=== PATIENT | male | born 1955 | race Caucasian/White ===

== ENCOUNTER → 2019-05-14 07:51 | Outpatient (CLI) | payer OTHER, SELFPAY ==
--- NOTE | 2019-05-14 | DI.CT.S_ITS ---
PROCEDURE: CT ABDOMEN PELVIS W CON INDICATIONS: Left lower quadrant pain TECHNIQUE: After the administration of oral and intravenous contrast, 5 mm thick sections acquired from the diaphragms to the symphysis. 5 mm thick coronal and sagittal reformats were performed. For radiation dose reduction, the following was used: automated exposure control, adjustment of mA and/or kV according to patient size. COMPARISON: [facility], CT, ABDOMEN/PELVIS WITH CONTRAST, 09/30/2014, 10:48. FINDINGS: Image quality: Excellent. ABDOMEN: Lung bases: Left hemidiaphragm is elevated. Consequent compressive atelectasis of the left lung base. Lung bases are otherwise clear. Heart size is normal. There is calcification of the coronary vasculature. Solid organs: Liver is normal in size and enhancement. Gallbladder is within normal limits. Biliary system is non-dilated. Pancreas enhances normally. Spleen is normal in size and enhancement. No adrenal nodules. Kidneys are normal in size and enhancement, without hydronephrosis. Peritoneum and bowel: Stomach, small bowel, and colon loops are normal in caliber and wall thickness. There is diverticulosis of the descending and sigmoid colon, as well as the distal transverse colon and splenic flexure. No evidence of superimposed acute diverticulitis. Normal appendix. No free fluid or air. Nodes and vessels: No retroperitoneal or mesenteric adenopathy. Aorta and inferior vena cava are normal in caliber. Miscellaneous: No ventral hernias. PELVIS: Genitourinary: The urinary bladder is decompressed. Miscellaneous: No inguinal hernias or adenopathy. Bones: Geographic sclerosis with a thin surrounding sclerotic rim in the left femoral head is present, measuring roughly 40 mm anteroposterior by 32 mm transverse. No evidence of associated subchondral fracture. No vertebral body compression fractures. IMPRESSION: 1. No acute process. 2. Normal appendix. 3. Colonic diverticulosis with no evidence of acute diverticulitis. 4. 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 This could be further characterized with noncontrast MRI, if clinically indicated. Dictated by: Li Yuen M.D. on 05/14/2019 at 10:54 Approved by: Li Yuen M.D. on 05/14/2019 at 11:00
== END ==
PROVIDERS: PCP Family Medicine; Visit Provider Family Medicine
DX: R10.32 Left lower quadrant pain (principal); K57.90 Diverticulosis of intestine, part unspecified, without perforation or abscess without bleeding; M87.852 Other osteonecrosis, left femur
CPT/HCPCS: 36415; 74177; 80053; Q9967

== ENCOUNTER → 2019-05-14 07:55 | Outpatient (CLI) | payer OTHER, SELFPAY ==
[2019-05-14 08:29] LABS: Alanine Aminotransferase 17 IU/L (21-72); Albumin 4.8 g/dL (3.5-5.0); Albumin Globulin Ratio 1.5 (1.0-2.8); Alkaline Phosphatase 81 U/L (38-126); Aspartate Aminotransferase 24 IU/L (17-59); BUN Creatinine Ratio 14.3 (6-22); Bilirubin Total 0.5 mg/dL (0.2-1.3); Blood Urea Nitrogen 10 mg/dL (9-20); Calcium 9.7 mg/dL (8.4-10.2); Carbon Dioxide 30 mmol/L (22-32); Chloride 99 mmol/L (98-107); Estimated Glomerular Filt Rate > 60.0 mL/min (>60); Globulin 3.1 g/dL (1.7-4.1); Glucose 107 mg/dL (80-110); HEMOLYSIS < 15 (0-50); Potassium 4.8 mmol/L (3.4-5.1); Sodium 140 mmol/L (137-145); Total Protein 7.9 g/dL (6.3-8.2)
== END ==
PROVIDERS: PCP Family Medicine; Visit Provider Family Medicine
DX: R10.32 Left lower quadrant pain (principal)
CPT/HCPCS: 36415; 80053

== ENCOUNTER → 2020-05-05 14:11 | Outpatient (CLI) | payer OTHER, SELFPAY ==
[2020-05-07 13:20] LABS: COVID19 Sendout Not Detected
== END ==
PROVIDERS: PCP Family Medicine; Visit Provider Physician Assistant
DX: Z01.812 Encounter for preprocedural laboratory examination (principal)
CPT/HCPCS: 87635

== ENCOUNTER 2020-05-08 12:41 | Day surgery (SDC) | payer OTHER, SELFPAY ==
--- NOTE | 2020-05-08 | PATH_ITS ---
[facility] Accession Number: [id number] . 01 Material submitted: . sigmoid colon - DISTAL SIGMOID POLYP . 02 Diagnosis: Distal Sigmoid Colon Polyp, Biopsy: Colonic mucosa with mild active inflammation, most consistent with inflammatory polyp. Negative for dysplasia or malignancy. Additional step section is examined. MRV 05/11/2020 1523 Local . 02 Electronically signed: . Cameron Burgos MD, PhD, Pathologist NPI- [id number] . 01 Gross description: . DISTAL SIGMOID POLYP: Received in formalin is 1 fragment(s) of hale, soft tissue measuring 0.4 x 0.2 x 0.1 cm submitted entirely in 1 cassette(s) /QBJ 05/09/2020 0728 Local . 02 Pathologist provided ICD-10: K63.5, K51.40 . 02 CPT . 713424 Performed at: 01 [facility] [facility], [place], [place] [id number] MD Atif Soria MD Phone: [phone] Performed at: [facility] [address] [place], [place] [id number] MD Silvia Herrera MD Phone: [phone]
--- NOTE | 2020-05-08 12:14 | P.HP_ITS ---
History of Present Illness History of Present Illness Date Patient Seen: 05/08/20 Chief complaint: SDC Narrative: 64 year old male comes in today for consideration of a screening colonoscopy. Last colonoscopy in 2014 was indicated for screening. Findings showed a tubular adenoma at 55 cm and a hyperplastic polyp at 15 cm. He also had sigmoid diverticulosis. There have been no lower GI symptoms suggesting disease such as change in bowel habits, bleeding, abdominal pain or anemia. T here is no family history of colon cancer or colon polyps. Overall health issues have been stable, including no major cardiac events for at least 6 weeks. Past medical history: Chest pain Hyperlipidemia Hypothyroidism COPD Asthma Depression/anxiety Elevated hemidiaphragm Diverticulitis Avascular necrosis, femoral head Peyronie's disease Alcohol abuse Shoulder impingement, left GERD Seborrheic keratosis History of melanoma Past surgical history: Partial thyroidectomy, benign Colonoscopy Family History: Noncontributory Social History: Single, retired. 12 years of education. Alcohol abuse. Meds Home Medications and Allergies Home Medications Medication Instructions Recorded Confirmed Type albuterol sulfate 0.63 mg CONTINUOUS NEBULIZATION 06/09/10 05/08/20 History QID #0 albuterol sulfate [Proventil HFA] 0.09 mg IH PRN PRN #0 05/06/11 05/08/20 History levothyroxine 0.112 mg PO QAM #0 03/05/17 05/08/20 History ezetimibe 10 mg PO DAILY 05/08/20 05/08/20 History lisinopril 20 mg PO DAILY 05/08/20 05/08/20 History sertraline 50 mg PO DAILY 05/08/20 05/08/20 History Allergies Allergy/AdvReac Type Severity Reaction Status Date / Time No Known Drug Allergies Allergy Verified 05/08/20 13:11 Review of Systems Review of Systems ROS: Yes All systems reviewed with the patient and are negative except as otherwise documented Exam Vital Signs (past 8 hours): GENERAL: Alert and oriented, appearing stated age and in no acute distress. HEENT: Head normocephalic/atraumatic. Pupils equal, round, and reactive to light and accomodation. Extraocular muscles intact. Tympanic membranes clear. Nasal mucosa moist, septum midline. Oral mucosa moist, no lesions. Neck soft and supple, no lymphadenopathy. LUNGS: Clear to ausculation bilaterally, no wheezes, rhonchi or rales. CV: Normal S1 and S2 with regular rate and rhythm, no audible murmurs, rubs or gallops. ABDOMEN: Soft, non-tender, non-distended, no organomegaly. Positive bowel sounds. EXTREMITIES: No clubbing, cyanosis, or edema. NEURO: Cranial nerves II through XII grossly intact, no focal deficits. PSYCH: Alert and oriented x 3. SKIN: No concerning lesions. Assessment & Plan Assessment & Plan narrative: 1. History of colon polyps 2. Screening for colon cancer Plan for colonoscopy. The nature and character of the procedure as well as anticipated results were discussed. The possibility of not completing the procedure was also discussed. Possible complications including aspiration pneumonia, bleeding, perforation and reaction to medications either for sedation or preparation and missed lesions were discussed. Questions were answered and proceeding to the colonoscopy was elected. Informed consent signed. I sincerely appreciate the referral allowing me to participate in this patient's care. Please contact me with any questions or concerns.
--- NOTE | 2020-05-08 12:23 | PM.OP.ENDO ---
Operative Date/Time/Diagnoses Date of procedure: 05/08/20 Procedure Notes SCOAP/Timeout: 2:15 p.m. Procedure in detail: ENDOSCOPIST: Chantal Dos Santos MD Sedation RN: Janette Pugh RN Sedation start time: 2:16 p.m. Sedation end time: 2:37 p.m. PROCEDURE: Colonoscopy INDICATIONS: 1. History of colon polyps 2. Screening for colon cancer MEDICATION: Levsin 0.125 mg sublingual, incremental doses of Versed and fentanyl until appropriate level sedation achieved. ASA CLASS: 2 CECAL WITHDRAWAL TIME: 12 minutes COMPLICATIONS: None. EXTENT OF PROCEDURE: Cecum. QUALITY OF PREP: Good with portions of liquid stool. PROCEDURE: Prior to insertion of the colonoscope, a digital rectal examination was accomplished with circumferential palpation of the distal rectal mucosa without significant findings being noted. The high-definition colonoscope was passed into the rectum in the usual fashion and advanced over to the cecum without difficulty. The ileocecal valve, appendiceal stoma, and medial wall all could be inspected and no abnormalities were seen. ASCENDING COLON: As the colonoscope was withdrawn, care was taken to expose and inspect the haustral folds no abnormalities were seen. HEPATIC FLEXURE: Normal, no polyps, diverticula or other abnormalities. TRANSVERSE COLON: Normal, no polyps, diverticula or other abnormalities. DESCENDING COLON: Normal, no polyps, diverticula or other abnormalities. SIGMOID COLON: Moderate diverticulosis. Inflamed mucosa was noted, targeted biopsies taken x2. Otherwise, no polyps or other abnormalities. RECTUM: Normal. J maneuver was produced. There was no significant perianal disease. The J maneuver was broken. The remainder of the rectum was inspected and there was no external hemorrhoid disease. The scope was withdrawn. IMPRESSION: 1. Diverticulosis, moderate, sigmoid 2. Inflamed mucosa, sigmoid, targeted biopsy taken to PLAN: 1. Follow-up in clinic status post pathology results. The possibility of a missed lesion including a malignancy has been discussed with the patient previously. Potential alarm symptoms have been discussed and should be reported immediately.
[2020-05-08] MEDS: HYOSCYAMINE 0.125 MG TABLET PO (13:21)
[2020-05-08 13:26] VITALS: BP 148/88; PULSE 103; RESP 20; TEMP 36.1; O2SAT 98; BMI 28.2
[2020-05-08] MEDS: LACTATED RINGERS 1,000 ML 200 ML IV (13:26)
[2020-05-08] MEDS: fentaNYL 250 MCG/5 ML INJ IV (14:21)
[2020-05-08] MEDS: MIDAZOLAM 5 MG/5 ML VIAL IV (14:22)
[2020-05-08 14:42] VITALS: BP 108/81; PULSE 97; RESP 15; TEMP 36.2; O2SAT 95
[2020-05-08 14:47] VITALS: BP 118/76; PULSE 94; RESP 17; O2SAT 94
[2020-05-08 14:53] VITALS: BP 138/74; PULSE 96; RESP 20; TEMP 37.1; O2SAT 95
[2020-05-08 15:00] VITALS: BP 122/81; PULSE 90; RESP 24; TEMP 36.4; O2SAT 95
== END 2020-05-08 15:10 | disposition home or self-care (01) ==
PROVIDERS: PCP Student in an Organized Health Care Education/Training Program; Referring Provider Student in an Organized Health Care Education/Training Program; Visit Provider Student in an Organized Health Care Education/Training Program
PROC: 0DJD8ZZ Inspection of Lower Intestinal Tract, Via Natural or Artificial Opening Endoscopic (ICD-10-PCS; CPT 45378; principal; 2020-05-08 13:45)
DX: Z12.11 Encounter for screening for malignant neoplasm of colon (principal); Z86.010 Personal history of colon polyps; K57.30 Diverticulosis of large intestine without perforation or abscess without bleeding; K63.5 Polyp of colon
CPT/HCPCS: 45380; J2250; J3010

== ENCOUNTER 2020-08-05 11:23 | Emergency (ER) | payer OTHER, SELFPAY ==
[2020-08-05] VITALS (10 sets, daily range): BP systolic 141–170; BP diastolic 76–92; PULSE 76–109; RESP 15–24; TEMP 36.6; O2SAT 94–98; BMI 27.3
--- NOTE | 2020-08-05 11:44 | ED_ITS ---
HPI - Abdominal Pain General Chief Complaint: Abdominal Pain Stated Complaint: low abd pain Time Seen by Provider: 08/05/20 11:38 Source: patient Mode of arrival: Ambulatory Limitations: no limitations History of Present Illness HPI narrative: This is a 65-year-old male who comes with complaint of abdominal pain. States sort of suprapubic but also little bit on the left side, maybe some slight radiation to the right. He denies any radiation to his back. He denies any fevers but has felt chilled overnight. He has had some nausea but no active vomiting. He denies any radiation of pain to his back, chest or testicles. He states he has been mildly constipated, no melena or hematochezia. He often has nocturia but has not appreciated any dysuria, urgency or frequency. He is unsure if he feels like he is really completely emptying his bladder. He has not had similar symptoms in the past. He does take medication for hypertension hypothyroidism, dyslipidemia and emphysema. He denies any prior surgical history. Related Data Home Medications Medication Instructions Recorded Confirmed albuterol sulfate 0.63 mg CONTINUOUS NEBULIZATION 06/09/10 05/08/20 QID #0 albuterol sulfate [Proventil HFA] 0.09 mg IH PRN PRN #0 05/06/11 05/08/20 levothyroxine 0.112 mg PO QAM #0 03/05/17 05/08/20 ezetimibe 10 mg PO DAILY 05/08/20 05/08/20 lisinopril 20 mg PO DAILY 05/08/20 05/08/20 sertraline 50 mg PO DAILY 05/08/20 05/08/20 Previous Rx's Medication Instructions Recorded amoxicillin-pot clavulanate 1 tab PO Q12H #20 tab 08/05/20 [Augmentin] hydrocodone-acetaminophen [[place]] 1 tab PO Q6H PRN #10 tab 08/05/20 Allergies Allergy/AdvReac Type Severity Reaction Status Date / Time No Known Drug Allergies Allergy Verified 08/05/20 11:32 Review of Systems Review of Systems ROS Unobtainable: All systems reviewed & are unremarkable except as noted in HPI and below Patient History Social History household members: significant other Smoking Status: Former smoker alcohol intake: former Smoking Status: Former smoker alcohol intake frequency: holidays/special occasions only Substance Use Type: does not use Exam Narrative Exam Narrative: GENERAL: Alert and oriented x three, well-nourished, well- appearing male in mild to moderate distress HEENT: Head normocephalic, atraumatic, EOMI, pupils reactive, face symmetric, moist mucous membranes NECK: Supple, full range of motion CARDIOVASCULAR: Regular rate and rhythm without murmurs, rubs or gallops. RESPIRATORY: Breath sounds equal bilaterally, no wheezes rales or rhonchi. ABDOMEN: Soft, positive for left lower quadrant and suprapubic tenderness. Normoactive bowel sounds all 4 quadrants. No guarding or rebound, rigidity, no mass. No bruit or pulsatile mass. : No CVA tenderness EXTREMITIES: Normal range of motion, no clubbing or edema. Neurovascularly intact NEUROLOGICAL: Cranial nerves II through XII grossly intact. Moving all extremities SKIN: Warm, dry, no petechiae, no rashes or lesions. Initial Vital Signs Initial Vital Signs: Vital Signs Temperature 97.9 F 08/05/20 11:25 Pulse Rate 104 H 08/05/20 11:25 Respiratory Rate 15 08/05/20 11:25 Blood Pressure 169/92 H 08/05/20 11:25 Pulse Oximetry 97 08/05/20 11:25 Course Orders Ordered: ED Orders 08/05/20 11:40 Complete Blood Count AUTO DIFF Stat Comprehensive Metabolic Panel Stat Lipase Stat Partial Thromboplastin Time Stat Prothrombin Time INR Stat 08/05/20 11:53 CT abdomen pelvis w con Stat Discontinued Medications Amoxicillin/Clavulanate Potassium (Amoxicillin/Clav 875/125 Mg) 1 tab PO NOW ONE Stop: 08/05/20 14:06 Last Admin: 08/05/20 14:09 Dose: 1 tab Documented by: NALDOINOPj Sodium Chloride (Normal Saline 0.9%) 1,000 mls @ 150 mls/hr IV CONT PEDRO PABLO Last Infusion: 08/05/20 14:15 Dose: 0 mls/hr Documented by: Admin: 08/05/20 12:02 Dose: 150 mls/hr Documented by: NALDOINOPj Ketorolac Tromethamine (Ketorolac 60 Mg/2 Ml Vial) 15 mg IV NOW ONE Stop: 08/05/20 11:54 Last Admin: 08/05/20 12:02 Dose: 15 mg Documented by: MMINOR Reevaluation(s) Reevaluation #1: Patient pain has improved, no urge to urinate. Bladder scan was 25mL. Labs reviewed with patient. CT results pending. Time: 13:16 Vital Signs Vital signs: Vital Signs - 8 hr 08/05/20 12:00 08/05/20 12:34 08/05/20 12:50 Pulse Rate 87 92 H 83 Respiratory Rate 21 24 24 Blood Pressure 141/76 H 152/77 H Pulse Oximetry 95 95 95 08/05/20 13:00 08/05/20 13:30 08/05/20 14:00 Pulse Rate 80 79 76 Respiratory Rate 24 23 23 Blood Pressure 158/76 H 150/83 H 161/89 H Pulse Oximetry 94 94 94 MDM - Abdominal Pain Lab Data Attestation: I reviewed the patient's lab results. Result diagrams: 08/05/20 11:40 08/05/20 11:40 Labs: Lab Results 08/05/20 08/05/20 08/05/20 Range/Units 11:40 11:40 11:40 WBC 13.1 H (4.5-11.0) X10^3/uL RBC 4.62 (4.5-5.9) X10^6/uL Hgb 14.1 (13.5-17.5) g/dL Hct 41.8 (41-53) % MCV 90.4 (80-100) fL MCH 30.6 (26-34) PG MCHC 33.8 (30-36) % RDW 15.2 H (11.6-14.8) % Plt Count 315 (150-400) X10^3/uL Neut % (Auto) 80.1 H (50-75) % Lymph % (Auto) 11.0 L (25-40) % Zapata % (Auto) 8.2 (3-14) % Eos % (Auto) 0.4 L (2-4) % Baso % (Auto) 0.3 (0-2) % Neut # (Auto) 32055 H (1040-1054) /uL Lymph # (Auto) 1500 (1013-4802) /uL Zapata # (Auto) 1100 H (0-900) /uL Eos # (Auto) 100 (0-450) /uL Baso # (Auto) 0 (0-100) /uL PT 12.8 H (10.1-12.7) SECONDS INR 1.1 (0.9-1.3) APTT 36 (26.4-36.2) SECONDS Sodium 134 L (137-145) mmol/L Potassium 4.4 (3.4-5.1) mmol/L Chloride 99 (98-107) mmol/L Carbon Dioxide 29 (22-32) mmol/L BUN 13 (9-20) mg/dL Creatinine 0.65 L (0.66-1.25) mg/dL Estimated GFR > 60.0 (>60) mL/min BUN/Creatinine Ratio 20.0 (6-22) Glucose 117 H (80-110) mg/dL Calcium 9.0 (8.4-10.2) mg/dL Total Bilirubin 0.6 (0.2-1.3) mg/dL AST 23 (17-59) IU/L ALT 23 (<50) IU/L Alkaline Phosphatase 76 (38-126) U/L Total Protein 7.9 (6.3-8.2) g/dL Albumin 4.5 (3.5-5.0) g/dL Globulin 3.4 (1.7-4.1) g/dL Albumin/Globulin Ratio 1.3 (1.0-2.8) Lipase 129 (23-300) U/L Point of care testing: Urine Dip Bedside Urine Glucose Negative Bedside Urine Bilirubin - Negative Bedside Urine Ketone - Negative Urine Specific Santo 1.005 Bedside Urine Occult Blood - Negative Bedside Urine pH 7 Bedside Urine Protein - Negative Bedside Urine Urobilinogen - Negative Bedside Urine Nitrite - Negative Bedside Urine Leukocytes - Negative Esterase Imaging Data CT scan - abdomen/pelvis: Radiologist's Impression: [address] [id number] Scan ReportSigned Patient: Nader Livingston EMR#: [id number]: [id number]/Sex: 65 / MDate of Service: 08/05/20Loc: EDAccession Number: [id number] Procedure: CT abdomen pelvis w con Ordering Provider: Jennifer Branch D.O. PROCEDURE: CT ABDOMEN PELVIS W CON INDICATIONS: suprapubic/LLQ pain, ? diverticulitis TECHNIQUE: After the administration of intravenous contrast, 5 mm thick sections acquired from the diaphragm to the symphysis. 5 mm coronal and sagittal reformats were acquired. For radiation dose reduction, the following was used: automated exposure control, adjustment of mA and/or kV according to patient size. COMPARISON: [facility], CT, CT ABDOMEN PELVIS W CON, 05/14/2019, 8:53. FINDINGS: Image quality: Excellent. ABDOMEN: Lung bases: Mild atelectasis at the left lung base. Elevation of the left hemidiaphragm, unchanged. Heart size is normal. Solid organs: Liver is normal in size and enhancement. Gallbladder is unremarkable. Biliary system is non dilated. Pancreas enhances normally. Spleen is normal in size and enhancement. No adrenal nodules. Kidneys demonstrate normal size and enhancement, without hydronephrosis. Peritoneum and bowel: Diverticulosis prominently affecting the sigmoid colon. Moderate inflammatory change about the distal sigmoid colon, (70). No loculated fluid collection. No convincing extraluminal gas. There is thickening of this portion of the sigmoid colon. Small amount of free fluid tracks into the pelvis. No pneumoperitoneum. No small bowel obstruction. The appendix is not seen. Nodes and vessels: Shotty retroperitoneal lymph nodes. Anterior iliac node measuring 0.8 cm, (2/53). Aorta and inferior vena cava are normal in size. Moderate calcified atherosclerotic plaque. Miscellaneous: No ventral hernias. PELVIS: Genitourinary: Bladder wall thickness is normal. Miscellaneous: No inguinal hernias or adenopathy. Bones: No suspicious bony lesions. L3-L4 moderate to severe DDD. No vertebral body compression fractures. IMPRESSION: Acute diverticulitis, moderate severity. No abscess. Small retroperitoneal lymph nodes. Thickening of the sigmoid colon. Recommend correlation with colonoscopy if not recently performed to exclude underlying malignancy. Comment: Findings were discussed with Jennifer Branch at the time of dictation. Dictated by: Abrahan English M.D. on 08/05/2020 at 12:40 Approved by: Abrahan English M.D. on 08/05/2020 at 12:48 MDM Narrative Medical decision making narrative: Patient has diverticulitis changes on imaging, started on oral antibiotics. He had a colonoscopy a month ago and did not have any changes or findings we did discuss that there is some lymphadenopathy noted and follow up with his physician but he is rescheduled for repeat colonoscopy in 5 years at this time. Discharge Plan Departure Patient Disposition: Home Clinical Impression: Diverticulitis Instructions: Diverticulitis Activity Restrictions/Additional Instructions: Follow-up with your physician in the next week if your symptoms have not completely resolved. Take antibiotics until they are completely gone. Take pain medication as needed, this medication can make you sleepy do not drive, perform hazardous activities or make any major decisions while taking it. I do recommend that you take a stool softener such as colace 1-2 times daily until you have soft stools Prescription sent to [facility] Return to the ER for fevers, worsening abdominal, back or flank pain, persistent vomiting, black or bloody stools, if you are unable to urinate have any other new or concerning symptoms. Prescriptions: New amoxicillin-pot clavulanate [Augmentin] 875-125 mg tablet 1 tab PO Q12H Qty: 20 RF: 0 hydrocodone-acetaminophen [[place]] 5-325 mg tablet 1 tab PO Q6H PRN (Reason: pain) Qty: 10 RF: 0 No Action albuterol sulfate 0.63 mg/3 mL solution for nebulization 0.63 mg continuous nebulization QID Qty: 0 RF: 0 albuterol sulfate [Proventil HFA] 90 MCG/PUFF HFA aerosol inhaler 0.09 mg IH PRN PRN (Reason: COPD) Qty: 0 RF: 0 levothyroxine 112 MCG tablet 0.112 mg PO QAM Qty: 0 RF: 0 lisinopril 20 mg tablet 20 mg PO DAILY RF: 0 sertraline 50 mg tablet 50 mg PO DAILY RF: 0 ezetimibe 10 mg tablet 10 mg PO DAILY RF: 0 Referrals: Chantal Dos Santos MD [Primary Care Provider] -
--- NOTE | 2020-08-05 11:53 | DI.CT.S_ITS ---
PROCEDURE: CT ABDOMEN PELVIS W CON INDICATIONS: suprapubic/LLQ pain, ? diverticulitis TECHNIQUE: After the administration of intravenous contrast, 5 mm thick sections acquired from the diaphragm to the symphysis. 5 mm coronal and sagittal reformats were acquired. For radiation dose reduction, the following was used: automated exposure control, adjustment of mA and/or kV according to patient size. COMPARISON: [facility], CT, CT ABDOMEN PELVIS W CON, 05/14/2019, 8:53. FINDINGS: Image quality: Excellent. ABDOMEN: Lung bases: Mild atelectasis at the left lung base. Elevation of the left hemidiaphragm, unchanged. Heart size is normal. Solid organs: Liver is normal in size and enhancement. Gallbladder is unremarkable. Biliary system is non dilated. Pancreas enhances normally. Spleen is normal in size and enhancement. No adrenal nodules. Kidneys demonstrate normal size and enhancement, without hydronephrosis. Peritoneum and bowel: Diverticulosis prominently affecting the sigmoid colon. Moderate inflammatory change about the distal sigmoid colon, (2/70). No loculated fluid collection. No convincing extraluminal gas. There is thickening of this portion of the sigmoid colon. Small amount of free fluid tracks into the pelvis. No pneumoperitoneum. No small bowel obstruction. The appendix is not seen. Nodes and vessels: Shotty retroperitoneal lymph nodes. Anterior iliac node measuring 0.8 cm, (2/53). Aorta and inferior vena cava are normal in size. Moderate calcified atherosclerotic plaque. Miscellaneous: No ventral hernias. PELVIS: Genitourinary: Bladder wall thickness is normal. Miscellaneous: No inguinal hernias or adenopathy. Bones: No suspicious bony lesions. L3-L4 moderate to severe DDD. No vertebral body compression fractures. IMPRESSION: Acute diverticulitis, moderate severity. No abscess. Small retroperitoneal lymph nodes. Thickening of the sigmoid colon. Recommend correlation with colonoscopy if not recently performed to exclude underlying malignancy. Comment: Findings were discussed with Jennifer Branch at the time of dictation. Dictated by: Abrahan English M.D. on 08/05/2020 at 12:40 Approved by: Abrahan English M.D. on 08/05/2020 at 12:48
[2020-08-05 11:59] LABS: Add Manual Diff / Slide Review NO; Basophils Absolute Auto 0 /uL (0-100); Basophils Percent Auto 0.3 % (0-2); Eosinophils Absolute Auto 100 /uL (0-450); Eosinophils Percent Auto 0.4 % (2-4); Hematocrit 41.8 % (41-53); Hemoglobin 14.1 g/dL (13.5-17.5); Lymphocytes Absolute Auto 1500 /uL (1100-4500); Mean Corpuscular HGB Conc 33.8 % (30-36); Mean Corpuscular Hemoglobin 30.6 PG (26-34); Mean Corpuscular Volume 90.4 fL (80-100); Monocytes Absolute Auto 1100 /uL (0-900); Monocytes Percent Auto 8.2 % (3-14); Neutrophils Absolute Auto 10500 /uL (1500-7000); Neutrophils Percent Auto 80.1 % (50-75); Platelet Count 315 X10^3/uL (150-400); Red Blood Cell Count 4.62 X10^6/uL (4.5-5.9); Red Cell Distribution Width 15.2 % (11.6-14.8); White Blood Cell Count 13.1 X10^3/uL (4.5-11.0)
[2020-08-05 12:02] LABS: INR 1.1 (0.9-1.3); Prothrombin Time 12.8 SECONDS (10.1-12.7)
[2020-08-05] MEDS: KETOROLAC 60 MG/2 ML VIAL 15 MG IV (12:02)
[2020-08-05] MEDS: SODIUM CHLORIDE 0.9% 1,000 ML 150 ML IV (12:02)
[2020-08-05 12:04] LABS: PTT Partial Thromboplastin Tim 36 SECONDS (26.4-36.2)
[2020-08-05 12:06] LABS: Alanine Aminotransferase 23 IU/L (<50); Albumin 4.5 g/dL (3.5-5.0); Albumin Globulin Ratio 1.3 (1.0-2.8); Alkaline Phosphatase 76 U/L (38-126); Aspartate Aminotransferase 23 IU/L (17-59); Bilirubin Total 0.6 mg/dL (0.2-1.3); Blood Urea Nitrogen 13 mg/dL (9-20); Carbon Dioxide 29 mmol/L (22-32); Chloride 99 mmol/L (98-107); Estimated Glomerular Filt Rate > 60.0 mL/min (>60); Globulin 3.4 g/dL (1.7-4.1); Glucose 117 mg/dL (80-110); HEMOLYSIS < 15 (0-50); Lipase 129 U/L (23-300); Potassium 4.4 mmol/L (3.4-5.1); Sodium 134 mmol/L (137-145); Total Protein 7.9 g/dL (6.3-8.2)
[2020-08-05] MEDS: AMOXICILLIN/CLAV 875/125 MG 1 TAB PO (14:09)
== END 2020-08-05 14:17 | disposition home or self-care (01) ==
PROVIDERS: Emergency Provider Emergency Medicine; PCP Student in an Organized Health Care Education/Training Program
DX: K57.92 Diverticulitis of intestine, part unspecified, without perforation or abscess without bleeding (principal); R11.0 Nausea; K59.00 Constipation, unspecified; I10 Essential (primary) hypertension
CPT/HCPCS: 36415; 51798; 74177; 80053; 81003; 83690; 85025; 85610; 85730; 96361; 96374; 99283; 99284; J1885; Q9967

== ENCOUNTER → 2020-10-17 15:36 | Outpatient (CLI) | payer MEDICARE, SELFPAY ==
[2020-10-17] MEDS: COVID-19 VACC #1, MRNA(MOD) 100 MCG/0.5 ML VIAL IM (15:41)
== END ==
PROVIDERS: PCP Student in an Organized Health Care Education/Training Program; Visit Provider Internal Medicine
DX: Z23 Encounter for immunization (principal)
CPT/HCPCS: 0011A; 91301

== ENCOUNTER → 2020-11-15 08:20 | Outpatient (CLI) | payer MEDICARE, SELFPAY ==
[2020-11-15] MEDS: COVID-19 VACC #2, MRNA(MOD) 100 MCG/0.5 ML VIAL IM (08:27)
== END ==
PROVIDERS: PCP Student in an Organized Health Care Education/Training Program; Visit Provider Internal Medicine
DX: Z23 Encounter for immunization (principal)
CPT/HCPCS: 0012A; 91301

== ENCOUNTER → 2020-11-22 11:06 | Outpatient (CLI) | payer OTHER, SELFPAY ==
[2020-11-22 11:53] LABS: COVID19 -Nasal RAPID Negative (Negative)
== END ==
PROVIDERS: PCP Student in an Organized Health Care Education/Training Program; Referring Provider Internal Medicine; Visit Provider Internal Medicine
DX: Z20.822 Contact with and (suspected) exposure to COVID-19 (principal)
CPT/HCPCS: 87635; C9803

== ENCOUNTER → 2020-11-23 06:43 | Outpatient (CLI) | payer OTHER, SELFPAY ==
--- NOTE | 2020-11-29 09:11 | PM.PFT.1 ---
Pulmonary Function Test Referral & Results Date Patient Seen: 11/23/20 Requesting provider: Eladio Buitrago Results: The spirometry demonstrates an FVC of 1.68 L which is 40% of predicted. The FEV1 was measured at 0.89 L which is 20% of predicted. The FEV1/FVC ratio was 53 which is 70% of predicted. Following the administration of bronchodilator there was a 47% improvement in FEV1 and a 164% improvement in FEF 25-75%. Lung volumes show an SVC of 1.98 L which is 46% of predicted. The diffusing capacity was measured at 19.35 which is 68% of predicted. No hemoglobin value was provided, so no correction for potential anemia could be made, if appropriate. The maximum voluntary ventilation was severely reduced Interpretation: This study demonstrates severe obstructive lung disease with FEV1 less than 1 L. There is evidence of significant benefit following bronchodilator as noted above There is also moderately severe restrictive lung disease present based on reduction SVC There is also reduction diffusing capacity suggesting element of disease at the capillary alveolar level Compared to PFTs performed in November 2009, current study shows significant progression of obstructive lung disease and restrictive lung disease. Previous diffusing capacity was also normal which is not true on current study as above
== END ==
PROVIDERS: PCP Family Medicine; Referring Provider Family Medicine; Visit Provider Family Medicine
DX: J44.9 Chronic obstructive pulmonary disease, unspecified (principal); Z87.891 Personal history of nicotine dependence; J45.909 Unspecified asthma, uncomplicated
CPT/HCPCS: 94060; 94726; 94729

== ENCOUNTER → 2021-01-04 11:01 | Outpatient (CLI) | payer OTHER, SELFPAY ==
--- NOTE | 2021-01-04 | DI.CT.S_ITS ---
PROCEDURE: CT CHEST HIGH RESOLUTION INDICATIONS: Solitary pulmonary nodule TECHNIQUE: Noncontrast 1.0 and 5.0 mm thick contiguous axial sections from the pulmonary apex to the posterior costophrenic angles, with 7 mm thick coronal and sagittal MIP reformats. 1 mm thick dynamic expiratory images acquired through the upper, mid, and lower lungs. 1.0 mm thick axial sections acquired from the bernarda to the posterior costophrenic angles in the prone end-inspiration position. For radiation dose reduction, the following was used: automated exposure control, adjustment of mA and/or kV according to patient size. COMPARISON: [facility], CT, PE STUDY (CTA CHEST), 04/06/2010, 12:46. FINDINGS: Image quality: Excellent. Lungs: Mild streaky opacity in the left lung. This appears similar to CT 08/05/2020. No mass or significant pulmonary nodules. Minimal pleural thickening in the right lateral chest, (4/122). No air trapping. Central airways are clear. Pleura: No pleural effusions or pneumothorax. Mediastinum: Heart size is normal. Coronary artery calcifications. No pericardial effusion. Asymmetric elevation of the left hemidiaphragm, unchanged since 2009. Thoracic aorta and central pulmonary arteries are normal in size. Mild calcified atherosclerotic plaque. Esophagus is normal in caliber. Bones and chest wall: No suspicious bony lesions. Prior left-sided rib fractures. No vertebral body compression fractures. Abdomen: Visualized upper abdominal solid organs and bowel loops appear normal. Diverticulosis. IMPRESSION: No interstitial lung disease demonstrated. Scarring or atelectasis in the left lung. Stable asymmetric elevation of the left hemidiaphragm. No acute airspace opacity. No significant pulmonary nodule. Dictated by: Abrahan English M.D. on 01/04/2021 at 12:54 Approved by: Abrahan English M.D. on 01/04/2021 at 13:03
== END ==
PROVIDERS: PCP Family Medicine; Referring Provider Internal Medicine Critical Care Medicine; Visit Provider Internal Medicine Critical Care Medicine
DX: R91.1 Solitary pulmonary nodule (principal)
CPT/HCPCS: 71250

== ENCOUNTER 2021-07-05 16:52 | Emergency (ER) | payer OTHER, SELFPAY ==
[2021-07-05] VITALS (17 sets, daily range): BP systolic 125–153; BP diastolic 68–91; PULSE 85–113; RESP 16–35; TEMP 36.3; O2SAT 90–97; BMI 26.6
--- NOTE | 2021-07-05 17:18 | DI.RAD.S_ITS ---
PROCEDURE: XR CHEST 1V INDICATIONS: chest pain TECHNIQUE: One view of the chest was acquired. COMPARISON: [facility], CR, CHEST WITH FLUOROSCOPY, 04/02/2007, 14:13. [facility], CR, CHEST 1 VIEW, 02/04/2015, 21:07. [facility], CT, CT CHEST HIGH RESOLUTION, 01/04/2021, 11:11. FINDINGS: Surgical changes and devices: Postoperative clips can be seen involving the lower neck on both sides. Lungs and pleura: Lungs are clear. No pleural effusions or pneumothorax. There is elevation of the left hemidiaphragm again seen. Mediastinum: Mediastinal contours appear normal. Heart size is normal. Bones and chest wall: No suspicious bony lesions. Age-appropriate bony degenerative changes are seen. Overlying soft tissues appear unremarkable. IMPRESSION: Clear lungs. Stable elevation of the left hemidiaphragm. If there is strong clinical concern for paralysis of this hemidiaphragm, please consider a dedicated fluoroscopic sniff test for further evaluation. Postoperative and degenerative changes are seen. Dictated by: Ted Norwood M.D. on 07/05/2021 at 16:42 Approved by: Ted Norwood M.D. on 07/05/2021 at 16:44
[2021-07-05 17:45] LABS: Add Manual Diff / Slide Review NO; Basophils Absolute Auto 0 /uL (0-100); Basophils Percent Auto 0.4 % (0-2); Eosinophils Absolute Auto 0 /uL (0-450); Eosinophils Percent Auto 0.1 % (2-4); Hematocrit 39.1 % (41-53); Hemoglobin 13.6 g/dL (13.5-17.5); Lymphocytes Absolute Auto 1200 /uL (1100-4500); Lymphocytes Percent Auto 13.1 % (25-40); Mean Corpuscular HGB Conc 34.8 % (30-36); Mean Corpuscular Hemoglobin 31.4 PG (26-34); Mean Corpuscular Volume 90.2 fL (80-100); Monocytes Absolute Auto 700 /uL (0-900); Monocytes Percent Auto 7.4 % (3-14); Neutrophils Absolute Auto 7100 /uL (1500-7000); Platelet Count 245 X10^3/uL (150-400); Red Blood Cell Count 4.34 X10^6/uL (4.5-5.9); Red Cell Distribution Width 15.7 % (11.6-14.8)
[2021-07-05 17:55] LABS: INR 1.1 (0.9-1.3); Prothrombin Time 12.2 SECONDS (10.1-12.7)
[2021-07-05] MEDS: SODIUM CHLORIDE 0.9% 1,000 ML 1000 ML IV (17:55)
[2021-07-05] MEDS: ONDANSETRON 4 MG/2 ML INJ IV (17:55)
[2021-07-05] MEDS: MORPHINE 4 MG/ML INJ IV (17:55)
[2021-07-05 18:00] LABS: Alanine Aminotransferase 27 IU/L (<50); Albumin Globulin Ratio 1.7 (1.0-2.8); Alkaline Phosphatase 66 U/L (38-126); Aspartate Aminotransferase 40 IU/L (17-59); BUN Creatinine Ratio 19.7 (6-22); Bilirubin Total 0.7 mg/dL (0.2-1.3); Blood Urea Nitrogen 15 mg/dL (9-20); Calcium 9.7 mg/dL (8.4-10.2); Carbon Dioxide 27 mmol/L (22-32); Chloride 89 mmol/L (98-107); Creatine Kinase 499 U/L (55-170); Estimated Glomerular Filt Rate > 60.0 mL/min (>60); Glucose 113 mg/dL (80-110); HEMOLYSIS < 15 (0-50); Lipase 35 U/L (23-300); Potassium 3.8 mmol/L (3.4-5.1); Sodium 130 mmol/L (137-145)
[2021-07-05 18:16] LABS: Lactate (Lactic Acid) 0.7 mmol/L (0.7-2.1)
[2021-07-05 18:25] LABS: CKMB % Relative Index 0.8 % (1.5-5.0); Creatine Kinase MB 4.14 ng/mL (<2.37)
[2021-07-05 18:28] LABS: Troponin I < 0.012 ng/mL (0.01-0.034)
--- NOTE | 2021-07-05 19:04 | DI.CT.S_ITS ---
PROCEDURE: CT ABDOMEN PELVIS W CON INDICATIONS: Left-sided abdominal pain TECHNIQUE: After the administration of intravenous contrast, axial sections acquired from the lung bases to the pubic symphysis. Coronal and sagittal reformats were performed. For radiation dose reduction, the following was used: automated exposure control, adjustment of mA and/or kV according to patient size. COMPARISON: [facility], CT, CT ABDOMEN PELVIS W CON, 08/05/2020, 12:26. FINDINGS: Image quality: Excellent. Lung bases: Unremarkable. Heart: Moderate coronary artery disease. ABDOMEN: Liver: Mild steatosis. No masses. Gallbladder: Normal. Biliary ducts: Nondilated. Pancreas: Normal. Spleen: Normal. Adrenal Glands: No nodules. Kidneys and Ureters: Normal enhancement. No hydronephrosis or hydroureter. Stomach and Bowel: There are several mildly prominent small bowel loops with air-fluid levels in the left abdomen. There is trace interloop fluid in the left upper quadrant. A discrete transition point is not identified. There is diverticulosis throughout the colon with long segment wall thickening in the proximal sigmoid colon. No acute inflammatory change. Peritoneum: No abnormal intraperitoneal fluid. No free air. Ventral Wall: No hernias. Abdominal Nodes: No retroperitoneal or mesenteric adenopathy by size criteria. Vessels: Aorta and inferior vena cava are normal in size. Mild abdominal aortic atherosclerotic calcification. PELVIS: Pelvic Organs: Moderate prostatomegaly.. Bladder: Normal bladder wall thickness. Pelvic Nodes: No enlarged lymph nodes. Miscellaneous: No hernias are seen. Bones: Degenerative disc change at L3-4. Partial ankylosis at the sacroiliac joints. IMPRESSION: 1. Several mildly dilated small bowel loops in the left upper quadrant with interloop fluid suggesting gastroenteritis, ileus, early, or partial obstruction. 2. Diverticulosis of the colon without acute diverticulitis. 3. Moderate prostatomegaly. Dictated by: Jennifer Triplett M.D. on 07/05/2021 at 21:12 Approved by: Jennifer Triplett M.D. on 07/05/2021 at 21:18
--- NOTE | 2021-07-05 19:04 | ED.GENADULT ---
HPI - General Adult General Chief complaint: Abdominal Pain Stated complaint: Diverticulitis flare up...ABD pain, nausea Time Seen by Provider: 07/05/21 17:42 Source: patient Mode of arrival: Ambulatory Limitations: no limitations History of Present Illness HPI narrative: Patient is a 66-year-old male. Does have a history of diverticulitis. His here for evaluation of several days of abdominal discomfort that he states in some ways feels like his prior diagnosis of diverticulitis. He does state this is somewhat different is he is having pain more diffusely around his abdomen and not just on the left side. He also feels like he has distention. Has nausea but no vomiting. No blood in his stool. No urinary symptoms. Had a colonoscopy within the past 5 years. He did have polyps that were removed and he was told to come back in 5 years. He denies any fevers. Does have reflux. This is not unusual for him. He did try some Tums prior to arrival. He is having some respiratory issues but this is also not new for him. 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 He states that he abdominal distension is causing him problems with breathing because when he bends over to put on issues he become short of breath. Related Data Home Medications Medication Instructions Recorded Confirmed albuterol sulfate 0.63 mg/3 mL 0.63 mg CONTINUOUS NEBULIZATION 06/09/10 05/08/20 solution for nebulization QID #0 albuterol sulfate 90 mcg/actuation 0.09 mg IH PRN PRN #0 05/06/11 05/08/20 aerosol inhaler (Proventil HFA) levothyroxine 112 mcg tablet 0.112 mg PO QAM #0 03/05/17 05/08/20 ezetimibe 10 mg tablet 10 mg PO DAILY 05/08/20 05/08/20 lisinopril 20 mg tablet 20 mg PO DAILY 05/08/20 05/08/20 sertraline 50 mg tablet 50 mg PO DAILY 05/08/20 05/08/20 Previous Rx's Medication Instructions Recorded amoxicillin 875 mg-potassium 1 tab PO Q12H #20 tab 08/05/20 clavulanate 125 mg tablet (Augmentin) hydrocodone 5 mg-acetaminophen 325 1 tab PO Q6H PRN #10 tab 08/05/20 mg tablet ([place]) ondansetron 4 mg disintegrating 4 mg PO Q6H PRN #10 tab 07/05/21 tablet simethicone 80 mg chewable tablet 80 mg PO BID-QID PRN #20 tab 07/05/21 Allergies Allergy/AdvReac Type Severity Reaction Status Date / Time No Known Drug Allergies Allergy Verified 07/05/21 17:09 Review of Systems Constitutional Constitutional: Denies fever(s) Cardiovascular Cardiovascular: Reports system reviewed and no additional complaints, except as documented Respiratory Respiratory: Reports system reviewed and no additional complaints, except as documented Gastrointestinal Gastrointestinal: Reports system reviewed and no additional complaints, except as documented Genitourinary Genitourinary: Reports system reviewed and no additional complaints, except as documented Integumentary/Breasts Skin/Breast: Reports system reviewed and no additional complaints, except as documented Neurologic Neurologic: Reports system reviewed and no additional complaints, except as documented Hematologic/Lymphatic On Anticoagulants: No Patient History Medical History Closed fracture of left distal fibula Social History household members: significant other Smoking Status: Former smoker alcohol intake: former Smoking Status: Former smoker alcohol intake frequency: a few times a week Substance Use Type: does not use Exam Initial Vital Signs Initial Vital Signs: Vital Signs Temperature 97.4 F L 07/05/21 17:04 Pulse Rate 113 H 07/05/21 17:04 Respiratory Rate 16 07/05/21 17:04 Blood Pressure 153/83 H 07/05/21 17:04 Pulse Oximetry 97 07/05/21 17:04 Const General: cooperative and healthy appearing [facility] Head: normal to inspection and normocephalic Resp Effort & Inspection: not labored and tachypneic Cardio Rate: regular rate Rhythm: regular rhythm GI Inspection: distended Palpation: soft, No firm and No guarding Skin General: no rashes or lesions noted Neuro General: patient alert, patient awake, patient oriented x3 and moves all extremities Extrem General: normal to inspection and capillary refill normal Psych Appearance: grossly normal and well kempt Course Orders Ordered: ED Orders 07/05/21 19:04 CT abdomen pelvis w con Stat Discontinued Medications Sodium Chloride (Normal Saline 0.9%) 1,000 mls @ 1,000 mls/hr IV BOLUS ONE Stop: 07/05/21 18:42 Last Infusion: 07/05/21 19:07 Dose: 0 mls/hr Documented by: Admin: 07/05/21 17:55 Dose: 1,000 mls/hr Documented by: HEVER Morphine Sulfate (Morphine 4 Mg/Ml Inj) 4 mg IV NOW ONE Stop: 07/05/21 17:44 Last Admin: 07/05/21 17:55 Dose: 4 mg Documented by: HEVER Ondansetron HCl (Ondansetron 4 Mg/2 Ml Inj) 4 mg IV NOW ONE Stop: 07/05/21 17:44 Last Admin: 07/05/21 17:55 Dose: 4 mg Documented by: HEVER Ondansetron HCl (Ondansetron 4 Mg Odt Prepack) 1 bottle MISC SEEINSTR ONE Stop: 07/05/21 22:55 Last Admin: 07/05/21 23:06 Dose: 1 bottle Documented by: DEBORA Pantoprazole Sodium (Pantoprazole 40 Mg Vial) 40 mg IV NOW ONE Stop: 07/05/21 22:02 Last Admin: 07/05/21 22:10 Dose: 40 mg Documented by: HEVER Simethicone (Simethicone 80 Mg Tablet) 80 mg PO NOW ONE Stop: 07/05/21 22:02 Last Admin: 07/05/21 22:10 Dose: 80 mg Documented by: HEVER Vital Signs Vital signs: Vital Signs - 8 hr 07/05/21 19:00 07/05/21 19:30 07/05/21 20:00 Pulse Rate 93 H 86 96 H Respiratory Rate 26 H 23 23 Blood Pressure 135/80 142/68 H Pulse Oximetry 93 92 94 07/05/21 20:30 07/05/21 21:00 07/05/21 21:30 Pulse Rate 92 H 97 H 97 H Respiratory Rate 23 25 H 21 Blood Pressure Pulse Oximetry 92 94 92 07/05/21 21:41 07/05/21 22:00 07/05/21 22:30 Pulse Rate 93 H 92 H 112 H Respiratory Rate 22 23 35 H Blood Pressure 125/82 139/78 Pulse Oximetry 93 93 91 07/05/21 23:00 Pulse Rate 85 Respiratory Rate 23 Blood Pressure 138/75 Pulse Oximetry 94 Medical Decision Making Lab Data Lab results reviewed: Yes I reviewed the patient's lab results. Result diagrams: 07/05/21 17:30 07/05/21 17:30 Labs: Lab Results 07/05/21 07/05/21 07/05/21 Range/Units 17:30 17:30 17:30 WBC 9.0 (4.5-11.0) X10^3/uL RBC 4.34 L (4.5-5.9) X10^6/uL Hgb 13.6 (13.5-17.5) g/dL Hct 39.1 L (41-53) % MCV 90.2 (80-100) fL MCH 31.4 (26-34) PG MCHC 34.8 (30-36) % RDW 15.7 H (11.6-14.8) % Plt Count 245 (150-400) X10^3/uL Neut % (Auto) 79.0 H (50-75) % Lymph % (Auto) 13.1 L (25-40) % [place] % (Auto) 7.4 (3-14) % Eos % (Auto) 0.1 L (2-4) % Baso % (Auto) 0.4 (0-2) % Neut # (Auto) 7100 H (9294-4744) /uL Lymph # (Auto) 1200 (5700-1127) /uL [place] # (Auto) 700 (0-900) /uL Eos # (Auto) 0 (0-450) /uL Baso # (Auto) 0 (0-100) /uL PT 12.2 (10.1-12.7) SECONDS INR 1.1 (0.9-1.3) Sodium 130 L (137-145) mmol/L Potassium 3.8 (3.4-5.1) mmol/L Chloride 89 L (98-107) mmol/L Carbon Dioxide 27 (22-32) mmol/L BUN 15 (9-20) mg/dL Creatinine 0.76 (0.66-1.25) mg/dL Estimated GFR > 60.0 (>60) mL/min BUN/Creatinine Ratio 19.7 (6-22) Glucose 113 H (80-110) mg/dL Lactate (0.7-2.1) mmol/L Calcium 9.7 (8.4-10.2) mg/dL Total Bilirubin 0.7 (0.2-1.3) mg/dL AST 40 (17-59) IU/L ALT 27 (<50) IU/L Alkaline Phosphatase 66 (38-126) U/L Total Creatine Kinase 499 H (55-170) U/L CK-MB (CK-2) 4.14 H (<2.37) ng/mL CK-MB (CK-2) Rel Index 0.8 L (1.5-5.0) % Troponin I < 0.012 (0.01-0.034) ng/mL Total Protein 8.0 (6.3-8.2) g/dL Albumin 5.0 (3.5-5.0) g/dL Globulin 3.0 (1.7-4.1) g/dL Albumin/Globulin Ratio 1.7 (1.0-2.8) Lipase 35 (23-300) U/L 07/05/21 Range/Units 17:30 WBC (4.5-11.0) X10^3/uL RBC (4.5-5.9) X10^6/uL Hgb (13.5-17.5) g/dL Hct (41-53) % MCV (80-100) fL MCH (26-34) PG MCHC (30-36) % RDW (11.6-14.8) % Plt Count (150-400) X10^3/uL Neut % (Auto) (50-75) % Lymph % (Auto) (25-40) % [place] % (Auto) (3-14) % Eos % (Auto) (2-4) % Baso % (Auto) (0-2) % Neut # (Auto) (6440-4770) /uL Lymph # (Auto) (0634-2698) /uL [place] # (Auto) (0-900) /uL Eos # (Auto) (0-450) /uL Baso # (Auto) (0-100) /uL PT (10.1-12.7) SECONDS INR (0.9-1.3) Sodium (137-145) mmol/L Potassium (3.4-5.1) mmol/L Chloride (98-107) mmol/L Carbon Dioxide (22-32) mmol/L BUN (9-20) mg/dL Creatinine (0.66-1.25) mg/dL Estimated GFR (>60) mL/min BUN/Creatinine Ratio (6-22) Glucose (80-110) mg/dL Lactate 0.7 (0.7-2.1) mmol/L Calcium (8.4-10.2) mg/dL Total Bilirubin (0.2-1.3) mg/dL AST (17-59) IU/L ALT (<50) IU/L Alkaline Phosphatase (38-126) U/L Total Creatine Kinase (55-170) U/L CK-MB (CK-2) (<2.37) ng/mL CK-MB (CK-2) Rel Index (1.5-5.0) % Troponin I (0.01-0.034) ng/mL Total Protein (6.3-8.2) g/dL Albumin (3.5-5.0) g/dL Globulin (1.7-4.1) g/dL Albumin/Globulin Ratio (1.0-2.8) Lipase (23-300) U/L Imaging Data Chest x-ray: Radiologist's Impression: [address] [address] XRay Report Signed Patient: Nader Livingston MR#: [id number] : 1955 Acct:[id number] Age/Sex: 66 / M Date of Service: 07/05/21 Loc: ED Accession Number: [id number] ?? Procedure: XR chest 1V Ordering Provider: Jennifer Branch D.O. PROCEDURE:? XR CHEST 1V ? INDICATIONS:? chest pain ? TECHNIQUE:? One view of the chest was acquired.? ? COMPARISON:? [facility], CR, CHEST WITH FLUOROSCOPY, 04/02/2007, 14:13.? [facility], CR, CHEST 1 VIEW, 02/04/2015, 21:07.? [facility], CT, CT CHEST HIGH RESOLUTION, 01/04/2021, 11:11. ? FINDINGS:? ? Surgical changes and devices:? Postoperative clips can be seen involving the lower neck on both sides. ? Lungs and pleura:? Lungs are clear.? No pleural effusions or pneumothorax.? There is elevation of the left hemidiaphragm again seen. ? Mediastinum:? Mediastinal contours appear normal.? Heart size is normal.? ? Bones and chest wall:? No suspicious bony lesions.? Age-appropriate bony degenerative changes are seen.? Overlying soft tissues appear unremarkable.? ? ? IMPRESSION:? Clear lungs. ? Stable elevation of the left hemidiaphragm.? If there is strong clinical concern for paralysis of this hemidiaphragm, please consider a dedicated fluoroscopic sniff test for further evaluation.? ? Postoperative and degenerative changes are seen.? ? Dictated by: Ted Norwood M.D. on 07/05/2021 at 16:42 ? ? Approved by: Ted Norwood M.D. on 07/05/2021 at 16:44? CT scan - abdomen/pelvis: Radiologist's Impression: [place] [address] CT Scan Report Signed Patient: Nader Livingston MR#: [id number] : 1955 Acct:[id number] Age/Sex: 66 / M Date of Service: 07/05/21 Loc: ED Accession Number: [id number] ?? Procedure: CT abdomen pelvis w con Ordering Provider: Marquise Lux D.O. PROCEDURE:? CT ABDOMEN PELVIS W CON ? INDICATIONS:? Left-sided abdominal pain ? TECHNIQUE:? After the administration of intravenous contrast, axial sections acquired from the lung bases to the pubic symphysis.? Coronal and sagittal reformats were performed.? For radiation dose reduction, the following was used:? automated exposure control, adjustment of mA and/or kV according to patient size.? ? COMPARISON:? [facility], CT, CT ABDOMEN PELVIS W CON, 08/05/2020, 12:26. ? FINDINGS:? Image quality:? Excellent.? ? Lung bases:? Unremarkable. Heart:? Moderate coronary artery disease. ? ABDOMEN: Liver:? Mild steatosis.? No masses. Gallbladder:? Normal. Biliary ducts:? Nondilated. Pancreas:? Normal. Spleen:? Normal. Adrenal Glands:? No nodules. Kidneys and Ureters:? Normal enhancement.? No hydronephrosis or hydroureter. ? Stomach and Bowel:? There are several mildly prominent small bowel loops with air-fluid levels in the left abdomen.? There is trace interloop fluid in the left upper quadrant.? A discrete transition point is not identified.? There is diverticulosis throughout the colon with long segment wall thickening in the proximal sigmoid colon.? No acute inflammatory change. Peritoneum:? No abnormal intraperitoneal fluid.? No free air.? ? Ventral Wall: ? No hernias.? Abdominal Nodes:? No retroperitoneal or mesenteric adenopathy by size criteria.? Vessels:? Aorta and inferior vena cava are normal in size.? Mild abdominal aortic atherosclerotic calcification. ? PELVIS: Pelvic Organs:? Moderate prostatomegaly..? ? Bladder:? Normal bladder wall thickness. Pelvic Nodes: No enlarged lymph nodes.? Miscellaneous: No hernias are seen. ? ? ? Bones:? Degenerative disc change at L3-4.? Partial ankylosis at the sacroiliac joints. ? ? IMPRESSION:? 1. Several mildly dilated small bowel loops in the left upper quadrant with interloop fluid suggesting gastroenteritis, ileus, early, or partial obstruction.? 2. Diverticulosis of the colon without acute diverticulitis.? 3. Moderate prostatomegaly. ? ? Dictated by: Jnenifer Triplett M.D. on 07/05/2021 at 21:12 ? ? Approved by: Jennifer Triplett M.D. on 07/05/2021 at 21:18?? ECG Data Attestation: I personally reviewed and interpreted this ECG as follows: Interpretation: Sinus rhythm Ventricular rate 99 Normal axis Normal QRS Normal QTC No ST T wave changes MDM Narrative Medical decision making narrative: His labs are unremarkable. CT scan does not show any evidence of diverticulitis but does show evidence of gastritis versus ileus versus partial small-bowel obstruction. He is still passing flatus. I did discuss the case with Dr. Ramirez with General surgery who evaluated the CT scan. She felt that the CT scan review more consistent with a gastritis and less likely bowel obstruction. No indication for antibiotics. Will send home simethicone as he does have quite a bit of gas in the colon. Also give nausea medication. He does have stool softeners. He was given strict return precautions as we did discuss the possibility of a bowel obstruction. The patient expressed understanding of this and will return if his symptoms worsen. Discharge Plan Departure Patient Disposition: Home Clinical Impression: Abdominal pain Instructions: DI for Abdominal Pain-Adult Activity Restrictions/Additional Instructions: I do recommend that you continue to take all of your medications as directed. I do recommend that you restart your omeprazole medication. You can purchase this [id number]. I also recommend that you continue with the stool softeners. A prescription for simethicone and a nausea medicine was transmitted to [facility]. If your symptoms start to worsen or you develop fevers or vomiting despite the nausea medicine or worsening abdominal pain or distension please return to the emergency department for further evaluation. Prescriptions: New ondansetron 4 mg tablet,disintegrating 4 mg PO Q6H PRN (Reason: nausea and vomiting) Qty: 10 0RF simethicone 80 mg tablet,chewable 80 mg PO BID-QID PRN (Reason: abdominal distention) Qty: 20 0RF No Action albuterol sulfate 0.63 mg/3 mL solution for nebulization 0.63 mg continuous nebulization QID Qty: 0 0RF albuterol sulfate [Proventil HFA] 90 MCG/PUFF HFA aerosol inhaler 0.09 mg IH PRN PRN (Reason: COPD) Qty: 0 0RF levothyroxine 112 MCG tablet 0.112 mg PO QAM Qty: 0 0RF amoxicillin-pot clavulanate [Augmentin] 875-125 mg tablet 1 tab PO Q12H Qty: 20 0RF hydrocodone-acetaminophen [[place]] 5-325 mg tablet 1 tab PO Q6H PRN (Reason: pain) Qty: 10 0RF lisinopril 20 mg tablet 20 mg PO DAILY 0RF sertraline 50 mg tablet 50 mg PO DAILY 0RF ezetimibe 10 mg tablet 10 mg PO DAILY 0RF Referrals: Eladio Buitrago MD [Primary Care Provider] -
[2021-07-05] MEDS: SIMETHICONE 80 MG TABLET PO (22:10)
[2021-07-05] MEDS: PANTOPRAZOLE 40 MG VIAL IV (22:10)
[2021-07-05] MEDS: ONDANSETRON 4 MG ODT PREPACK 1 BOTTLE MISC (23:06)
== END 2021-07-05 23:13 | disposition home or self-care (01) ==
PROVIDERS: Emergency Medicine; Emergency Provider Emergency Medicine; PCP Family Medicine
DX: R10.9 Unspecified abdominal pain (principal); R11.0 Nausea; R03.0 Elevated blood-pressure reading, without diagnosis of hypertension
CPT/HCPCS: 36415; 71045; 74177; 80053; 82550; 82553; 83605; 83690; 84484; 85025; 85610; 93005; 93010; 96361; 96374; 96375; 99284; 99285; C9113; J2270; J2405; Q9967

== ENCOUNTER → 2022-10-30 15:06 | Outpatient (CLI) | payer OTHER, SELFPAY ==
--- NOTE | 2022-10-30 | DI.US.S_ITS ---
PROCEDURE: US ABD AORTA ANEURYSM SCREEN INDICATIONS: Personal history of nicotine dependence TECHNIQUE: Real-time scanning was performed of the aorta and proximal common iliac arteries, with image documentation. COMPARISON: None. FINDINGS: Aorta: Abdominal aorta is normal in caliber throughout its length. Proximal aorta measures 2.5 x 2.6 cm. Mid aorta measures 1.8 x 1.8 cm. Distal aorta measures 1.7 x 1.7 cm. Iliacs: Proximal common iliac arteries are normal in caliber. IMPRESSION: Negative screening abdominal ultrasound for abdominal aortic aneurysm. Dictated by: Joni Morris M.D. on 10/30/2022 at 16:49 Approved by: Joni Morris M.D. on 10/30/2022 at 16:50
== END ==
PROVIDERS: PCP Family Medicine; Referring Provider Family Medicine; Visit Provider Family Medicine
DX: Z13.6 Encounter for screening for cardiovascular disorders (principal); Z87.891 Personal history of nicotine dependence
CPT/HCPCS: 76706

== ENCOUNTER 2022-12-20 08:58 | Observation (INO) | payer OTHER, SELFPAY ==
[2022-12-20] VITALS (11 sets, daily range): BP systolic 110–197; BP diastolic 64–88; PULSE 74–88; RESP 18–26; TEMP 36.1–37; O2SAT 90–97; BMI 29.0
--- NOTE | 2022-12-20 09:05 | DI.RAD.S_ITS ---
PROCEDURE: XR CHEST 1V INDICATIONS: SOB, chest pain TECHNIQUE: One view of the chest was acquired. COMPARISON: [facility], CT, CT ABDOMEN PELVIS W CON, 08/05/2020, 12:26. [facility], CR, XR CHEST 1V, 07/05/2021, 17:32. FINDINGS: Surgical changes and devices: None. Lungs and pleura: Chronic left hemidiaphragm elevation and left basilar atelectasis. No pleural effusions or pneumothorax. Mediastinum: Mediastinal contours appear normal. Heart size is normal. Bones and chest wall: No suspicious bony lesions. Overlying soft tissues appear unremarkable. IMPRESSION: 1. No acute cardiopulmonary disease. 2. Chronic left hemidiaphragm elevation and left basilar atelectasis. Dictated by: Andrew Harman M.D. on 12/20/2022 at 9:18 Approved by: Andrew Harman M.D. on 12/20/2022 at 9:19
--- NOTE | 2022-12-20 09:05 | ED_ITS ---
HPI - General Adult General Chief complaint: Chest Pain Stated complaint: Chest Pain Time Seen by Provider: 12/20/22 09:02 History of Present Illness HPI narrative: 67-year-old male former smoker with history of reactive airway disease, hypertension, hyperlipidemia, hypothyroid presents by EMS for evaluation of increasing episodes of severity and frequency of left-sided chest pressure and heaviness. He states that it has been going on for least the past few weeks and seems to be worse in the morning and gets better over the course of the day. He states that there is no obvious increasing pain with exertion though he does become increasingly short of breath and more fatigued than previously. He denies any radiation of his pain or obvious palliation. He denies associated diaphoresis but has become increasingly short of breath and nauseated. He states that he frequently becomes nauseated in the morning as well. He denies recent travel, trauma or injury. He is never had a stress test or heart catheterization. He denies any change in medications or diet Related Data Home Medications Medication Instructions Recorded Confirmed albuterol sulfate 0.63 mg/3 mL 0.63 mg continuous nebulization 06/09/10 05/08/20 solution for nebulization QID COPD ##0 albuterol sulfate 90 mcg/actuation 0.09 mg IH PRN PRN COPD ##0 05/06/11 05/08/20 aerosol inhaler (Proventil HFA) levothyroxine 112 mcg tablet 0.112 mg PO QAM ##0 03/05/17 05/08/20 ezetimibe 10 mg tablet 10 mg PO DAILY 05/08/20 05/08/20 lisinopril 20 mg tablet 20 mg PO DAILY 05/08/20 05/08/20 sertraline 50 mg tablet 50 mg PO DAILY 05/08/20 05/08/20 Previous Rx's Medication Instructions Recorded amoxicillin 875 mg-potassium 1 tab PO Q12H #20 tabs 08/05/20 clavulanate 125 mg tablet (Augmentin) hydrocodone 5 mg-acetaminophen 325 1 tab PO Q6H PRN pain #10 tabs 08/05/20 mg tablet ([place]) ondansetron 4 mg disintegrating 4 mg PO Q6H PRN nausea and 07/05/21 tablet vomiting #10 tabs simethicone 80 mg chewable tablet 80 mg PO BID-QID PRN abdominal 07/05/21 distention #20 tabs Allergies Allergy/AdvReac Type Severity Reaction Status Date / Time No Known Drug Allergies Allergy Verified 12/20/22 09:06 Review of Systems Review of Systems Narrative: GENERAL: Denies chills, fatigue, malaise, fever, sweats. HEENT: Denies sinus pain, ear pain, sore throat, difficulty swallowing, dizziness. RESPIRATORY: See HPI CARDIOVASCULAR: See HPI GASTROINTESTINAL: See HPI : Denies dysuria, frequency, incontinence, hematuria, urinary retention. MUSCULOSKELETAL: denies weakness, joint pain, or bony pain SKIN: Denies rash, skin lesions, or other NEUROLOGIC: Denies weakness, headache, numbness, change in speech, confusion, seizures, incoordination. PSYCHIATRIC: No concerning psychosocial issues. 12 point review of systems is negative except for those stated above Patient History Medical History Closed fracture of left distal fibula Social History household members: significant other Smoking Status: Former smoker alcohol intake: former Smoking Status: Former smoker alcohol intake frequency: a few times a week Substance Use Type: does not use Exam Narrative Exam Narrative: GENERAL: [67] year old patient appears stated age. Well-developed patient, in mild distress. HEAD: Atraumatic. Normocephalic. EYES: Pupils equal round and reactive. Extraocular motions intact. No scleral icterus. No injection or drainage. ENT: Nose without bleeding, purulent drainage. Throat without erythema, tonsillar hypertrophy or exudate. Airway patent. NECK: Trachea midline. Non tender CARDIOVASCULAR: Regular rate and rhythm without murmurs, gallops, or rubs. RESPIRATORY: Clear to auscultation. Breath sounds equal bilaterally. No wheezes, rales, or rhonchi. GASTROINTESTINAL: Abdomen soft, non-tender, nondistended. EXTREMITIES: No edema or joint tenderness. BACK: Nontender without deformity or crepitance. No flank tenderness. NEURO: AOx3. SKIN: No rash or erythema of visible areas Initial Vital Signs Initial Vital Signs: Vital Signs Temperature 98.6 F 12/20/22 09:00 Pulse Rate 88 12/20/22 09:00 Respiratory Rate 18 12/20/22 09:00 Blood Pressure 197/88 H 12/20/22 09:00 Pulse Oximetry 96 12/20/22 09:00 Oxygen Delivery Method Room Air 12/20/22 09:00 Scores HEART Score Heart Score history: Moderately Suspicious Heart Score EKG: Normal Heart Score Age: > or = 65 years old Heart Score risk factors: > 3 risk factors or hx of atherosclerotic disease Heart Score troponin: < or = to normal limit Heart Score Total: 5 Course Orders Ordered: ED Orders 12/20/22 09:03 EKG-12 Lead Stat 12/20/22 09:05 Chest [XR chest 1V] Stat 12/20/22 09:10 Complete Blood Count AUTO DIFF Stat Comprehensive Metabolic Panel Stat D Dimer Stat Lipase Stat Magnesium Stat NT-proBNP (BNP-Adult 18+) Stat PTT Partial Thromboplastin Michele Stat Prothrombin Time INR Stat Troponin & CK Cardiac Panel Stat 12/20/22 09:40 COVID19 -Nasal RAPID Stat 12/20/22 10:21 EC echo doppler complete Stat Discontinued Medications Ondansetron HCl (Ondansetron 4 Mg/2 Ml Inj) 4 mg IV NOW ONE Stop: 12/20/22 09:04 Last Admin: 12/20/22 09:18 Dose: 4 mg Documented By: ALYSE Pantoprazole Sodium (Pantoprazole 40 Mg Vial) 40 mg IV NOW ONE Stop: 12/20/22 09:04 Last Admin: 12/20/22 09:18 Dose: 40 mg Documented By: ALYES Vital Signs Vital signs: Vital Signs - 8 hr 12/20/22 09:00 12/20/22 09:03 12/20/22 09:31 Temperature 98.6 F Pulse Rate 88 87 Respiratory Rate 18 26 H Blood Pressure 197/88 H 135/67 Pulse Oximetry 96 96 Oxygen Delivery Method Room Air Oxygen Flow Rate 12/20/22 09:31 12/20/22 10:00 12/20/22 10:00 Temperature Pulse Rate 78 77 Respiratory Rate 21 23 Blood Pressure 143/78 H Pulse Oximetry 90 L 92 Oxygen Delivery Method Nasal Cannula Oxygen Flow Rate 2 Medical Decision Making Lab Data 12/20/22 09:10 12/20/22 09:10 Labs: Lab Results 12/20/22 12/20/22 12/20/22 Range/Units 09:10 09:10 09:10 WBC 10.4 (4.5-11.0) X10^3/uL RBC 4.26 L (4.5-5.9) X10^6/uL Hgb 13.0 L (13.5-17.5) g/dL Hct 38.3 L (41-53) % MCV 90.0 (80-100) fL MCH 30.7 (26-34) PG MCHC 34.1 (30-36) % RDW 15.0 H (11.6-14.8) % Plt Count 327 (150-400) X10^3/uL Neut % (Auto) 74.6 (50-75) % Lymph % (Auto) 14.8 L (25-40) % [place] % (Auto) 7.8 (3-14) % Eos % (Auto) 2.1 (2-4) % Baso % (Auto) 0.7 (0-2) % Neut # (Auto) 7800 H (5619-0513) /uL Lymph # (Auto) 1500 (4804-5319) /uL [place] # (Auto) 800 (0-900) /uL Eos # (Auto) 200 (0-450) /uL Baso # (Auto) 100 (0-100) /uL PT 11.5 (10.1-12.7) SECONDS INR 1.0 (0.9-1.3) APTT 35 (26-36) SECONDS D-Dimer 221 (<500) ng/ml Sodium 134 L (137-145) mmol/L Potassium 4.2 (3.4-5.1) mmol/L Chloride 97 L (98-107) mmol/L Carbon Dioxide 25 (22-32) mmol/L BUN 28 H (9-20) mg/dL Creatinine 0.81 (0.66-1.25) mg/dL Estimated GFR > 60 (>60) mL/min BUN/Creatinine Ratio 34.6 H (6-22) Glucose 121 H (80-110) mg/dL Calcium 9.6 (8.4-10.2) mg/dL Magnesium 1.9 (1.6-2.3) mg/dL Total Bilirubin 0.3 (0.2-1.3) mg/dL AST 29 (17-59) IU/L ALT 31 (<50) IU/L Alkaline Phosphatase 75 (38-126) U/L Total Creatine Kinase 197 H (55-170) U/L CK-MB (CK-2) TNP CK-MB (CK-2) Rel Index TNP Troponin I < 0.012 (0.01-0.034) ng/mL NT-Pro-B Natriuret Pep 109 (<125) pg/mL Total Protein 8.3 H (6.3-8.2) g/dL Albumin 4.8 (3.5-5.0) g/dL Globulin 3.5 (1.7-4.1) g/dL Albumin/Globulin Ratio 1.4 (1.0-2.8) Lipase 71 (23-300) U/L SARS-CoV-2 (PCR) (Negative) 12/20/22 Range/Units 09:40 WBC (4.5-11.0) X10^3/uL RBC (4.5-5.9) X10^6/uL Hgb (13.5-17.5) g/dL Hct (41-53) % MCV (80-100) fL MCH (26-34) PG MCHC (30-36) % RDW (11.6-14.8) % Plt Count (150-400) X10^3/uL Neut % (Auto) (50-75) % Lymph % (Auto) (25-40) % [place] % (Auto) (3-14) % Eos % (Auto) (2-4) % Baso % (Auto) (0-2) % Neut # (Auto) (1603-7689) /uL Lymph # (Auto) (0114-1459) /uL [place] # (Auto) (0-900) /uL Eos # (Auto) (0-450) /uL Baso # (Auto) (0-100) /uL PT (10.1-12.7) SECONDS INR (0.9-1.3) APTT (26-36) SECONDS D-Dimer (<500) ng/ml Sodium (137-145) mmol/L Potassium (3.4-5.1) mmol/L Chloride (98-107) mmol/L Carbon Dioxide (22-32) mmol/L BUN (9-20) mg/dL Creatinine (0.66-1.25) mg/dL Estimated GFR (>60) mL/min BUN/Creatinine Ratio (6-22) Glucose (80-110) mg/dL Calcium (8.4-10.2) mg/dL Magnesium (1.6-2.3) mg/dL Total Bilirubin (0.2-1.3) mg/dL AST (17-59) IU/L ALT (<50) IU/L Alkaline Phosphatase (38-126) U/L Total Creatine Kinase (55-170) U/L CK-MB (CK-2) CK-MB (CK-2) Rel Index Troponin I (0.01-0.034) ng/mL NT-Pro-B Natriuret Pep (<125) pg/mL Total Protein (6.3-8.2) g/dL Albumin (3.5-5.0) g/dL Globulin (1.7-4.1) g/dL Albumin/Globulin Ratio (1.0-2.8) Lipase (23-300) U/L SARS-CoV-2 (PCR) Negative (Negative) ECG Data Interpretation: [time] EKG is normal sinus rhythm rate [ ] and free of any signs of ischemia or ectopy. No ST segmental elevation or depression. No T wave inversions MDM Narrative Medical decision making narrative: 67-year-old male with increasing episodes of left-sided chest pain and associated shortness breath he does admit to some increased exercise intol erance. Thankfully he is currently pain-free and there are no ischemic changes on his EKG. Troponin is negative. However given his concerning history, elevated risk factors, heart score of 5 patient requires hospitalization for further workup Discharge Plan Departure Patient Disposition: Admitted as Observation Clinical Impression: Chest pain Admit Date/Time: 12/20/22 10:21 Admit Provider: Anam Garcia
[2022-12-20] MEDS: PANTOPRAZOLE 40 MG VIAL IV (09:18)
[2022-12-20] MEDS: ONDANSETRON 4 MG/2 ML INJ IV ×2 (09:18→16:02)
[2022-12-20 09:21] LABS: Add Manual Diff / Slide Review NO; Basophils Absolute Auto 100 /uL (0-100); Basophils Percent Auto 0.7 % (0-2); Eosinophils Absolute Auto 200 /uL (0-450); Eosinophils Percent Auto 2.1 % (2-4); Hematocrit 38.3 % (41-53); Lymphocytes Absolute Auto 1500 /uL (1100-4500); Lymphocytes Percent Auto 14.8 % (25-40); Mean Corpuscular HGB Conc 34.1 % (30-36); Mean Corpuscular Hemoglobin 30.7 PG (26-34); Monocytes Absolute Auto 800 /uL (0-900); Monocytes Percent Auto 7.8 % (3-14); Neutrophils Absolute Auto 7800 /uL (1500-7000); Neutrophils Percent Auto 74.6 % (50-75); Platelet Count 327 X10^3/uL (150-400); Red Blood Cell Count 4.26 X10^6/uL (4.5-5.9); White Blood Cell Count 10.4 X10^3/uL (4.5-11.0)
[2022-12-20 09:27] LABS: Prothrombin Time 11.5 SECONDS (10.1-12.7)
[2022-12-20 09:28] LABS: Alanine Aminotransferase 31 IU/L (<50); Albumin 4.8 g/dL (3.5-5.0); Albumin Globulin Ratio 1.4 (1.0-2.8); Alkaline Phosphatase 75 U/L (38-126); Aspartate Aminotransferase 29 IU/L (17-59); BUN Creatinine Ratio 34.6 (6-22); Bilirubin Total 0.3 mg/dL (0.2-1.3); Blood Urea Nitrogen 28 mg/dL (9-20); Calcium 9.6 mg/dL (8.4-10.2); Carbon Dioxide 25 mmol/L (22-32); Chloride 97 mmol/L (98-107); Creatine Kinase 197 U/L (55-170); Estimated Glomerular Filt Rate > 60 mL/min (>60); Globulin 3.5 g/dL (1.7-4.1); Glucose 121 mg/dL (80-110); HEMOLYSIS 21 (0-50); Lipase 71 U/L (23-300); Magnesium 1.9 mg/dL (1.6-2.3); Potassium 4.2 mmol/L (3.4-5.1); Sodium 134 mmol/L (137-145); Total Protein 8.3 g/dL (6.3-8.2)
[2022-12-20 09:29] LABS: D Dimer 221 ng/ml (<500)
[2022-12-20 09:30] LABS: PTT Partial Thromboplastin Tim 35 SECONDS (26-36)
[2022-12-20 09:40] LABS: NT-proBNP (BNP-Adult 18+) 109 pg/mL (<125); Troponin I < 0.012 ng/mL (0.01-0.034)
--- NOTE | 2022-12-20 10:21 | DI.ECHO.S_ITS ---
[facility] +---------+ Hospital +---------+ : : [address] : : : : [id number] : : : : Phone: [phone]+ Echocardiogram Report + + :Name: DENZEL MOODY Study Date: 12/20/2022 Height: 66 in : :[facility] ReadingLocation: Weight: 180 lb : : Gender: Male BSA: 1.9 m2 : :: 1955 Age: 67 yrs BP: 162/80 mmHg: :Reason For Study: CHEST PAIN : :Ordering Physician: DEYANIRA, : :TIFFANIE Performed By: Sari Keller : :Referring: TIFFANIE MCMILLAN : + + Interpretation Summary The ejection fraction is estimated to be 60-65%. Left ventricular wall motion is normal. Diastolic parameters suggest probable normal left ventricular diastolic function and normal filling pressures. The right ventricle is normal in size and function. The IVC is of normal diameter and collapses greater than 50% with a sniff. This suggests a low right atrial pressure of 3 mm Hg. No significant valvular abnormality. Procedure: A two-dimensional transthoracic echocardiogram with color flow and Doppler was performed. The study quality was technically adequate. The patient had an echocardiogram, but there is no comparison study available. The patient was in sinus rhythm with heart rates between 73-81 bpm during the exam. Left Ventricle: The left ventricle is normal in size and wall thickness. The ejection fraction is estimated to be 60-65%. Left ventricular wall motion is normal. Diastolic parameters suggest probable normal left ventricular diastolic function and normal filling pressures. Right Ventricle: The right ventricle is normal in size and function. Atria: The left atrial size is normal. Right atrial size is normal. There is no Doppler evidence for an interatrial shunt. Mitral Valve: The mitral valve is normal in structure and function. There is trace mitral regurgitation. Aortic Valve: The aortic valve is trileaflet. The aortic valve opens well. There is no aortic valve stenosis. No aortic regurgitation is present. Tricuspid Valve: The tricuspid valve is normal in structure and function. No tricuspid regurgitation. Pulmonic Valve: The pulmonic valve leaflets are thin and pliable; valve motion is normal. There is no pulmonic valvular regurgitation. Great Vessels: The aortic root is normal size. The dimensions of the ascending aorta are normal. The IVC is of normal diameter and collapses greater than 50% with a sniff. This suggests a low right atrial pressure of 3 mm Hg. Pericardium/ Pleura There is no pericardial effusion. There is no pleural effusion. MMode/2D Measurements & Calculations LVIDd: 4.0 cm LVOT diam: 2.0 cm LVIDs: 2.8 cm Ao root diam: 2.9 cm FS: 30.1 % asc Aorta Diam: 3.1 cm IVSd: 0.75 cm Ao Arch Diam (Prox Trans): 2.0 cm LVPWd: 0.74 cm LV matt. diameter/BSA (cm/m^2): 2.1 LV sys. diameter/BSA (cm/m^2): 1.4 LA A2 area: 19.3 cm2 RA long axis: 5.4 cm LA A4 area: 16.7 cm2 RA area: 14.2 cm2 LA length (vol): 5.2 cm RA vol: 31.4 ml LA vol: 52.6 ml RA : 16.4 ml/m2 LA vol index: 27.5 ml/m2 IVC diam: 1.7 cm RVD1 (basal): 2.9 cm RVD2 (mid): 2.9 cm TAPSE: 2.2 cm Doppler Measurements & Calculations Ao V2 max: 124.6 cm/sec LVOT Max Denis: 101.4 cm/sec Ao V2 mean: 86.0 cm/sec LV V1 max P.1 mmHg Ao max P.2 mmHg LV V1 VTI: 19.7 cm Ao mean P.3 mmHg TANO(I,D): 2.6 cm2 Ao V2 VTI: 23.1 cm TANO(V,D): 2.5 cm2 sev ratio: 0.85 TANO indexed to BSA (cm^2/m^2): 1.4 MV E max denis: 65.9 cm/sec PA V2 max: 77.1 cm/sec MV A max denis: 77.5 cm/sec PA V2 mean: 58.8 cm/sec MV E/A: 0.85 PA mean P.5 mmHg Med Peak E' Denis: 8.5 cm/sec PA pr(Accel): 39.6 mmHg E/E' med: 7.7 Lat Peak E' Denis: 9.3 cm/sec E/E' lat: 7.1 E/e' average: 7.4 MV dec time: 0.26 sec SV(LVOT): 61.1 ml Reading Physician:PM
[2022-12-20 10:24] LABS: COVID19 -Nasal RAPID Negative (Negative)
[2022-12-20] MEDS: ALBUTEROL 2.5 MG/3 ML NEB (ADULT) INH (18:25)
--- NOTE | 2022-12-20 19:00 | P.HP_ITS ---
History of Present Illness History of Present Illness Date Patient Seen: 12/20/22 Time Patient Seen: 12:50 Date of Onset of Symptoms: 12/06/22 Chief complaint: Chest Pain Narrative: Patient is a 67-year-old male with history of hypertension hyperlipidemia hypothyroidism who presents with chest pain. He describes the pain is primarily morning he wakes up he is nauseated and then gets this pain across his chest. Describes it as a 4 to 5/10 dull with no radiation. Nothing seems to make it better or worse although he has not really tried much. Lasts for approximately 2 hours and then goes away. Does not seem to be associated with exercise. No other changes once in a while he has it in the evening. Has no other changes or complaints. He is had no previous cardiac disease. He seems to wake up and when he is nauseated get sweaty and then the chest pain comes. He has no other significant new changes. No headaches no visual symptoms. No other significant new changes. He is otherwise been stable he does have a history of asthma. But is otherwise been doing well. Without change. Patient has had no fevers no chills no headache visual symptoms bowel changes. Does have a history of reflux. [facility] Medical History Closed fracture of left distal fibula Social History household members: significant other Smoking Status: Former smoker alcohol intake: former Meds Home Medications and Allergies Home Medications Medication Instructions Recorded Confirmed Type albuterol sulfate 0.63 mg/3 mL 0.63 mg continuous nebulization 06/09/10 12/20/22 History solution for nebulization QID COPD ##0 albuterol sulfate 90 mcg/actuation 0.09 mg IH PRN PRN COPD ##0 05/06/11 12/20/22 History aerosol inhaler (Proventil HFA) levothyroxine 112 mcg tablet 0.112 mg PO QAM ##0 03/05/17 12/20/22 History sertraline 50 mg tablet 100 mg PO DAILY 05/08/20 12/20/22 History hydrocodone 5 mg-acetaminophen 325 1 tab PO Q6H PRN pain #10 tabs 08/05/20 12/20/22 Rx mg tablet ([place]) atorvastatin 40 mg tablet 40 mg PO DAILY 12/20/22 12/20/22 History lisinopril 20 1 tab PO DAILY 12/20/22 12/20/22 History mg-hydrochlorothiazide 25 mg tablet mirtazapine 15 mg tablet 15 mg PO BEDTIME 12/20/22 12/20/22 History Allergies Allergy/AdvReac Type Severity Reaction Status Date / Time No Known Drug Allergies Allergy Verified 12/20/22 09:06 Review of Systems Review of Systems Narrative: Negative except for above Exam Vital Signs (past 8 hours): - 12/20/22 13:43 12/20/22 13:53 12/20/22 18:31 Temperature 96.9 F L Pulse Rate 80 82 Respiratory Rate 20 22 Blood Pressure 132/75 Pulse Oximetry 97 96 Oxygen Delivery Method Nasal Cannula Nasal Cannula Oxygen Flow Rate 0 2 Oxygen Delivery Method Nasal Cannula Oxygen Flow Rate 2 Narrative Exam Narrative: Alert male fatigued in appearance in no acute distress HEENT exam unremarkable neck supple without adenopathy lungs are clear heart is regular rate and rhythm without murmurs abdomen is benign extremities without cyanosis clubbing edema neurologic exam is nonfocal Objective Labs 12/20/22 09:10 12/20/22 09:10 Labs: Laboratory Results - last 24 hr 12/20/22 12/20/22 12/20/22 09:10 09:10 09:10 WBC 10.4 RBC 4.26 L Hgb 13.0 L Hct 38.3 L MCV 90.0 MCH 30.7 MCHC 34.1 RDW 15.0 H Plt Count 327 Neut % (Auto) 74.6 Lymph % (Auto) 14.8 L [place] % (Auto) 7.8 Eos % (Auto) 2.1 Baso % (Auto) 0.7 Neut # (Auto) 7800 H Lymph # (Auto) 1500 [place] # (Auto) 800 Eos # (Auto) 200 Baso # (Auto) 100 PT 11.5 INR 1.0 APTT 35 D-Dimer 221 Sodium 134 L Potassium 4.2 Chloride 97 L Carbon Dioxide 25 BUN 28 H Creatinine 0.81 Estimated GFR > 60 BUN/Creatinine Ratio 34.6 H Glucose 121 H Calcium 9.6 Magnesium 1.9 Total Bilirubin 0.3 AST 29 ALT 31 Alkaline Phosphatase 75 Total Creatine Kinase 197 H CK-MB (CK-2) TNP CK-MB (CK-2) Rel Index TNP Troponin I < 0.012 NT-Pro-B Natriuret Pep 109 Total Protein 8.3 H Albumin 4.8 Globulin 3.5 Albumin/Globulin Ratio 1.4 Lipase 71 SARS-CoV-2 (PCR) 12/20/22 09:40 WBC RBC Hgb Hct MCV MCH MCHC RDW Plt Count Neut % (Auto) Lymph % (Auto) [place] % (Auto) Eos % (Auto) Baso % (Auto) Neut # (Auto) Lymph # (Auto) [place] # (Auto) Eos # (Auto) Baso # (Auto) PT INR APTT D-Dimer Sodium Potassium Chloride Carbon Dioxide BUN Creatinine Estimated GFR BUN/Creatinine Ratio Glucose Calcium Magnesium Total Bilirubin AST ALT Alkaline Phosphatase Total Creatine Kinase CK-MB (CK-2) CK-MB (CK-2) Rel Index Troponin I NT-Pro-B Natriuret Pep Total Protein Albumin Globulin Albumin/Globulin Ratio Lipase SARS-CoV-2 (PCR) Negative Assessment & Plan Assessment & Plan narrative: Chest pain. Somewhat atypical in the presentation certainly does have risk factors. No evidence abnormality on echo. Unable to get treadmill before discharge. We discussed this. I wonder if this does not have a GI component but it is unclear. Certainly does not need treadmill. Since were unable to get it. With no evidence of abnormality of his enzymes will repeat enzymes tomorrow and EKG if stable will discharge home to set up treadmill as outpatient. Hyperlipidemia continue atorvastatin. History of reflux see above History of hypertension stable continue usual meds. History of depression continue mirtazapine and sertraline. Hypothyroidism continue levothyroxine. Full code. GI prophylaxis on meds Disposition possible discharge tomorrow morning Quality VTE Deep Vein Thrombosis/Pulmonary Embolism Present on Admission: No
[2022-12-20] MEDS: SODIUM CHLORIDE 0.9% 1,000 ML 84 ML IV (20:35)
[2022-12-20] MEDS: MIRTAZAPINE 15 MG TABLET PO (20:36)
[2022-12-20] MEDS: PANTOPRAZOLE DR 40 MG TABLET PO (20:36)
[2022-12-20] MEDS: MELATONIN 3 MG TABLET 6 MG PO (21:38)
[2022-12-21 00:28] VITALS: BP 122/73; PULSE 84; RESP 18; TEMP 36.2; O2SAT 96
[2022-12-21] MEDS: ALBUTEROL 2.5 MG/3 ML NEB (ADULT) INH (04:25)
[2022-12-21] MEDS: ACETAMINOPHEN 325 MG TABLET 650 MG PO (04:26)
[2022-12-21] MEDS: ONDANSETRON 4 MG/2 ML INJ IV (04:29)
[2022-12-21 04:33] VITALS: BP 160/83; PULSE 82; RESP 18; TEMP 36.4; O2SAT 94
[2022-12-21 05:50] LABS: Creatine Kinase 204 U/L (55-170)
[2022-12-21 06:03] LABS: Troponin I < 0.012 ng/mL (0.01-0.034)
[2022-12-21] MEDS: PANTOPRAZOLE DR 40 MG TABLET PO (06:12)
[2022-12-21] MEDS: LEVOTHYROXINE 112 MCG TABLET PO (06:12)
--- NOTE | 2022-12-21 08:08 | PM.DS.1 ---
History of Present Illness History of Present Illness Chief complaint: Chest Pain Discharge Providers Provider Date of admission: 12/20/22 10:21 Discharge Date: 12/21/22 Primary care physician: Eladio Buitrago MD Discharge provider: Devin Sepulveda MD Summary Hospital Course Discharge Diagnosis: Chest pain Hypertension Hyperlipidemia Hospital Course: 67-year-old history of hypertension hyperlipidemia and hypothyroidism presents with on and off 1 week of chest pain in the morning. Patient was admitted to the hospital for further workup and evaluation due to his age and risk factors. Since he was hospitalized patient has had telemetry monitoring blood pressure monitoring serial troponins and EKG. These remained normal throughout his hospital stay. Patient had an echocardiogram which showed no wall motion abnormalities and no valvular heart disease. Patient has a strong history of other chest related issues other than hard including history of pleurisy and significant gastroesophageal reflux. Patient was unable to have a stress test in the hospital next available stress test is not until next week. After discussion with patient review of his records laboratory testing and echocardiogram. [place] comfortable with discharging the patient and having an outpatient stress test. Patient was encouraged to continue taking a full-strength aspirin he will be placed on metoprolol 25 mg a day. Will switch him from omeprazole to Protonix and patient will return if significant chest pain. Exam Vital Signs (past 8 hours): - 12/21/22 00:28 12/21/22 04:33 Temperature 97.2 F L 97.6 F Pulse Rate 84 82 Respiratory Rate 18 18 Blood Pressure 122/73 160/83 H Pulse Oximetry 96 94 Oxygen Flow Rate 2 2 Oxygen Delivery Method Nasal Cannula Oxygen Flow Rate 2 Narrative Exam Narrative: Gen.: Alert and oriented x3 no apparent distress. HEENT: NCAT PERRLA tympanic membranes are clear nares are patent oral mucosa is moist no tonsillar hypertrophy neck is supple without lymphadenopathy no thyroid enlargement. Cardio: S1-S2 regular rate and rhythm no murmurs appreciated. Respiratory: Lungs are clear to auscultation no wheezes or crackles normal respiratory effort. Abdomen: Soft nontender no rebound or guarding no liver spleen enlargement no appreciable hernias Extremities: Full range of motion no appreciable weakness no cyanosis or edema. Neurologic: Grossly intact. Objective Labs 12/20/22 09:10 12/20/22 09:10 Labs: Laboratory Results - last 24 hr 12/20/22 12/20/22 12/20/22 09:10 09:10 09:10 WBC 10.4 RBC 4.26 L Hgb 13.0 L Hct 38.3 L MCV 90.0 MCH 30.7 MCHC 34.1 RDW 15.0 H Plt Count 327 Neut % (Auto) 74.6 Lymph % (Auto) 14.[address] [place] % (Auto) 7.8 Eos % (Auto) 2.1 Baso % (Auto) 0.7 Neut # (Auto) 7800 H Lymph # (Auto) 1500 [place] # (Auto) 800 Eos # (Auto) 200 Baso # (Auto) 100 PT 11.5 INR 1.0 APTT 35 D-Dimer 221 Sodium 134 L Potassium 4.2 Chloride 97 L Carbon Dioxide 25 BUN 28 H Creatinine 0.81 Estimated GFR > 60 BUN/Creatinine Ratio 34.6 H Glucose 121 H Calcium 9.6 Magnesium 1.9 Total Bilirubin 0.3 AST 29 ALT 31 Alkaline Phosphatase 75 Total Creatine Kinase 197 H CK-MB (CK-2) TNP CK-MB (CK-2) Rel Index TNP Troponin I < 0.012 NT-Pro-B Natriuret Pep 109 Total Protein 8.3 H Albumin 4.8 Globulin 3.5 Albumin/Globulin Ratio 1.4 Lipase 71 SARS-CoV-2 (PCR) 12/20/22 12/21/22 09:40 05:00 WBC RBC Hgb Hct MCV MCH MCHC RDW Plt Count Neut % (Auto) Lymph % (Auto) [place] % (Auto) Eos % (Auto) Baso % (Auto) Neut # (Auto) Lymph # (Auto) [place] # (Auto) Eos # (Auto) Baso # (Auto) PT INR APTT D-Dimer Sodium Potassium Chloride Carbon Dioxide BUN Creatinine Estimated GFR BUN/Creatinine Ratio Glucose Calcium Magnesium Total Bilirubin AST ALT Alkaline Phosphatase Total Creatine Kinase 204 H CK-MB (CK-2) TNP CK-MB (CK-2) Rel Index TNP Troponin I < 0.012 NT-Pro-B Natriuret Pep Total Protein Albumin Globulin Albumin/Globulin Ratio Lipase SARS-CoV-2 (PCR) Negative COUNT INCLUDES THE [facility] Medical History Closed fracture of left distal fibula Social History household members: significant other Smoking Status: Former smoker alcohol intake: former Discharge Plan Discharge Plan Patient Disposition: Home Provider Discharge Comment: Follow-up with primary care provider in 1 week outpatient stress test Discharge orders & Medications Prescriptions: New pantoprazole [Protonix] 40 mg tablet,delayed release (DR/EC) 40 mg PO DAILY Qty: 30 1RF metoprolol succinate 25 mg tablet extended release 24 hr 25 mg PO DAILY Qty: 30 1RF Continued albuterol sulfate 0.63 mg/3 mL solution for nebulization 0.63 mg continuous nebulization QID Qty: 0 albuterol sulfate [Proventil HFA] 90 MCG/PUFF HFA aerosol inhaler 0.09 mg IH PRN PRN (Reason: COPD) Qty: 0 levothyroxine 112 MCG tablet 0.112 mg PO QAM Qty: 0 sertraline 50 mg tablet 100 mg PO DAILY atorvastatin 40 mg tablet 40 mg PO DAILY Patient Comments: TAKE ONE TABLET BY MOUTH ONE TIME DAILY mirtazapine 15 mg tablet 15 mg PO BEDTIME Patient Comments: TAKE ONE TABLET BY MOUTH EVERY NIGHT lisinopril-hydrochlorothiazide 20-25 mg tablet 1 tab PO DAILY Patient Comments: TAKE ONE TABLET BY MOUTH ONE TIME DAILY Discontinued hydrocodone-acetaminophen [[place]] 5-325 mg tablet 1 tab PO Q6H PRN (Reason: pain) Qty: 10 0RF Follow up/Referrals: Eladio Buitrago MD [Primary Care Provider] - Visit Report/Discharge Packet Stand Alone Forms: Patient Portal/API, Stroke Signs & Symptoms Discharge Data Primary Care Provider: Eladio Buitrago Attending Provider: Anam Garcia Admit Date/Time: 12/20/22 10:21 Quality VTE Deep Vein Thrombosis/Pulmonary Embolism Present on Admission: No
[2022-12-21 08:36] VITALS: BP 131/76; PULSE 83; RESP 18; TEMP 36.2; O2SAT 94
[2022-12-21] MEDS: hydroCHLOROthiazide 25 MG TABLET PO (08:52)
[2022-12-21] MEDS: ATORVASTATIN 20 MG TABLET 40 MG PO (08:52)
[2022-12-21 08:53] VITALS: BP 131/79; PULSE 83
[2022-12-21] MEDS: lisinopriL 20 MG TABLET PO (08:53)
[2022-12-21] MEDS: MAG HYDROX/ALUM/SIMETH 30 ML UDC PO (08:53)
[2022-12-21] MEDS: ENOXAPARIN 40 MG/0.4 ML SYRINGE SUBCUT (08:53)
[2022-12-21] MEDS: SERTRALINE 50 MG TABLET 100 MG PO (08:53)
[2022-12-21] MEDS: HYDROCODONE/ACET 5/325 TABLET 1 TAB PO (08:56)
--- NOTE | 2022-12-21 09:14 | CM.DANOTE ---
DCP: Patient is a 67yo male here for chest pain. Payer: [employer] Medicare and self pay PCP: Dr. Eladio Buitrago SOFTWARE BUILD ENGINEER entered room and introduced self and role. Patient was A/Ox4 and was pleasant to talk with. Patient reports being independent with ADLs at baseline, drives, and lives at home with his girlfriend, Laura ([phone]) and his dog. Patient reports he has no concerns for additional resources upon d/c. Patient reports being excited to get home to his dog and looks forward to his outpatient appointment to better try and figure out what is going on with his health. Plan: Patient will d/c home today with family. Girlfriend's daughter will transport him in POV. Patient will follow up with outpatient care. CM team will continue to follow as necessary. [facility] Discharge Planning/Care Management CM Discharge Assessment Start: 12/21/22 09:13 Freq: Status: Active Protocol: Document 12/21/22 09:13 LUBNA (Rec: 12/21/22 09:14 [id number]) Discharge Planning Assessment Assigned Information Services Assistant [facility] DPOA/Assigned Designee Name Laura Carlin (girlfriend) Contact Information [phone] Advance Directives? Yes: POLST Advance Directives on File No History Provided By Patient,Medical Record Prior Living Arrangements House Household Members significant other Type of transporation used prior to Drives own vehicle admit Independent with ADL's Yes Is patient alert and oriented? Yes Discharge Plan Home Transportation Arrangement Girlfriend's daughter is going to pick him up Whiteboard Updated in Patient Room with Yes name and ext. # of Information Services Assistant Review Status In Process Next Review Type Continued Stay Review
--- NOTE | 2022-12-21 10:56 | PC.NURSE ---
Patient teaching done at bedside. Understanding to f/u with PCP and to get ref. for out patient stress test. Patient info given to patient regarding what to expect with stress test and new medications. New rx's sent to [facility], pt is aware. Patient walked self out of hospital. IV removed w/ no difficulty.
== END 2022-12-21 09:30 | disposition home or self-care (01) ==
LOC: ED 10:05 → AC 10:23
PROVIDERS: Admitting Provider Family Medicine; Emergency Provider Emergency Medicine; PCP Family Medicine; Referring Provider Emergency Medicine; Visit Provider Family Medicine
DX: R07.9 Chest pain, unspecified (principal); I10 Essential (primary) hypertension; E78.5 Hyperlipidemia, unspecified; E03.9 Hypothyroidism, unspecified; R11.0 Nausea; J45.909 Unspecified asthma, uncomplicated; Z20.822 Contact with and (suspected) exposure to COVID-19
CPT/HCPCS: 36415; 71045; 80053; 82550; 83690; 83735; 83880; 84484; 85025; 85379; 85610; 85730; 87635; 93005; 93010; 93306; 94640; 94760; 96372; 96374; 96375; 96376; 99284; C9803; G0378; C9113; J1650; J2405; J7613

== ENCOUNTER 2022-12-31 10:38 | Emergency (ER) | payer OTHER, SELFPAY ==
[2022-12-20 11:31] VITALS: BMI 29.0
[2022-12-31] VITALS (37 sets, daily range): BP systolic 112–215; BP diastolic 61–104; PULSE 76–95; RESP 18–28; TEMP 36.8; O2SAT 91–96; BMI 29.2
--- NOTE | 2022-12-31 10:49 | DI.RAD.S_ITS ---
PROCEDURE: XR CHEST 1V INDICATIONS: chest pain TECHNIQUE: One view of the chest was acquired. COMPARISON: [facility], CT, CT ABDOMEN PELVIS W CON, 07/05/2021, 19:51. [facility], CR, XR CHEST 1V, 12/20/2022, 9:05. [facility], CR, XR CHEST 1V, 07/05/2021, 17:32. FINDINGS: Surgical changes and devices: Clips at the neck. Lungs and pleura: Streaky opacity at the left lung base is unchanged. No pleural effusions or pneumothorax. Mediastinum: Mediastinal contours appear unchanged. Asymmetric elevation of the left hemidiaphragm. Heart size is normal. Bones and chest wall: No suspicious bony lesions. Overlying soft tissues appear unremarkable. IMPRESSION: No interval change demonstrated. Streaky opacity at the left lung base. Suspect atelectasis. Similar asymmetric elevation of the left hemidiaphragm. Dictated by: Abrahan English M.D. on 12/31/2022 at 11:40 Approved by: Abrahan English M.D. on 12/31/2022 at 11:43
--- NOTE | 2022-12-31 10:53 | ED_ITS ---
HPI - Chest Pain General Chief Complaint: Chest Pain Stated Complaint: chest pain/V/chills Time Seen by Provider: 12/31/22 10:45 History of Present Illness HPI narrative: Patient is a 67-year-old male history of reactive airway disease, hypertension hyperlipidemia hypothyroid presents today with chest discomfort. He was seen and evaluated here December 20 through December 21 placed in observation for chest. At that time he also had a history of pleurisy and acid reflux unable to get a stre ss test during that hospital stay however he did have an echocardiogram which showed an EF of 60-65% without any wall motion abnormality. He was discharged home on metoprolol and Protonix. Today he presents with severe chest pain hurts to breathe hurts to move he was unable to sleep last night because of it. Denies any nausea or vomiting. Related Data Home Medications Medication Instructions Recorded Confirmed albuterol sulfate 0.63 mg/3 mL 0.63 mg continuous nebulization 06/09/10 12/20/22 solution for nebulization QID COPD ##0 albuterol sulfate 90 mcg/actuation 0.09 mg IH PRN PRN COPD ##0 05/06/11 12/20/22 aerosol inhaler (Proventil HFA) levothyroxine 112 mcg tablet 0.112 mg PO QAM ##0 03/05/17 12/20/22 sertraline 50 mg tablet 100 mg PO DAILY 05/08/20 12/20/22 atorvastatin 40 mg tablet 40 mg PO DAILY 12/20/22 12/20/22 lisinopril 20 1 tab PO DAILY 12/20/22 12/20/22 mg-hydrochlorothiazide 25 mg tablet mirtazapine 15 mg tablet 15 mg PO BEDTIME 12/20/22 12/20/22 Previous Rx's Medication Instructions Recorded metoprolol succinate 25 mg 25 mg PO DAILY #30 tabs 12/21/22 tablet,extended release 24 hr pantoprazole 40 mg tablet,delayed 40 mg PO DAILY #30 tabs 12/21/22 release (Protonix) nitroglycerin 0.4 mg sublingual 0.4 mg sublingual Q5M PRN chest 12/31/22 tablet pain #10 tabs Allergies Allergy/AdvReac Type Severity Reaction Status Date / Time No Known Drug Allergies Allergy Verified 12/31/22 10:59 Review of Systems Review of Systems ROS Unobtainable: All systems reviewed & are unremarkable except as noted in HPI and below Patient History Medical History Closed fracture of left distal fibula Social History household members: significant other Smoking Status: Former smoker alcohol intake: former Smoking Status: Former smoker alcohol intake frequency: a few times a week Substance Use Type: does not use Exam Initial Vital Signs Initial Vital Signs: Vital Signs Temperature 98.2 F 12/31/22 10:45 Pulse Rate 88 12/31/22 10:45 Respiratory Rate 22 12/31/22 10:45 Blood Pressure 215/101 H 12/31/22 10:45 Pulse Oximetry 96 12/31/22 10:45 Oxygen Delivery Method Room Air 12/31/22 10:45 GENERAL: Alert 67-year-old male appears very uncomfortable and in no acute distress. HEENT: Head atraumatic,EOMI, pupils reactive, face symmetric, moist mucous membranes CARDIOVASCULAR: Regular rate and rhythm without murmurs, rubs or gallops. RESPIRATORY: Breath sounds equal bilaterally, no wheezes rales or rhonchi. ABDOMEN: Soft, nontender. Normoactive bowel sounds all 4 quadrants. No guarding or rebound. EXTREMITIES: Normal range of motion, no clubbing or edema. Neurovascularly intact NEUROLOGICAL: Alert and oriented x4. SKIN: Warm, dry, no laceration, no petechiae, no rashes or lesions. Course Orders Ordered: ED Orders 12/31/22 10:45 EKG-12 Lead Routine 12/31/22 10:49 XR chest 1V Stat 12/31/22 10:55 Complete Blood Count AUTO DIFF Stat Comprehensive Metabolic Panel Stat Lipase Stat NT-proBNP (BNP-Adult 18+) Stat PTT Partial Thromboplastin Michele Stat Prothrombin Time INR Stat Troponin & CK Cardiac Panel Stat 12/31/22 11:07 EKG-12 Lead Routine 12/31/22 11:43 CT angio chest abdomen pelvis Stat 12/31/22 12:55 Trop I [Troponin I] Stat Discontinued Medications Aspirin (Aspirin 81 Mg Chew Tab) 324 mg PO NOW ONE Stop: 12/31/22 10:50 Last Admin: 12/31/22 11:08 Dose: 324 mg Documented By: WILLIAM Ketorolac Tromethamine (Ketorolac 30 Mg/Ml Vial) 15 mg IV NOW ONE Stop: 12/31/22 11:03 Last Admin: 12/31/22 11:09 Dose: 15 mg Documented By: WILLIAM Morphine Sulfate (Morphine 4 Mg/Ml Inj) 4 mg IV NOW ONE Stop: 12/31/22 11:22 Last Admin: 12/31/22 11:30 Dose: 4 mg Documented By: WILLIAM Nitroglycerin (Nitroglycerin 0.4 Mg Sl Tab) 0.4 mg SL [id number] PRN PRN Reason: chest Last Admin: 12/31/22 11:28 Dose: 0.4 mg Documented By: Admin: 12/31/22 11:18 Dose: 0.4 mg Documented By: Admin: 12/31/22 11:11 Dose: 0.4 mg Documented By: WILLIAM Ondansetron HCl (Ondansetron 4 Mg/2 Ml Inj) 4 mg IV NOW ONE Stop: 12/31/22 11:22 Last Admin: 12/31/22 11:26 Dose: 4 mg Documented By: WILLIAM Vital Signs Vital signs: Vital Signs - 8 hr 12/31/22 10:45 12/31/22 11:11 12/31/22 11:18 Temperature 98.2 F Pulse Rate 88 90 89 Respiratory Rate 22 Blood Pressure 215/101 H 183/104 H 168/96 H Pulse Oximetry 96 Oxygen Delivery Method Room Air Oxygen Flow Rate 12/31/22 11:28 12/31/22 10:45 12/31/22 10:46 Temperature Pulse Rate 89 94 H Respiratory Rate 21 Blood Pressure 169/96 H 215/101 H Pulse Oximetry 95 Oxygen Delivery Method Oxygen Flow Rate 12/31/22 10:46 12/31/22 10:55 12/31/22 10:55 Temperature Pulse Rate 93 H 90 Respiratory Rate 23 19 Blood Pressure 186/103 H Pulse Oximetry 94 92 Oxygen Delivery Method Nasal Cannula Oxygen Flow Rate 1.5 12/31/22 11:00 12/31/22 11:00 12/31/22 11:15 Temperature Pulse Rate 90 95 H Respiratory Rate 20 24 Blood Pressure 183/104 H Pulse Oximetry 94 92 Oxygen Delivery Method Oxygen Flow Rate 12/31/22 11:19 12/31/22 11:19 12/31/22 11:20 Temperature Pulse Rate 93 H Respiratory Rate 25 H Blood Pressure 168/96 H 169/95 H Pulse Oximetry 95 Oxygen Delivery Method Nasal Cannula Oxygen Flow Rate 2 12/31/22 11:20 12/31/22 11:28 12/31/22 11:28 Temperature Pulse Rate 89 89 Respiratory Rate 22 26 H Blood Pressure 169/96 H Pulse Oximetry 94 94 Oxygen Delivery Method Oxygen Flow Rate 12/31/22 11:30 12/31/22 11:30 12/31/22 12:01 Temperature Pulse Rate 87 87 Respiratory Rate 28 H 18 Blood Pressure 156/91 H 128/73 Pulse Oximetry 94 96 Oxygen Delivery Method Nasal Cannula Oxygen Flow Rate 1.5 12/31/22 11:45 12/31/22 12:00 12/31/22 12:01 Temperature Pulse Rate 80 85 Respiratory Rate 22 24 Blood Pressure 128/73 Pulse Oximetry 95 95 Oxygen Delivery Method Oxygen Flow Rate 12/31/22 12:01 12/31/22 12:11 12/31/22 12:11 Temperature Pulse Rate 85 85 Respiratory Rate 26 H 22 Blood Pressure 126/63 Pulse Oximetry 95 95 Oxygen Delivery Method Oxygen Flow Rate 12/31/22 12:15 12/31/22 12:20 12/31/22 12:20 Temperature Pulse Rate 80 81 Respiratory Rate 21 22 Blood Pressure 112/69 Pulse Oximetry 91 92 Oxygen Delivery Method Oxygen Flow Rate 12/31/22 12:30 12/31/22 12:30 12/31/22 12:40 Temperature Pulse Rate 82 Respiratory Rate 23 Blood Pressure 113/72 123/69 Pulse Oximetry 94 Oxygen Delivery Method Oxygen Flow Rate 12/31/22 12:40 12/31/22 12:45 12/31/22 12:50 Temperature Pulse Rate 80 80 Respiratory Rate 20 19 Blood Pressure 122/69 Pulse Oximetry 93 93 Oxygen Delivery Method Oxygen Flow Rate 12/31/22 12:50 12/31/22 13:00 12/31/22 13:00 Temperature Pulse Rate 80 82 Respiratory Rate 20 22 Blood Pressure 134/74 Pulse Oximetry 94 94 Oxygen Delivery Method Oxygen Flow Rate 12/31/22 13:10 12/31/22 13:10 12/31/22 13:15 Temperature Pulse Rate 80 79 Respiratory Rate 19 19 Blood Pressure 123/71 Pulse Oximetry 95 94 Oxygen Delivery Method Oxygen Flow Rate 12/31/22 13:20 12/31/22 13:20 12/31/22 13:30 Temperature Pulse Rate 80 Respiratory Rate 20 Blood Pressure 123/69 128/67 Pulse Oximetry 94 Oxygen Delivery Method Oxygen Flow Rate 12/31/22 13:30 12/31/22 13:40 12/31/22 13:40 Temperature Pulse Rate 81 80 Respiratory Rate 20 20 Blood Pressure 118/65 Pulse Oximetry 93 93 Oxygen Delivery Method Oxygen Flow Rate 12/31/22 13:45 12/31/22 13:50 12/31/22 13:50 Temperature Pulse Rate 79 79 Respiratory Rate 20 20 Blood Pressure 119/65 Pulse Oximetry 93 93 Oxygen Delivery Method Oxygen Flow Rate 12/31/22 14:00 12/31/22 14:00 12/31/22 14:10 Temperature Pulse Rate 76 Respiratory Rate 20 Blood Pressure 116/61 123/68 Pulse Oximetry 94 Oxygen Delivery Method Oxygen Flow Rate 12/31/22 14:10 12/31/22 14:15 12/31/22 14:20 Temperature Pulse Rate 78 76 76 Respiratory Rate 19 18 18 Blood Pressure Pulse Oximetry 95 93 93 Oxygen Delivery Method Oxygen Flow Rate 12/31/22 14:20 12/31/22 14:30 12/31/22 14:30 Temperature Pulse Rate 81 Respiratory Rate 20 Blood Pressure 117/65 122/71 Pulse Oximetry 93 Oxygen Delivery Method Oxygen Flow Rate 12/31/22 14:40 12/31/22 14:40 12/31/22 14:45 Temperature Pulse Rate 80 79 Respiratory Rate 23 20 Blood Pressure 118/67 Pulse Oximetry 94 91 Oxygen Delivery Method Oxygen Flow Rate 12/31/22 14:50 12/31/22 14:50 Temperature Pulse Rate 79 Respiratory Rate 20 Blood Pressure 114/64 Pulse Oximetry 94 Oxygen Delivery Method Oxygen Flow Rate MDM - Chest Pain Lab Data 12/31/22 10:55 12/31/22 10:55 Labs: Lab Results 12/31/22 12/31/22 12/31/22 Range/Units 10:55 10:55 10:55 WBC 10.0 (4.5-11.0) X10^3/uL RBC 4.45 L (4.5-5.9) X10^6/uL Hgb 13.6 (13.5-17.5) g/dL Hct 40.0 L (41-53) % MCV 89.7 (80-100) fL MCH 30.4 (26-34) PG MCHC 33.9 (30-36) % RDW 14.8 (11.6-14.8) % Plt Count 363 (150-400) X10^3/uL Neut % (Auto) 89.6 H (50-75) % Lymph % (Auto) 7.3 L (25-40) % Caroline % (Auto) 2.5 L (3-14) % Eos % (Auto) 0.5 L (2-4) % Baso % (Auto) 0.1 (0-2) % Neut # (Auto) 8900 H (0161-5184) /uL Lymph # (Auto) 700 L (1154-3105) /uL Caroline # (Auto) 300 (0-900) /uL Eos # (Auto) 0 (0-450) /uL Baso # (Auto) 0 (0-100) /uL PT 12.0 (10.1-12.7) SECONDS INR 1.0 (0.9-1.3) APTT 35 (26-36) SECONDS Sodium 135 L (137-145) mmol/L Potassium 4.9 (3.4-5.1) mmol/L Chloride 96 L (98-107) mmol/L Carbon Dioxide 30 (22-32) mmol/L BUN 27 H (9-20) mg/dL Creatinine 1.10 (0.66-1.25) mg/dL Estimated GFR > 60 (>60) mL/min BUN/Creatinine Ratio 24.5 H (6-22) Glucose 185 H (80-110) mg/dL Calcium 9.4 (8.4-10.2) mg/dL Total Bilirubin 0.4 (0.2-1.3) mg/dL AST 29 (17-59) IU/L ALT 30 (<50) IU/L Alkaline Phosphatase 97 (38-126) U/L Total Creatine Kinase 146 (55-170) U/L CK-MB (CK-2) TNP CK-MB (CK-2) Rel Index TNP Troponin I < 0.012 (0.01-0.034) ng/mL NT-Pro-B Natriuret Pep (<125) pg/mL Total Protein 8.6 H (6.3-8.2) g/dL Albumin 4.9 (3.5-5.0) g/dL Globulin 3.7 (1.7-4.1) g/dL Albumin/Globulin Ratio 1.3 (1.0-2.8) Lipase 583 H (23-300) U/L 12/31/22/01/17 Range/Units 10:55 12:55 WBC (4.5-11.0) X10^3/uL RBC (4.5-5.9) X10^6/uL Hgb (13.5-17.5) g/dL Hct (41-53) % MCV (80-100) fL MCH (26-34) PG MCHC (30-36) % RDW (11.6-14.8) % Plt Count (150-400) X10^3/uL Neut % (Auto) (50-75) % Lymph % (Auto) (25-40) % Caroline % (Auto) (3-14) % Eos % (Auto) (2-4) % Baso % (Auto) (0-2) % Neut # (Auto) (8900-7042) /uL Lymph # (Auto) (6544-6816) /uL Caroline # (Auto) (0-900) /uL Eos # (Auto) (0-450) /uL Baso # (Auto) (0-100) /uL PT (10.1-12.7) SECONDS INR (0.9-1.3) APTT (26-36) SECONDS Sodium (137-145) mmol/L Potassium (3.4-5.1) mmol/L Chloride (98-107) mmol/L Carbon Dioxide (22-32) mmol/L BUN (9-20) mg/dL Creatinine (0.66-1.25) mg/dL Estimated GFR (>60) mL/min BUN/Creatinine Ratio (6-22) Glucose (80-110) mg/dL Calcium (8.4-10.2) mg/dL Total Bilirubin (0.2-1.3) mg/dL AST (17-59) IU/L ALT (<50) IU/L Alkaline Phosphatase (38-126) U/L Total Creatine Kinase (55-170) U/L CK-MB (CK-2) CK-MB (CK-2) Rel Index Troponin I 0.016 (0.01-0.034) ng/mL NT-Pro-B Natriuret Pep 397 H (<125) pg/mL Total Protein (6.3-8.2) g/dL Albumin (3.5-5.0) g/dL Globulin (1.7-4.1) g/dL Albumin/Globulin Ratio (1.0-2.8) Lipase (23-300) U/L Imaging Data CT scan - abdomen/pelvis: Radiologist's Impression: PROCEDURE:? CT ANGIO CHEST ABDOMEN PELVIS ? INDICATIONS:? severe chest pain ? TECHNIQUE:? Precontrast 5 mm thick sections acquired from the lung apices to the iliac crests.? After the administration of intravenous contrast, 2.5 mm thick sections again acquired from the lung apices to the iliac crests.? Maximum intensity projection (MIP) oblique sagittal and coronal reformats were then acquired.? For radiation dose reduction, the following was used:? automated exposure control.? ? COMPARISON:? [facility], CR, XR CHEST 1V, 12/31/2022, 10:57. ? FINDINGS:? Image quality:? Excellent.? ? AORTA:? No aortic dissection.? No acute aortic syndrome.? Moderate plaque at the aortic arch. ? CHEST:? Lungs and pleura:? No acute airspace opacities.? Mild atelectasis at the lung bases.? Mild emphysematous change.? No pleural effusions or pneumothorax.? Central and peripheral airways are patent and normal in caliber.? ? Mediastinum:? Heart size is normal.? Three-vessel coronary artery calcifications.? No pericardial effusion.? No mediastinal or hilar adenopathy by size criteria.? Central pulmonary arteries are normal in size.? No central pulmonary embolism.? Esophagus is normal in caliber.? Fluid in the esophagus.? No hiatal hernias.? ? Bones and chest wall:? No axillary adenopathy by size criteria.? Clips in the region of the thyroid gland.? No suspicious bony lesions.? No vertebral body compression fractures. ? ? ? ABDOMEN:? Vasculature:? Celiac trunk and mesenteric arteries are patent.? Renal arteries are also patent.? ? Solid organs:? Liver is normal in size and enhancement.? Gallbladder is unremarkable .? Biliary system is non dilated.? Pancreas enhances normally.? Spleen is normal in size and enhancement.? No adrenal nodules.? Both kidneys are normal in size and enhancement, without hydronephrosis.? ? Peritoneum and bowel:? No free fluid or air.? Bowel loops are normal in caliber and wall thickness.? Diverticulosis.? Normal appendix.? ? Nodes and vessels:? No retroperitoneal or mesenteric adenopathy by size criteria.? Inferior vena cava is normal in morphology.? ? Miscellaneous:? No ventral hernias.? ? ? PELVIS:? Genitourinary:? Bladder wall thickness is normal.? Prostatomegaly.? ? Miscellaneous:? No inguinal hernias or adenopathy.? No ventral hernias.? ? Bones:? No suspicious bony lesions.? No vertebral body compression fractures.? ? ? IMPRESSION:? 1. No aortic dissection.? No central pulmonary embolism. ? 2. Moderate to severe coronary artery calcifications.? Fluid in the esophagus. ? 3. No acute airspace opacity. ? 4. No free fluid in the abdomen or pelvis.? ? 5. Diverticulosis.? Prostatomegaly. ? ? ? Dictated by: Abrahan English M.D. on 12/31/2022 at 12:06 ? ? Approved by: Abrahan English M.D. on 12/31/2022 at 12:19 ECG Data Interpretation: EKG 1. Sinus rhythm rate 90 AZ interval 146 QRS [address] changes no T- wave inversions similar to previous EKG December 21 EKG 2. Sinus rhythm rate 86 MDM Narrative Medical decision making narrative: Patient 67-year-old male history reactive airway disease hypertension hyperlipidemia presenting today with chest pain. He was just admitted to the hospital where he had an echo put not stress test. He has an outpatient stress test ordered on December 25 but apparently still waiting for insurance approval presents today with increasing chest pain. Initially like clutching chest it has been constant pain since 2:00 a.m. in the morning. Pain is atypical for cardiac. He has no EKG changes 2- troponins. CT angio was done to rule out dissection and pulmonary embolism it did show moderate to severe coronary artery calcifications. Patient has been resting comfortably ever since he received Toradol morphine and nitro. He reports as a nitroglycerin dad not help it and only gave him a headache. I have discussed case with PCP in regards to repeat admission versus outpatient follow-up and outpatient stress test. At this time reasonable to get an outpatient stress test. Recommend prescription for nitroglycerin. Patient reports that he was able to mow the lawn I do significant amount of yard work yesterday without stopping. This is overall reassuring and less likely to be cardiac disease. I had conversation with him in regards to returning to the emergency department and suggested 911 and ambulance call if he should have worsening pain, he understands that there needs to be further workup and that he is at risk for heart attack. Discharge Plan Departure Patient Disposition: Home Clinical Impression: Atypical chest pain Instructions: DI for Atypical Chest Pain Activity Restrictions/Additional Instructions: *You have been diagnosed with atypical chest pain *What to do: At this time you do need a stress test it has been ordered on December 25, please make sure it is scheduled. *Continue to take medications as directed Nitro 0.4 mg sublingual x1 if you should have chest pain does not work return to the emergency department --> SENT TO [facility] *Follow up with your primary care provider in 2-3 days or call [phone] *Return to ER if you should have increasing chest pain, breath or any new, worsening or concerning symptom Prescriptions: New nitroglycerin 0.4 mg tablet, sublingual 0.4 mg sublingual Q5M PRN (Reason: chest pain) Qty: 10 0RF Rx Instructions: do not exceed 3 doses per episode No Action albuterol sulfate 0.63 mg/3 mL solution for nebulization 0.63 mg continuous nebulization QID Qty: 0 albuterol sulfate [Proventil HFA] 90 MCG/PUFF HFA aerosol inhaler 0.09 mg IH PRN PRN (Reason: COPD) Qty: 0 levothyroxine 112 MCG tablet 0.112 mg PO QAM Qty: 0 sertraline 50 mg tablet 100 mg PO DAILY atorvastatin 40 mg tablet 40 mg PO DAILY Patient Comments: TAKE ONE TABLET BY MOUTH ONE TIME DAILY mirtazapine 15 mg tablet 15 mg PO BEDTIME Patient Comments: TAKE ONE TABLET BY MOUTH EVERY NIGHT lisinopril-hydrochlorothiazide 20-25 mg tablet 1 tab PO DAILY Patient Comments: TAKE ONE TABLET BY MOUTH ONE TIME DAILY pantoprazole [Protonix] 40 mg tablet,delayed release (DR/EC) 40 mg PO DAILY Qty: 30 1RF metoprolol succinate 25 mg tablet extended release 24 hr 25 mg PO DAILY Qty: 30 1RF Referrals: Eladio Buitrago MD [Primary Care Provider] - Stand Alone Forms: Patient Portal/API
[2022-12-31 11:04] LABS: Add Manual Diff / Slide Review NO; Basophils Absolute Auto 0 /uL (0-100); Basophils Percent Auto 0.1 % (0-2); Eosinophils Absolute Auto 0 /uL (0-450); Eosinophils Percent Auto 0.5 % (2-4); Hemoglobin 13.6 g/dL (13.5-17.5); Lymphocytes Absolute Auto 700 /uL (1100-4500); Lymphocytes Percent Auto 7.3 % (25-40); Mean Corpuscular HGB Conc 33.9 % (30-36); Mean Corpuscular Hemoglobin 30.4 PG (26-34); Mean Corpuscular Volume 89.7 fL (80-100); Monocytes Absolute Auto 300 /uL (0-900); Monocytes Percent Auto 2.5 % (3-14); Neutrophils Absolute Auto 8900 /uL (1500-7000); Neutrophils Percent Auto 89.6 % (50-75); Platelet Count 363 X10^3/uL (150-400); Red Blood Cell Count 4.45 X10^6/uL (4.5-5.9); Red Cell Distribution Width 14.8 % (11.6-14.8)
[2022-12-31] MEDS: ASPIRIN 81 MG CHEW TAB 324 MG PO (11:08)
[2022-12-31] MEDS: KETOROLAC 30 MG/ML VIAL 15 MG IV (11:09)
[2022-12-31] MEDS: NITROGLYCERIN 0.4 MG SL TAB SL ×3 (11:11→11:28)
[2022-12-31 11:14] LABS: PTT Partial Thromboplastin Tim 35 SECONDS (26-36)
[2022-12-31 11:24] LABS: Alanine Aminotransferase 30 IU/L (<50); Albumin 4.9 g/dL (3.5-5.0); Albumin Globulin Ratio 1.3 (1.0-2.8); Alkaline Phosphatase 97 U/L (38-126); Aspartate Aminotransferase 29 IU/L (17-59); BUN Creatinine Ratio 24.5 (6-22); Bilirubin Total 0.4 mg/dL (0.2-1.3); Blood Urea Nitrogen 27 mg/dL (9-20); Calcium 9.4 mg/dL (8.4-10.2); Carbon Dioxide 30 mmol/L (22-32); Chloride 96 mmol/L (98-107); Creatine Kinase 146 U/L (55-170); Estimated Glomerular Filt Rate > 60 mL/min (>60); Globulin 3.7 g/dL (1.7-4.1); Glucose 185 mg/dL (80-110); HEMOLYSIS 15 (0-50); Lipase 583 U/L (23-300); Potassium 4.9 mmol/L (3.4-5.1); Sodium 135 mmol/L (137-145); Total Protein 8.6 g/dL (6.3-8.2)
[2022-12-31] MEDS: ONDANSETRON 4 MG/2 ML INJ IV (11:26)
[2022-12-31] MEDS: MORPHINE 4 MG/ML INJ IV (11:30)
[2022-12-31 11:33] LABS: NT-proBNP (BNP-Adult 18+) 397 pg/mL (<125)
[2022-12-31 11:35] LABS: Troponin I < 0.012 ng/mL (0.01-0.034)
--- NOTE | 2022-12-31 11:43 | DI.CT.S_ITS ---
PROCEDURE: CT ANGIO CHEST ABDOMEN PELVIS INDICATIONS: severe chest pain TECHNIQUE: Precontrast 5 mm thick sections acquired from the lung apices to the iliac crests. After the administration of intravenous contrast, 2.5 mm thick sections again acquired from the lung apices to the iliac crests. Maximum intensity projection (MIP) oblique sagittal and coronal reformats were then acquired. For radiation dose reduction, the following was used: automated exposure control. COMPARISON: [facility], CR, XR CHEST 1V, 12/31/2022, 10:57. FINDINGS: Image quality: Excellent. AORTA: No aortic dissection. No acute aortic syndrome. Moderate plaque at the aortic arch. CHEST: Lungs and pleura: No acute airspace opacities. Mild atelectasis at the lung bases. Mild emphysematous change. No pleural effusions or pneumothorax. Central and peripheral airways are patent and normal in caliber. Mediastinum: Heart size is normal. Three-vessel coronary artery calcifications. No pericardial effusion. No mediastinal or hilar adenopathy by size criteria. Central pulmonary arteries are normal in size. No central pulmonary embolism. Esophagus is normal in caliber. Fluid in the esophagus. No hiatal hernias. Bones and chest wall: No axillary adenopathy by size criteria. Clips in the region of the thyroid gland. No suspicious bony lesions. No vertebral body compression fractures. ABDOMEN: Vasculature: Celiac trunk and mesenteric arteries are patent. Renal arteries are also patent. Solid organs: Liver is normal in size and enhancement. Gallbladder is unremarkable . Biliary system is non dilated. Pancreas enhances normally. Spleen is normal in size and enhancement. No adrenal nodules. Both kidneys are normal in size and enhancement, without hydronephrosis. Peritoneum and bowel: No free fluid or air. Bowel loops are normal in caliber and wall thickness. Diverticulosis. Normal appendix. Nodes and vessels: No retroperitoneal or mesenteric adenopathy by size criteria. Inferior vena cava is normal in morphology. Miscellaneous: No ventral hernias. PELVIS: Genitourinary: Bladder wall thickness is normal. Prostatomegaly. Miscellaneous: No inguinal hernias or adenopathy. No ventral hernias. Bones: No suspicious bony lesions. No vertebral body compression fractures. IMPRESSION: 1. No aortic dissection. No central pulmonary embolism. 2. Moderate to severe coronary artery calcifications. Fluid in the esophagus. 3. No acute airspace opacity. 4. No free fluid in the abdomen or pelvis. 5. Diverticulosis. Prostatomegaly. Dictated by: Abrahan English M.D. on 12/31/2022 at 12:06 Approved by: Abrahan English M.D. on 12/31/2022 at 12:19
--- NOTE | 2022-12-31 12:05 | PC.NURSE ---
pt reports no pain. feels so much better after return from ct scan chest.
[2022-12-31 13:43] LABS: Troponin I 0.016 ng/mL (0.01-0.034)
== END 2022-12-31 15:09 | disposition home or self-care (01) ==
PROVIDERS: Emergency Provider Emergency Medicine; PCP Family Medicine
DX: R07.89 Other chest pain (principal)
CPT/HCPCS: 36415; 71045; 71275; 74174; 80053; 82550; 83690; 83880; 84484; 85025; 85610; 85730; 93005; 93010; 96374; 96375; 99284; 99285; J1885; J2270; J2405

== ENCOUNTER → 2023-01-22 10:47 | Outpatient (CLI) | payer OTHER, SELFPAY ==
[2022-12-20 11:31] VITALS: BMI 29.0
--- NOTE | 2023-01-22 20:46 | DI.NM.S_ITS ---
DATE OF SERVICE: 01/22/2023 PROCEDURE: Pharmacologic stress and rest myocardial perfusion study with gating to assess ejection fraction and regional wall motion. ORDERING PROVIDER: Eladio Buitrago M.D. GATED STUDY: The patient is a 67-year-old smoker with recent ER evaluation for atypical chest discomfort. PHARMACOLOGIC STRESS: Per protocol, 0.4 mg of regadenoson was infused and the patient was walked on the treadmill. With this, he had a normal hemodynamic response, achieving a maximum heart rate of 132 BPM (85% of his predicted maximum). He had a normal blood pressure response. He had no chest discomfort or other anginal symptoms. His resting ECG shows sinus rhythm with normal ST segments and there are no significant ST-segment shifts or arrhythmias with stress. Per protocol, 24.8 millicuries of technetium-99m Myoview was injected and he was imaged 20 minutes later using a gated SPECT acquisition protocol. Earlier in the day while at rest, he had been injected with 10.8 millicuries of technetium- 99m Myoview and was imaged 15 minutes later, again using a gated SPECT acquisition protocol. FINDINGS: 1. Raw data. There is fairly good myocardial tracer uptake. The lung/heart ratio is normal at 0.21 with a normal TID ratio of 1.07. 2. Quantitated gated SPECT: Post-stress ejection fraction is estimated at 75% without any focal wall motion abnormality, and specifically the inferolateral wall has normal contractility. The resting ejection fraction is 61% with a normal resting end-diastolic volume of 71 mL. 3. Myocardial perfusion imaging: Post-stress supine images show a fairly normal myocardial perfusion pattern with a subtle defect in the mid inferolateral wall in a pattern consistent with diaphragmatic attenuation, supported by its complete resolution on the prone images, revealing a normal, homogeneous perfusion pattern. The resting images show a similar perfusion pattern to that of the post-stress images without significant improvement in the inferolateral defect. IMPRESSION: 1. Normal myocardial perfusion study. 2. Subtle, fixed mid inferolateral defect that completely resolves on prone imaging, consistent with diaphragmatic attenuation. There is no evidence for any significant myocardial ischemia or previous myocardial infarction. 3. Normal left ventricular systolic function without any focal wall motion abnormality. 4. No angina or ECG evidence of ischemia with pharmacologic vasodilator stress augmented with exercise. 5. Compared to his previous myocardial perfusion study of 02/06/2015, diaphragmatic attenuation was suggested on that exam as well, although the defect was more inferior than on today's study,yet with normal perfusion on prone imaging. His previous ejection fraction was 72% with an end-diastolic volume of 65 mL, suggesting the absence of any significant change from the previous exam. Nader Livingston - KHANG/ellen/kathy doc#: [id number]/job#: [id number] dd: 01/22/2023 17:32:00 dt: 01/22/2023 20:31:00 DICTATING MD/COPIES TO: Anam Carey MD; Eladio Buitrago M.D. COPIES MNE: BACILIO;
== END ==
LOC: NUCM 10:47
PROVIDERS: PCP Family Medicine; Referring Provider Family Medicine; Visit Provider Family Medicine
DX: R07.89 Other chest pain (principal); I10 Essential (primary) hypertension; E78.5 Hyperlipidemia, unspecified; E03.9 Hypothyroidism, unspecified; J45.909 Unspecified asthma, uncomplicated; F17.200 Nicotine dependence, unspecified, uncomplicated
CPT/HCPCS: 78452; 93017; A9502; J2785

== ENCOUNTER 2023-01-24 06:06 | Emergency (ER) | payer OTHER, SELFPAY ==
[2022-12-20 11:31] VITALS: BMI 29.0
[2023-01-24] VITALS (7 sets, daily range): BP systolic 128–166; BP diastolic 65–74; PULSE 66–79; RESP 22; TEMP 36.3–36.7; O2SAT 92–95; BMI 28.1
--- NOTE | 2023-01-24 06:09 | ED_ITS ---
HPI - General Adult General Chief complaint: Fall Stated complaint: Fell yesterday and hit chest air having diff breat Time Seen by Provider: 01/24/23 06:09 History of Present Illness HPI narrative: 67M former smoker presents with a chief complaint of severe right anterior chest pain after a fall yesterday. He is activated as a modified trauma given the suspicion of injury and his age. He states that he was working at home and tripped in the lawn and landed on a container with his right anterior chest. Since then he is had severe pain that is worse with any motion and with deep breath. He feels short of breath because it is so painful to take a deep breath. He denies any head neck or back pain. He does not take blood thinners. He denies any nausea, vomiting or diarrhea. Related Data Home Medications Medication Instructions Recorded Confirmed albuterol sulfate 0.63 mg/3 mL 0.63 mg continuous nebulization 06/09/10 12/20/22 solution for nebulization QID COPD ##0 albuterol sulfate 90 mcg/actuation 0.09 mg IH PRN PRN COPD ##0 05/06/11 12/20/22 aerosol inhaler (Proventil HFA) levothyroxine 112 mcg tablet 0.112 mg PO QAM ##0 03/05/17 12/20/22 sertraline 50 mg tablet 100 mg PO DAILY 05/08/20 12/20/22 atorvastatin 40 mg tablet 40 mg PO DAILY 12/20/22 12/20/22 lisinopril 20 1 tab PO DAILY 12/20/22 12/20/22 mg-hydrochlorothiazide 25 mg tablet mirtazapine 15 mg tablet 15 mg PO BEDTIME 12/20/22 12/20/22 Previous Rx's Medication Instructions Recorded metoprolol succinate 25 mg 25 mg PO DAILY #30 tabs 12/21/22 tablet,extended release 24 hr pantoprazole 40 mg tablet,delayed 40 mg PO DAILY #30 tabs 12/21/22 release (Protonix) nitroglycerin 0.4 mg sublingual 0.4 mg sublingual Q5M PRN chest 12/31/22 tablet pain #10 tabs hydrocodone 5 mg-acetaminophen 325 1 tab PO Q4-6H PRN pain #20 tabs 01/24/23 mg tablet ondansetron 4 mg disintegrating 4 mg PO TID-QID PRN nausea and 01/24/23 tablet vomiting #10 tabs Allergies Allergy/AdvReac Type Severity Reaction Status Date / Time No Known Drug Allergies Allergy Verified 01/24/23 06:19 Review of Systems Review of Systems Narrative: GENERAL: Denies chills, fatigue, malaise, fever, sweats. HEENT: Denies sinus pain, ear pain, sore throat, difficulty swallowing, dizziness. RESPIRATORY: See HPI CARDIOVASCULAR: See HPI GASTROINTESTINAL: Denies nausea, vomiting, abdominal pain, diarrhea, constipation, melena. : Denies dysuria, frequency, incontinence, hematuria, urinary retention. MUSCULOSKELETAL: denies weakness, joint pain, or bony pain SKIN: Denies rash, skin lesions, or other NEUROLOGIC: Denies weakness, headache, numbness, change in speech, confusion, seizures, incoordination. PSYCHIATRIC: No concerning psychosocial issues. 12 point review of systems is negative except for those stated above Patient History Medical History (Updated 01/24/23 @ 07:30 by Quoc Smith DO) Closed fracture of left distal fibula High blood pressure High cholesterol Social History household members: significant other Smoking Status: Former smoker alcohol intake: former Smoking Status: Former smoker tobacco type: cigarettes alcohol intake frequency: a few times a week Substance Use Type: does not use Exam Narrative Exam Narrative: GENERAL: [67] year old patient appears stated age. Well-developed patient, in obvious distress, wincing in pain with every breath, rapid relatively shallow breathing HEAD: Atraumatic. Normocephalic. EYES: Pupils equal round and reactive. Extraocular motions intact. No scleral icterus. No injection or drainage. ENT: Nose without bleeding, purulent drainage. Throat without erythema, tonsillar hypertrophy or exudate. Airway patent. NECK: Trachea midline. Non tender CARDIOVASCULAR: Regular rate and rhythm without murmurs, gallops, or rubs. Right anterior chest tender to palpate RESPIRATORY: Clear to auscultation. Breath sounds equal bilaterally. No wheezes, rales, or rhonchi. GASTROINTESTINAL: Abdomen soft, non-tender, nondistended. EXTREMITIES: No edema or joint tenderness. BACK: Nontender without deformity or crepitance. No flank tenderness. NEURO: AOx3. SKIN: No rash or erythema of visible areas Initial Vital Signs Initial Vital Signs: Vital Signs Temperature 97.3 F L 01/24/23 06:14 Pulse Rate 72 01/24/23 06:14 Respiratory Rate 22 01/24/23 06:14 Blood Pressure 166/74 H 01/24/23 06:14 Pulse Oximetry 94 01/24/23 06:14 Oxygen Delivery Method Room Air 01/24/23 06:14 Course Orders Ordered: Discontinued Medications Hydrocodone Bitart/Acetaminophen (Hydrocodone/Acet 5/325 Tablet) 2 tab PO NOW ONE Stop: 01/24/23 06:13 Last Admin: 01/24/23 06:18 Dose: 2 tab Documented By: RYAN Medical Decision Making MDM Narrative Medical decision making narrative: [67] year old patient presents with ground level fall with right anterior chest pain Multiple etiologies for patient's symptoms considered including, but not limited to: [Rib fracture versus contusion versus pneumothorax versus other] Prior Charts reviewed in our EMR Primary Historian: patient Imaging reviewed: [facility] report notes / rib fractures. No PTX. [facility] Radiology overread states no fx Patient's symptoms improved over duration of stay with above-stated therapies. Findings and discharge diagnosis discussed with patient/family followed by verbalization of understanding Return precautions discussed with patient/family whom verbalize understanding of diagnosis and plan Discharge Plan Departure Patient Disposition: Home Clinical Impression: Multiple rib fractures Instructions: DI for Rib Fracture Activity Restrictions/Additional Instructions: *You have been diagnosed with [fall with rib fractures ] *What to do: *Please continue to take your regular medications as directed. [x] New medication prescriptions sent to your pharmacy: [[facility] ] [ ] New medication written as a paper prescription [ ] No new medications given *Please follow up with your primary care provider in 2-3 days, call for an appointment. Let them know you were seen in the Emergency Department and that we ask that you be seen in follow up. We will electronically transmit a record of today's note if your PCP is in our system *If you do not have a primary care provider please contact the [facility] Resource line at [phone]. They will ask some questions about your medical history and help get you set up with a doctor in the community. *Return to Emergency Department if you should have any new, worsening or concerning symptoms, such as [fever greater than 101 F, shaking chills, worsening pain, persistent vomiting or other bothersome symptoms] You have been prescribed a short course of narcotic medications. These are potentially dangerous and addictive medications that should be used carefully. While on these medications you cannot drive or operate heavy machinery. Additionally, you cannot sign legal documents or perform any duties such as this. 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 Please understand that we cannot provide further refills of narcotics or controlled substances through the ED and your pain management will need to be through your Primary Care Provider Prescriptions: New hydrocodone-acetaminophen 5-325 mg tablet 1 tab PO Q4-6H PRN (Reason: pain) Qty: 20 0RF ondansetron 4 mg tablet,disintegrating 4 mg PO TID-QID PRN (Reason: nausea and vomiting) Qty: 10 0RF No Action albuterol sulfate 0.63 mg/3 mL solution for nebulization 0.63 mg continuous nebulization QID Qty: 0 albuterol sulfate [Proventil HFA] 90 MCG/PUFF HFA aerosol inhaler 0.09 mg IH PRN PRN (Reason: COPD) Qty: 0 levothyroxine 112 MCG tablet 0.112 mg PO QAM Qty: 0 nitroglycerin 0.4 mg tablet, sublingual 0.4 mg sublingual Q5M PRN (Reason: chest pain) Qty: 10 0RF Rx Instructions: do not exceed 3 doses per episode sertraline 50 mg tablet 100 mg PO DAILY atorvastatin 40 mg tablet 40 mg PO DAILY Patient Comments: TAKE ONE TABLET BY MOUTH ONE TIME DAILY mirtazapine 15 mg tablet 15 mg PO BEDTIME Patient Comments: TAKE ONE TABLET BY MOUTH EVERY NIGHT lisinopril-hydrochlorothiazide 20-25 mg tablet 1 tab PO DAILY Patient Comments: TAKE ONE TABLET BY MOUTH ONE TIME DAILY pantoprazole [Protonix] 40 mg tablet,delayed release (DR/EC) 40 mg PO DAILY Qty: 30 1RF metoprolol succinate 25 mg tablet extended release 24 hr 25 mg PO DAILY Qty: 30 1RF Referrals: Eladio Buitrago MD [Primary Care Provider] - Stand Alone Forms: Patient Portal/API
--- NOTE | 2023-01-24 06:12 | DI.RAD.S_ITS ---
PROCEDURE: XR RIBS RT MIN 3V W CXR 1V INDICATIONS: fall with severe R sided chest pain TECHNIQUE: 2 views of the right ribs were acquired, along with a single view chest. COMPARISON: [facility], CT, CT ANGIO CHEST ABDOMEN PELVIS, 12/31/2022, 11:29. [facility], CR, XR CHEST 1V, 12/31/2022, 10:57. [facility], CR, XR CHEST 1V, 07/05/2021, 17:32. [facility], CR, XR CHEST 1V, 12/20/2022, 9:05. FINDINGS: Surgical changes and devices: None. Bones and chest wall: No acute fractures or dislocations. A healed rib fracture is present at the lateral right 9th rib. No suspicious bony lesions. Overlying soft tissues appear unremarkable. Lungs and pleura: No pleural effusions or pneumothorax. Lungs appear clear. Mediastinum: Mediastinal contours appear normal. Heart size is normal. IMPRESSION: No acute displaced rib fractures visualized. Dictated by: Roxanne Garcia M.D. on 01/24/2023 at 8:11 Approved by: Roxanne Garcia M.D. on 01/24/2023 at 8:18
[2023-01-24] MEDS: HYDROCODONE/ACET 5/325 TABLET 2 TAB PO (06:18)
== END 2023-01-24 07:42 | disposition home or self-care (01) ==
PROVIDERS: Emergency Provider Emergency Medicine; PCP Family Medicine
DX: S22.41XA Multiple fractures of ribs, right side, initial encounter for closed fracture (principal); W01.198A Fall on same level from slipping, tripping and stumbling with subsequent striking against other object, initial encounter
CPT/HCPCS: 71101; 99283

== ENCOUNTER → 2023-07-19 11:12 | Outpatient (CLI) | payer OTHER, SELFPAY ==
[2022-12-20 11:31] VITALS: BMI 29.0
--- NOTE | 2023-07-19 | DI.MRI.S_ITS ---
PROCEDURE: MR HEAD/BRAIN WO CON INDICATIONS: Personal history of traumatic brain injury TECHNIQUE: Noncontrast axial T1 spin echo, axial T2 fast spin echo, sagittal and axial FLAIR, coronal T2 fast spin echo, axial gradient echo, axial diffusion and ADC through the brain. COMPARISON: None. FINDINGS: Image quality: Excellent. CSF Spaces: Basal cisterns are patent. No extra-axial fluid collections. Ventricles are normal in size and shape. Brain: No intracranial masses or hemorrhage. Mantilla/white matter interface is normal. Brainstem appears normal. Diffusion-weighted images demonstrate no acute infarct. No chronic ischemic insults. Normal intravascular flow voids are present. Skull and face: Calvarium has normal marrow signal. Orbits appear normal. Sinuses: Minimal right frontal and right maxillary sinus mucosal thickening. Other visualized paranasal sinuses and mastoids are clear. IMPRESSION: MRI brain without acute intracranial abnormalities. No evidence for mass or mass effect. Minimal right frontal and right maxillary sinus disease. Dictated by: Jeremi Johnson M.D. on 07/22/2023 at 8:08 Approved by: Jeremi Johnson M.D. on 07/22/2023 at 8:12
== END ==
PROVIDERS: PCP Family Medicine; Referring Provider Psychiatry & Neurology Neurology; Visit Provider Psychiatry & Neurology Neurology
DX: G25.2 Other specified forms of tremor (principal); R41.3 Other amnesia; Z87.820 Personal history of traumatic brain injury; Z82.0 Family history of epilepsy and other diseases of the nervous system
CPT/HCPCS: 70551

== ENCOUNTER 2024-01-22 17:06 | Inpatient (IN) | payer MEDICARE, SELFPAY ==
[2022-12-20 11:31] VITALS: BMI 29.0
[2024-01-22] VITALS (8 sets, daily range): BP systolic 136–195; BP diastolic 76–94; PULSE 93–105; RESP 20–22; TEMP 36–36.3; O2SAT 91–95; BMI 28.1; BMI 29.0
--- NOTE | 2024-01-22 17:23 | EKG_ITS ---
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
--- NOTE | 2024-01-22 17:29 | DI.CT.S_ITS ---
PROCEDURE: CT ABDOMEN PELVIS W CON INDICATIONS: Generalized abdominal pain, eval for bowel obstruction TECHNIQUE: After the administration of intravenous contrast, axial sections acquired from the lung bases to the pubic symphysis. Coronal and sagittal reformats were performed. For radiation dose reduction, the following was used: automated exposure control, adjustment of mA and/or kV according to patient size. COMPARISON: [facility], CT, CT ABDOMEN PELVIS W CON, 07/05/2021, 19:51. FINDINGS: Image quality: Diagnostic. Lower Chest: No significant findings. ABDOMEN: Liver: No solid mass. Gallbladder: No radiopaque gallstones or wall thickening. Biliary ducts: No biliary dilation. Pancreas: No ductal dilation. Spleen: Size is within normal limits. Adrenal Glands: No adrenal nodules. Kidneys and Ureters: No hydronephrosis. No solid mass. No complex renal cystic lesion which requires follow up. Stomach and Bowel: Normal colonic caliber, without significant wall thickening. Normal caliber appendix. Colonic diverticulosis without acute inflammation. Peritoneum: No abnormal intraperitoneal fluid. No free air. Ventral Wall: No significant ventral hernia. Abdominal Nodes: No retroperitoneal or mesenteric adenopathy by size criteria. Vessels: Aorta and inferior vena cava are normal in size. PELVIS: Pelvic Organs: Unremarkable. Bladder: No bladder wall thickening, accounting for underdistention. Pelvic Nodes: No enlarged lymph nodes. Miscellaneous: No inguinal hernias are seen. Bones: No aggressive osseous abnormality. Degenerative changes without acute vertebral body compression fracture. IMPRESSION: No acute abdominopelvic process. Colonic diverticulosis without CT evidence of acute diverticulitis. No bowel obstruction as clinically queried. Approved by: Laurel Joshua M.D.,Ph.D. on 01/22/2024 at 17:58
[2024-01-22] MEDS: SODIUM CHLORIDE 0.9% 1,000 ML 1000 ML IV (17:42)
[2024-01-22 17:47] LABS: Add Manual Diff / Slide Review NO; Basophils Absolute Auto 0 /uL (0-100); Basophils Percent Auto 0.3 % (0-2); Eosinophils Absolute Auto 100 /uL (0-450); Eosinophils Percent Auto 0.5 % (2-4); Hematocrit 43.8 % (41-53); Hemoglobin 14.6 g/dL (13.5-17.5); Lymphocytes Absolute Auto 900 /uL (1100-4500); Lymphocytes Percent Auto 6.4 % (25-40); Mean Corpuscular HGB Conc 33.4 % (30-36); Mean Corpuscular Volume 92.6 fL (80-100); Monocytes Absolute Auto 700 /uL (0-900); Monocytes Percent Auto 4.7 % (3-14); Neutrophils Absolute Auto 12700 /uL (1500-7000); Neutrophils Percent Auto 88.1 % (50-75); Platelet Count 353 X10^3/uL (150-400); Red Blood Cell Count 4.73 X10^6/uL (4.5-5.9); Red Cell Distribution Width 16.5 % (11.6-14.8); White Blood Cell Count 14.4 X10^3/uL (4.5-11.0)
[2024-01-22 17:55] LABS: Alanine Aminotransferase 23 IU/L (<50); Albumin 5.2 g/dL (3.5-5.0); Albumin Globulin Ratio 1.3 (1.0-2.8); Alkaline Phosphatase 88 U/L (38-126); Aspartate Aminotransferase 29 IU/L (17-59); BUN Creatinine Ratio 30.5 (6-22); Bilirubin Total 0.7 mg/dL (0.2-1.3); Blood Urea Nitrogen 29 mg/dL (9-20); Calcium 9.6 mg/dL (8.4-10.2); Carbon Dioxide 29 mmol/L (22-32); Chloride 100 mmol/L (98-107); Estimated Glomerular Filt Rate > 60 mL/min (>60); Glucose 130 mg/dL (80-110); HEMOLYSIS 23 (0-50); Lactate (Lactic Acid) 1.1 mmol/L (0.7-2.1); Lipase 69 U/L (23-300); Potassium 4.4 mmol/L (3.4-5.1); Sodium 136 mmol/L (137-145); Total Protein 9.2 g/dL (6.3-8.2)
--- NOTE | 2024-01-22 18:23 | ED.ABDPAIN ---
HPI - Abdominal Pain General Chief Complaint: Abdominal Pain Stated Complaint: severe stomach pain Time Seen by Provider: 01/22/24 17:28 Source: patient Mode of arrival: Ambulatory History of Present Illness HPI narrative: 68-year-old male with history of diverticulitis, history of COPD, recent days coughing with some increased shortness of breath, chronic productive cough white-yellow sputum unchanged, usually on oxygen, no recent exposure to COVID or influenza. He also complains of central and lower abdominal pain, also for the last few days, no black or red stool, recent exposure to antibiotics. No exposure to persons with similar symptoms. No nausea or vomiting. Denies painful urination, change in color of urine. Last bowel movement earlier today small amount, loose, did not increase or decrease his pain. Related Data Home Medications Medication Instructions Recorded Confirmed albuterol sulfate 0.63 mg/3 mL 0.63 mg continuous nebulization 06/09/10 01/22/24 solution for nebulization QID COPD ##0 albuterol sulfate 90 mcg/actuation 0.09 mg IH PRN PRN COPD ##0 05/06/11 01/22/24 aerosol inhaler (Proventil HFA) levothyroxine 112 mcg tablet 0.112 mg PO QAM ##0 03/05/17 01/22/24 sertraline 50 mg tablet 100 mg PO DAILY 05/08/20 01/22/24 atorvastatin 40 mg tablet 40 mg PO DAILY 12/20/22 01/22/24 lisinopril 20 1 tab PO DAILY 12/20/22 01/22/24 mg-hydrochlorothiazide 25 mg tablet mirtazapine 15 mg tablet 15 mg PO BEDTIME 12/20/22 01/22/24 Previous Rx's Medication Instructions Recorded nitroglycerin 0.4 mg sublingual 0.4 mg sublingual Q5M PRN chest 12/31/22 tablet pain #10 tabs pantoprazole 40 mg tablet,delayed 40 mg PO DAILY #30 tabs 02/25/23 release Allergies Allergy/AdvReac Type Severity Reaction Status Date / Time No Known Drug Allergies Allergy Verified 01/24/23 06:19 Review of Systems Review of Systems Narrative: As per HPI Patient History Medical History (Updated 01/23/24 @ 03:30 by Hitesh Ramirez MD) High cholesterol High blood pressure Closed fracture of left distal fibula Social History household members: significant other Smoking Status: Former smoker alcohol intake: former Smoking Status: Former smoker tobacco type: cigarettes alcohol intake frequency: a few times a week Substance Use Type: does not use Exam Narrative Exam Narrative: GENERAL: Well-developed patient, in mild distress. HEAD: Atraumatic. Normocephalic. EYES: Pupils equal round and reactive. Extraocular motions intact. No scleral icterus. No injection or drainage. ENT: Nose without bleeding, purulent drainage. Throat without erythema, tonsillar hypertrophy or exudate. Airway patent. NECK: Trachea midline. Non tender CARDIOVASCULAR: Regular rate and rhythm without murmurs, gallops, or rubs. RESPIRATORY: Clear to auscultation. Breath sounds equal bilaterally. No wheezes, rales, or rhonchi. GASTROINTESTINAL: Abdomen soft, non-tender, nondistended. EXTREMITIES: No edema or joint tenderness. BACK: Nontender without deformity or crepitance. No flank tenderness. NEURO: AOx3. SKIN: No rash or erythema of visible areas Initial Vital Signs Initial Vital Signs: Vital Signs Temperature 96.8 F L 01/22/24 17:12 Pulse Rate 104 H 01/22/24 17:12 Respiratory Rate 22 01/22/24 17:12 Blood Pressure 190/88 H 01/22/24 17:12 Pulse Oximetry 94 01/22/24 17:12 Oxygen Delivery Method Room Air 01/22/24 17:12 Course Orders Ordered: Acetaminophen (Acetaminophen 325 Mg Tablet) 650 mg PO Q6H PRN PRN Reason: Fever/Mild Pain (1-3) Albuterol (Albuterol 2.5 Mg/3 Ml Neb (Adult)) 2.5 mg INH [id number] PEDRO PABLO Atorvastatin Calcium (Atorvastatin 20 Mg Tablet) 40 mg PO DAILY PEDRO PABLO Hydrochlorothiazide (Hydrochlorothiazide 25 Mg Tablet) 25 mg PO DAILY PEDRO PABLO Ipratropium [place] (Ipratropium 0.5 Mg/2.5 Ml Neb) 0.5 mg INH RTQ4HR PRN PRN Reason: shortness of breath Last Admin: 01/23/24 05:29 Dose: 0.5 mg Documented By: Levothyroxine Sodium (Levothyroxine 112 Mcg Tablet) 112 mcg PO 0600 [facility] Last Admin: 01/23/24 06:00 Dose: 112 mcg Documented By: CT Lisinopril (Lisinopril 20 Mg Tablet) 20 mg PO DAILY [facility] Metoprolol Succinate (Metoprolol Er 25 Mg Tablet) 25 mg PO DAILY [facility] Mirtazapine (Mirtazapine 15 Mg Tablet) 15 mg PO BEDTIME [facility] Last Admin: 01/22/24 21:53 Dose: 15 mg Documented By: CT Naloxone HCl (Naloxone 0.4 Mg/Ml Vial) 0.2 mg IV Q2MIN PRN PRN Reason: Opiate Reversal Ondansetron HCl (Ondansetron 4 Mg/2 Ml Inj) 4 mg IV NOW PRN PRN Reason: Nausea And Vomiting Last Admin: 01/22/24 18:29 Dose: 4 mg Documented By: SANDOR Ondansetron HCl (Ondansetron 4 Mg Odt) 4 mg PO NOW PRN PRN Reason: Nausea And Vomiting Ondansetron HCl (Ondansetron 4 Mg/2 Ml Inj) 4 mg IV Q8HR PRN PRN Reason: Nausea And Vomiting Pantoprazole Sodium (Pantoprazole Dr 40 Mg Tablet) 40 mg PO 0600 [facility] Last Admin: 01/23/24 06:00 Dose: 40 mg Documented By: CT Prednisone (Prednisone 20 Mg Tablet) 40 mg PO DAILY PEDRO PABLO Stop: 01/26/24 09:01 Sertraline HCl (Sertraline 50 Mg Tablet) 100 mg PO DAILY [facility] Discontinued Medications Albuterol (Albuterol 2.5 Mg/3 Ml Neb (Adult)) 2.5 mg INH NOW ONE Stop: 01/22/24 18:34 Last Admin: 01/22/24 19:08 Dose: 2.5 mg Documented By: SAT Albuterol/Ipratropium (Albuterol/Ipratropium 3 Ml Ampul) 3 ml INH NOW ONE Stop: 01/22/24 18:41 Last Admin: 01/22/24 19:00 Dose: 3 ml Documented By: SAT Hydromorphone HCl (Hydromorphone 0.5 Mg Inj) 0.5 mg IV NOW ONE Stop: 01/22/24 18:19 Last Admin: 01/22/24 18:29 Dose: 0.5 mg Documented By: SANDOR Sodium Chloride (Normal Saline 0.9%) 1,000 mls @ 1,000 mls/hr IV BOLUS ONE Stop: 01/22/24 18:29 Last Infusion: 01/22/24 19:30 Dose: Infused Documented By: Admin: 01/22/24 17:42 Dose: 1,000 mls/hr Documented By: JAYA Methylprednisolone (Methylprednisolone 125 Mg/2 Ml Vial) 125 mg IV NOW ONE Stop: 01/22/24 18:40 Last Admin: 01/22/24 18:53 Dose: 125 mg Documented By: SANDOR Non-Formulary Medication (Lisinopril-Hydrochlorothiazide) 1 tab PO DAILY PEDRO PABLO Vital Signs Vital signs: Vital Signs - 8 hr 01/22/24 17:12 01/22/24 18:01 01/22/24 18:30 Temperature 96.8 F L Pulse Rate 104 H 96 H Respiratory Rate 22 Blood Pressure 190/88 H 195/94 H Pulse Oximetry 94 93 Oxygen Delivery Method Room Air Oxygen Flow Rate 01/22/24 18:30 01/22/24 18:53 01/22/24 18:53 Temperature Pulse Rate 93 H 105 H Respiratory Rate Blood Pressure 148/77 H Pulse Oximetry 92 91 Oxygen Delivery Method Oxygen Flow Rate 01/22/24 19:00 01/22/24 19:00 01/22/24 19:05 Temperature Pulse Rate 105 H 103 H Respiratory Rate 20 Blood Pressure 159/84 H Pulse Oximetry 91 94 Oxygen Delivery Method Nasal Cannula Oxygen Flow Rate 1.5 MDM - Abdominal Pain Lab Data Attestation: I reviewed the patient's lab results. Lab results narrative: White blood cell count 23548 elevated, hemoglobin normal, chemistry studies negative, LFTs and lipase normal, lactate normal 01/23/24 04:51 01/23/24 04:51 Labs: Lab Results 01/22/24 01/22/24 Range/Units 17:25 19:20 WBC 14.4 H (4.5-11.0) X10^3/uL RBC 4.73 (4.5-5.9) X10^6/uL Hgb 14.6 (13.5-17.5) g/dL Hct 43.8 (41-53) % MCV 92.6 (80-100) fL MCH 31.0 (26-34) PG MCHC 33.4 (30-36) % RDW 16.5 H (11.6-14.8) % Plt Count 353 (150-400) X10^3/uL Neut % (Auto) 88.1 H (50-75) % Lymph % (Auto) 6.4 L (25-40) % [place] % (Auto) 4.7 (3-14) % Eos % (Auto) 0.5 L (2-4) % Baso % (Auto) 0.3 (0-2) % Neut # (Auto) 93346 H (4640-8748) /uL Lymph # (Auto) 900 L (7889-9043) /uL [place] # (Auto) 700 (0-900) /uL Eos # (Auto) 100 (0-450) /uL Baso # (Auto) 0 (0-100) /uL Sodium 136 L (137-145) mmol/L Potassium 4.4 (3.4-5.1) mmol/L Chloride 100 (98-107) mmol/L Carbon Dioxide 29 (22-32) mmol/L BUN 29 H (9-20) mg/dL Creatinine 0.95 (0.66-1.25) mg/dL Estimated GFR > 60 (>60) mL/min BUN/Creatinine Ratio 30.5 H (6-22) Glucose 130 H (80-110) mg/dL Lactate 1.1 (0.7-2.1) mmol/L Calcium 9.6 (8.4-10.2) mg/dL Total Bilirubin 0.7 (0.2-1.3) mg/dL AST 29 (17-59) IU/L ALT 23 (<50) IU/L Alkaline Phosphatase 88 (38-126) U/L Total Protein 9.2 H (6.3-8.2) g/dL Albumin 5.2 H (3.5-5.0) g/dL Globulin 4.0 (1.7-4.1) g/dL Albumin/Globulin Ratio 1.3 (1.0-2.8) Lipase 69 (23-300) U/L SARS-CoV-2 (PCR) Negative (Negative) Influenza A (RT-PCR) Flu a negative (NEGATIVE) Influenza B (RT-PCR) Flu b negative (NEGATIVE) RSV (PCR) Negative (Negative) Imaging Data Chest x-ray: Radiologist's Impression: [address] [address] XRay Report Signed Patient: Nader Livingston MR#: [id number] : 1955 Acct:[id number] Age/Sex: 68 / M Date of Service: 01/22/24 Loc: ED Accession Number: [id number] Procedure: XR chest 2V Ordering Provider: Hitesh Ramirez MD PROCEDURE: XR CHEST 2V INDICATIONS: dyspnea, COPD, on oxygen new TECHNIQUE: 2 views of the chest were acquired. COMPARISON: [facility], CR, XR CHEST 1V, 12/31/2022, 10:57. FINDINGS: Surgical changes and devices: None. Lungs and pleura: Persistent elevation of left hemidiaphragm and linear opacities at the left lung base most consistent with atelectasis. No focal dense airspace consolidation. Right lung is clear. No pleural effusions or pneumothorax. Mediastinum: Mediastinal contours are normal. Heart size is normal. Bones and chest wall: No suspicious bony abnormalities. Soft tissues appear unremarkable. IMPRESSION: Persistent left hemidiaphragm elevation and left basal atelectasis. Approved by: Laurel Joshua M.D.,Ph.D. on 01/22/2024 at 18:00 CT scan - abdomen/pelvis: Radiologist's Impression: [place] [address] XRay Report Signed Patient: Nader Livingston MR#: [id number] : 1955 Acct:[id number] Age/Sex: 68 / M Date of Service: 01/22/24 Loc: ED Accession Number: [id number] Procedure: XR chest 2V Ordering Provider: Hitesh Ramirez MD PROCEDURE: XR CHEST 2V INDICATIONS: dyspnea, COPD, on oxygen new TECHNIQUE: 2 views of the chest were acquired. COMPARISON: [facility], , XR CHEST 1V, 12/31/2022, 10:57. FINDINGS: Surgical changes and devices: None. Lungs and pleura: Persistent elevation of left hemidiaphragm and linear opacities at the left lung base most consistent with atelectasis. No focal dense airspace consolidation. Right lung is clear. No pleural effusions or pneumothorax. Mediastinum: Mediastinal contours are normal. Heart size is normal. Bones and chest wall: No suspicious bony abnormalities. Soft tissues appear unremarkable. IMPRESSION: Persistent left hemidiaphragm elevation and left basal atelectasis. Approved by: aLurel Joshua M.D.,Ph.D. on 01/22/2024 at 18:00 ECG Data Attestation: I personally reviewed and interpreted this ECG as follows: Interpretation: Normal sinus rhythm with rate 95, no obvious ST segment elevation or depression changes. [place] 154, QRS 72, QTC 429. MDM Narrative Medical decision making narrative: 68-year-old male with history of COPD, recent increasing cough and shortness of breath, new hypoxia, lung seemed fairly clear, speaking in nearly full sentences, SVN DuoNeb, IV Solu-Medrol. Also complained of central and lower abdominal discomfort, history of diverticulitis. White blood cell count [id number]. CT abdomen and pelvis requested. Chest x-ray and COVID/flu swabs requested. CT abdomen and pelvis shows diverticulosis, no diverticulitis, no acute process. Chest x-ray no acute process. Patient still with some dyspnea new hypoxia, consider admission, patient amenable, contact hospitalist PCP Dr. Turner, Dr. Jake Mccray on-call for that group. Case discussed with Dr. Jacobs, accepts patient for admission to observation Critical Care Time Critical Care Time Critical Care Time: Yes Total Critical Care Time: 35 Attestation: The high probability of a clinically significant, sudden or life threatening deterioration of the [cardiopulmonary, gastrointestinal, abdominal pelvic] system(s) required my full and direct attention, intervention and personal management. The aggregate critical care time was [35] minutes. This time is in addition to time spent performing reported procedures but includes the following: [x] Data Review and interpretation [x] Patient assessment and monitoring of vital signs [x] Documentation [x] Medication orders and management Discharge Plan Departure Patient Disposition: Admitted as Observation Clinical Impression: COPD exacerbation, Hypoxia, Abdominal pain Admit Date/Time: 01/22/24 20:24 Admit Provider: Cecy Hanks
[2024-01-22] MEDS: ONDANSETRON 4 MG/2 ML INJ IV (18:29)
[2024-01-22] MEDS: HYDROMORPHONE 0.5 MG INJ IV (18:29)
--- NOTE | 2024-01-22 18:32 | DI.RAD.S_ITS ---
PROCEDURE: XR CHEST 2V INDICATIONS: dyspnea, COPD, on oxygen new TECHNIQUE: 2 views of the chest were acquired. COMPARISON: [facility], CR, XR CHEST 1V, 12/31/2022, 10:57. FINDINGS: Surgical changes and devices: None. Lungs and pleura: Persistent elevation of left hemidiaphragm and linear opacities at the left lung base most consistent with atelectasis. No focal dense airspace consolidation. Right lung is clear. No pleural effusions or pneumothorax. Mediastinum: Mediastinal contours are normal. Heart size is normal. Bones and chest wall: No suspicious bony abnormalities. Soft tissues appear unremarkable. IMPRESSION: Persistent left hemidiaphragm elevation and left basal atelectasis. Approved by: Laurel Joshua M.D.,Ph.D. on 01/22/2024 at 18:00
[2024-01-22] MEDS: methylPREDNISolone 125 MG/2 ML VIAL IV (18:53)
[2024-01-22] MEDS: ALBUTEROL/IPRATROPIUM 3 ML AMPUL INH (19:00)
[2024-01-22] MEDS: ALBUTEROL 2.5 MG/3 ML NEB (ADULT) INH (19:08)
[2024-01-22 20:10] LABS: Influenza A - CEPHEID Flu A NEGATIVE (NEGATIVE); Influenza B - CEPHEID Flu B NEGATIVE (NEGATIVE); Respiratory Syncytial Virus Negative (Negative)
[2024-01-22 20:12] LABS: COVID-19 CEPHEID 4-PLEX PCR Negative (Negative)
[2024-01-22] MEDS: MIRTAZAPINE 15 MG TABLET PO (21:53)
[2024-01-22 23:52] LABS: Troponin I < 0.012 ng/mL (0.01-0.034)
[2024-01-23] VITALS (12 sets, daily range): BP systolic 96–147; BP diastolic 58–88; PULSE 83–98; RESP 16–22; TEMP 35.5–36.6; O2SAT 91–97
[2024-01-23] MEDS: IPRATROPIUM 0.5 MG/2.5 ML NEB INH (05:29)
[2024-01-23 05:44] LABS: Add Manual Diff / Slide Review NO; Basophils Absolute Auto 0 /uL (0-100); Basophils Percent Auto 0.1 % (0-2); Eosinophils Absolute Auto 0 /uL (0-450); Hematocrit 41.7 % (41-53); Hemoglobin 13.8 g/dL (13.5-17.5); Lymphocytes Absolute Auto 700 /uL (1100-4500); Lymphocytes Percent Auto 7.1 % (25-40); Mean Corpuscular HGB Conc 33.1 % (30-36); Mean Corpuscular Hemoglobin 30.7 PG (26-34); Mean Corpuscular Volume 92.8 fL (80-100); Monocytes Absolute Auto 100 /uL (0-900); Monocytes Percent Auto 0.9 % (3-14); Neutrophils Absolute Auto 9200 /uL (1500-7000); Neutrophils Percent Auto 91.9 % (50-75); Platelet Count 344 X10^3/uL (150-400); Red Blood Cell Count 4.49 X10^6/uL (4.5-5.9); Red Cell Distribution Width 16.3 % (11.6-14.8)
[2024-01-23] MEDS: LEVOTHYROXINE 112 MCG TABLET PO (06:00)
[2024-01-23] MEDS: PANTOPRAZOLE DR 40 MG TABLET PO (06:00)
[2024-01-23 06:04] LABS: BUN Creatinine Ratio 25.6 (6-22); Blood Urea Nitrogen 23 mg/dL (9-20); Calcium 8.6 mg/dL (8.4-10.2); Carbon Dioxide 28 mmol/L (22-32); Chloride 99 mmol/L (98-107); Estimated Glomerular Filt Rate > 60 mL/min (>60); Glucose 156 mg/dL (80-110); HEMOLYSIS < 15 (0-50); Potassium 4.5 mmol/L (3.4-5.1); Sodium 137 mmol/L (137-145)
[2024-01-23] MEDS: hydroCHLOROthiazide 25 MG TABLET PO (08:40)
[2024-01-23] MEDS: lisinopriL 20 MG TABLET PO (08:40)
[2024-01-23] MEDS: SERTRALINE 50 MG TABLET 100 MG PO (08:40)
[2024-01-23] MEDS: METOPROLOL ER 25 MG TABLET PO (08:40)
[2024-01-23] MEDS: ACETAMINOPHEN 325 MG TABLET 650 MG PO (08:40)
[2024-01-23] MEDS: ONDANSETRON 4 MG ODT PO (08:41)
[2024-01-23] MEDS: ATORVASTATIN 20 MG TABLET 40 MG PO (08:41)
[2024-01-23] MEDS: predniSONE 20 MG TABLET 40 MG PO (08:41)
[2024-01-23] MEDS: ALBUTEROL 2.5 MG/3 ML NEB (ADULT) INH (08:55)
--- NOTE | 2024-01-23 08:55 | PM.HP.1 ---
History of Present Illness History of Present Illness Date Patient Seen: 01/23/24 Time Patient Seen: 08:55 Chief complaint: severe stomach pain Narrative: CC: stomach pain/COPD exacerbation Pt reports new severe lower abdominal pain that is posturally dependent, activated by sitting up or bending over and so intense he presented to the ED with trouble breathing. He endorses several years of worsening night sweats soaking the pillow but otherwise no explanation evident. He has been getting atrovent and ivf and his white count is normal with some neutrophilia. He feels a little better today than yesterday but still desats easily if he moves or dislodges NC. Appetite is fine, sleep is ok, no pain at rest. [facility] Medical History (Updated 01/23/24 @ 03:30 by Hitesh Ramirez MD) High cholesterol High blood pressure Closed fracture of left distal fibula Social History household members: significant other Smoking Status: Former smoker alcohol intake: former Meds Home Medications and Allergies Home Medications Medication Instructions Recorded Confirmed Type albuterol sulfate 0.63 mg/3 mL 0.63 mg continuous nebulization 06/09/10 01/22/24 History solution for nebulization QID COPD ##0 albuterol sulfate 90 mcg/actuation 0.09 mg IH PRN PRN COPD ##0 05/06/11 01/22/24 History aerosol inhaler (Proventil HFA) levothyroxine 112 mcg tablet 0.112 mg PO QAM ##0 03/05/17 01/22/24 History sertraline 50 mg tablet 100 mg PO DAILY 05/08/20 01/22/24 History atorvastatin 40 mg tablet 40 mg PO DAILY 12/20/22 01/22/24 History lisinopril 20 1 tab PO DAILY 12/20/22 01/22/24 History mg-hydrochlorothiazide 25 mg tablet mirtazapine 15 mg tablet 15 mg PO BEDTIME 12/20/22 01/22/24 History nitroglycerin 0.4 mg sublingual 0.4 mg sublingual Q5M PRN chest 12/31/22 01/22/24 Rx tablet pain #10 tabs pantoprazole 40 mg tablet,delayed 40 mg PO DAILY #30 tabs 02/25/23 01/22/24 Rx release Allergies Allergy/AdvReac Type Severity Reaction Status Date / Time No Known Drug Allergies Allergy Verified 01/24/23 06:19 Review of Systems Review of Systems Narrative: all systems reviewed adn negative except as otherwise documented in HPI Exam Vital Signs (past 8 hours): - 01/23/24 05:07 01/23/24 05:32 01/23/24 08:40 Temperature 96.5 F L Pulse Rate 89 89 Respiratory Rate 20 Blood Pressure 147/88 H 147/88 H Pulse Oximetry 94 94 Oxygen Delivery Method Nasal Cannula Oxygen Flow Rate 3 3 01/23/24 08:40 Temperature Pulse Rate 89 Respiratory Rate Blood Pressure 147/88 H Pulse Oximetry Oxygen Delivery Method Oxygen Flow Rate Oxygen Delivery Method Nasal Cannula Oxygen Flow Rate 3 Resp Other: moving air ok - 4L via NC - scant upper wheezing heard but sounds mostly ok on lower lung auscultation. GI Other: soft active bowel sounds, patient indicates pain is in lower abdomen/groin - nothing distinctly or particularly palpable in indicated area which is not markedly tender. Skin Other: normal turgor no rash Neuro Other: AAOx4, conversant Objective Labs 01/23/24 04:51 01/23/24 04:51 Labs: Laboratory Results - last 24 hr 01/22/24 01/22/24 01/22/24 17:25 19:20 23:15 WBC 14.4 H RBC 4.73 Hgb 14.6 Hct 43.8 MCV 92.6 MCH 31.0 MCHC 33.4 RDW 16.5 H Plt Count 353 Neut % (Auto) 88.1 H Lymph % (Auto) 6.4 L [place] % (Auto) 4.7 Eos % (Auto) 0.5 L Baso % (Auto) 0.3 Neut # (Auto) 36878 H Lymph # (Auto) 900 L [place] # (Auto) 700 Eos # (Auto) 100 Baso # (Auto) 0 Sodium 136 L Potassium 4.4 Chloride 100 Carbon Dioxide 29 BUN 29 H Creatinine 0.95 Estimated GFR > 60 BUN/Creatinine Ratio 30.5 H Glucose 130 H Lactate 1.1 Calcium 9.6 Total Bilirubin 0.7 AST 29 ALT 23 Alkaline Phosphatase 88 Troponin I < 0.012 Total Protein 9.2 H Albumin 5.2 H Globulin 4.0 Albumin/Globulin Ratio 1.3 Lipase 69 SARS-CoV-2 (PCR) Negative Influenza A (RT-PCR) Flu a negative Influenza B (RT-PCR) Flu b negative RSV (PCR) Negative 01/23/24 04:51 WBC 10.0 RBC 4.49 L Hgb 13.8 Hct 41.7 MCV 92.8 MCH 30.7 MCHC 33.1 RDW 16.3 H Plt Count 344 Neut % (Auto) 91.9 H Lymph % (Auto) 7.1 L [place] % (Auto) 0.9 L Eos % (Auto) 0.0 L Baso % (Auto) 0.1 Neut # (Auto) 9200 H Lymph # (Auto) 700 L [place] # (Auto) 100 Eos # (Auto) 0 Baso # (Auto) 0 Sodium 137 Potassium 4.5 Chloride 99 Carbon Dioxide 28 BUN 23 H Creatinine 0.90 Estimated GFR > 60 BUN/Creatinine Ratio 25.6 H Glucose 156 H Lactate Calcium 8.6 Total Bilirubin AST ALT Alkaline Phosphatase Troponin I Total Protein Albumin Globulin Albumin/Globulin Ratio Lipase SARS-CoV-2 (PCR) Influenza A (RT-PCR) Influenza B (RT-PCR) RSV (PCR) Assessment & Plan Assessment & Plan narrative: #copd exacerbation #lower abdominal pain #possible UTI? Will continue inpatient on IV steroids and duonebs. Abdominal pain etiology remains obscure - abdomen CT/pelvis in ED was unrevealing. pain control, encourage eating and ambulation. I have added on some azithromycin in case there is indeed some pneumonia or urine infection plus general COPDE management. No case WBC elevation but I do note some neutrophilia which could be consistent with an infection. He desats easily if NC is dislodged or he mouthbreathes. Postural basis for pain without GI apparent involvement - possible MSK? CBC is otherwise fairly normal despite night sweats history. #MDD stable continue home meds #BPH w/obs stable continue home flomax #essential hypertension continue home meds #hyperlipidemia stable on home meds #GERD stable continue home PPI #hypothyroid stable continue home meds dispo: admit inpatient for duonebs, RT support and treatment. PCP: Iftikhar Diet: general Code: full MDM: sister Laura Falk VTE Deep Vein Thrombosis/Pulmonary Embolism Present on Admission: No
[2024-01-23] MEDS: AZITHROMYCIN 250 MG TABLET 500 MG PO (09:30)
--- NOTE | 2024-01-23 13:52 | CM.DANOTE ---
Initial DCP Assessment Note Pt is a 68 yo male, resident of [place], arrives with abd pain, hx diverticulitis, White blood cell count [id number], admitted for management of dyspnea with acute hypoxia. PCP: Eladio Buitrago Payer: Lalit CHAWLA Reviewed chart, met w/patient to introduce self and role. Patient lives w/SO in [facility] at baseline, poor activity tolerance related to his COPD. Patient reports he does not have oxygen at home. Patient cares for his SO who ambulates poorly and is on dialysis. 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 Patient denies needs from this CM team currently, appreciative of the visit. Friend to transport upon discharge. No barriers identified at this time to patient's safe discharge home w/family to assist; close outpatient f/u recommended. CM team will plan to follow clinical course closely in case any DC needs or concerns arise. [facility] Discharge Planning/Care Management CM Discharge Assessment Start: 01/23/24 13:51 Freq: Status: Active Protocol: Document 01/23/24 13:51 BRANDON (Rec: 01/23/24 13:52 BRANDON [id number]) Discharge Planning Assessment Assigned [place] [facility] DPOA/Assigned Designee Name JORDAN Quiros Contact Information [phone] Advance Directives? Yes: POLST: Advance Directive Advance Directives on File No History Provided By Patient,Medical Record Prior Living Arrangements House Household Members significant other Type of transporation used prior to Drives own vehicle admit Independent with ADL's Yes: Poor activity tolerance r /t SOB/COPD Is patient alert and oriented? Yes Barriers to Discharge No Discharge Plan Home Transportation Arrangement Friend Referrals Initiated None needed
[2024-01-23] MEDS: ALBUTEROL/IPRATROPIUM 3 ML AMPUL INH ×3 (13:58→23:16)
[2024-01-23] MEDS: LORazepam 0.5 MG TABLET 0.25 MG PO (15:28)
[2024-01-23 16:01] LABS: Appearance Urine UA CLEAR; Bilirubin Urine UA NEGATIVE (NEGATIVE); Color Urine UA YELLOW; Glucose Urine UA NEGATIVE (Negative); Ketones Urine UA NEGATIVE (NEGATIVE); Leukocyte Esterase Urine UA NEGATIVE (NEGATIVE); Nitrite Urine UA NEGATIVE (Negative); Occult Blood Urine UA NEGATIVE (Negative); Protein Urine UA NEGATIVE (Negative); Urobilinogen Urine UA 0.2 E.U./dL (0.2); pH Urine UA 5.5 (4.5-8.0)
[2024-01-23 16:08] LABS: Bacteria Urine Occasional (0-1); Culture Indicated Urine Cult Not Indicated; RBC Urine None Seen (0-5/HPF); Squamous Epithelial Cell Urine None Seen (0-5/HPF); Urine Volume 10mL (spun); WBC Urine 0-1/HPF (0-5/HPF)
[2024-01-23] MEDS: MIRTAZAPINE 15 MG TABLET PO (20:02)
[2024-01-23] MEDS: HYDROCODONE/ACET 10/325 TABLET 1 TAB PO (20:02)
[2024-01-23] MEDS: SODIUM CHLORIDE 0.9% FLUSH 10 ML IV (23:28)
[2024-01-24] VITALS (12 sets, daily range): BP systolic 103–123; BP diastolic 57–77; PULSE 72–114; RESP 16–20; TEMP 36–36.7; O2SAT 91–98
[2024-01-24 05:41] LABS: Add Manual Diff / Slide Review NO; Basophils Absolute Auto 0 /uL (0-100); Basophils Percent Auto 0.4 % (0-2); Eosinophils Absolute Auto 0 /uL (0-450); Eosinophils Percent Auto 0.1 % (2-4); Hemoglobin 12.8 g/dL (13.5-17.5); Lymphocytes Absolute Auto 2000 /uL (1100-4500); Lymphocytes Percent Auto 17.1 % (25-40); Mean Corpuscular HGB Conc 32.9 % (30-36); Mean Corpuscular Hemoglobin 30.3 PG (26-34); Monocytes Absolute Auto 800 /uL (0-900); Monocytes Percent Auto 6.8 % (3-14); Neutrophils Absolute Auto 9000 /uL (1500-7000); Neutrophils Percent Auto 75.6 % (50-75); Platelet Count 323 X10^3/uL (150-400); Red Blood Cell Count 4.24 X10^6/uL (4.5-5.9); Red Cell Distribution Width 16.3 % (11.6-14.8); White Blood Cell Count 11.9 X10^3/uL (4.5-11.0)
[2024-01-24] MEDS: ALBUTEROL/IPRATROPIUM 3 ML AMPUL INH ×4 (05:44→18:27)
[2024-01-24] MEDS: LEVOTHYROXINE 112 MCG TABLET PO (05:53)
[2024-01-24] MEDS: PANTOPRAZOLE DR 40 MG TABLET PO (05:54)
[2024-01-24 05:58] LABS: BUN Creatinine Ratio 36.8 (6-22); Blood Urea Nitrogen 32 mg/dL (9-20); Calcium 8.4 mg/dL (8.4-10.2); Carbon Dioxide 31 mmol/L (22-32); Chloride 99 mmol/L (98-107); Estimated Glomerular Filt Rate > 60 mL/min (>60); Glucose 130 mg/dL (80-110); HEMOLYSIS < 15 (0-50); Sodium 135 mmol/L (137-145)
[2024-01-24] MEDS: ONDANSETRON 4 MG/2 ML INJ IV (08:13)
[2024-01-24] MEDS: HYDROCODONE/ACET 10/325 TABLET 1 TAB PO ×2 (08:13→21:00)
--- NOTE | 2024-01-24 10:30 | PM.PN.1 ---
Subjective Subjective Date Patient Seen: 01/24/24 Time Patient Seen: 10:30 Interval history: 68-year-old male admitted yesterday with abdominal pain uncertain etiology after ER evaluation but pretty clear COPD exacerbation He was given a single dose of oral azithromycin placed on parental steroids with frequent nebulizer treatments etcetera and admitted to the hospital Labs this morning essentially unremarkable. Slight bump in white count probably secondary to his corticosteroid therapy. Urinalysis done yesterday was normal and blood cultures thus far negative as well. He has been afebrile. He is a bit modestly hypotensive least for him, appears to be asymptomatic however This morning reports his abdominal symptoms are vastly better. Not completely absent but better. He focuses more on diarrhea that he was having although that has not reoccurred either. Breathing he says is his usual breathing not particularly better not particularly worse Exam Vital Signs (past 8 hours): - 01/24/24 05:08 01/24/24 05:44 01/24/24 08:52 Temperature 96.8 F L 98.1 F Pulse Rate 72 82 Respiratory Rate 18 16 Blood Pressure 116/66 103/60 Pulse Oximetry 98 93 95 Oxygen Flow Rate 2 3 2 01/24/24 10:11 Temperature Pulse Rate 83 Respiratory Rate Blood Pressure 104/57 L Pulse Oximetry Oxygen Flow Rate Oxygen Delivery Method Nasal Cannula Oxygen Flow Rate 2 Objective Labs 01/24/24 05:33 01/24/24 05:33 Labs: Laboratory Results - last 24 hr 01/23/24 01/24/24 15:30 05:33 WBC 11.9 H RBC 4.24 L Hgb 12.8 L Hct 39.0 L MCV 92.0 MCH 30.3 MCHC 32.9 RDW 16.3 H Plt Count 323 Neut % (Auto) 75.6 H Lymph % (Auto) 17.1 L [place] % (Auto) 6.8 Eos % (Auto) 0.1 L Baso % (Auto) 0.4 Neut # (Auto) 9000 H Lymph # (Auto) 2000 [place] # (Auto) 800 Eos # (Auto) 0 Baso # (Auto) 0 Sodium 135 L Potassium 4.0 Chloride 99 Carbon Dioxide 31 BUN 32 H Creatinine 0.87 Estimated GFR > 60 BUN/Creatinine Ratio 36.8 H Glucose 130 H Calcium 8.4 Urine Color Yellow Urine Appearance Clear Urine pH 5.5 Ur Specific [place] 1.020 Urine Protein Negative Urine Glucose (UA) Negative Urine Ketones Negative Urine Occult Blood Negative Urine Nitrate Negative Urine Bilirubin Negative Urine Urobilinogen 0.2 Ur Leukocyte Esterase Negative Urine RBC None seen Urine WBC 0-1/hpf Ur Squamous Epith Cells None seen Urine Bacteria Occasional (0-1) Ur Culture Indicated? Cult not indicated Vol Urine Centrifuged 10ml (spun) [facility] Medical History (Updated 01/23/24 @ 03:30 by Hitesh Ramirez MD) High cholesterol High blood pressure Closed fracture of left distal fibula Social History household members: significant other Smoking Status: Former smoker alcohol intake: former Assessment & Plan Assessment & Plan narrative: 1. COPD exacerbation-continue with parental corticosteroids as well as frequent nebulizer treatments with DuoNeb plus albuterol as needed. I see no need for antibiotic therapy at this point either for his pulmonary issues or his GI issues and so will not continue the azithromycin that was given x1 2. Abdominal pain-no clear etiology at this point. Imaging negative blood tests and urine analysis unhelpful. Despite the diarrhea CT scan did not show evidence of either diverticulitis or any other inflammatory change in the colon. 3. Hypertension-patient is hypotensive if anything. Will hold lisinopril for now but continue beta-keyla therapy. Also discontinue hydrochlorothiazide Overall hopefully patient continues to improve and if approaching baseline by tomorrow or Friday maybe ready for discharge at that point. Quality VTE Deep Vein Thrombosis/Pulmonary Embolism Present on Admission: No IH PROFEE Charge codes Subsequent inpatient/observation care: 92194
[2024-01-24] MEDS: ATORVASTATIN 20 MG TABLET 40 MG PO (11:13)
[2024-01-24] MEDS: SODIUM CHLORIDE 0.9% FLUSH 10 ML IV ×2 (11:14→21:01)
[2024-01-24] MEDS: predniSONE 20 MG TABLET 40 MG PO (11:14)
[2024-01-24] MEDS: METOPROLOL ER 25 MG TABLET PO (11:14)
[2024-01-24] MEDS: SERTRALINE 50 MG TABLET 100 MG PO (11:14)
--- NOTE | 2024-01-24 15:13 | CM.DPC ---
DCP Cont: Patient is currently on 3 liters of oxygen, continuing with corticosteroid treatment. According to provider note, patient may be able to discharge tomorrow or Friday, patient wants to get back to his significant other, who is on dialysis. P: DCP to continue to follow. Plan is home when stable, either tomorrow or Friday. Elise Rush RN/Emergency Medicine Nurse Practitioner
[2024-01-24] MEDS: MIRTAZAPINE 15 MG TABLET PO (21:00)
[2024-01-25 01:05] VITALS: BP 94/60; PULSE 84; RESP 17; TEMP 35.7; O2SAT 93
[2024-01-25 05:50] VITALS: BP 140/85; PULSE 87; RESP 16; TEMP 35.8; O2SAT 93
[2024-01-25] MEDS: LEVOTHYROXINE 112 MCG TABLET PO (06:01)
[2024-01-25] MEDS: PANTOPRAZOLE DR 40 MG TABLET PO (06:02)
[2024-01-25] MEDS: ALBUTEROL/IPRATROPIUM 3 ML AMPUL INH ×2 (07:54→11:08)
[2024-01-25 08:44] VITALS: BP 110/70; PULSE 85; RESP 16; TEMP 36.3; O2SAT 90
[2024-01-25 08:47] VITALS: BP 115/64; PULSE 91
[2024-01-25 08:50] VITALS: BP 115/64; PULSE 91
[2024-01-25] MEDS: METOPROLOL ER 25 MG TABLET PO (08:50)
[2024-01-25] MEDS: SODIUM CHLORIDE 0.9% FLUSH 10 ML IV (08:50)
[2024-01-25] MEDS: predniSONE 20 MG TABLET 40 MG PO (08:50)
[2024-01-25] MEDS: ATORVASTATIN 20 MG TABLET 40 MG PO (08:50)
[2024-01-25] MEDS: SERTRALINE 50 MG TABLET 100 MG PO (08:50)
--- NOTE | 2024-01-25 10:48 | PM.DS.1 ---
History of Present Illness History of Present Illness Date Patient Seen: 01/25/24 Time Patient Seen: 10:48 Chief complaint: severe stomach pain Narrative: Pt reports new severe lower abdominal pain that is posturally dependent, activated by sitting up or bending over and so intense he presented to the ED with trouble breathing. He endorses several years of worsening night sweats soaking the pillow but otherwise no explanation evident. He has been getting atrovent and ivf and his white count is normal with some neutrophilia. He feels a little better today than yesterday but still desats easily if he moves or dislodges NC. Appetite is fine, sleep is ok, no pain at rest. {from Dr. Buitrago's H&P 01/23/24} Discharge Providers Provider Date of admission: 01/22/24 20:24 Discharge Date: 01/25/24 Primary care physician: Eladio Buitrago MD Consults: 01/22/24 19:43 Consult to Cardio/Pulmonary Rehabilitation Routine Comment: Physician Instructions: Evaluate and treat Discharge provider: Maik Lewis MD Summary Hospital Course Discharge Diagnosis: 1. COPD exacerbation 2. Abdominal pain of uncertain etiology 3. Diarrhea of uncertain etiology 4. Hypertension 5. Hyperlipidemia Hospital Course: Patient was admitted as above He was placed on parental steroids and frequent nebulizer treatments. He was also given a single dose of oral azithromycin for possible infectious source of symptoms. Respiratory status improved dramatically he was able to be up and around without oxygen by discharge. Antibiotic therapy was not continued during his hospitalization or discharge Patient's abdominal pain was more difficult to pin down. Pain rapidly resolved and there were no findings to suggest a diagnose either on imaging or with lab work. Patient did have some diarrhea prior to admission that resolved and did not occur during hospitalization and there was no evidence of colitis on imaging Therefore overall patient was felt to be improved and ready for discharge by the morning of the 24 of January Exam Vital Signs (past 8 hours): - 01/25/24 05:50 01/25/24 08:44 01/25/24 08:47 Temperature 96.5 F L 97.4 F L Pulse Rate 87 85 91 H Respiratory Rate 16 16 Blood Pressure 140/85 110/70 115/64 Pulse Oximetry 93 90 L Oxygen Flow Rate 0 0 01/25/24 08:50 Temperature Pulse Rate 91 H Respiratory Rate Blood Pressure 115/64 Pulse Oximetry Oxygen Flow Rate Oxygen Delivery Method Room Air Oxygen Flow Rate 0 Objective Labs 01/24/24 05:33 01/24/24 05:33 [facility] Medical History High cholesterol High blood pressure Closed fracture of left distal fibula Social History household members: significant other Smoking Status: Former smoker alcohol intake: former Discharge Assessment & Plan Assessment and Plan Plan of Treatment: Continue a brief tapering course of prednisone for his COPD exacerbation. Continue his usual home meds as well Continue monitoring abdominal symptoms for return or additional symptoms might provide additional information as to possible source of symptoms Outpatient follow up with his PCP in 1-2 weeks to ensure complete resolution Discharge Plan Discharge Plan Patient Disposition: Home Discharge orders & Medications Prescriptions: New metoprolol succinate 25 mg Tablet Extended Release 24 Hr 25 mg PO DAILY Qty: 30 0RF prednisone 20 mg tablet 20 - 40 mg PO DAILY 6 Days Qty: 8 0RF Rx Instructions: take 2 tabs daily for 2 days, then one tab daily for 2 days, then 1/2 tab daily for 2 days, then stop Continued albuterol sulfate 0.63 mg/3 mL solution for nebulization 0.63 mg continuous nebulization QID Qty: 0 albuterol sulfate [Proventil HFA] 90 MCG/PUFF HFA aerosol inhaler 0.09 mg IH PRN PRN (Reason: COPD) Qty: 0 levothyroxine 112 MCG tablet 0.112 mg PO QAM Qty: 0 pantoprazole 40 mg tablet,delayed release (DR/EC) 40 mg PO DAILY Qty: 30 2RF nitroglycerin 0.4 mg tablet, sublingual 0.4 mg sublingual Q5M PRN (Reason: chest pain) Qty: 10 0RF Rx Instructions: do not exceed 3 doses per episode sertraline 50 mg tablet 100 mg PO DAILY atorvastatin 40 mg tablet 40 mg PO DAILY Patient Comments: TAKE ONE TABLET BY MOUTH ONE TIME DAILY mirtazapine 15 mg tablet 15 mg PO BEDTIME Patient Comments: TAKE ONE TABLET BY MOUTH EVERY NIGHT Discontinued lisinopril-hydrochlorothiazide 20-25 mg tablet 1 tab PO DAILY Patient Comments: TAKE ONE TABLET BY MOUTH ONE TIME DAILY Follow up/Referrals: Eladio Buitrago MD [Primary Care Provider] - 1 Week Discharge Health Status Multidrug resistant organism: No MDRO Diet/Activity/Treatments Diet: Diet as Tolerated and Low-sodium Visit Report/Discharge Packet Stand Alone Forms: Patient Portal/API, Stroke Signs & Symptoms Discharge Data Primary Care Provider: Eladio Buitrago Attending Provider: Eladio Buitrago Admit Date/Time: 01/22/24 20:24 Quality VTE Deep Vein Thrombosis/Pulmonary Embolism Present on Admission: No IH PROFEE Charge Codes Discharge inpatient/observation: 97161
--- NOTE | 2024-01-25 11:32 | CM.DPC ---
DCP Cont. Reviewed EMR and team rounds for status updates. Pt has been medically cleared for home d/c, family will be transporting him early this afternoon. No further DCP needs identified at this time.
--- NOTE | 2024-01-25 12:23 | PC.NURSE ---
Pt discharged home at 1210, escorted off floor in wheelchair accompanied by hospital staff. IV removed, tele d/c'd, discharge teaching completed including follow up appointments, new medications, and worsening symptoms. Questions answered and concerns addressed. All belongings left with patient.
== END 2024-01-25 12:15 | disposition home or self-care (01) | DRG 191 ==
LOC: ED 20:22 → AC 20:24
PROVIDERS: Emergency Medicine; Admitting Provider Family Medicine; Emergency Provider Emergency Medicine; PCP Family Medicine; Visit Provider Family Medicine
DX: J44.1 Chronic obstructive pulmonary disease with (acute) exacerbation (principal); N13.8 Other obstructive and reflux uropathy; F32.9 Major depressive disorder, single episode, unspecified; N40.1 Benign prostatic hyperplasia with lower urinary tract symptoms; I10 Essential (primary) hypertension; E78.5 Hyperlipidemia, unspecified; K21.9 Gastro-esophageal reflux disease without esophagitis; E03.9 Hypothyroidism, unspecified; R10.9 Unspecified abdominal pain; R19.7 Diarrhea, unspecified; Z87.891 Personal history of nicotine dependence
CPT/HCPCS: 0241U; 36415; 71046; 74177; 80048; 80053; 81001; 81003; 83605; 83690; 84484; 85025; 87040; 93005; 94640; 94667; 94760; 94762; 96374; 96375; 99285; 99291; G0378; J1170; J2405; J2919; J7613; Q9967

== ENCOUNTER → 2024-04-02 11:50 | Outpatient (CLI) | payer MEDICARE, SELFPAY ==
[2024-04-01 11:46] VITALS: BMI 29.0
--- NOTE | 2024-04-02 11:52 | DI.RAD.S_ITS ---
PROCEDURE: XR CHEST 2V INDICATIONS: eval wheezing TECHNIQUE: 2 views of the chest were acquired. COMPARISON: [facility], CR, XR CHEST 2V, 01/22/2024, 18:35. FINDINGS: Surgical changes and devices: None. Lungs and pleura: Lungs are clear. No pleural effusions or pneumothorax. Mediastinum: Mediastinal contours are normal. Heart size is normal. Bones and chest wall: No suspicious bony abnormalities. Soft tissues appear unremarkable. IMPRESSION: No acute pulmonary process. Dictated by: Felisa Arce M.D. on 04/02/2024 at 13:47 Approved by: Felisa Arce M.D. on 04/02/2024 at 13:48
--- NOTE | 2024-04-02 11:52 | DI.RAD.S_ITS ---
PROCEDURE: XR CERVICAL SPINE 2V OR 3V INDICATIONS: eval neck pain TECHNIQUE: 3 view(s) of the cervical spine were acquired. COMPARISON: None. FINDINGS: Bones: No fractures or dislocations to the T1 level. The lateral masses of C1 appear intact on the odontoid view. No suspicious bony lesions. Multilevel degenerative changes including prominent disc space narrowing at C5-6 and C6-7 with anterior osteophytes. Multilevel uncovertebral arthropathy is present. Soft tissues: No prevertebral soft tissue swelling. IMPRESSION: No displaced fracture or traumatic subluxation. Degenerative changes most severe at C5-6 and C6-7. Dictated by: Felisa Arce M.D. on 04/02/2024 at 13:48 Approved by: Felisa Arce M.D. on 04/02/2024 at 13:48
== END ==
LOC: RAD 11:52
PROVIDERS: PCP Family Medicine; Referring Provider Family Medicine; Visit Provider Family Medicine
DX: M54.2 Cervicalgia (principal); R06.2 Wheezing; J44.1 Chronic obstructive pulmonary disease with (acute) exacerbation; M89.9 Disorder of bone, unspecified
CPT/HCPCS: 71046; 72040

== ENCOUNTER 2024-05-13 15:47 | Inpatient (IN) | payer MEDICARE, SELFPAY ==
[2024-04-01 11:46] VITALS: BMI 29.0
[2024-05-13] VITALS (37 sets, daily range): BP systolic 139–179; BP diastolic 70–127; PULSE 100–148; RESP 18–42; TEMP 36.4; O2SAT 84–96; BMI 29.7
--- NOTE | 2024-05-13 16:05 | DI.RAD.S_ITS ---
PROCEDURE: XR CHEST 1V INDICATIONS: chest pain TECHNIQUE: One view of the chest was acquired. COMPARISON: [facility], CT, CT ABDOMEN PELVIS W CON, 01/22/2024, 18:34. [facility], CR, XR CHEST 2V, 04/02/2024, 11:50. [facility], CR, XR CHEST 2V, 01/22/2024, 18:35. FINDINGS: Surgical changes and devices: Clips at the lower neck. Lungs and pleura: Lungs are clear. No pleural effusions or pneumothorax. Mediastinum: Mediastinal contours appear unchanged. Asymmetric elevation of the left hemidiaphragm, unchanged. Heart size is normal. Bones and chest wall: No suspicious bony lesions. Overlying soft tissues appear unremarkable. IMPRESSION: No acute cardiopulmonary abnormality is seen. Dictated by: Abrahan English M.D. on 05/13/2024 at 16:59 Approved by: Abrahan English M.D. on 05/13/2024 at 17:00
[2024-05-13] MEDS: LIDOCAINE 2% (GLYDO) 6 ML GEL TOP (16:24)
--- NOTE | 2024-05-13 16:39 | EKG_ITS ---
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
[2024-05-13 16:48] LABS: Add Manual Diff / Slide Review NO; Basophils Absolute Auto 0 /uL (0-100); Basophils Percent Auto 0.3 % (0-2); Eosinophils Absolute Auto 0 /uL (0-450); Eosinophils Percent Auto 0.3 % (2-4); Hematocrit 43.6 % (41-53); Hemoglobin 14.6 g/dL (13.5-17.5); Lymphocytes Absolute Auto 1000 /uL (1100-4500); Lymphocytes Percent Auto 8.5 % (25-40); Mean Corpuscular HGB Conc 33.6 % (30-36); Mean Corpuscular Hemoglobin 30.8 PG (26-34); Mean Corpuscular Volume 91.8 fL (80-100); Monocytes Absolute Auto 700 /uL (0-900); Neutrophils Absolute Auto 9700 /uL (1500-7000); Neutrophils Percent Auto 84.9 % (50-75); Platelet Count 270 X10^3/uL (150-400); Red Blood Cell Count 4.74 X10^6/uL (4.5-5.9); Red Cell Distribution Width 15.3 % (11.6-14.8); White Blood Cell Count 11.5 X10^3/uL (4.5-11.0)
[2024-05-13] MEDS: SODIUM CHLORIDE 0.9% 1,000 ML 1000 ML IV (16:52)
[2024-05-13] MEDS: ONDANSETRON 4 MG/2 ML INJ IV (16:53)
[2024-05-13 17:00] LABS: Prothrombin Time 11.1 SECONDS (9.4-12.5)
[2024-05-13 17:03] LABS: PTT Partial Thromboplastin Tim 40 SECONDS (25.1-36.5)
[2024-05-13 17:04] LABS: Alanine Aminotransferase 25 IU/L (<50); Albumin 5.3 g/dL (3.5-5.0); Albumin Globulin Ratio 1.5 (1.0-2.8); Alkaline Phosphatase 85 U/L (38-126); Aspartate Aminotransferase 31 IU/L (17-59); BUN Creatinine Ratio 19.6 (6-22); Blood Urea Nitrogen 19 mg/dL (9-20); Calcium 9.9 mg/dL (8.4-10.2); Carbon Dioxide 23 mmol/L (22-32); Chloride 97 mmol/L (98-107); Estimated Glomerular Filt Rate > 60 mL/min (>60); Globulin 3.6 g/dL (1.7-4.1); Glucose 108 mg/dL (80-110); Lipase 28 U/L (23-300); Potassium 4.5 mmol/L (3.4-5.1); Sodium 135 mmol/L (137-145); Total Protein 8.9 g/dL (6.3-8.2)
[2024-05-13 17:16] LABS: NT-proBNP (BNP-Adult 18+) 111 pg/mL (<125); Troponin I 0.016 ng/mL (0.01-0.034)
[2024-05-13 17:17] LABS: Creatine Kinase 256 U/L (55-170); HEMOLYSIS 38 (0-50); Magnesium 1.9 mg/dL (1.6-2.3)
[2024-05-13 17:29] LABS: Appearance Urine UA CLEAR; Bilirubin Urine UA NEGATIVE (NEGATIVE); Color Urine UA YELLOW; Glucose Urine UA NEGATIVE (Negative); Ketones Urine UA NEGATIVE (NEGATIVE); Leukocyte Esterase Urine UA NEGATIVE (NEGATIVE); Nitrite Urine UA NEGATIVE (Negative); Occult Blood Urine UA NEGATIVE (Negative); Protein Urine UA 2+ (Negative); Specific Gravity Urine UA 1.015 (1.000-1.035); Urobilinogen Urine UA 0.2 E.U./dL (0.2); pH Urine UA 5.5 (4.5-8.0)
[2024-05-13 17:38] LABS: Bacteria Urine None Seen; Culture Indicated Urine Cult Not Indicated; RBC Urine None Seen (0-5/HPF); Renal Epithelial Cells Urine 0-1/HPF (0-1/HPF); Squamous Epithelial Cell Urine None Seen (0-5/HPF); Transitional Epi Cells Urine 0-1/HPF (0-5/HPF); Urine Volume 10mL (spun); WBC Urine None Seen (0-5/HPF)
--- NOTE | 2024-05-13 18:02 | ED.ARRPALP ---
HPI - Arrhythmia/Palpitations General Chief Complaint: Arrhythmia/Palpitations Stated Complaint: cant urinate, painful Time Seen by Provider: 05/13/24 16:26 Source: patient, RN notes reviewed and old records reviewed Limitations: no limitations History of Present Illness HPI narrative: 68-year-old male history of sinus tachycardia, hypothyroidism, dyslipidemia, COPD who presents with complaint of urinary retention. Patient states he has had some issues on and off but only required urinary catheterization once remotely in the past. He does take tamsulosin daily. Has noted some increasing issues slowly over time. States he did not feel chilled, had some nausea and dry heaves earlier today as he had increasing distention and discomfort was able to drain his bladder. Describes little bit dysuria no discharge. Denies any back or flank pain. States he feels much better after catheter was placed but still has some abdominal pain. Also notes he has a little bit of heartburn, states mildly short of breath but states that is normal for him. He is currently on 1 L nasal cannula which he states he does not normally require. No syncope. Also states he has had some headaches on and off then he is having worked up. Patient states has had prior thyroidectomy but no other surgeries. No known drug allergies. No tobacco, occasional alcohol, no recreational drugs, Dr. Barfield as his primary care physician. Patient states he feels much improved. Related Data Home Medications Medication Instructions Recorded Confirmed atorvastatin 40 mg tablet 40 mg PO DAILY 12/20/22 04/01/24 mirtazapine 15 mg tablet 15 mg PO BEDTIME 12/20/22 04/01/24 albuterol sulfate 90 mcg/actuation 2 puff inhalation Q6H PRN 04/01/24 04/01/24 aerosol inhaler ipratropium 0.5 mg-albuterol 3 mg ml inhalation 04/01/24 04/01/24 (2.5 mg base)/3 mL nebulization soln levothyroxine 137 mcg tablet 137 mcg PO DAILY 04/01/24 04/01/24 omeprazole 20 mg capsule,delayed 20 mg PO DAILY 04/01/24 04/01/24 release sertraline 100 mg tablet 100 mg PO DAILY 04/01/24 04/01/24 Previous Rx's Medication Instructions Recorded nitroglycerin 0.4 mg sublingual 0.4 mg sublingual Q5M PRN chest 12/31/22 tablet pain #10 tabs metoprolol succinate 25 mg 25 mg PO DAILY #30 tabs 01/25/24 tablet,extended release 24 hr tamsulosin 0.4 mg capsule 0.4 mg PO BID #180 caps 04/01/24 Allergies Allergy/AdvReac Type Severity Reaction Status Date / Time No Known Drug Allergies Allergy Verified 04/01/24 11:20 Review of Systems Review of Systems ROS Unobtainable: All systems reviewed & are unremarkable except as noted in HPI and below Patient History Medical History Hypothyroidism Insomnia Depression BPH (benign prostatic hyperplasia) Chronic neck pain GERD (gastroesophageal reflux disease) Essential tremor High cholesterol High blood pressure Closed fracture of left distal fibula Social History household members: significant other Smoking Status: Former smoker alcohol intake: former Smoking Status: Former smoker tobacco type: cigarettes alcohol intake frequency: a few times a week Substance Use Type: does not use Exam Narrative Exam Narrative: GENERAL: Alert and oriented x three, male in mild distress. HEENT: Head normocephalic, atraumatic, EOMI, pupils reactive, face symmetric, moist mucous membranes NECK: Supple, full range of motion CARDIOVASCULAR: Tachycardic but regular rate and rhythm without murmurs, rubs or gallops. No JVD. RESPIRATORY: Breath sounds equal bilaterally, no wheezes rales or rhonchi. No tachypnea accessory muscle use. ABDOMEN: Soft, n patient is mildly tender suprapubically. Does feel little bit full. Normoactive bowel sounds all 4 quadrants. No guarding or rebound, rigidity, no mass : No CVA tenderness EXTREMITIES: Normal range of motion, no clubbing or edema. Neurovascularly intact NEUROLOGICAL: Cranial nerves II through XII grossly intact. Moving all extremities SKIN: Warm, dry, no petechiae, no rashes or lesions. Initial Vital Signs Initial Vital Signs: Vital Signs Temperature 97.6 F 05/13/24 16:00 Pulse Rate 148 H 05/13/24 16:00 Respiratory Rate 22 05/13/24 16:00 Blood Pressure 143/87 H 05/13/24 16:00 Pulse Oximetry 94 05/13/24 16:00 Oxygen Delivery Method Room Air 05/13/24 16:00 Course Orders Ordered: ED Orders 05/13/24 16:05 XR chest 1V Stat EKG-12 Lead Stat 05/13/24 16:20 Urinalysis and Microscopic Stat 05/13/24 16:39 Complete Blood Count AUTO DIFF Stat Comprehensive Metabolic Panel Stat Free T4, Direct Thyroxine Stat Lipase Stat Magnesium Stat NT-proBNP (BNP-Adult 18+) Stat PTT Partial Thromboplastin Michele Stat Prothrombin Time INR Stat TSH w/ Reflex to FT4 Stat Troponin & CK Cardiac Panel Stat 05/13/24 18:14 CT abdomen pelvis w con Stat CT angio chest PE protocol Stat 05/13/24 20:01 Trop I [Troponin I] Stat Discontinued Medications Albuterol/Ipratropium (Albuterol/Ipratropium 3 Ml Ampul) 3 ml INH NOW ONE Stop: 05/13/24 21:20 Last Admin: 05/13/24 21:23 Dose: 3 ml Documented By: AB Amoxicillin/Clavulanate Potassium (Amoxicillin/Clav 875/125 Mg) 1 tab PO NOW ONE Stop: 05/13/24 21:05 Last Admin: 05/13/24 21:13 Dose: 1 tab Documented By: AB Aspirin (Aspirin 81 Mg Chew Tab) 324 mg PO NOW ONE Stop: 05/13/24 16:06 Last Admin: 05/13/24 16:24 Dose: Not Given Documented By: RLS Sodium Chloride (Normal Saline 0.9%) 1,000 mls @ 1,000 mls/hr IV BOLUS ONE Stop: 05/13/24 17:45 Last Infusion: 05/13/24 17:54 Dose: Infused Documented By: Admin: 05/13/24 16:52 Dose: 1,000 mls/hr Documented By: RB Lidocaine HCl (Lidocaine 2% (Glydo) 6 Ml Gel) 6 ml TOP NOW ONE Stop: 05/13/24 16:10 Last Admin: 05/13/24 16:24 Dose: 6 ml Documented By: RLS Methylprednisolone (Methylprednisolone 125 Mg/2 Ml Vial) 125 mg IV NOW ONE Stop: 05/13/24 22:04 Metoprolol Succinate (Metoprolol Er 25 Mg Tablet) 25 mg PO NOW ONE Stop: 05/13/24 18:17 Last Admin: 05/13/24 18:53 Dose: 25 mg Documented By: RB Morphine Sulfate (Morphine 2 Mg/Ml Inj) 2 mg IV NOW ONE Stop: 05/13/24 18:17 Last Admin: 05/13/24 18:53 Dose: 2 mg Documented By: RB Ondansetron HCl (Ondansetron 4 Mg/2 Ml Inj) 4 mg IV NOW ONE Stop: 05/13/24 16:47 Last Admin: 05/13/24 16:53 Dose: 4 mg Documented By: RB Pantoprazole Sodium (Pantoprazole 40 Mg Vial) 40 mg IV NOW ONE Stop: 05/13/24 20:31 Last Admin: 05/13/24 20:33 Dose: 40 mg Documented By: AB Vital Signs Vital signs: Vital Signs - 8 hr 05/13/24 16:00 05/13/24 16:19 05/13/24 16:20 Temperature 97.6 F Pulse Rate 148 H 139 H 138 H Respiratory Rate 22 34 H 29 H Blood Pressure 143/87 H Pulse Oximetry 94 95 96 Oxygen Delivery Method Room Air Oxygen Flow Rate 05/13/24 16:20 05/13/24 16:30 05/13/24 16:30 Temperature Pulse Rate 130 H Respiratory Rate 29 H Blood Pressure 152/95 H 139/82 Pulse Oximetry 94 Oxygen Delivery Method Room Air Oxygen Flow Rate 05/13/24 17:00 05/13/24 17:00 05/13/24 17:02 Temperature Pulse Rate 121 H 122 H Respiratory Rate 25 H 27 H Blood Pressure 142/70 H Pulse Oximetry 89 L 88 L Oxygen Delivery Method Room Air Room Air Oxygen Flow Rate 05/13/24 17:15 05/13/24 17:30 05/13/24 17:30 Temperature Pulse Rate 122 H 124 H Respiratory Rate 27 H 30 H Blood Pressure 169/81 H Pulse Oximetry 92 92 Oxygen Delivery Method Nasal Cannula Nasal Cannula Oxygen Flow Rate 1 1 05/13/24 17:45 05/13/24 18:00 05/13/24 18:00 Temperature Pulse Rate 124 H 125 H Respiratory Rate 35 H 29 H Blood Pressure 165/127 H Pulse Oximetry 92 93 Oxygen Delivery Method Oxygen Flow Rate 05/13/24 18:15 05/13/24 18:30 05/13/24 18:30 Temperature Pulse Rate 128 H 126 H Respiratory Rate 36 H 31 H Blood Pressure 172/72 H Pulse Oximetry 93 93 Oxygen Delivery Method Oxygen Flow Rate 05/13/24 18:51 05/13/24 18:52 05/13/24 18:52 Temperature Pulse Rate 125 H 126 H Respiratory Rate 36 H 33 H Blood Pressure 155/76 H Pulse Oximetry 95 95 Oxygen Delivery Method Oxygen Flow Rate 05/13/24 18:53 05/13/24 19:00 05/13/24 19:00 Temperature Pulse Rate 126 H 126 H Respiratory Rate 28 H Blood Pressure 155/76 H 149/76 H Pulse Oximetry 93 Oxygen Delivery Method Nasal Cannula Oxygen Flow Rate 1 05/13/24 19:15 05/13/24 19:30 05/13/24 19:30 Temperature Pulse Rate 126 H 128 H Respiratory Rate 27 H 33 H Blood Pressure 161/97 H Pulse Oximetry 94 93 Oxygen Delivery Method Nasal Cannula Oxygen Flow Rate 1 05/13/24 19:45 05/13/24 20:00 05/13/24 20:29 Temperature Pulse Rate 127 H 128 H Respiratory Rate 20 Blood Pressure 179/85 H 179/85 H Pulse Oximetry 92 Oxygen Delivery Method Oxygen Flow Rate 05/13/24 20:30 05/13/24 20:30 05/13/24 20:45 Temperature Pulse Rate 126 H 131 H Respiratory Rate 18 30 H Blood Pressure 172/87 H Pulse Oximetry 92 89 L Oxygen Delivery Method Oxygen Flow Rate 05/13/24 21:00 05/13/24 21:00 05/13/24 21:15 Temperature Pulse Rate 124 H 124 H Respiratory Rate 26 H 27 H Blood Pressure 175/124 H Pulse Oximetry 93 94 Oxygen Delivery Method Nasal Cannula Oxygen Flow Rate 1 05/13/24 21:30 05/13/24 21:30 05/13/24 21:40 Temperature Pulse Rate 125 H Respiratory Rate 21 Blood Pressure 175/86 H Pulse Oximetry 88 L 84 L Oxygen Delivery Method Room Air Oxygen Flow Rate MDM - Arrhythmia/Palpitations Lab Data 05/13/24 16:39 05/13/24 16:39 Labs: Lab Results 05/13/24 05/13/24 05/13/24 Range/Units 16:20 16:39 20:01 WBC 11.5 H (4.5-11.0) X10^3/uL RBC 4.74 (4.5-5.9) X10^6/uL Hgb 14.6 (13.5-17.5) g/dL Hct 43.6 (41-53) % MCV 91.8 (80-100) fL MCH 30.8 (26-34) PG MCHC 33.6 (30-36) % RDW 15.3 H (11.6-14.8) % Plt Count 270 (150-400) X10^3/uL Neut % (Auto) 84.9 H (50-75) % Lymph % (Auto) 8.5 L (25-40) % Sherman % (Auto) 6.0 (3-14) % Eos % (Auto) 0.3 L (2-4) % Baso % (Auto) 0.3 (0-2) % Neut # (Auto) 9700 H (3729-3030) /uL Lymph # (Auto) 1000 L (1611-6380) /uL Sherman # (Auto) 700 (0-900) /uL Eos # (Auto) 0 (0-450) /uL Baso # (Auto) 0 (0-100) /uL PT 11.1 (9.4-12.5) SECONDS INR 1.0 (0.9-1.3) APTT 40 H (25.1-36.5) SECONDS Sodium 135 L (137-145) mmol/L Potassium 4.5 (3.4-5.1) mmol/L Chloride 97 L (98-107) mmol/L Carbon Dioxide 23 (22-32) mmol/L BUN 19 (9-20) mg/dL Creatinine 0.97 (0.66-1.25) mg/dL Estimated GFR > 60 (>60) mL/min BUN/Creatinine Ratio 19.6 (6-22) Glucose 108 (80-110) mg/dL Calcium 9.9 (8.4-10.2) mg/dL Magnesium 1.9 (1.6-2.3) mg/dL Total Bilirubin 1.0 (0.2-1.3) mg/dL AST 31 (17-59) IU/L ALT 25 (<50) IU/L Alkaline Phosphatase 85 (38-126) U/L Total Creatine Kinase 256 H (55-170) U/L Troponin I 0.016 0.032 (0.01-0.034) ng/mL NT-Pro-B Natriuret Pep 111 (<125) pg/mL Total Protein 8.9 H (6.3-8.2) g/dL Albumin 5.3 H (3.5-5.0) g/dL Globulin 3.6 (1.7-4.1) g/dL Albumin/Globulin Ratio 1.5 (1.0-2.8) Lipase 28 (23-300) U/L TSH 27.20 H (0.47-4.68) uIU/mL Free T4 0.80 (0.78-2.19) ng/dL Urine Color Yellow Urine Appearance Clear Urine pH 5.5 (4.5-8.0) Ur Specific [place] 1.015 (1.000-1.035) Urine Protein 2+ H (Negative) Urine Glucose (UA) Negative (Negative) g/dL Urine Ketones Negative (NEGATIVE) Urine Occult Blood Negative (Negative) Urine Nitrate Negative (Negative) Urine Bilirubin Negative (NEGATIVE) Urine Urobilinogen 0.2 (0.2) E.U./dL Ur Leukocyte Esterase Negative (NEGATIVE) Urine RBC None seen (0-5/HPF) Urine WBC None seen (0-5/HPF) Ur Squamous Epith Cells None seen (0-5/HPF) Ur Transition Epith Cell 0-1/hpf (0-5/HPF) Ur Renal Epithelial Cell 0-1/hpf (0-1/HPF) Urine Bacteria None seen (None) Ur Culture Indicated? Cult not indicated Vol Urine Centrifuged 10ml (spun) Imaging Data Chest x-ray: Radiologist's Impresson: Nader Livingston??68??M??1955 ? Allergy/Adv: No Known Drug Allergies Close Chest X-Ray (Signed) Abrahan English - 05/13/24 Chest X-Ray (Signed) Felisa Arce - 04/02/24 Cervical Spine X-Ray (Signed) Felisa Arce - 04/02/24 Telemetry Strips 01/22/24 Chest X-Ray (Signed) [place] - 01/22/24 Abdomen/Pelvis CT (Signed) [place] Joshua - 01/22/24 Brain MRI (Signed) Jeremi Johnson - 07/19/23 Ribs X-Ray (Signed) Roxanne Garcia - 01/24/23 Radiology Report (Cancelled) Anam Carey - 01/22/23 Myocardial Perfusion Scan Nuc Med (Signed) Anam Carey - 01/22/23 Chest/Abdomen/Pelvis CTA (Signed) Call,Abrahan - 12/31/22 Chest X-Ray (Signed) Call,Abrahan - 12/31/22 Telemetry Strips 12/31/22 Telemetry Strips 12/20/22 Echocardiogram Ultrasound (Signed) Marquise Ponce - 12/20/22 Chest X-Ray (Signed) Andrew Harman - 12/20/22 Abdominal Arterial Study US (Signed) Aguilar Morrisic - 10/30/22 Abdomen/Pelvis CT (Signed) Jennifer Triplett - 07/05/21 Chest X-Ray (Signed) Ted Norwood - 07/05/[address] (Signed) Call,Abrahan - 01/04/21 PFT Result 11/23/20 Abdomen/Pelvis CT (Signed) Call,Abrahan - 08/05/20 Telemetry Strips 05/08/20 Abdomen/Pelvis CT (Signed) Meghan Yuenkervin - 05/14/19 Launch?Image [address] [address] XRay Report Signed Patient: Nader Livingston MR#: [id number] : 1955 Acct:[id number] Age/Sex: 68 / M Date of Service: 05/13/24 Loc: ED Accession Number: [id number] Procedure: XR chest 1V Ordering Provider: Margarette Fuller MD PROCEDURE: XR CHEST 1V INDICATIONS: chest pain TECHNIQUE: One view of the chest was acquired. COMPARISON: [facility], CT, CT ABDOMEN PELVIS W CON, 01/22/2024, 18:34. [facility], CR, XR CHEST 2V, 04/02/2024, 11:50. [facility], CR, XR CHEST 2V, 01/22/2024, 18:35. FINDINGS: Surgical changes and devices: Clips at the lower neck. Lungs and pleura: Lungs are clear. No pleural effusions or pneumothorax. Mediastinum: Mediastinal contours appear unchanged. Asymmetric elevation of the left hemidiaphragm, unchanged. Heart size is normal. Bones and chest wall: No suspicious bony lesions. Overlying soft tissues appear unremarkable. IMPRESSION: No acute cardiopulmonary abnormality is seen. Dictated by: Abrahan English M.D. on 05/13/2024 at 16:59 Approved by: Abrahan English M.D. on 05/13/2024 at 17:00 CT scan - abdomen/pelvis: Radiologist's Impresson: [address] [address] [address] Scan Report Signed Patient: Nader Livingston MR#: [id number] : 1955 Acct:[id number] Age/Sex: 68 / M Date of Service: 05/13/24 Loc: ED Accession Number: [id number] Procedure: CT abdomen pelvis w con Ordering Provider: Jennifer Branch D.O. PROCEDURE: CT ABDOMEN PELVIS W CON INDICATIONS: urinary retention, tachy, abd pain TECHNIQUE: After the administration of intravenous contrast, axial sections acquired from the lung bases to the pubic symphysis. Coronal and sagittal reformats were performed. For radiation dose reduction, the following was used: automated exposure control, adjustment of mA and/or kV according to patient size. COMPARISON: [facility], CT, CT ABDOMEN PELVIS W CON, 01/22/2024, 18:34. [facility], CT, CT ABDOMEN PELVIS W CON, 07/05/2021, 19:51. [facility], CT, CT ABDOMEN PELVIS W CON, 08/05/2020, 12:26. [facility], CT, CT ABDOMEN PELVIS W CON, 05/14/2019, 8:53. FINDINGS: Image quality: Diagnostic. Peritoneum: No pneumoperitoneum or ascites. Bones: No acute osseous abnormality. Geographic sclerosis of the left superior femoral head without any significant articular surface collapse (). Lower Chest: Please see the same-day CT chest angiogram report for further details. Liver: Normal in size and contour. Hepatic hypoattenuation. Gallbladder: No stones or pericholecystic fluid. Biliary tree: No intrahepatic or extrahepatic biliary ductal dilatation. Pancreas: Within normal limits. Spleen: Normal in size and contour. Kidneys: No hydronephrosis or obstructive urolithiasis. Contrast in the renal collecting system, which limits evaluation for calculi. Adrenals: No adrenal nodularity. Bladder: Decompressed with a Jameson catheter. Small amount of excreted contrast within the bladder. : No acute abnormality. Stomach: Normal in size and contour. Bowel: Normal in diameter without any bowel obstruction. Appendix within normal limits (-). Extensive diverticulosis of the colon extending from the splenic flexure to the sigmoid colon. Long segment (12.5 cm) mural wall thickening and mesenteric hypervascularity involving the sigmoid colon (4/57) without adjacent fat stranding. Lymph Nodes: No retroperitoneal, mesenteric, or inguinal lymphadenopathy. Vascular: No abdominal aortic aneurysm. The visualized arterial vasculature is patent. Moderate aortoiliac atherosclerosis. Soft Tissues: No acute abnormality. 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 IMPRESSION: 1. Long segment mural wall thickening of the sigmoid colon in a setting of extensive diverticulosis. Consider the possibility of chronic diverticulitis and gastroenterological consultation. 2. Hepatic steatosis. 3. 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 Dictated by: Reji Ferguson M.D. on 05/13/2024 at 20:40 Approved by: Reji Ferguson M.D. on 05/13/2024 at 20:52 CT scan - chest: Radiologist's Impresson: Nader Livingston??68??M??1955 ? Allergy/Adv: No Known Drug Allergies Close Chest CTA (Signed) Reji Ferguson - 05/13/24 Abdomen/Pelvis CT (Signed) Reji Ferguson - 05/13/24 Chest X-Ray (Signed) CallAbrahan - 05/13/24 Chest X-Ray (Signed) Felisa Arce - 04/02/24 Cervical Spine X-Ray (Signed) Felisa Arce - 04/02/24 Telemetry Strips 01/22/24 Chest X-Ray (Signed) [place] - 01/22/24 Abdomen/Pelvis CT (Signed) [place] - 01/22/24 Brain MRI (Signed) Jeremi Johnson - 07/19/23 Ribs X-Ray (Signed) Roxanne Garcia - 01/24/23 Radiology Report (Cancelled) Anam Carey - 01/22/23 Myocardial Perfusion Scan Nuc Med (Signed) Anam Carey - 01/22/23 Chest/Abdomen/Pelvis CTA (Signed) CallAbrahan - 12/31/22 Chest X-Ray (Signed) Abrahan English - 12/31/22 Telemetry Strips 12/31/22 Telemetry Strips 12/20/22 Echocardiogram Ultrasound (Signed) Marquise Ponce - 12/20/22 Chest X-Ray (Signed) Andrew Harman - 12/20/22 Abdominal Arterial Study US (Signed) Joni Morris - 10/30/22 Abdomen/Pelvis CT (Signed) Jennifer Triplett - 07/05/21 Chest X-Ray (Signed) Ted Norwood - 07/05/[address] (Signed) Call,Abrahan - 01/04/21 PFT Result 11/23/20 Abdomen/Pelvis CT (Signed) Call,Abrahan - 08/05/20 Telemetry Strips 05/08/20 Abdomen/Pelvis CT (Signed) Li Yuen - 05/14/19 Launch?Image [address] [address] [address] Scan Report Signed Patient: Nader Livingston MR#: [id number] : 1955 Acct:[id number] Age/Sex: 68 / M Date of Service: 05/13/24 Loc: ED Accession Number: [id number] Procedure: CT angio chest PE protocol Ordering Provider: Jennifer Branch D.O. PROCEDURE: CT ANGIO CHEST PE PROTOCOL INDICATIONS: chest pain, tachy TECHNIQUE: After the administration of intravenous contrast, 2 mm thick sections acquired from the pulmonary apices to the posterior costophrenic angles. 3-dimensional maximum intensity projection (MIP) coronal and sagittal reformats were then acquired through the thorax. For radiation dose reduction, the following was used: automated exposure control, adjustment of mA and/or kV according to patient size. COMPARISON: [facility], CT, CT ANGIO CHEST ABDOMEN PELVIS, 12/31/2022, 11:29. [facility], CT, CT ABDOMEN PELVIS W CON, 01/22/2024, 18:34. FINDINGS: Image quality: Poor opacification of the pulmonary arteries and pulmonary venous opacification limits the examination. Thyroid: Within normal limits. Cardiac: Heart size within normal limits. No pericardial effusion. Moderate three-vessel coronary artery calcifications. Left ventricular hypertrophy. RV: LV ratio within normal limits. No bowing of the interventricular septum. Mild reflux of contrast into the hepatic veins. Aorta: Thoracic aortic diameter within normal limits. Pulmonary Artery: Main pulmonary artery diameter within normal limits. No filling defect in the pulmonary arteries to the proximal interlobar level. Lungs: Mild apical centrilobular emphysema. Linear parenchymal banding/scarring at the lung bases. Passive atelectasis at the left lower lobe secondary to the Bochdalek's hernia (see below). Otherwise, no focal lung consolidation. Pleura: No pneumothorax or pleural effusion. Large left Bochdalek hernia (744). Airways: The trachea and mainstem bronchi are patent. Bilateral lower lobe-predominant bronchiolectasis. Lymph Nodes: No mediastinal, hilar, or axillary lymphadenopathy. Esophagus: Mildly patulous and air-filled esophagus. Bones: No acute osseous abnormality. Upper Abdomen: Within normal limits. IMPRESSION: 1. No CT evidence of pulmonary embolism to the proximal interlobar level. 2. Left ventricular hypertrophy and moderate three-vessel coronary artery calcifications. Dictated by: Reji Ferguson M.D. on 05/13/2024 at 20:31 Approved by: Reji Ferguson M.D. on 05/13/2024 at 20:39 ECG Data Attestation: I personally reviewed and interpreted this ECG as follows: Prior ECG tracings: available for review Interpretation: Sinus tach rate of 126 [place] 148 QRS is 72 QTC of 451, no acute ST changes appreciated. Patient has prior from 01/22/2024 which appears similar although not tachycardic no acute ST changes appreciated. Sinus tach frequent PVCs rate of 128, [place] 152 QRS is 76 QTC of 449, occasional PVC. No acute ST changes appreciated compared to prior. MDM Narrative Medical decision making narrative: 68-year-old male who presents with complaint of urinary retention, labs show normal renal function overall appropriate with no signs of infection or blood. Patient feels much improved after his bladder is drained but still little bit tender so felt appropriate to obtain imaging of the abdomen. He is also tachycardic which he states is normal he is unsure if he has had his daily metoprolol but is also complaining of a little bit of heartburn. Patient states he has had a cardiac workup in the emergency department before states this is usual for him. He is requiring 1 L of O2 so CT chest was obtained with angio. Labs show white count 11 point, hemoglobin of 14.6 platelets of 270, INR is, sodium is 135 potassium 4.5 chloride 97 CO2 is 23 with a BUN 19 creatinine 0.97 glucose of 108 Mag is 1.9, LFTs are negative total CK is 256 troponin 0.016 with a lipase of 28. Repeat troponin and EKG. Urinalysis was 2+, negative for nitrates, leukocyte esterase white blood cells or white cells no squamous, no bacteria. Chest x-ray shows no acute change. EKG shows sinus tach Patient received 1 L of fluid had some improvement in his heart rate although sterile tachycardic. Patient notes he was having some discomfort in his neck and chest which he states has been longstanding given dose of morphine. Was also given his home dose of metoprolol which he is unsure if he has had today. Notes he has been having some reflux symptoms persistently also given a dose of pantoprazole. CT chest angio shows no evidence of pulmonary embolism, left ventricular hypertrophy moderate three-vessel coronary artery calcifications. Large left Bochdalek hernia. CT abdomen pelvis shows long segment mural wall thickening sigmoid colon in the setting of extensive diverticulosis consider possibility of chronic diverticulitis and GI consultation, hepatic steatosis left femoral head osteonecrosis without articular surface collapse. Spoke with patient about observation, troponins are still negative did trend upward slightly patient has been tachycardic but he states this is his normal, CT angio shows no PE does show some moderate three-vessel coronary artery calcification, some thickening of the mural some diverticulosis possible chronic diverticulitis. Discussed with patient. Given a DuoNeb. On recheck O2 is 84%. Patient was covered with Augmentin for possible chronic diverticulitis which might be irritating the bladder and causing some of his urinary retention. He was aware of issues with his left femoral head. Also reviewed his findings from his CT of his chest and need for follow up. Patient notes he was scheduled for a stress test but did not complete it because of shortness of breath. Discussed with the tele hospitalist who accepts for possible COPD exacerbation it does not appear patient has been not hypoxic in the past. Asked that we add Solu-Medrol. Discharge Plan Departure Patient Disposition: Admitted As Inpatient Clinical Impression: Acute exacerbation of chronic obstructive pulmonary disease, Acute urinary retention Admit Date/Time: 05/13/24 22:06 Admit Provider: Abraham Niño
--- NOTE | 2024-05-13 18:14 | DI.CT.S_ITS ---
PROCEDURE: CT ABDOMEN PELVIS W CON INDICATIONS: urinary retention, tachy, abd pain TECHNIQUE: After the administration of intravenous contrast, axial sections acquired from the lung bases to the pubic symphysis. Coronal and sagittal reformats were performed. For radiation dose reduction, the following was used: automated exposure control, adjustment of mA and/or kV according to patient size. COMPARISON: [facility], CT, CT ABDOMEN PELVIS W CON, 01/22/2024, 18:34. [facility], CT, CT ABDOMEN PELVIS W CON, 07/05/2021, 19:51. [facility], CT, CT ABDOMEN PELVIS W CON, 08/05/2020, 12:26. [facility], CT, CT ABDOMEN PELVIS W CON, 05/14/2019, 8:53. FINDINGS: Image quality: Diagnostic. Peritoneum: No pneumoperitoneum or ascites. Bones: No acute osseous abnormality. Geographic sclerosis of the left superior femoral head without any significant articular surface collapse (). Lower Chest: Please see the same-day CT chest angiogram report for further details. Liver: Normal in size and contour. Hepatic hypoattenuation. Gallbladder: No stones or pericholecystic fluid. Biliary tree: No intrahepatic or extrahepatic biliary ductal dilatation. Pancreas: Within normal limits. Spleen: Normal in size and contour. Kidneys: No hydronephrosis or obstructive urolithiasis. Contrast in the renal collecting system, which limits evaluation for calculi. Adrenals: No adrenal nodularity. Bladder: Decompressed with a Jameson catheter. Small amount of excreted contrast within the bladder. : No acute abnormality. Stomach: Normal in size and contour. Bowel: Normal in diameter without any bowel obstruction. Appendix within normal limits (-61). Extensive diverticulosis of the colon extending from the splenic flexure to the sigmoid colon. Long segment (12.5 cm) mural wall thickening and mesenteric hypervascularity involving the sigmoid colon (4/57) without adjacent fat stranding. Lymph Nodes: No retroperitoneal, mesenteric, or inguinal lymphadenopathy. Vascular: No abdominal aortic aneurysm. The visualized arterial vasculature is patent. Moderate aortoiliac atherosclerosis. Soft Tissues: No acute abnormality. 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 IMPRESSION: 1. Long segment mural wall thickening of the sigmoid colon in a setting of extensive diverticulosis. Consider the possibility of chronic diverticulitis and gastroenterological consultation. 2. Hepatic steatosis. 3. 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 Dictated by: Reji Ferguson M.D. on 05/13/2024 at 20:40 Approved by: Reji Ferguson M.D. on 05/13/2024 at 20:52
--- NOTE | 2024-05-13 18:14 | DI.CT.S_ITS ---
PROCEDURE: CT ANGIO CHEST PE PROTOCOL INDICATIONS: chest pain, tachy TECHNIQUE: After the administration of intravenous contrast, 2 mm thick sections acquired from the pulmonary apices to the posterior costophrenic angles. 3-dimensional maximum intensity projection (MIP) coronal and sagittal reformats were then acquired through the thorax. For radiation dose reduction, the following was used: automated exposure control, adjustment of mA and/or kV according to patient size. COMPARISON: [facility], CT, CT ANGIO CHEST ABDOMEN PELVIS, 12/31/2022, 11:29. [facility], CT, CT ABDOMEN PELVIS W CON, 01/22/2024, 18:34. FINDINGS: Image quality: Poor opacification of the pulmonary arteries and pulmonary venous opacification limits the examination. Thyroid: Within normal limits. Cardiac: Heart size within normal limits. No pericardial effusion. Moderate three-vessel coronary artery calcifications. Left ventricular hypertrophy. RV: LV ratio within normal limits. No bowing of the interventricular septum. Mild reflux of contrast into the hepatic veins. Aorta: Thoracic aortic diameter within normal limits. Pulmonary Artery: Main pulmonary artery diameter within normal limits. No filling defect in the pulmonary arteries to the proximal interlobar level. Lungs: Mild apical centrilobular emphysema. Linear parenchymal banding/scarring at the lung bases. Passive atelectasis at the left lower lobe secondary to the Bochdalek's hernia (see below). Otherwise, no focal lung consolidation. Pleura: No pneumothorax or pleural effusion. Large left Bochdalek hernia (7/44). Airways: The trachea and mainstem bronchi are patent. Bilateral lower lobe-predominant bronchiolectasis. Lymph Nodes: No mediastinal, hilar, or axillary lymphadenopathy. Esophagus: Mildly patulous and air-filled esophagus. Bones: No acute osseous abnormality. Upper Abdomen: Within normal limits. IMPRESSION: 1. No CT evidence of pulmonary embolism to the proximal interlobar level. 2. Left ventricular hypertrophy and moderate three-vessel coronary artery calcifications. Dictated by: Reji Ferguson M.D. on 05/13/2024 at 20:31 Approved by: Reji Ferguson M.D. on 05/13/2024 at 20:39
[2024-05-13] MEDS: METOPROLOL ER 25 MG TABLET PO (18:53)
[2024-05-13] MEDS: MORPHINE 2 MG/ML INJ IV (18:53)
--- NOTE | 2024-05-13 19:08 | EKG_ITS ---
[address] [id number] [address], [place] [address] Test Date: 2024-05-13 Pat Name: Nader Livingston Department: Room: [facility] [place] Gender: Male Therapeutic Radiologist: IMMANUEL : 1955 Requested By: Order Number: [id number] Reading MD: Daniel Marc Measurements Intervals [place] Rate: 128 P: 73 VA: 152 QRS: 81 QRSD: 76 T: 46 QT: 308 QTc: 449 Interpretive Statements Sinus tachycardia with frequent premature ventricular complexes Electronically Signed On 05-17-2024 15:25:20 PDT by Daniel Marc
[2024-05-13 20:32] LABS: Troponin I 0.032 ng/mL (0.01-0.034)
[2024-05-13] MEDS: PANTOPRAZOLE 40 MG VIAL IV (20:33)
[2024-05-13] MEDS: AMOXICILLIN/CLAV 875/125 MG 1 TAB PO (21:13)
[2024-05-13] MEDS: ALBUTEROL/IPRATROPIUM 3 ML AMPUL INH (21:23)
[2024-05-13] MEDS: methylPREDNISolone 125 MG/2 ML VIAL IV (22:48)
[2024-05-14] VITALS (55 sets, daily range): BP systolic 115–175; BP diastolic 59–101; PULSE 80–107; RESP 17–49; TEMP 36.8–37; O2SAT 91–98
[2024-05-14] MEDS: ACETAMINOPHEN 325 MG TABLET 650 MG PO ×2 (04:12→14:04)
--- NOTE | 2024-05-14 04:21 | P.HP_ITS ---
History of Present Illness History of Present Illness Chief complaint: cant urinate, painful Narrative: 68 year-old male with past medical history of BPH, sinus tachycardia, dyslipidemia, COPD non O2 dependent and hypothyroidism, presents with complaint of lower abdominal distention and decrease urine output. Per the patient report, the patient has not been able to urinate normally and felt that his bladder was distended. The patient does have some discomfort in his lower abdomen and attribute this to his distended bladder. The patient has mild dysuria, but denies any fever, chills, chest pain, nausea, vomiting, or diarrhea. The patient states that he does have some chronic shortness of breath, but today his shortness of breath is worsened. In our emergency room, the patient required 2L of O2 per [place]. CTA of the chest shows no signs of pulmonary embolism or pneumonia. CT abdomen and pelvic shows no acute finding. However there is some wall thickening of the sigmoid colon and in the setting extensive diverticulosis this could possibly be from chronic diverticulitis. G.I. consultation recommended. The patient was given Augmentin empirically though the patient is not septic and WBC is normal, afebrile. The patient was also given solumedrol and nebs for possible COPD exacerbation. [facility] Medical History Hypothyroidism Insomnia Depression BPH (benign prostatic hyperplasia) Chronic neck pain GERD (gastroesophageal reflux disease) Essential tremor High cholesterol High blood pressure Closed fracture of left distal fibula Social History household members: significant other Smoking Status: Former smoker alcohol intake: former Meds Home Medications and Allergies Home Medications Medication Instructions Recorded Confirmed Type atorvastatin 40 mg tablet 40 mg PO DAILY 12/20/22 05/13/24 History mirtazapine 15 mg tablet 15 mg PO BEDTIME 12/20/22 05/13/24 History nitroglycerin 0.4 mg sublingual 0.4 mg sublingual Q5M PRN chest 12/31/22 05/13/24 Rx tablet pain #10 tabs metoprolol succinate 25 mg 25 mg PO DAILY #30 tabs 01/25/24 05/13/24 Rx tablet,extended release 24 hr albuterol sulfate 90 mcg/actuation 2 puff inhalation Q6H PRN 04/01/24 05/13/24 History aerosol inhaler Shortness Of Breath ipratropium 0.5 mg-albuterol 3 mg ml inhalation 04/01/24 04/01/24 History (2.5 mg base)/3 mL nebulization soln levothyroxine 137 mcg tablet 100 mcg PO DAILY 04/01/24 05/13/24 History omeprazole 20 mg capsule,delayed 20 mg PO DAILY 04/01/24 04/01/24 History release sertraline 100 mg tablet 100 mg PO DAILY 04/01/24 04/01/24 History tamsulosin 0.4 mg capsule 0.4 mg PO BID #180 caps 04/01/24 04/01/24 Rx ipratropium 0.5 mg-albuterol 3 mg 3 ml inhalation 4XD 05/13/24 05/13/24 History (2.5 mg base)/3 mL nebulization soln tamsulosin 0.4 mg capsule 0.4 mg PO BID 05/13/24 05/13/24 History Allergies Allergy/AdvReac Type Severity Reaction Status Date / Time No Known Drug Allergies Allergy Verified 04/01/24 11:20 Review of Systems Review of Systems ROS: Yes All systems reviewed with the patient and are negative except as otherwise documented Exam Vital Signs (past 8 hours): - 05/13/24 20:29 05/13/24 20:30 05/13/24 20:30 Pulse Rate 128 H 126 H Respiratory Rate 18 Blood Pressure 179/85 H 172/87 H Pulse Oximetry 92 Oxygen Delivery Method Oxygen Flow Rate 05/13/24 20:45 05/13/24 21:00 05/13/24 21:00 Pulse Rate 131 H 124 H Respiratory Rate 30 H 26 H Blood Pressure 175/124 H Pulse Oximetry 89 L 93 Oxygen Delivery Method Nasal Cannula Oxygen Flow Rate 1 05/13/24 21:15 05/13/24 21:30 05/13/24 21:30 Pulse Rate 124 H 125 H Respiratory Rate 27 H 21 Blood Pressure 175/86 H Pulse Oximetry 94 88 L Oxygen Delivery Method Oxygen Flow Rate 05/13/24 21:40 05/13/24 21:45 05/13/24 22:00 Pulse Rate 123 H 123 H Respiratory Rate 25 H 26 H Blood Pressure Pulse Oximetry 84 L 90 L 90 L Oxygen Delivery Method Room Air Oxygen Flow Rate 05/13/24 22:00 05/13/24 22:03 05/13/24 22:15 Pulse Rate 110 H 116 H Respiratory Rate 21 22 Blood Pressure 144/91 H Pulse Oximetry 91 91 Oxygen Delivery Method Nasal Cannula Oxygen Flow Rate 1.5 05/13/24 22:30 05/13/24 22:30 05/13/24 22:45 Pulse Rate 115 H 110 H Respiratory Rate 31 H 30 H Blood Pressure 164/92 H Pulse Oximetry 93 93 Oxygen Delivery Method Nasal Cannula Oxygen Flow Rate 1.5 05/13/24 23:00 05/13/24 23:00 05/13/24 23:15 Pulse Rate 107 H 102 H Respiratory Rate 42 H 31 H Blood Pressure 156/88 H Pulse Oximetry 94 93 Oxygen Delivery Method Oxygen Flow Rate 05/13/24 23:30 05/13/24 23:30 05/13/24 23:45 Pulse Rate 105 H 100 H Respiratory Rate 27 H 26 H Blood Pressure 146/79 H Pulse Oximetry 93 93 Oxygen Delivery Method Oxygen Flow Rate 05/14/24 00:00 05/14/24 00:00 05/14/24 00:15 Pulse Rate 98 H 98 H Respiratory Rate 25 H 31 H Blood Pressure 156/80 H Pulse Oximetry 94 93 Oxygen Delivery Method Oxygen Flow Rate 05/14/24 00:30 05/14/24 00:30 05/14/24 00:45 Pulse Rate 95 H 90 Respiratory Rate 24 44 H Blood Pressure 134/80 Pulse Oximetry 94 93 Oxygen Delivery Method Room Air Oxygen Flow Rate 05/14/24 01:00 05/14/24 01:15 05/14/24 01:30 Pulse Rate 87 86 Respiratory Rate 22 21 Blood Pressure 150/89 H Pulse Oximetry 94 93 Oxygen Delivery Method Nasal Cannula Nasal Cannula Oxygen Flow Rate 1.5 1.5 05/14/24 01:30 05/14/24 01:45 05/14/24 02:00 Pulse Rate 85 85 Respiratory Rate 21 19 Blood Pressure 153/88 H Pulse Oximetry 93 92 Oxygen Delivery Method Nasal Cannula Oxygen Flow Rate 1.5 05/14/24 02:15 05/14/24 02:30 05/14/24 02:30 Pulse Rate 86 89 Respiratory Rate 21 22 Blood Pressure 124/93 H Pulse Oximetry 92 93 Oxygen Delivery Method Oxygen Flow Rate 05/14/24 02:45 05/14/24 03:00 05/14/24 03:07 Pulse Rate 85 89 101 H Respiratory Rate 21 22 28 H Blood Pressure Pulse Oximetry 93 92 92 Oxygen Delivery Method Nasal Cannula Oxygen Flow Rate 1.5 05/14/24 03:07 05/14/24 03:30 05/14/24 04:00 Pulse Rate 96 H 91 H Respiratory Rate 18 36 H Blood Pressure 115/80 Pulse Oximetry 93 93 Oxygen Delivery Method Nasal Cannula Nasal Cannula Oxygen Flow Rate 1.5 1.5 05/14/24 04:00 05/14/24 04:15 Pulse Rate 92 H Respiratory Rate 37 H Blood Pressure 120/69 Pulse Oximetry 93 Oxygen Delivery Method Oximask Oxygen Flow Rate 1.5 Oxygen Delivery Method Oximask Oxygen Flow Rate 1.5 Narrative Exam Narrative: GENERAL: The patient is not in any acute distressed. Awake and alert. HEENT: Nonicteric sclerae, PERRLA, EOMI. Oropharynx clear. Moist mucous membranes. Conjunctivae appear well perfused. HEART: Regular rate and rhythm without murmurs. No lower extremities edema. LUNGS: Clear to auscultation bilaterally. No wheezing, crackles or rhonchi ABDOMEN: Soft, positive bowel sounds, nontender. SKIN: No rash, no excessive bruising, petechiae, or purpura. NEUROLOGIC: AxO x 3. Cranial nerves II-XII intact without motor/sensory deficit. Objective Labs 05/13/24 16:39 05/13/24 16:39 Labs: Laboratory Results - last 24 hr 05/13/24 05/13/24 05/13/24 16:20 16:39 20:01 WBC 11.5 H RBC 4.74 Hgb 14.6 Hct 43.6 MCV 91.8 MCH 30.8 MCHC 33.6 RDW 15.3 H Plt Count 270 Neut % (Auto) 84.9 H Lymph % (Auto) 8.5 L [place] % (Auto) 6.0 Eos % (Auto) 0.3 L Baso % (Auto) 0.3 Neut # (Auto) 9700 H Lymph # (Auto) 1000 L [place] # (Auto) 700 Eos # (Auto) 0 Baso # (Auto) 0 PT 11.1 INR 1.0 APTT 40 H Sodium 135 L Potassium 4.5 Chloride 97 L Carbon Dioxide 23 BUN 19 Creatinine 0.97 Estimated GFR > 60 BUN/Creatinine Ratio 19.6 Glucose 108 Calcium 9.9 Magnesium 1.9 Total Bilirubin 1.0 AST 31 ALT 25 Alkaline Phosphatase 85 Total Creatine Kinase 256 H Troponin I 0.016 0.032 NT-Pro-B Natriuret Pep 111 Total Protein 8.9 H Albumin 5.3 H Globulin 3.6 Albumin/Globulin Ratio 1.5 Lipase 28 TSH 27.20 H Free T4 0.80 Urine Color Yellow Urine Appearance Clear Urine pH 5.5 Ur Specific [place] 1.015 Urine Protein 2+ H Urine Glucose (UA) Negative Urine Ketones Negative Urine Occult Blood Negative Urine Nitrate Negative Urine Bilirubin Negative Urine Urobilinogen 0.2 Ur Leukocyte Esterase Negative Urine RBC None seen Urine WBC None seen Ur Squamous Epith Cells None seen Ur Transition Epith Cell 0-1/hpf Ur Renal Epithelial Cell 0-1/hpf Urine Bacteria None seen Ur Culture Indicated? Cult not indicated Vol Urine Centrifuged 10ml (spun) Assessment & Plan Assessment & Plan narrative: COPD exacerbation. Admit the patient to medical telemetry as inpatient. The patient does require oxygen which he does not baseline. No clear signs of pneumonia on CTA chest. Continue Solumedrol and Nebulizer. Urinary attention. Status post [place] catheter placement. Patient will need to follow up with urology post discharge to manage urinary retenion. Continue flomax. Acute respiratory failure with hypoxia. Currently on 2L of O2 per [place]. CTA of the chest feels no PE or pneumonia. Likely from COPD exacerbation. Treat as above and wean down O2 as able. Incidental chronic diverticulitis seen on CT abdomen. Does not have any sign of acute infection (afebrile, normal white count). Will hold off antibiotics for now. Patient received one dose of Augmentin in ER. Consider outpatient G.I. follow up. Hypothyroidism. Resume home Synthroid. Prophylaxis heparin SQ Code status full code Disposition likely home in 2 to 3 days. Time-Based Coding :: [TOTAL MINUTES] spent with patient and on the chart (including review of chart, obtaining history, exam, reviewing outside data, placing orders, documenting exam and treatment plan, and counseling patient) on [DATE].
[2024-05-14] MEDS: LEVOTHYROXINE 100 MCG TABLET PO (06:33)
[2024-05-14 07:20] LABS: Add Manual Diff / Slide Review NO; Basophils Absolute Auto 0 /uL (0-100); Basophils Percent Auto 0.1 % (0-2); Eosinophils Absolute Auto 0 /uL (0-450); Lymphocytes Absolute Auto 300 /uL (1100-4500); Lymphocytes Percent Auto 3.3 % (25-40); Mean Corpuscular HGB Conc 33.4 % (30-36); Mean Corpuscular Hemoglobin 30.7 PG (26-34); Mean Corpuscular Volume 91.8 fL (80-100); Monocytes Absolute Auto 100 /uL (0-900); Monocytes Percent Auto 0.7 % (3-14); Neutrophils Absolute Auto 9200 /uL (1500-7000); Neutrophils Percent Auto 95.9 % (50-75); Platelet Count 271 X10^3/uL (150-400); Red Blood Cell Count 4.58 X10^6/uL (4.5-5.9); Red Cell Distribution Width 15.4 % (11.6-14.8); White Blood Cell Count 9.6 X10^3/uL (4.5-11.0)
[2024-05-14 07:50] LABS: BUN Creatinine Ratio 20.7 (6-22); Blood Urea Nitrogen 17 mg/dL (9-20); Calcium 9.1 mg/dL (8.4-10.2); Carbon Dioxide 29 mmol/L (22-32); Chloride 96 mmol/L (98-107); Estimated Glomerular Filt Rate > 60 mL/min (>60); Glucose 147 mg/dL (80-110); HEMOLYSIS < 15 (0-50); Potassium 4.9 mmol/L (3.4-5.1); Sodium 134 mmol/L (137-145)
[2024-05-14] MEDS: ALBUTEROL/IPRATROPIUM 3 ML AMPUL INH ×3 (08:33→18:19)
[2024-05-14] MEDS: METOPROLOL ER 25 MG TABLET PO (08:33)
[2024-05-14] MEDS: TAMSULOSIN 0.4 MG CAPSULE PO ×2 (08:33→21:38)
[2024-05-14] MEDS: HEPARIN 5,000 UNIT/ML VIAL 5000 UNIT SUBCUT ×2 (08:34→21:37)
[2024-05-14] MEDS: INFLUENZA HD VACCINE 0.5 ML SYRINGE IM (10:10)
--- NOTE | 2024-05-14 11:08 | PC.NURSE ---
Pt has [place] catheter in place; patent. Pt heart rate <100bpm. Pt states his breathing effort is his normal; pt tight in lower lobes upon morning auscultation. Pt then received a breathing treatment and pt states he feels better and would like to plan to have one around 1200.
--- NOTE | 2024-05-14 16:20 | P.PN_ITS ---
Subjective Subjective Date Patient Seen: 05/14/24 Time Patient Seen: 08:53 Interval history: 68 year-old male with past medical history of BPH, sinus tachycardia, dyslipidemia, COPD non O2 dependent and hypothyroidism, presents with complaint of lower abdominal distention and decrease urine output. Per the patient report, the patient has not been able to urinate normally and felt that his bladder was distended. The patient does have some discomfort in his lower abdomen and attribute this to his distended bladder. The patient has mild dysuria, but denies any fever, chills, chest pain, nausea, vomiting, or diarrhea. The patient states that he does have some chronic shortness of breath, but today his shortness of breath is worsened. In our emergency room, the patient required 2L of O2 per [place]. CTA of the chest shows no signs of pulmonary embolism or pneumonia. CT abdomen and pelvic shows no acute finding. However there is some wall thickening of the sigmoid colon and in the setting extensive diverticulosis this could possibly be from chronic diverticulitis. G.I. consultation recommended. The patient was given Augmentin empirically though the patient is not septic and WBC is normal, afebrile. The patient was also given solumedrol and nebs for possible COPD exacerbation. Interval history. The patient reports feeling better. He states he has been taking Tylenol p.m. twice daily for ongoing chronic neck pain. he has had frequent urination for some time with nocturia up to 2-3 times nightly. Exam Vital Signs (past 8 hours): - 05/14/24 08:30 05/14/24 08:31 05/14/24 08:31 Temperature Pulse Rate 105 H 105 H Respiratory Rate 27 H 26 H Blood Pressure 159/78 H Pulse Oximetry 92 93 Oxygen Delivery Method Oxygen Flow Rate 05/14/24 08:33 05/14/24 08:45 05/14/24 09:00 Temperature Pulse Rate 104 H 105 H 107 H Respiratory Rate Blood Pressure 159/78 H Pulse Oximetry 91 Oxygen Delivery Method Oxygen Flow Rate 05/14/24 09:15 05/14/24 09:30 05/14/24 09:30 Temperature Pulse Rate 102 H 95 H Respiratory Rate 22 Blood Pressure 122/65 Pulse Oximetry 91 92 Oxygen Delivery Method Oxygen Flow Rate 05/14/24 09:45 05/14/24 10:00 05/14/24 10:00 Temperature Pulse Rate 90 100 H Respiratory Rate 21 17 Blood Pressure 127/59 L Pulse Oximetry 93 93 Oxygen Delivery Method Oxygen Flow Rate 05/14/24 10:15 05/14/24 10:30 05/14/24 10:30 Temperature Pulse Rate 97 H 97 H Respiratory Rate 26 H 24 Blood Pressure 141/78 H Pulse Oximetry 93 92 Oxygen Delivery Method Oxygen Flow Rate 05/14/24 10:45 05/14/24 11:00 05/14/24 11:00 Temperature Pulse Rate 97 H 95 H Respiratory Rate Blood Pressure 160/79 H Pulse Oximetry 93 92 Oxygen Delivery Method Oxygen Flow Rate 05/14/24 11:15 05/14/24 11:30 05/14/24 11:30 Temperature Pulse Rate 93 H 98 H Respiratory Rate 26 H 24 Blood Pressure 166/81 H Pulse Oximetry 93 92 Oxygen Delivery Method Oxygen Flow Rate 05/14/24 11:45 05/14/24 12:00 05/14/24 12:00 Temperature Pulse Rate 98 H 89 Respiratory Rate Blood Pressure 138/65 Pulse Oximetry 94 93 Oxygen Delivery Method Nasal Cannula Oxygen Flow Rate 1.5 05/14/24 12:15 05/14/24 12:32 05/14/24 12:45 Temperature 98.2 F Pulse Rate 80 98 H 93 H Respiratory Rate 21 24 20 Blood Pressure 141/90 H Pulse Oximetry 92 94 98 Oxygen Delivery Method Nasal Cannula Nasal Cannula Oxygen Flow Rate 1.5 2 1 05/14/24 12:52 Temperature Pulse Rate Respiratory Rate Blood Pressure Pulse Oximetry 94 Oxygen Delivery Method Nasal Cannula Oxygen Flow Rate 1.5 Oxygen Delivery Method Nasal Cannula Oxygen Flow Rate 1.5 Narrative Exam Narrative: GENERAL: This is a well-nourished, well-developed patient, in no apparent distress. EYES: Pupils equal round and reactive. Extraocular motions intact. No scleral icterus. No injection or drainage. ENT: Mucous membranes pink and moist. NECK: Trachea midline. No JVD, bruits or lymphadenopathy. Supple, nontender, no meningeal signs. CARDIOVASCULAR: Regular rate and rhythm without murmurs, gallops, or rubs. RESPIRATORY: Scattered rhonchi, bilateral mid to end-expiratory wheezing. GASTROINTESTINAL: Abdomen soft, non-tender, nondistended. EXTREMITIES: No clubbing, cyanosis, or edema. NEUROLOGIC: Alert, oriented, speech fluent, full upper and lower motor strength, no focal deficits evident. DERMATOLOGIC: No rashes or skin lesions. Objective Labs 05/14/24 06:42 05/14/24 06:42 Labs: Laboratory Results - last 24 hr 05/13/24 05/13/24 05/13/24 16:20 16:39 20:01 WBC 11.5 H RBC 4.74 Hgb 14.6 Hct 43.6 MCV 91.8 MCH 30.8 MCHC 33.6 RDW 15.3 H Plt Count 270 Neut % (Auto) 84.9 H Lymph % (Auto) 8.[address] [place] % (Auto) 6.0 Eos % (Auto) 0.3 L Baso % (Auto) 0.3 Neut # (Auto) 9700 H Lymph # (Auto) [address] [place] # (Auto) 700 Eos # (Auto) 0 Baso # (Auto) 0 PT 11.1 INR 1.0 APTT 40 H Sodium 135 L Potassium 4.5 Chloride 97 L Carbon Dioxide 23 BUN 19 Creatinine 0.97 Estimated GFR > 60 BUN/Creatinine Ratio 19.6 Glucose 108 Calcium 9.9 Magnesium 1.9 Total Bilirubin 1.0 AST 31 ALT 25 Alkaline Phosphatase 85 Total Creatine Kinase 256 H Troponin I 0.016 0.032 NT-Pro-B Natriuret Pep 111 Total Protein 8.9 H Albumin 5.3 H Globulin 3.6 Albumin/Globulin Ratio 1.5 Lipase 28 TSH 27.20 H Free T4 0.80 Urine Color Yellow Urine Appearance Clear Urine pH 5.5 Ur Specific [place] 1.015 Urine Protein 2+ H Urine Glucose (UA) Negative Urine Ketones Negative Urine Occult Blood Negative Urine Nitrate Negative Urine Bilirubin Negative Urine Urobilinogen 0.2 Ur Leukocyte Esterase Negative Urine RBC None seen Urine WBC None seen Ur Squamous Epith Cells None seen Ur Transition Epith Cell 0-1/hpf Ur Renal Epithelial Cell 0-1/hpf Urine Bacteria None seen Ur Culture Indicated? Cult not indicated Vol Urine Centrifuged 10ml (spun) 05/14/24 06:42 WBC 9.6 RBC 4.58 Hgb 14.0 Hct 42.0 MCV 91.8 MCH 30.7 MCHC 33.4 RDW 15.4 H Plt Count 271 Neut % (Auto) 95.9 H Lymph % (Auto) 3.[address] [place] % (Auto) 0.7 L Eos % (Auto) 0.0 L Baso % (Auto) 0.1 Neut # (Auto) 9200 H Lymph # (Auto) [address] [place] # (Auto) 100 Eos # (Auto) 0 Baso # (Auto) 0 PT INR APTT Sodium 134 L Potassium 4.9 Chloride 96 L Carbon Dioxide 29 BUN 17 Creatinine 0.82 Estimated GFR > 60 BUN/Creatinine Ratio 20.7 Glucose 147 H Calcium 9.1 Magnesium Total Bilirubin AST ALT Alkaline Phosphatase Total Creatine Kinase Troponin I NT-Pro-B Natriuret Pep Total Protein Albumin Globulin Albumin/Globulin Ratio Lipase TSH Free T4 Urine Color Urine Appearance Urine pH Ur Specific [place] Urine Protein Urine Glucose (UA) Urine Ketones Urine Occult Blood Urine Nitrate Urine Bilirubin Urine Urobilinogen Ur Leukocyte Esterase Urine RBC Urine WBC Ur Squamous Epith Cells Ur Transition Epith Cell Ur Renal Epithelial Cell Urine Bacteria Ur Culture Indicated? Vol Urine Centrifuged [facility] Medical History Hypothyroidism Insomnia Depression BPH (benign prostatic hyperplasia) Chronic neck pain GERD (gastroesophageal reflux disease) Essential tremor High cholesterol High blood pressure Closed fracture of left distal fibula Social History household members: significant other Smoking Status: Former smoker alcohol intake: former Assessment & Plan Assessment & Plan narrative: 1. COPD exacerbation. The patient is admitted to medical telemetry as inpatient. The patient does require oxygen which he does not baseline. No clear signs of pneumonia on CTA chest. Continue Augmentin, methylprednisolone and nebulizers. 2. Acute urinary attention. Status post [place] catheter placement. Possibly due to Tylenol with Benadryl twice daily. Continue Flomax. Voiding trial tomorrow and replace [place] if unable to urinate. 3. Acute respiratory failure with hypoxia. Currently on 2L of O2 per [place]. CTA of the chest feels no PE or pneumonia. Likely from COPD exacerbation. Treat as above and wean down O2 as able. 4. Incidental chronic diverticulitis seen on CT abdomen. Does not have any sign of acute infection (afebrile, normal white count). Will hold off antibiotics for now. Consider outpatient G.I. follow up. 4. Hypothyroidism. Continue home Synthroid. 5. Prophylaxis heparin SQ 6. Code status full code Disposition likely home in 2 to 3 days. Time-Based Coding :: [TOTAL MINUTES] spent with patient and on the chart (including review of chart, obtaining history, exam, reviewing outside data, placing orders, documenting exam and treatment plan, and counseling patient) on [DATE]. PROFEE Charge codes Subsequent inpatient/observation care: 22275
[2024-05-14] MEDS: AMOXICILLIN/CLAV 875/125 MG 1 TAB PO ×2 (16:56→21:38)
[2024-05-14] MEDS: GABAPENTIN 300 MG CAPSULE PO ×2 (16:56→21:39)
[2024-05-14] MEDS: methylPREDNISolone 125 MG/2 ML VIAL 80 MG IV ×2 (16:57→21:38)
[2024-05-14] MEDS: ATORVASTATIN 20 MG TABLET 40 MG PO (21:38)
[2024-05-14] MEDS: SERTRALINE 50 MG TABLET 100 MG PO (21:38)
[2024-05-14] MEDS: MIRTAZAPINE 15 MG TABLET PO (21:39)
[2024-05-15] VITALS (8 sets, daily range): BP systolic 142–153; BP diastolic 82–97; PULSE 64–120; RESP 16–24; TEMP 36.4–36.9; O2SAT 92–97
[2024-05-15] MEDS: LEVOTHYROXINE 100 MCG TABLET PO (06:47)
[2024-05-15] MEDS: methylPREDNISolone 125 MG/2 ML VIAL 80 MG IV ×3 (06:47→21:12)
[2024-05-15] MEDS: ALBUTEROL/IPRATROPIUM 3 ML AMPUL INH ×3 (09:24→21:39)
[2024-05-15] MEDS: HEPARIN 5,000 UNIT/ML VIAL 5000 UNIT SUBCUT ×2 (11:08→21:12)
[2024-05-15] MEDS: GABAPENTIN 300 MG CAPSULE PO ×2 (11:09→21:09)
[2024-05-15] MEDS: METOPROLOL ER 25 MG TABLET PO (11:09)
[2024-05-15] MEDS: AMOXICILLIN/CLAV 875/125 MG 1 TAB PO (11:09)
[2024-05-15] MEDS: TAMSULOSIN 0.4 MG CAPSULE PO ×2 (11:09→21:08)
--- NOTE | 2024-05-15 13:18 | P.PN_ITS ---
Subjective Subjective Date Patient Seen: 05/15/24 Time Patient Seen: 10:30 Interval history: 68 year-old male with past medical history of BPH, sinus tachycardia, dyslipidemia, COPD non O2 dependent and hypothyroidism, presents with complaint of lower abdominal distention and decrease urine output. Per the patient report, the patient has not been able to urinate normally and felt that his bladder was distended. The patient does have some discomfort in his lower abdomen and attribute this to his distended bladder. The patient has mild dysuria, but denies any fever, chills, chest pain, nausea, vomiting, or diarrhea. The patient states that he does have some chronic shortness of breath, but today his shortness of breath is worsened. In our emergency room, the patient required 2L of O2 per NC. CTA of the chest shows no signs of pulmonary embolism or pneumonia. CT abdomen and pelvic shows no acute finding. However there is some wall thickening of the sigmoid colon and in the setting extensive diverticulosis this could possibly be from chronic diverticulitis. G.I. consultation recommended. The patient was given Augmentin empirically though the patient is not septic and WBC is normal, afebrile. The patient was also given solumedrol and nebs for possible COPD exacerbation. Interval history. The patient reports feeling better. He continues to have hypoxemia with oxygen saturations in the mid 80s% range with minimal exertion on room air. Colorado catheter removed today pending independent voiding. Note he has been on Tylenol p.m. b.i.d. prior to admission and also mirtazapine. Exam Vital Signs (past 8 hours): - 05/15/24 08:35 05/15/24 09:24 05/15/24 11:09 Temperature Pulse Rate 108 H 95 H Respiratory Rate 16 Blood Pressure 142/86 H Pulse Oximetry 97 92 Oxygen Delivery Method Nasal Cannula Nasal Cannula Oxygen Flow Rate 1 2 Fraction of Inspired Oxygen 24 05/15/24 12:00 Temperature 98.2 F Pulse Rate 100 H Respiratory Rate 18 Blood Pressure 147/97 H Pulse Oximetry 94 Oxygen Delivery Method Oxygen Flow Rate 1 Fraction of Inspired Oxygen Fraction of Inspired Oxygen 24 SaO2/FiO2 Ratio 404 Oxygen Delivery Method Nasal Cannula Oxygen Flow Rate 1 Narrative Exam Narrative: GENERAL: This is a well-nourished, well-developed patient, in no apparent distress. EYES: Pupils equal round and reactive. Extraocular motions intact. No scleral icterus. No injection or drainage. ENT: Mucous membranes pink and moist. NECK: Trachea midline. No JVD, bruits or lymphadenopathy. Supple, nontender, no meningeal signs. CARDIOVASCULAR: Regular rate and rhythm without murmurs, gallops, or rubs. RESPIRATORY: Scattered rhonchi, bilateral improved mid to end-expiratory wheezing. GASTROINTESTINAL: Abdomen soft, non-tender, nondistended. EXTREMITIES: No clubbing, cyanosis, or edema. NEUROLOGIC: Alert, oriented, speech fluent, full upper and lower motor strength, no focal deficits evident. DERMATOLOGIC: No rashes or skin lesions. Objective Labs 05/14/24 06:42 05/14/24 06:42 [facility] Medical History Hypothyroidism Insomnia Depression BPH (benign prostatic hyperplasia) Chronic neck pain GERD (gastroesophageal reflux disease) Essential tremor High cholesterol High blood pressure Closed fracture of left distal fibula Social History household members: significant other Smoking Status: Former smoker alcohol intake: former Assessment & Plan Assessment & Plan narrative: 1. COPD exacerbation. Slowly improving. The patient is admitted to medical telemetry as inpatient. The patient does require oxygen which he does not baseline. No clear signs of pneumonia on CTA chest. Continue Augmentin, methylprednisolone and nebulizers. 2. Acute urinary attention. Status post colorado catheter placement. Possibly due to Tylenol with Benadryl twice daily as well as mirtazapine. Continue Flomax. Voiding trial tomorrow and replace [place] if unable to urinate. Stop mirtazapine. 3. Acute respiratory failure with hypoxia. Currently on 2L of O2 per NC. CTA of the chest shows no PE or pneumonia. Likely from COPD exacerbation. Treat as above and wean down O2 as able. 4. Incidental chronic diverticulitis seen on CT abdomen. Does not have any sign of acute infection (afebrile, normal white count). Will hold off antibiotics for now. Consider outpatient G.I. follow up. 4. Hypothyroidism. Continue home Synthroid. 5. Prophylaxis heparin SQ 6. Code status full code Disposition likely home tomorrow Time-Based Coding :: [TOTAL MINUTES] spent with patient and on the chart (including review of chart, obtaining history, exam, reviewing outside data, placing orders, documenting exam and treatment plan, and counseling patient) on [DATE]. PROFEE Charge codes Subsequent inpatient/observation care: 25692
[2024-05-15] MEDS: AZITHROMYCIN 250 MG TABLET 500 MG PO (15:30)
--- NOTE | 2024-05-15 15:35 | CM.DANOTE ---
Patient is a 68 yo male who was admitted INPT Status on 05/13/24 for COPD/Urinary Retention. EMR was reviewed. Per MD, pt with hx of COPD but no home oxygen at baseline and admitted for abd pain due to urinary retention and COPD exac and currently on 2LO2. Pt's colorado cath d/c'd to determine if pt can void independently but remains on oxygen and possible d/c today vs tomorrow pending progress. Per RN, pt voided small amount independently and bladder scan showed no retained fluid. No concerns noted at this time. SW met briefly bedside with pt and explained role and he confirms he lives in [place] with his Sig Other and pt is active and independent at baseline, does not use DME to ambulate and drives. Pt denies hx of HH or SNF and confirms his preference is discharge to home when medically stable. Pt confirms his Sig Other or friends can transport at d/c. Pt does not anticipate any needs at this time. [employer] Laws Discharge Planning/Care Management CM Discharge Assessment Start: 05/15/24 15:34 Freq: Status: Active Protocol: Document 05/15/24 15:34 BF (Rec: 05/15/24 15:35 BF [id number]) Discharge Planning Assessment Assigned Studio Control Operator [place] [place] Advance Directives? Yes: POLST: Advance Directive Advance Directives on File No History Provided By Patient,Medical Record Has Patient been admitted in last 30 No days? Prior Living Arrangements House Household Members significant other Type of transporation used prior to Drives own vehicle admit Independent with ADL's Yes Is patient alert and oriented? Yes Caregiver for Another No Barriers to Discharge No Discharge Plan Home Transportation Arrangement Friend Referrals Initiated None needed Whiteboard Updated in Patient Room with Yes name and ext. # of Studio Control Operator Review Status In Process Please Provide Date Initial DC 05/15/24 Assessment Was Performed Next Review Type Continued Stay Review
[2024-05-15] MEDS: ATORVASTATIN 20 MG TABLET 40 MG PO (21:08)
[2024-05-15] MEDS: SERTRALINE 50 MG TABLET 100 MG PO (21:09)
[2024-05-15] MEDS: SODIUM CHLORIDE 0.9% FLUSH 10 ML IV (21:14)
[2024-05-16] MEDS: LEVOTHYROXINE 100 MCG TABLET PO (06:15)
[2024-05-16] MEDS: methylPREDNISolone 125 MG/2 ML VIAL 80 MG IV (06:15)
[2024-05-16] MEDS: ACETAMINOPHEN 325 MG TABLET 650 MG PO (09:35)
[2024-05-16 09:36] VITALS: BP 151/95; PULSE 107
[2024-05-16] MEDS: GABAPENTIN 300 MG CAPSULE PO (09:36)
[2024-05-16] MEDS: METOPROLOL ER 25 MG TABLET PO (09:36)
[2024-05-16] MEDS: SODIUM CHLORIDE 0.9% FLUSH 10 ML IV (09:37)
[2024-05-16] MEDS: AZITHROMYCIN 250 MG TABLET 500 MG PO (09:37)
[2024-05-16] MEDS: HEPARIN 5,000 UNIT/ML VIAL 5000 UNIT SUBCUT (09:37)
[2024-05-16] MEDS: TAMSULOSIN 0.4 MG CAPSULE PO (09:37)
[2024-05-16 09:57] VITALS: PULSE 105; RESP 20; O2SAT 93
[2024-05-16] MEDS: ALBUTEROL/IPRATROPIUM 3 ML AMPUL INH (09:57)
--- NOTE | 2024-05-16 11:19 | PM.DS.1 ---
History of Present Illness History of Present Illness Date Patient Seen: 05/16/24 Time Patient Seen: 10:30 Date of Onset of Symptoms: 05/14/24 Chief complaint: cant urinate, painful Narrative: 68 year-old male with past medical history of BPH, sinus tachycardia, dyslipidemia, COPD non O2 dependent and hypothyroidism, presents with complaint of lower abdominal distention and decrease urine output. Per the patient report, the patient has not been able to urinate normally and felt that his bladder was distended. The patient does have some discomfort in his lower abdomen and attribute this to his distended bladder. The patient has mild dysuria, but denies any fever, chills, chest pain, nausea, vomiting, or diarrhea. The patient states that he does have some chronic shortness of breath, but today his shortness of breath is worsened. In our emergency room, the patient required 2L of O2 per NC. CTA of the chest shows no signs of pulmonary embolism or pneumonia. CT abdomen and pelvic shows no acute finding. However there is some wall thickening of the sigmoid colon and in the setting extensive diverticulosis this could possibly be from chronic diverticulitis. G.I. consultation recommended. The patient was given Augmentin empirically though the patient is not septic and WBC is normal, afebrile. The patient was also given solumedrol and nebs for possible COPD exacerbation. Discharge Providers Provider Date of admission: 05/13/24 22:06 Discharge Date: 05/16/24 Primary care physician: Ari Barfield DO Discharge provider: Raul Byers MD Summary Hospital Course Discharge Diagnosis: 1. COPD exacerbation. 2. Acute respiratory failure with hypoxia. 3. Acute urinary attention, likely due to Tylenol p.m. and mirtazapine. 4. Incidental chronic diverticulitis seen on CT abdomen. 5. Hypothyroidism, under treated with elevated TSH 6. Chronic neck pain due to degenerative joint disease 7. Benign essential tremor. Hospital Course: The patient was admitted and treated with combination of IV steroids, frequent insert bronchodilators and antibiotics for an apparent COPD exacerbation. Urinary retention was what initially brought into the emergency department but he had also been having significant respiratory symptoms that he states was a secondary reason for presentation. He did not have clinical evidence of diverticulitis and treatment was not felt indicated though outpatient follow-up was recommended to address CT findings noted on admission. He had been taking Tylenol p.m. prior to admission, and was on mirtazapine as well, both of which were felt to contribute to urinary retention, and both discontinued. Urinary retention resolved, and Jameson catheter placed on admission was removed with normal voiding subsequently. He was interested in outpatient follow-up and continuation of home oxygen with activity, given ongoing desaturations below 90% with mild activity. His TSH was elevated at 27.2 on levothyroxine 100 mcg daily for the past year. Levothyroxine was increased 112 mcg daily at discharge and will need outpatient follow up with TSH in 6-8 weeks. He has chronic severe osteoarthritis of the neck and was started on gabapentin 300 mg twice daily. This was felt to possibly be of benefit in chronic resting tremor symptoms as well. Outpatient follow-up is advised. No other issues arose. Status at Discharge Cognitive/behavioral status at discharge: oriented Functional status at discharge: independent ambulation Overall status at discharge: patient is progressing back to baseline Time Spent with Patient Time spent: Greater than 30 minutes Exam Vital Signs (past 8 hours): - 05/16/24 09:36 05/16/24 09:57 Pulse Rate 107 H 105 H Respiratory Rate 20 Blood Pressure 151/95 H Pulse Oximetry 93 Oxygen Delivery Method Nasal Cannula Oxygen Flow Rate 1 Fraction of Inspired Oxygen 28 SaO2/FiO2 Ratio 342 Oxygen Delivery Method Nasal Cannula Oxygen Flow Rate 1 Narrative Exam Narrative: GENERAL: This is a well-nourished, well-developed patient, in no apparent distress. EYES: Pupils equal round and reactive. Extraocular motions intact. No scleral icterus. No injection or drainage. ENT: Mucous membranes pink and moist. NECK: Trachea midline. No JVD, bruits or lymphadenopathy. Supple, nontender, no meningeal signs. CARDIOVASCULAR: Regular rate and rhythm without murmurs, gallops, or rubs. RESPIRATORY: Basilar crackles, otherwise clear to auscultation. GASTROINTESTINAL: Abdomen soft, non-tender, nondistended. EXTREMITIES: No clubbing, cyanosis, or edema. NEUROLOGIC: Alert, oriented, speech fluent, full upper and lower motor strength, no focal deficits evident. Intention tremor noted. DERMATOLOGIC: No rashes or skin lesions. Objective Imaging *: Radiologist's impression: 1. Chest x-ray 05/13/2024: No acute cardiopulmonary abnormality is seen. 2. Abdomen pelvis CT 05/13/2024: 1. Long segment mural wall thickening of the sigmoid colon in a setting of extensive diverticulosis. Consider the possibility of chronic diverticulitis and gastroenterological consultation. 2. Hepatic steatosis. 3. 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 3. Chest CT angiogram 05/13/2024: 1. No CT evidence of pulmonary embolism to the proximal interlobar level. 2. Left ventricular hypertrophy and moderate three-vessel coronary artery calcifications. Labs 05/14/24 06:42 05/14/24 06:42 [facility] Medical History Hypothyroidism Insomnia Depression BPH (benign prostatic hyperplasia) Chronic neck pain GERD (gastroesophageal reflux disease) Essential tremor High cholesterol High blood pressure Closed fracture of left distal fibula Social History household members: significant other Smoking Status: Former smoker alcohol intake: former Discharge Plan Discharge Plan Patient Disposition: Home Provider Discharge Comment: Followup with Dr. Barfield 1 week; stop OTC Tylenol PM; home oxygen at 2 liters/minute with physical activity Discharge orders & Medications Prescriptions: New acetaminophen 325 mg Tablet 650 mg PO Q6H PRN (Reason: Fever/Mild Pain (1-3)) Qty: 1 0RF azithromycin [Zithromax Z-Ronen] 250 mg Tablet 500 mg PO DAILY Qty: 3 0RF gabapentin 300 mg Capsule 300 mg PO BID Qty: 60 0RF prednisone 10 mg tablet 10 mg PO DAILY Qty: 20 0RF Rx Instructions: administer with food or milk, take 4 tabs daily x 2 days, then 3 tabs daily x 2 days, then 2 tabs daily x 2 days, then 1 tab daily x 2 days levothyroxine 112 mcg tablet 112 mcg PO DAILY Qty: 30 0RF Continued albuterol sulfate 90 mcg/actuation HFA aerosol inhaler 2 puff inhalation Q6H PRN (Reason: Shortness Of Breath) sertraline 100 mg tablet 100 mg PO DAILY omeprazole 20 mg capsule,delayed release(DR/EC) 20 mg PO DAILY nitroglycerin 0.4 mg tablet, sublingual 0.4 mg sublingual Q5M PRN (Reason: chest pain) Qty: 10 0RF Patient Comments: has not needed to take it yet Rx Instructions: do not exceed 3 doses per episode metoprolol succinate 25 mg Tablet Extended Release 24 Hr 25 mg PO DAILY Qty: 30 0RF ipratropium-albuterol 0.5 mg-3 mg(2.5 mg base)/3 mL solution for nebulization 3 ml inhalation 4XD tamsulosin 0.4 mg capsule 0.4 mg PO BID atorvastatin 40 mg tablet 40 mg PO DAILY Patient Comments: TAKE ONE TABLET BY MOUTH ONE TIME DAILY Discontinued levothyroxine 137 mcg tablet 100 mcg PO DAILY Rx Instructions: dose change to 100 mcg mirtazapine 15 mg tablet 15 mg PO BEDTIME Patient Comments: TAKE ONE TABLET BY MOUTH EVERY NIGHT Follow up/Referrals: Ari Barfield, [Primary Care Provider] - Visit Report/Discharge Packet Stand Alone Forms: Patient Portal/API Discharge Data Primary Care Provider: Ari Barfield Quality MIPS - Admit I confirm the patient?s Advance Care Plan is present, Code status is documented, Surrogate decision maker is in patient?s record [If Yes, STOP here]: Yes MIPS - Meds 'Current medications' to include all prescriptions, [id number] products, herbals, cannabis/cannabidiol products, and vitamin/mineral/dietary (nutritional) supplements. I have utilized all available resources to obtain, update, or review the patient?s current medications. [If Yes, STOP here]: Yes MIPS - DC The patient has a history of heart transplant or Left Ventricular Assist Device (LVAD). If yes, STOP here.: No The patient has current or prior documentation of left ventricular ejection fraction (LVEF) less than or equal to 40%, or moderate or severely depressed left ventricular systolic function.: No A. The patient was prescribed or already taking an Angiotensin-Converting Enzyme (ROSALIE) Inhibitor, or Angiotensin Receptor John (ARB).: No B. The patient was prescribed or already taking a beta-john. [If Yes to Both A & B, STOP here]: No Patient not prescribed/taking ROSALIE or ARB, no reason given.: No Patient not prescribed/taking beta-john, no reason given.: No PROFEE Charge Codes Discharge inpatient/observation: 18020
[2024-05-16] MEDS: DOCUSATE 100 MG CAPSULE PO (12:01)
[2024-05-16] MEDS: IBUPROFEN 400 MG TABLET PO (12:01)
--- NOTE | 2024-05-16 13:04 | PC.NURSE ---
Pt discharged home at 1304, escorted off floor in wheelchair accompanied by hospital staff. IV removed, discharge teaching completed including new medications, follow up appointments and worsening symptoms. Questions answered and clarification provided. Patient left the room with all belongings.
== END 2024-05-16 13:14 | disposition home or self-care (01) | DRG 190 ==
LOC: ED 22:04 → AC 22:06
PROVIDERS: Emergency Medicine; Admitting Provider Internal Medicine; Emergency Provider Internal Medicine; PCP Family Medicine; Referring Provider Emergency Medicine; Visit Provider Internal Medicine
DX: J44.1 Chronic obstructive pulmonary disease with (acute) exacerbation (principal); J96.01 Acute respiratory failure with hypoxia; K57.32 Diverticulitis of large intestine without perforation or abscess without bleeding; R33.9 Retention of urine, unspecified; E03.9 Hypothyroidism, unspecified; M47.812 Spondylosis without myelopathy or radiculopathy, cervical region; G25.0 Essential tremor; T39.1X5A Adverse effect of 4-Aminophenol derivatives, initial encounter; T43.025A Adverse effect of tetracyclic antidepressants, initial encounter; F32.A Depression, unspecified; K21.9 Gastro-esophageal reflux disease without esophagitis; N40.0 Benign prostatic hyperplasia without lower urinary tract symptoms; E78.5 Hyperlipidemia, unspecified; R00.0 Tachycardia, unspecified; Z87.891 Personal history of nicotine dependence; Z23 Encounter for immunization
CPT/HCPCS: 36415; 71045; 71275; 74177; 80048; 80053; 81001; 82550; 83690; 83735; 83880; 84439; 84443; 84484; 85025; 85610; 85730; 90471; 90662; 93005; 94618; 94640; 94762; 96361; 96374; 96375; 99285; J1644; J2270; J2405; J2470; J2919; Q9967

== ENCOUNTER → 2024-05-25 11:28 | Outpatient (CLI) | payer MEDICARE, SELFPAY ==
[2024-05-13 22:53] VITALS: BMI 29.7
--- NOTE | 2024-05-25 11:29 | DI.MRI.S_ITS ---
PROCEDURE: MR CERVICAL SPINE WO CON INDICATIONS: cervical DJD/DDD cervicogenic headaches TECHNIQUE: Noncontrast sagittal T1 spin echo and T2 fast spin echo, sagittal STIR, foraminal oblique sagittal T2 fast spin echo, and axial gradient echo or T2 fast spin echo through the cervical spine. COMPARISON: [facility], CR, XR CERVICAL SPINE 2V OR 3V, 04/02/2024, 11:50. FINDINGS: Image quality: Diagnostic, with note made of motion artifact. Alignment and Curvature: There is straightening of the normal cervical lordosis. Minimal retrolisthesis is seen at C5-C6. Bone Marrow: Marrow demonstrates normal overall signal. Spinal Cord: Visualized spinal cord has normal size and signal. No cerebellar tonsillar herniation. Paraspinous Soft Tissues: No paravertebral masses. Prevertebral soft tissues are normal in thickness. C2-C3: The disc height is well-preserved. Loss of disc signal is seen at this level. Mild to moderate disc osteophyte complex is seen. There is mild right-sided and prominent left-sided facet hypertrophy. There is at least moderate left-sided and no right-sided neural foraminal narrowing. Minimal central canal narrowing is seen. C3-C4: Mild loss of disc height is seen. Loss of disc signal is seen. Moderate disc osteophyte complex is seen, which is eccentric to the left. There is mild right-sided and moderate to prominent left-sided facet hypertrophy. There is moderate to severe left-sided and moderate right-sided neural foraminal narrowing. Mild central canal narrowing is seen. C4-C5: Mild loss of disc height is seen. Loss of disc signal is seen. Mild to moderate disc osteophyte complex is seen. Moderate facet joint hypertrophy is seen. There is moderate right-sided and at least moderate left-sided neural foraminal narrowing. Mild central canal narrowing is seen. C5-C6: Moderate loss of disc height is seen. Loss of disc signal is seen. At least moderate disc osteophyte complex is seen, which is eccentric to the right. At least moderate facet hypertrophy is seen. There is moderate to severe bilateral neural foraminal narrowing, right worse than left. Moderate central canal narrowing is seen. There is associated mass effect upon the ventral spinal cord. C6-C7: Moderate loss of disc height is seen. Loss of disc signal is seen. Moderate disc osteophyte complex is seen, with a central disc osteophyte protrusion. Uncovertebral joint hypertrophy is seen at this level. At least moderate facet hypertrophy is seen. There is moderate to severe bilateral neural foraminal narrowing, left worse than right. Mild central canal narrowing is seen. C7-T1: The disc height is well-preserved. Loss of disc signal is seen at this level. A mild degree of generalized disc osteophyte complex is seen. Mild to moderate facet hypertrophy is seen. Mild bilateral neural foraminal narrowing is seen. No central canal narrowing is seen. IMPRESSION: Multiple levels of cervical spine degenerative change can be seen, which are overall worst at C5-C6. Dictated by: Ted Norwood M.D. on 05/25/2024 at 12:00 Approved by: Ted Norwood M.D. on 05/25/2024 at 12:04
== END ==
LOC: MRI 11:28
PROVIDERS: PCP Family Medicine; Referring Provider Family Medicine; Visit Provider Family Medicine
DX: M47.812 Spondylosis without myelopathy or radiculopathy, cervical region (principal); M50.30 Other cervical disc degeneration, unspecified cervical region; G44.86 Cervicogenic headache
CPT/HCPCS: 72141

== ENCOUNTER → 2024-07-23 09:57 | Outpatient (CLI) | payer MEDICARE, SELFPAY ==
[2024-05-13 22:53] VITALS: BMI 29.7
[2024-07-23 10:38] LABS: Add Manual Diff / Slide Review NO; Basophils Absolute Auto 100 /uL (0-100); Basophils Percent Auto 0.8 % (0-2); Eosinophils Absolute Auto 200 /uL (0-450); Eosinophils Percent Auto 2.1 % (2-4); Hematocrit 40.5 % (41-53); Hemoglobin 13.4 g/dL (13.5-17.5); Lymphocytes Absolute Auto 1600 /uL (1100-4500); Lymphocytes Percent Auto 18.9 % (25-40); Mean Corpuscular HGB Conc 33.1 % (30-36); Mean Corpuscular Hemoglobin 30.1 PG (26-34); Mean Corpuscular Volume 90.7 fL (80-100); Monocytes Absolute Auto 700 /uL (0-900); Monocytes Percent Auto 8.3 % (3-14); Neutrophils Absolute Auto 6000 /uL (1500-7000); Neutrophils Percent Auto 69.9 % (50-75); Platelet Count 295 X10^3/uL (150-400); Red Blood Cell Count 4.47 X10^6/uL (4.5-5.9); Red Cell Distribution Width 14.3 % (11.6-14.8); White Blood Cell Count 8.6 X10^3/uL (4.5-11.0)
[2024-07-23 10:55] LABS: Alanine Aminotransferase 26 IU/L (<50); Albumin 4.4 g/dL (3.5-5.0); Albumin Globulin Ratio 1.5 (1.0-2.8); Alkaline Phosphatase 64 U/L (38-126); Aspartate Aminotransferase 25 IU/L (17-59); BUN Creatinine Ratio 32.9 (6-22); Bilirubin Total 0.4 mg/dL (0.2-1.3); Blood Urea Nitrogen 28 mg/dL (9-20); Calcium 9.6 mg/dL (8.4-10.2); Carbon Dioxide 31 mmol/L (22-32); Chloride 98 mmol/L (98-107); Estimated Glomerular Filt Rate > 60 mL/min (>60); Globulin 2.9 g/dL (1.7-4.1); Glucose 104 mg/dL (80-110); HEMOLYSIS < 15 (0-50); Potassium 4.5 mmol/L (3.4-5.1); Sodium 136 mmol/L (137-145); Total Protein 7.3 g/dL (6.3-8.2)
[2024-07-23 11:11] LABS: Free T4, Direct Thyroxine 1.42 ng/dL (0.78-2.19)
[2024-07-23 11:25] LABS: Thyroid Stimulating Hormone 4.22 uIU/mL (0.47-4.68)
== END ==
PROVIDERS: PCP Family Medicine; Referring Provider Family Medicine; Visit Provider Family Medicine
DX: E03.9 Hypothyroidism, unspecified (principal); N40.0 Benign prostatic hyperplasia without lower urinary tract symptoms; I10 Essential (primary) hypertension
CPT/HCPCS: 36415; 80053; 84439; 84443; 85025

== ENCOUNTER 2024-08-06 08:38 | Day surgery (SDC) | payer MEDICARE, SELFPAY ==
[2024-05-13 22:53] VITALS: BMI 29.7
--- NOTE | 2024-08-06 | PATH_ITS ---
[facility] Accession Number: [id number] No. of containers..01 Tissue . 01 Material submitted: . colon - SIGMOID . 01 Diagnosis: SIGMOID COLON: Colonic mucosa with mild active inflammation with crypt architectural distortion. No granulomas, infectious organisms, dysplasia, or malignancy. See comment. OLGA 08/09/2024 1154 Local . 01 Comment: The findings are nonspecific, although, given the clinical history the histologic features could be related to longstanding chronic injury due to diverticular disease. Other differential diagnosis also includes inflammatory bowel disease. Clinical correlation is recommended. . 01 Electronically signed: . Danielle Cohn MD, Pathologist NPI- [id number] . 01 Gross description: . Received in formalin with two patient identifiers and sigmoid colitis biopsy, are two hale soft tissue fragments 0.3 to 0.5 cm in greatest dimension. Submitted in cassette A1. ([id number]) /OLGA 08/08/2024 0535 Local . 01 Pathologist provided ICD-10: K57.90 . 01 CPT . 740333 Specimen Comment: A courtesy copy of this report has been sent to [facility] Pathology Performed at: 01 [facility] [address] [address], [place], [place] [id number] MD Atif Soria MD Phone: [phone]
[2024-08-06 09:21] VITALS: BP 147/80; PULSE 98; RESP 16; TEMP 36.2; O2SAT 98
--- NOTE | 2024-08-06 09:22 | SUR.PREOP ---
PT c/o SOB. Used nebulizer at home [employer] and used at home albuterol inhaler in pre-op. Placed on 4L NC, titrated to 2L NC. SpO2 97%. Pt very anxious.
[2024-08-06] MEDS: SODIUM CHLORIDE 0.9% 1,000 ML 84 ML IV (09:32)
--- NOTE | 2024-08-06 09:45 | PM.HP.1 ---
History of Present Illness History of Present Illness Date Patient Seen: 08/06/24 Time Patient Seen: 09:45 Chief complaint: [facility] Narrative: 69-year-old white male with COPD, essential tremor, previous episodes of diverticulitis, remote colonoscopy presents after recent admission with abdominal pain and essentially CT scan showing thickening of the sigmoid colon. He does still have some intermittent abdominal pain that he says is consistent with his diverticulitis. [facility] Medical History (Updated 08/06/24 @ 09:46 by Rickie Colunga MD) Colon cancer screening Diverticulosis Hypothyroidism Insomnia Depression BPH (benign prostatic hyperplasia) Chronic neck pain GERD (gastroesophageal reflux disease) Essential tremor High cholesterol High blood pressure Closed fracture of left distal fibula Social History household members: significant other Smoking Status: Former smoker alcohol intake: former Meds Home Medications and Allergies Home Medications Medication Instructions Recorded Confirmed Type metoprolol succinate 25 mg 25 mg PO DAILY #30 tabs 01/25/24 08/06/24 Rx tablet,extended release 24 hr omeprazole 20 mg capsule,delayed 20 mg PO DAILY 04/01/24 08/06/24 History release sertraline 100 mg tablet 100 mg PO DAILY 04/01/24 08/06/24 History ipratropium 0.5 mg-albuterol 3 mg 3 ml inhalation 4XD 05/13/24 06/04/24 History (2.5 mg base)/3 mL nebulization soln tamsulosin 0.4 mg capsule 0.4 mg PO BID 05/13/24 08/06/24 History acetaminophen 325 mg tablet 650 mg (2 x 325 mg) PO Q6H PRN 05/16/24 06/04/24 Rx Fever/Mild Pain (1-3) #1 tab gabapentin 300 mg capsule 300 mg PO BID #60 caps 05/16/24 06/04/24 Rx albuterol sulfate 90 mcg/actuation 2 puff inhalation Q6H PRN 05/17/24 08/06/24 Rx aerosol inhaler Shortness Of Breath #8.5 grams atorvastatin 40 mg tablet 40 mg PO DAILY #90 tabs 05/17/24 08/06/24 Rx nitroglycerin 0.4 mg sublingual 0.4 mg sublingual Q5M PRN chest 05/17/24 08/06/24 Rx tablet pain #10 tabs prednisone 5 mg tablet 5 mg PO DAILY #30 tabs 05/24/24 06/04/24 Rx Portable oxygen concentrator with #1 ea 06/03/24 06/04/24 Rx pulse approval budesonide 160 mcg-glycopyr 9 2 inh inhalation BID #5.9 grams 06/10/24 06/10/24 Rx mcg-formot 4.8 mcg/actuation HFA inhaler (Breztri Aerosphere) levothyroxine 112 mcg tablet 112 mcg PO DAILY #90 tabs 06/11/24 08/06/24 Rx sodium,potassium,mag sulfates 17.5 See Rx Instructions PO .COMPLEX 07/01/24 Rx gram-3.13 gram-1.6 gram oral soln #354 mL (Suprep Bowel Prep Kit) Allergies Allergy/AdvReac Type Severity Reaction Status Date / Time No Known Drug Allergies Allergy Verified 08/06/24 09:11 Exam Vital Signs (past 8 hours): - 08/06/24 09:19 08/06/24 09:21 Temperature 97.2 F L Pulse Rate 98 H Respiratory Rate 16 Blood Pressure 147/80 H Pulse Oximetry 98 Oxygen Delivery Method Nasal Cannula Nasal Cannula Oxygen Flow Rate 4 Oxygen Delivery Method Nasal Cannula Oxygen Flow Rate 4 Narrative Exam Narrative: Gen: NAD, sitting comfortably in bed, appears well HEENT: Sclera are anicteric, head is normocephalic and atraumatic, trachea is midline. CV: RRR, no JVD Resp: clear to auscultation bilaterally, equal chest wall movement bilaterally Abd: soft, nontender, normoactive bowel sounds Ext: no edema, full range of motion Neuro: Cranial nerves II-XII grossly intact, no focal deficits Skin: No erythema or ecchymosis Assessment & Plan Assessment and plan (1) Abnormal CT of the abdomen: Status: Acute (2) Colon cancer screening: Status: Acute Assessment & Plan narrative: Patient presents for colonoscopy Risks, benefits, alternatives to colonoscopy explained, including but not limited to bowel perforation or other serious complication requiring surgery at less than 1 in 5000 colonoscopies, abdominal pain, cramping or bleeding and less than 1% of colonoscopies, and the chances that we find a diagnosis that would require further intervention of about 2%. Patient agrees to proceed. Time-Based Coding :: [TOTAL MINUTES] spent with patient and on the chart (including review of chart, obtaining history, exam, reviewing outside data, placing orders, documenting exam and treatment plan, and counseling patient) on [DATE].
--- NOTE | 2024-08-06 10:12 | PM.OP.COLON ---
Operative Date/Time/Diagnoses Date of procedure: 08/06/24 Time of procedure: 10:12 Pre-op diagnosis: Sigmoid thickening Post-op diagnosis: same (Sigmoid diverticulosis with colitis) Procedure & Clinicians Study performed: Colonoscopy with cold forceps biopsy of sigmoid colitis Same procedure as scheduled: Yes Indications: Abnormal CT scan a sigmoid thickening suspected diverticulitis Surgeon: Rickie Colunga Procedure Notes SCOAP/Timeout: Performed Procedure in detail: Time-out was performed. Mac was induced. Patient was placed in left lateral decubitus position. The perineum was inspected without any gross abnormality. Lubricated pediatric colonoscope was inserted and advanced to the cecum. The terminal ileum was intubated. The colonoscope was withdrawn slowly inspecting the circumference of the colon. Very small polyps may have been missed, prep quality was adequate. There was circumferential edema of the sigmoid colon with erythema of the mucosa. There was extensive sigmoid diverticulosis. Biopsies were obtained from the inflamed sigmoid. Retroflexed view of the rectum showed small, non prolapsed nonbleeding internal hemorrhoids. The scope was withdrawn the patient was taken to PACU in good condition. Scope withdrawal time: 6 Sedation minutes: 21 Findings: diverticulitis Specimen(s): other (Sigmoid biopsy) Complications: none Impression: Diverticulitis Post-procedure Recommendations: Colonoscopy in 10 years and Low residue diet Follow up: weeks (4-6) Disposition: PACU
[2024-08-06 10:15] VITALS: BP 111/69; PULSE 97; RESP 20; TEMP 36.4; O2SAT 97
[2024-08-06 10:20] VITALS: BP 130/73; PULSE 92; RESP 23; O2SAT 97
[2024-08-06 10:25] VITALS: BP 126/77; PULSE 91; RESP 22; O2SAT 97
[2024-08-06 10:30] VITALS: BP 133/85; PULSE 90; RESP 25; O2SAT 98
[2024-08-06 10:43] VITALS: BP 144/83; PULSE 92; RESP 22; O2SAT 97
== END 2024-08-06 11:00 | disposition home or self-care (01) ==
PROVIDERS: PCP Family Medicine; Referring Provider Surgery; Visit Provider Surgery
PROC: 0DJD8ZZ Inspection of Lower Intestinal Tract, Via Natural or Artificial Opening Endoscopic (ICD-10-PCS; CPT 45378; principal; 2024-08-06 09:45)
DX: K57.32 Diverticulitis of large intestine without perforation or abscess without bleeding (principal); R93.5 Abnormal findings on diagnostic imaging of other abdominal regions, including retroperitoneum; K52.9 Noninfective gastroenteritis and colitis, unspecified; K64.8 Other hemorrhoids; J44.9 Chronic obstructive pulmonary disease, unspecified; I10 Essential (primary) hypertension; K21.9 Gastro-esophageal reflux disease without esophagitis; E03.9 Hypothyroidism, unspecified; G25.0 Essential tremor; N40.0 Benign prostatic hyperplasia without lower urinary tract symptoms; F32.A Depression, unspecified; E78.00 Pure hypercholesterolemia, unspecified; Z87.891 Personal history of nicotine dependence
CPT/HCPCS: 45380; J2704

== ENCOUNTER 2024-10-14 12:21 | Observation (INO) | payer MEDICARE, SELFPAY ==
[2024-05-13 22:53] VITALS: BMI 29.7
[2024-10-14] VITALS (11 sets, daily range): BP systolic 104–158; BP diastolic 58–83; PULSE 92–114; RESP 19–24; TEMP 36.3–36.6; O2SAT 92–98; BMI 30.7; BMI 30.6
--- NOTE | 2024-10-14 12:35 | EKG_ITS ---
[address], [place] [address] Test Date: 2024-10-14 Pat Name: Nader Livingston Department: Room: Gender: Male Immigration Law Specialist: CARMEN : 1955 Requested By: Order Number: [id number] Reading MD: Maik Lewis MD Measurements Intervals [place] Rate: 102 P: 64 OK: 154 QRS: 69 QRSD: 78 T: 50 QT: 330 QTc: 430 Interpretive Statements Sinus tachycardia Electronically Signed On 10-14-2024 16:41:18 PDT by Maik Lewis MD
--- NOTE | 2024-10-14 12:37 | DI.RAD.S_ITS ---
PROCEDURE: XR CHEST 1V INDICATIONS: Shortness of breath TECHNIQUE: One view of the chest was acquired. COMPARISON: [facility], CR, XR CHEST 1V, 05/13/2024, 16:18. [facility], CR, XR CHEST 2V, 04/02/2024, 11:50. FINDINGS AND IMPRESSION: Left lung base opacity likely atelectasis similar to prior. There is adjacent elevation of the left hemidiaphragm. No new consolidation or pleural effusion on this single view study. Cardiomediastinal contours unchanged. Degenerative osseous findings. Dictated by: Frandy Stewart M.D. on 10/14/2024 at 13:09 Approved by: Frandy Stewart M.D. on 10/14/2024 at 13:09
--- NOTE | 2024-10-14 12:38 | ED.GENADULT ---
HPI - General Adult General Chief complaint: Shortness of Breath/Dyspnea Stated complaint: COPD, Tremors off some Meds Time Seen by Provider: 10/14/24 12:37 History of Present Illness HPI narrative: 69-year-old gentleman with oxygen-dependent COPD, currently on 2 L of oxygen, recently completed steroid course of 5 mg daily for 30 days for acute exacerbation, hypertension, reflux, BPH, hyperlipidemia, coronary artery disease presents complaining of periumbilical abdominal pain, states he has had pain in this area for last 2 weeks, he knows he has a hernia, it is gotten progressively worse today and now is having severe spasms into his back as well. You feels that his breathing is worse with the pain. He does not describe fevers, states he is still passing gas. He is in significant pain which limits his ability to cooperate with exam and history. He does not describe vomiting and there has been no blood in any of his stools. No chest pain or palpitations Related Data Home Medications Medication Instructions Recorded Confirmed omeprazole 20 mg capsule,delayed 20 mg PO DAILY 04/01/24 10/18/24 release ipratropium 0.5 mg-albuterol 3 mg 3 ml inhalation 4XD 05/13/24 10/18/24 (2.5 mg base)/3 mL nebulization soln Previous Rx's Medication Instructions Recorded acetaminophen 325 mg tablet 650 mg (2 x 325 mg) PO Q6H PRN 05/16/24 Fever/Mild Pain (1-3) #1 tab gabapentin 300 mg capsule 300 mg PO BID #60 caps 05/16/24 albuterol sulfate 90 mcg/actuation 2 puff inhalation Q6H PRN 05/17/24 aerosol inhaler Shortness Of Breath #8.5 grams atorvastatin 40 mg tablet 40 mg PO DAILY #90 tabs 05/17/24 nitroglycerin 0.4 mg sublingual 0.4 mg sublingual Q5M PRN chest 05/17/24 tablet pain #10 tabs prednisone 5 mg tablet 5 mg PO DAILY #30 tabs 05/24/24 Portable oxygen concentrator with #1 ea 06/03/24 pulse approval budesonide 160 mcg-glycopyr 9 2 inh inhalation BID #5.9 grams 06/10/24 mcg-formot 4.8 mcg/actuation HFA inhaler (Breztri Aerosphere) Disabled Parking Permint #1 ea 08/09/24 bupropion HCl 150 mg 24 hr tablet, 150 mg PO QAM #90 tabs 08/09/24 extended release metoprolol succinate 25 mg 25 mg PO DAILY #90 tabs 09/02/24 tablet,extended release 24 hr prednisone 20 mg tablet 40 mg (2 x 20 mg) PO DAILY #10 tabs 09/28/24 tamsulosin 0.4 mg capsule 0.4 mg PO BID #180 caps 10/01/24 prednisone 5 mg tablet 5 mg PO DAILY 10 days #10 tabs 10/15/24 quetiapine 25 mg tablet 12.5 mg (1/2 x 25 mg) PO BID 30 10/15/24 days #60 tabs Allergies Allergy/AdvReac Type Severity Reaction Status Date / Time No Known Drug Allergies Allergy Verified 09/06/24 13:35 Review of Systems Review of Systems Narrative: Pertinent positive and negative findings as per HPI Patient History Medical History (Updated 10/14/24 @ 15:21 by Margarette Fuller MD) Advanced chronic obstructive pulmonary disease Colon cancer screening Diverticulosis Hypothyroidism Insomnia Depression BPH (benign prostatic hyperplasia) Chronic neck pain GERD (gastroesophageal reflux disease) Essential tremor High cholesterol High blood pressure Closed fracture of left distal fibula Social History household members: significant other Smoking Status: Former smoker alcohol intake: former Smoking Status: Former smoker tobacco type: cigarettes alcohol intake frequency: a few times a week Exam Initial Vital Signs Initial Vital Signs: Vital Signs Pulse Rate 109 H 10/14/24 12:31 Respiratory Rate 24 10/14/24 12:31 Pulse Oximetry 96 10/14/24 12:31 Oxygen Delivery Method Nasal Cannula 10/14/24 12:31 Oxygen Flow Rate 2 10/14/24 12:31 General: Pale, in obvious pain, somewhat diaphoretic, having difficulty lying still on the bed secondary to pain HEENT: Moist mucous membranes, normal sclera with reactive pupils, Respiratory: Lungs with scattered wheeze throughout without obvious respiratory distress, no retractions no rhonchi Cardiac: Tachycardic but otherwise Regular rate and rhythm no murmurs no bruits Abdomen: Distended, tender in the supra umbilical area without obvious mass or incarcerated hernia but with guarding and rebound developing Skin: Pale and diaphoretic Neurologic: Grossly neurologically intact with no obvious asymmetries or abnormalities Extremities: No trauma, well perfused Psych: Fluent speech, appropriate insight and affect Course Orders Ordered: Discontinued Medications Acetaminophen (Acetaminophen 325 Mg Tablet) 650 mg PO Q6H PRN PRN Reason: Fever/Mild Pain (1-3) Albuterol (Albuterol 2.5 Mg/3 Ml Neb (Adult)) 2.5 mg INH [id number] PRN PRN Reason: Shortness Of Breath Last Admin: 10/15/24 08:04 Dose: 2.5 mg Documented By: Admin: 10/14/24 12:47 Dose: 2.5 mg Documented By: SAT Albuterol/Ipratropium (Albuterol/Ipratropium 3 Ml Ampul) 3 ml INH NOW ONE Stop: 10/14/24 12:39 Last Admin: 10/14/24 12:51 Dose: 3 ml Documented By: SAT Albuterol/Ipratropium (Albuterol/Ipratropium 3 Ml Ampul) 3 ml INH RTQID [facility] Last Admin: 10/15/24 11:46 Dose: Not Given Documented By: JBrianF Admin: 10/15/24 04:53 Dose: 3 ml Documented By: Admin: 10/14/24 19:55 Dose: Not Given Documented By: MR Calcium Carbonate (Calcium Carbonate 500 Mg Tab) 1,000 mg PO QID PRN PRN Reason: Heartburn Last Admin: 10/14/24 20:44 Dose: 1,000 mg Documented By: MS Enoxaparin Sodium (Enoxaparin 40 Mg/0.4 Ml Syringe) 40 mg SUBCUT DAILY [facility] Last Admin: 10/15/24 08:40 Dose: 40 mg Documented By: BT Famotidine (Famotidine 20 Mg/2 Ml Vial) 20 mg IV NOW [facility] Last Admin: 10/14/24 23:51 Dose: 20 mg Documented By: MS Gabapentin (Gabapentin 300 Mg Capsule) 300 mg PO BID [facility] Last Admin: 10/15/24 08:37 Dose: 300 mg Documented By: Admin: 10/14/24 20:44 Dose: 300 mg Documented By: MS Hydrocortisone (Hydrocortisone 100 Mg/2 Ml Vial) 100 mg IV NOW ONE Stop: 10/14/24 13:59 Last Admin: 10/14/24 14:11 Dose: 100 mg Documented By: MPO Hydromorphone HCl (Hydromorphone 0.5 Mg Inj) 0.5 mg IV Q15MIN PRN PRN Reason: Pain, Last Admin: 10/14/24 20:42 Dose: 0.5 mg Documented By: Admin: 10/14/24 14:10 Dose: 0.5 mg Documented By: Admin: 10/14/24 13:04 Dose: 0.5 mg Documented By: ULISES Sodium Chloride (Normal Saline 0.9%) 1,000 mls @ 1,000 mls/hr IV BOLUS ONE Stop: 10/14/24 13:57 Last Infusion: 10/14/24 14:48 Dose: Infused Documented By: Admin: 10/14/24 13:05 Dose: 1,000 mls/hr Documented By: ULISES Sodium Chloride (Normal Saline 0.9%) 1,000 mls @ 100 mls/hr IV CONT PEDRO PABLO Last Admin: 10/15/24 03:53 Dose: 100 mls/hr Documented By: Infusion: 10/15/24 03:51 Dose: Infused Documented By: Admin: 10/14/24 17:51 Dose: 100 mls/hr Documented By: CHERELLE Levothyroxine Sodium (Levothyroxine 100 Mcg Tablet) 100 mcg PO DAILY@0600 [facility] Last Admin: 10/15/24 05:08 Dose: 100 mcg Documented By: Metoprolol Succinate (Metoprolol Er 25 Mg Tablet) 25 mg PO DAILY [facility] Last Admin: 10/15/24 08:37 Dose: 25 mg Documented By: DOMINGA Morphine Sulfate (Morphine 2 Mg/Ml Inj) 2 mg IV Q2HR PRN PRN Reason: Pain, Moderate (4-6) Naloxone HCl (Naloxone 0.4 Mg/Ml Vial) 0.2 mg IV Q2MIN PRN PRN Reason: Opiate Reversal Nitroglycerin (Nitroglycerin 0.4 Mg Sl Tab) 0.4 mg SL Q5M PRN PRN Reason: chest pain Non-Formulary Medication (Albuterol Sulfate) 2 puff INHALATION Q6H PRN PRN Reason: Shortness Of Breath Ondansetron HCl (Ondansetron 4 Mg/2 Ml Inj) 4 mg IV NOW ONE Stop: 10/14/24 13:02 Last Admin: 10/14/24 12:55 Dose: 4 mg Documented By: ULISES Ondansetron HCl (Ondansetron 4 Mg/2 Ml Inj) 4 mg IV Q4HR PRN PRN Reason: Nausea And Vomiting Pantoprazole Sodium (Pantoprazole Dr 20 Mg Tablet) 20 mg PO 0600 [facility] Last Admin: 10/15/24 05:09 Dose: 20 mg Documented By: Prednisone (Prednisone 5 Mg Tablet) 5 mg PO DAILY [facility] Last Admin: 10/15/24 08:37 Dose: 5 mg Documented By: BT Quetiapine Fumarate (Quetiapine 25 Mg Tablet) 12.5 mg PO BID [facility] Last Admin: 10/15/24 09:08 Dose: 12.5 mg Documented By: BT Tamsulosin HCl (Tamsulosin 0.4 Mg Capsule) 0.4 mg PO BID [facility] Last Admin: 10/15/24 08:37 Dose: 0.4 mg Documented By: Admin: 10/14/24 20:44 Dose: 0.4 mg Documented By: Vital Signs Vital signs: Vital Signs - 8 hr 10/14/24 12:31 10/14/24 12:37 10/14/24 13:00 Temperature 97.8 F Pulse Rate 109 H 107 H 114 H Respiratory Rate 24 20 22 Blood Pressure 158/83 H Pulse Oximetry 96 98 96 Oxygen Delivery Method Nasal Cannula Nasal Cannula Nasal Cannula Oxygen Flow Rate 2 2 2 10/14/24 13:09 10/14/24 13:09 10/14/24 13:30 Temperature Pulse Rate 108 H Respiratory Rate 20 Blood Pressure 140/72 114/58 L Pulse Oximetry 94 Oxygen Delivery Method Nasal Cannula Oxygen Flow Rate 2 10/14/24 13:30 10/14/24 14:00 10/14/24 14:00 Temperature Pulse Rate 100 H 92 H Respiratory Rate 22 20 Blood Pressure 104/59 L Pulse Oximetry 96 95 Oxygen Delivery Method Oxygen Flow Rate 10/14/24 14:30 10/14/24 14:30 10/14/24 15:00 Temperature Pulse Rate 93 H 95 H Respiratory Rate 22 21 Blood Pressure 116/64 Pulse Oximetry 95 92 Oxygen Delivery Method Oxygen Flow Rate Medical Decision Making Lab Data 10/14/24 12:46 10/15/24 09:36 Labs: Lab Results 10/14/24 10/14/24 Range/Units 12:46 14:25 WBC 10.9 (4.5-11.0) X10^3/uL RBC 4.60 (4.5-5.9) X10^6/uL Hgb 14.1 (13.5-17.5) g/dL Hct 40.6 L (41-53) % MCV 88.2 (80-100) fL MCH 30.6 (26-34) PG MCHC 34.6 (30-36) % RDW 14.8 (11.6-14.8) % Plt Count 282 (150-400) X10^3/uL Neut % (Auto) 77.2 H (50-75) % Lymph % (Auto) 11.9 L (25-40) % [place] % (Auto) 9.8 (3-14) % Eos % (Auto) 0.6 L (2-4) % Baso % (Auto) 0.5 (0-2) % Neut # (Auto) 8400 H (5233-9547) /uL Lymph # (Auto) 1300 (7721-3198) /uL [place] # (Auto) 1100 H (0-900) /uL Eos # (Auto) 100 (0-450) /uL Baso # (Auto) 100 (0-100) /uL PT 11.7 (9.4-12.5) SECONDS INR 1.0 (0.9-1.3) Sodium 123 L 123 L (137-145) mmol/L Potassium 3.8 (3.4-5.1) mmol/L Chloride 81 L (98-107) mmol/L Carbon Dioxide 30 (22-32) mmol/L BUN 16 (9-20) mg/dL Creatinine 0.82 (0.66-1.25) mg/dL Estimated GFR > 60 (>60) mL/min BUN/Creatinine Ratio 19.5 (6-22) Glucose 125 H (80-110) mg/dL Lactate 2.0 (0.7-2.1) mmol/L Calcium 9.6 (8.4-10.2) mg/dL Total Bilirubin 0.7 (0.2-1.3) mg/dL AST 36 (17-59) IU/L ALT 33 (<50) IU/L Alkaline Phosphatase 65 (38-126) U/L Troponin I < 0.012 (0.01-0.034) ng/mL NT-Pro-B Natriuret Pep 44 (<125) pg/mL Total Protein 8.0 (6.3-8.2) g/dL Albumin 4.8 (3.5-5.0) g/dL Globulin 3.2 (1.7-4.1) g/dL Albumin/Globulin Ratio 1.5 (1.0-2.8) Lipase 65 (23-300) U/L MDM Narrative Medical decision making narrative: CC: Acute abdominal pain Complicating co-morbidities: Oxygen-dependent COPD, hypertension, hyperlipidemia, coronary artery disease Data collected from: patient Medical records reviewed: Primary care note from August 09 is reviewed Differential considered: Bowel perforation, bowel obstruction, incarcerated hernia, acute pancreatitis, dissection Exam documented above, pertinent findings include: Patient is in significant pain belly is distended with guarding and developing rebound concerning for an acute abdomen. Patient also complaining of severe back spasm. Tachycardic secondary to pain, mild wheeze actually seems to be close to his baseline somewhat tachypneic again, secondary Lab Test results independently reviewed as above. Pertinent findings: CBC is unremarkable no leukocytosis or anemia Chemistries show hyponatremia at 123, normal creatinine, normal liver studies Troponin is undetectable ProBNP is not elevated Lipase is normal Independently reviewed EKG: Sinus tachycardia at a rate of 102, no ischemic changes Imaging studies independently reviewed: CT scan is interpreted as having a trace a hiatal hernia and mild wall thickening in the gastroesophageal junction with no evidence of bowel obstruction or incarcerated hernia.. There is a small fat containing umbilical hernia. Consultations: Treatments: Patient is given a L saline half a mg of Dilaudid and DuoNeb and is feeling significantly better. Re-evaluations: 2pm His belly is re-examined and is no longer so distended and not demonstrating rebound or guarding as has been his initial exam. He still continues to complain of tremors/shaking that gets worse with activity. We discussed his sodium level at 123.. Given his recent month long prednisone course we will give him 100 mg of hydrocortisone and recheck sodium level after a L of fluid Discussion: 69-year-old gentleman presents initially with severe abdominal pain CT scan is unremarkable however he is significantly hyponatremic at 123. He was given a L of fluid on admit and sodium remains at 123. The abdominal pain has completely resolved, we did briefly talked about constipation is a possible source for the pain. He has finished a recent 30 day course of 5 days of prednisone which may be contributing to his seemingly symptomatic hyponatremia. Care is reviewed with the hospitalist at [facility] for admission due to symptomatic hyponatremia uncertain etiology Discharge Plan Departure Patient Disposition: Admitted as Observation Clinical Impression: Acute hyponatremia COPD (chronic obstructive pulmonary disease) Qualifiers: COPD type: unspecified COPD Qualified Code(s): J44.9 - Chronic obstructive pulmonary disease, unspecified Abdominal pain Qualifiers: Abdominal location: generalized Qualified Code(s): R10.84 - Generalized abdominal pain Admit Date/Time: 10/14/24 16:03 Admit Provider: Chinmay Rosales
[2024-10-14] MEDS: ALBUTEROL 2.5 MG/3 ML NEB (ADULT) INH (12:47)
[2024-10-14] MEDS: ALBUTEROL/IPRATROPIUM 3 ML AMPUL INH (12:51)
[2024-10-14] MEDS: ONDANSETRON 4 MG/2 ML INJ IV (12:55)
--- NOTE | 2024-10-14 12:57 | DI.CT.S_ITS ---
PROCEDURE: CT ABDOMEN PELVIS W CON INDICATIONS: acute abdominal pain TECHNIQUE: After the administration of intravenous contrast, axial sections acquired from the lung bases to the pubic symphysis. Coronal and sagittal reformats were performed. For radiation dose reduction, the following was used: automated exposure control, adjustment of mA and/or kV according to patient size. COMPARISON: [facility], CT, CT ABDOMEN PELVIS W CON, 05/13/2024, 18:25. FINDINGS: Image quality: Diagnostic Lower chest: Lung bases are unremarkable. Mild atelectasis is present. Coronary calcifications and normal heart size. Trace hiatal hernia and possible mild wall thickening at the gastroesophageal junction. Liver: Unremarkable Gallbladder and biliary system: Unremarkable, nondilated Pancreas: No ductal dilation Spleen: Nonenlarged Adrenals: No discrete nodules Kidneys: No solid mass. No hydronephrosis. Vessels and lymph nodes: The main portal vein is patent. No abdominal aortic aneurysm. Atherosclerotic calcifications are present. No pathologic lymphadenopathy by size criteria. Bowel and peritoneum: No small bowel obstruction. Colonic diverticulosis. There is a moderate rectal stool ball. Distal colonic wall thickening likely chronic diverticular disease, stable from prior, consider colonoscopy correlation if not recently obtained. No drainable abscess or ascites. Body wall: Small fat containing inguinal hernias and umbilical hernia. Left hemidiaphragm elevation as before Pelvis: Bladder is unremarkable. Enlarged heterogeneous prostate, not well assessed on this study. Bones: No aggressive appearing focal osseous abnormality. There are degenerative changes. Probable old right rib fractures. IMPRESSION: Trace hiatal hernia and mild wall thickening at the gastroesophageal junction, possibly esophagitis. Correlate with location of symptoms and endoscopy if indicated. No bowel obstruction. Other stable and incidental findings above. Dictated by: Frandy Stewart M.D. on 10/14/2024 at 13:33 Approved by: Frandy Stewart M.D. on 10/14/2024 at 13:38
[2024-10-14 13:04] LABS: Add Manual Diff / Slide Review NO; Basophils Absolute Auto 100 /uL (0-100); Basophils Percent Auto 0.5 % (0-2); Eosinophils Absolute Auto 100 /uL (0-450); Eosinophils Percent Auto 0.6 % (2-4); Hematocrit 40.6 % (41-53); Hemoglobin 14.1 g/dL (13.5-17.5); Lymphocytes Absolute Auto 1300 /uL (1100-4500); Lymphocytes Percent Auto 11.9 % (25-40); Mean Corpuscular HGB Conc 34.6 % (30-36); Mean Corpuscular Hemoglobin 30.6 PG (26-34); Mean Corpuscular Volume 88.2 fL (80-100); Monocytes Absolute Auto 1100 /uL (0-900); Monocytes Percent Auto 9.8 % (3-14); Neutrophils Absolute Auto 8400 /uL (1500-7000); Neutrophils Percent Auto 77.2 % (50-75); Platelet Count 282 X10^3/uL (150-400); Red Cell Distribution Width 14.8 % (11.6-14.8); White Blood Cell Count 10.9 X10^3/uL (4.5-11.0)
[2024-10-14] MEDS: HYDROMORPHONE 0.5 MG INJ IV ×3 (13:04→20:42)
[2024-10-14] MEDS: SODIUM CHLORIDE 0.9% 1,000 ML 1000 ML IV (13:05)
[2024-10-14 13:13] LABS: Prothrombin Time 11.7 SECONDS (9.4-12.5)
[2024-10-14 13:24] LABS: Alanine Aminotransferase 33 IU/L (<50); Albumin 4.8 g/dL (3.5-5.0); Albumin Globulin Ratio 1.5 (1.0-2.8); Alkaline Phosphatase 65 U/L (38-126); Aspartate Aminotransferase 36 IU/L (17-59); BUN Creatinine Ratio 19.5 (6-22); Bilirubin Total 0.7 mg/dL (0.2-1.3); Blood Urea Nitrogen 16 mg/dL (9-20); Calcium 9.6 mg/dL (8.4-10.2); Carbon Dioxide 30 mmol/L (22-32); Chloride 81 mmol/L (98-107); Estimated Glomerular Filt Rate > 60 mL/min (>60); Globulin 3.2 g/dL (1.7-4.1); Glucose 125 mg/dL (80-110); HEMOLYSIS < 15 (0-50); Lipase 65 U/L (23-300); Potassium 3.8 mmol/L (3.4-5.1); Sodium 123 mmol/L (137-145)
[2024-10-14 13:36] LABS: NT-proBNP (BNP-Adult 18+) 44 pg/mL (<125); Troponin I < 0.012 ng/mL (0.01-0.034)
[2024-10-14] MEDS: HYDROCORTISONE 100 MG/2 ML VIAL IV (14:11)
--- NOTE | 2024-10-14 14:25 | PC.NURSE ---
Pt states that n/v have resolved.
[2024-10-14 15:06] LABS: Sodium 123 mmol/L (137-145)
--- NOTE | 2024-10-14 15:11 | PC.NURSE ---
Pain and n/v have resolved. Pt a&ox4.
--- NOTE | 2024-10-14 17:29 | PM.HP.1 ---
History of Present Illness History of Present Illness Date Patient Seen: 10/14/24 Chief complaint: COPD, Tremors off some Meds Narrative: Chief complaint: Nausea vomiting tremors and weakness History of present illness: 69-year-old male with a history of tremors that are quite coarse and difficult to manage over decades of time has been having some recurrent episodes of nausea and vomiting abdominal discomfort particularly after eating. Has become even more tremulous and weak did not feel well and felt overwhelmed and came into the emergency department. Findings the emergency department limited but significant to sodium 123. Patient was recently tapered off of prednisone for management of COPD for which he has been oxygen dependent last 2 months Review of systems: No headache diplopia or blurred vision No difficulty swallowing No heat or cold intolerance No paresthesia Physical exam: Obese chronically ill-appearing elderly gentleman very anxious and tremulous HEENT unremarkable Neck no thyromegaly Lungs diminished breath sounds but no rales or rhonchi Heart rate and rhythm regular heart sounds distant no murmurs appreciated Abdomen nontender nondistended bowel sounds present Extremities no edema Neurologic Patient alert and oriented cogent Patient does have cogwheeling and maybe some rigidity Gait is moderately wide-based but not truly festinating or wide base or unsteady Normal fine motor movements [id number] Laboratory and diagnostic imaging at the end of the note: Assessment and plan: The patient with a chronic coarse tremor and associated COPD 50 pack-year history of smoking quit 10 years ago now oxygen dependent with worsening tremor in the setting of nausea or vomiting poor p.o. 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 on Synthroid which dose has been recently reduced from 1 12 mcg to 100 mcg we will continue 100 mcg check TSH and T4 but doubtful that the patient is thyrotoxic DVT prophylaxis with subcu heparin Full code status I spent 55 minutes in the management 50% was [id number] PFSH Medical History (Updated 10/14/24 @ 15:21 by Margarette Fuller MD) Advanced chronic obstructive pulmonary disease Colon cancer screening Diverticulosis Hypothyroidism Insomnia Depression BPH (benign prostatic hyperplasia) Chronic neck pain GERD (gastroesophageal reflux disease) Essential tremor High cholesterol High blood pressure Closed fracture of left distal fibula Social History household members: significant other Smoking Status: Former smoker alcohol intake: former Meds Home Medications and Allergies Home Medications Medication Instructions Recorded Confirmed Type omeprazole 20 mg capsule,delayed 20 mg PO DAILY 04/01/24 09/06/24 History release ipratropium 0.5 mg-albuterol 3 mg 3 ml inhalation 4XD 05/13/24 09/06/24 History (2.5 mg base)/3 mL nebulization soln acetaminophen 325 mg tablet 650 mg (2 x 325 mg) PO Q6H PRN 05/16/24 10/14/24 Rx Fever/Mild Pain (1-3) #1 tab gabapentin 300 mg capsule 300 mg PO BID #60 caps 05/16/24 10/14/24 Rx albuterol sulfate 90 mcg/actuation 2 puff inhalation Q6H PRN 05/17/24 10/14/24 Rx aerosol inhaler Shortness Of Breath #8.5 grams atorvastatin 40 mg tablet 40 mg PO DAILY #90 tabs 05/17/24 09/06/24 Rx nitroglycerin 0.4 mg sublingual 0.4 mg sublingual Q5M PRN chest 05/17/24 10/14/24 Rx tablet pain #10 tabs prednisone 5 mg tablet 5 mg PO DAILY #30 tabs 05/24/24 09/06/24 Rx Portable oxygen concentrator with #1 ea 06/03/24 10/14/24 Rx pulse approval budesonide 160 mcg-glycopyr 9 2 inh inhalation BID #5.9 grams 06/10/24 09/06/24 Rx mcg-formot 4.8 mcg/actuation HFA inhaler (Breztri Aerosphere) levothyroxine 112 mcg tablet 112 mcg PO DAILY #90 tabs 06/11/24 09/06/24 Rx Disabled Parking Permint #1 ea 08/09/24 10/14/24 Rx bupropion HCl 150 mg 24 hr tablet, 150 mg PO QAM #90 tabs 08/09/24 09/06/24 Rx extended release bupropion HCl 75 mg tablet 75 mg PO DAILY #7 tabs 08/09/24 09/06/24 Rx metoprolol succinate 25 mg 25 mg PO DAILY #90 tabs 09/02/24 09/06/24 Rx tablet,extended release 24 hr prednisone 20 mg tablet 40 mg (2 x 20 mg) PO DAILY #10 tabs 09/28/24 Rx tamsulosin 0.4 mg capsule 0.4 mg PO BID #180 caps 10/01/24 10/14/24 Rx Allergies Allergy/AdvReac Type Severity Reaction Status Date / Time No Known Drug Allergies Allergy Verified 09/06/24 13:35 Exam Vital Signs (past 8 hours): - 10/14/24 12:31 10/14/24 12:37 10/14/24 13:00 Temperature 97.8 F Pulse Rate 109 H 107 H 114 H Respiratory Rate 24 20 22 Blood Pressure 158/83 H Pulse Oximetry 96 98 96 Oxygen Delivery Method Nasal Cannula Nasal Cannula Nasal Cannula Oxygen Flow Rate 2 2 2 10/14/24 13:09 10/14/24 13:09 10/14/24 13:30 Temperature Pulse Rate 108 H Respiratory Rate 20 Blood Pressure 140/72 114/58 L Pulse Oximetry 94 Oxygen Delivery Method Nasal Cannula Oxygen Flow Rate 2 10/14/24 13:30 10/14/24 14:00 10/14/24 14:00 Temperature Pulse Rate 100 H 92 H Respiratory Rate 22 20 Blood Pressure 104/59 L Pulse Oximetry 96 95 Oxygen Delivery Method Oxygen Flow Rate 10/14/24 14:30 10/14/24 14:30 10/14/24 15:00 Temperature Pulse Rate 93 H 95 H Respiratory Rate 22 21 Blood Pressure 116/64 Pulse Oximetry 95 92 Oxygen Delivery Method Oxygen Flow Rate 10/14/24 15:30 Temperature Pulse Rate 96 H Respiratory Rate 22 Blood Pressure Pulse Oximetry 95 Oxygen Delivery Method Oxygen Flow Rate Oxygen Delivery Method Nasal Cannula Oxygen Flow Rate 2 Objective Labs 10/14/24 12:46 10/14/24 14:25 Labs: Laboratory Results - last 24 hr 10/14/24 10/14/24 12:46 14:25 WBC 10.9 RBC 4.60 Hgb 14.1 Hct 40.6 L MCV 88.2 MCH 30.6 MCHC 34.6 RDW 14.8 Plt Count 282 Neut % (Auto) 77.2 H Lymph % (Auto) 11.9 L Karnes % (Auto) 9.8 Eos % (Auto) 0.6 L Baso % (Auto) 0.5 Neut # (Auto) 8400 H Lymph # (Auto) 1300 [place] # (Auto) 1100 H Eos # (Auto) 100 Baso # (Auto) 100 PT 11.7 INR 1.0 Sodium 123 L 123 L Potassium 3.8 Chloride 81 L Carbon Dioxide 30 BUN 16 Creatinine 0.82 Estimated GFR > 60 BUN/Creatinine Ratio 19.5 Glucose 125 H Lactate 2.0 Calcium 9.6 Total Bilirubin 0.7 AST 36 ALT 33 Alkaline Phosphatase 65 Troponin I < 0.012 NT-Pro-B Natriuret Pep 44 Total Protein 8.0 Albumin 4.8 Globulin 3.2 Albumin/Globulin Ratio 1.5 Lipase 65 Assessment & Plan Time-Based Coding :: [TOTAL MINUTES] spent with patient and on the chart (including review of chart, obtaining history, exam, reviewing outside data, placing orders, documenting exam and treatment plan, and counseling patient) on [DATE]. Quality VTE Deep Vein Thrombosis/Pulmonary Embolism Present on Admission: No
[2024-10-14] MEDS: SODIUM CHLORIDE 0.9% 1,000 ML 100 ML IV (17:51)
--- NOTE | 2024-10-14 19:55 | EKG_ITS ---
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
[2024-10-14] MEDS: TAMSULOSIN 0.4 MG CAPSULE PO (20:44)
[2024-10-14] MEDS: GABAPENTIN 300 MG CAPSULE PO (20:44)
[2024-10-14] MEDS: CALCIUM CARBONATE 500 MG TAB 1000 MG PO (20:44)
[2024-10-14] MEDS: FAMOTIDINE 20 MG/2 ML VIAL IV (23:51)
[2024-10-15 00:53] VITALS: BP 146/88; PULSE 86; RESP 18; TEMP 36.7; O2SAT 94
[2024-10-15] MEDS: SODIUM CHLORIDE 0.9% 1,000 ML 100 ML IV (03:53)
[2024-10-15 04:00] VITALS: BP 134/77; PULSE 94; RESP 20; TEMP 37; O2SAT 94
[2024-10-15] MEDS: ALBUTEROL/IPRATROPIUM 3 ML AMPUL INH (04:53)
[2024-10-15] MEDS: LEVOTHYROXINE 100 MCG TABLET PO (05:08)
[2024-10-15] MEDS: PANTOPRAZOLE DR 20 MG TABLET PO (05:09)
[2024-10-15 08:00] VITALS: BP 118/58; PULSE 69; RESP 18; TEMP 36.4; O2SAT 96
[2024-10-15 08:04] VITALS: PULSE 86; RESP 20; O2SAT 94
[2024-10-15] MEDS: ALBUTEROL 2.5 MG/3 ML NEB (ADULT) INH (08:04)
[2024-10-15 08:37] VITALS: BP 118/58; PULSE 91
[2024-10-15] MEDS: TAMSULOSIN 0.4 MG CAPSULE PO (08:37)
[2024-10-15] MEDS: predniSONE 5 MG TABLET PO (08:37)
[2024-10-15] MEDS: GABAPENTIN 300 MG CAPSULE PO (08:37)
[2024-10-15] MEDS: METOPROLOL ER 25 MG TABLET PO (08:37)
[2024-10-15] MEDS: ENOXAPARIN 40 MG/0.4 ML SYRINGE SUBCUT (08:40)
[2024-10-15] MEDS: QUETIAPINE 25 MG TABLET 12.5 MG PO (09:08)
[2024-10-15 10:06] LABS: BUN Creatinine Ratio 15.9 (6-22); Blood Urea Nitrogen 11 mg/dL (9-20); Calcium 8.6 mg/dL (8.4-10.2); Carbon Dioxide 30 mmol/L (22-32); Chloride 94 mmol/L (98-107); Estimated Glomerular Filt Rate > 60 mL/min (>60); Glucose 131 mg/dL (80-110); HEMOLYSIS < 15 (0-50); Potassium 3.8 mmol/L (3.4-5.1); Sodium 130 mmol/L (137-145)
[2024-10-15 12:00] VITALS: BP 119/68; PULSE 87; RESP 20; TEMP 36.2; O2SAT 96
--- NOTE | 2024-10-15 13:11 | PM.DS.1 ---
History of Present Illness History of Present Illness Date Patient Seen: 10/15/24 Time Patient Seen: 13:11 Chief complaint: COPD, Tremors off some Meds Narrative: Chief complaint: Nausea vomiting tremors and weakness History of present illness: 69-year-old male with a history of tremors that are quite coarse and difficult to manage over decades of time has been having some recurrent episodes of nausea and vomiting abdominal discomfort particularly after eating. Has become even more tremulous and weak did not feel well and felt overwhelmed and came into the emergency department. Findings the emergency department limited but significant to sodium 123. Patient was recently tapered off of prednisone for management of COPD for which he has been oxygen dependent last 2 months Hospital course: 10/15: Patient responded very well to the Seroquel anxiety and tremor are markedly improved Sodium corrected to 130 Discharged home with 5 mg of prednisone and Seroquel 12.5 mg p.o. b.i.d. new line follow-up with PCP Review of systems: No headache diplopia or blurred vision No difficulty swallowing No heat or cold intolerance No paresthesia Physical exam: Obese chronically ill-appearing elderly gentleman calm without tremor HEENT unremarkable Neck no thyromegaly Lungs diminished breath sounds but no rales or rhonchi Heart rate and rhythm regular heart sounds distant no murmurs appreciated Abdomen nontender nondistended bowel sounds present Extremities no edema Neurologic Alert and oriented without tremor Gait is moderately wide-based but not truly festinating or wide base or unsteady Normal fine motor movements [id number] Laboratory and diagnostic imaging at the end of the note: Assessment and plan: The patient with a chronic coarse tremor and associated COPD 50 pack-year history of smoking quit 10 years ago now oxygen dependent with worsening tremor in the setting of nausea or vomiting poor p.o. 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 on Synthroid which dose has been recently reduced from 1 12 mcg to 100 mcg we will continue 100 mcg check TSH and T4 but doubtful that the patient is thyrotoxic DVT prophylaxis with subcu heparin Full code status I spent 55 minutes in the management 50% was [id number] Discharge Providers Provider Date of admission: 10/14/24 16:03 Discharge Date: 10/15/24 Primary care physician: Ari Barfield, DO Discharge provider: Chinmay Rosales MD Exam Vital Signs (past 8 hours): - 10/15/24 08:00 10/15/24 08:04 10/15/24 08:37 Temperature 97.5 F L Pulse Rate 69 86 91 H Respiratory Rate 18 20 Blood Pressure 118/58 L 118/58 L Pulse Oximetry 96 94 Oxygen Delivery Method Nasal Cannula Oxygen Flow Rate 2 2 10/15/24 08:40 10/15/24 12:00 Temperature 97.2 F L Pulse Rate 87 Respiratory Rate 20 Blood Pressure 119/68 Pulse Oximetry 96 Oxygen Delivery Method Nasal Cannula Oxygen Flow Rate 2 Oxygen Delivery Method Nasal Cannula Oxygen Flow Rate 2 Objective Labs 10/14/24 12:46 10/15/24 09:36 Labs: Laboratory Results - last 24 hr 10/14/24 10/14/24 10/15/24 12:46 14:25 09:36 PT 11.7 INR 1.0 Sodium 123 L 123 L 130 L Potassium 3.8 3.8 Chloride 81 L 94 L Carbon Dioxide 30 30 BUN 16 11 Creatinine 0.82 0.69 Estimated GFR > 60 > 60 BUN/Creatinine Ratio 19.5 15.9 Glucose 125 H 131 H Lactate 2.0 Calcium 9.6 8.6 Total Bilirubin 0.7 AST 36 ALT 33 Alkaline Phosphatase 65 Troponin I < 0.012 NT-Pro-B Natriuret Pep 44 Total Protein 8.0 Albumin 4.8 Globulin 3.2 Albumin/Globulin Ratio 1.5 Lipase 65 PFSH Medical History (Updated 10/14/24 @ 15:21 by Margarette Fuller MD) Advanced chronic obstructive pulmonary disease Colon cancer screening Diverticulosis Hypothyroidism Insomnia Depression BPH (benign prostatic hyperplasia) Chronic neck pain GERD (gastroesophageal reflux disease) Essential tremor High cholesterol High blood pressure Closed fracture of left distal fibula Social History household members: significant other Smoking Status: Former smoker alcohol intake: former Discharge Plan Discharge Plan Patient Disposition: Home Discharge orders & Medications Prescriptions: New quetiapine 25 mg Tablet 12.5 mg PO BID 30 Days Qty: 60 1RF prednisone 5 mg Tablet 5 mg PO DAILY 10 Days Qty: 10 0RF Continued nitroglycerin 0.4 mg tablet, sublingual 0.4 mg sublingual Q5M PRN (Reason: chest pain) Qty: 10 0RF Patient Comments: has not needed to take it yet Rx Instructions: do not exceed 3 doses per episode albuterol sulfate 90 mcg/actuation HFA aerosol inhaler 2 puff inhalation Q6H PRN (Reason: Shortness Of Breath) Qty: 8.5 11RF atorvastatin 40 mg tablet 40 mg PO DAILY Qty: 90 3RF (DME) Portable oxygen concentrator with pulse approval See Rx Instructions .Route .MEDSUPPLY Qty: 1 0RF Rx Instructions: Portable oxygen concentrator with pulse approval. O2 2L NC. metoprolol succinate 25 mg tablet extended release 24 hr 25 mg PO DAILY Qty: 90 3RF prednisone 20 mg tablet 40 mg PO DAILY Qty: 10 0RF tamsulosin 0.4 mg capsule 0.4 mg PO BID Qty: 180 3RF omeprazole 20 mg capsule,delayed release(DR/EC) 20 mg PO DAILY (DME) Disabled Parking Permint See Rx Instructions .ROUTE .MEDSUPPLY Qty: 1 0RF Rx Instructions: I find this patient to be medically disabled and qualified for Disabled Parking as indicated and signed on the Accompanying Disabled Parking Application for individuals. bupropion HCl 150 mg tablet extended release 24 hr 150 mg PO QAM Qty: 90 1RF Rx Instructions: start after 75 mg of bupropion prednisone 5 mg tablet 5 mg PO DAILY Qty: 30 1RF Patient Comments: tapered off Rx Instructions: take 5 mg daily ipratropium-albuterol 0.5 mg-3 mg(2.5 mg base)/3 mL solution for nebulization 3 ml inhalation 4XD acetaminophen 325 mg Tablet 650 mg PO Q6H PRN (Reason: Fever/Mild Pain (1-3)) Qty: 1 0RF gabapentin 300 mg Capsule 300 mg PO BID Qty: 60 0RF Breztri Aerosphere 160-9-4.8 mcg/actuation HFA aerosol inhaler 2 inh inhalation BID Qty: 5.9 11RF Discontinued levothyroxine 112 mcg tablet 112 mcg PO DAILY Qty: 90 1RF Follow up/Referrals: Ari Barfield, [Primary Care Provider] - Visit Report/Discharge Packet Stand Alone Forms: Patient Portal/API, Stroke Signs & Symptoms Discharge Data Primary Care Provider: Ari Barfield Attending Provider: Chinmay Rosales Admit Date/Time: 10/14/24 16:03 Quality VTE Deep Vein Thrombosis/Pulmonary Embolism Present on Admission: No
== END 2024-10-15 14:30 | disposition home or self-care (01) ==
LOC: ED 15:21 → AC 16:04
PROVIDERS: Emergency Medicine; Admitting Provider Internal Medicine; Emergency Provider Emergency Medicine; PCP Family Medicine; Referring Provider Emergency Medicine; Visit Provider Internal Medicine
DX: R06.02 Shortness of breath (principal); R11.2 Nausea with vomiting, unspecified; E87.1 Hypo-osmolality and hyponatremia; F41.9 Anxiety disorder, unspecified; R10.33 Periumbilical pain; G25.2 Other specified forms of tremor; J44.9 Chronic obstructive pulmonary disease, unspecified; I10 Essential (primary) hypertension; K21.9 Gastro-esophageal reflux disease without esophagitis; N40.0 Benign prostatic hyperplasia without lower urinary tract symptoms; E78.5 Hyperlipidemia, unspecified; I25.10 Atherosclerotic heart disease of native coronary artery without angina pectoris; E66.9 Obesity, unspecified; Z87.891 Personal history of nicotine dependence; Z99.81 Dependence on supplemental oxygen
CPT/HCPCS: 36415; 71045; 74177; 80048; 80053; 82962; 83605; 83690; 83880; 84295; 84484; 85025; 85610; 93005; 93010; 94640; 96361; 96372; 96374; 96375; 96376; 99285; G0378; J1171; J1650; J1720; J2405; J7613

== ENCOUNTER 2024-10-21 11:43 | Emergency (ER) | payer MEDICARE, SELFPAY ==
[2024-10-14 17:15] VITALS: BMI 30.6
[2024-10-21] VITALS (27 sets, daily range): BP systolic 143–177; BP diastolic 74–130; PULSE 78–103; RESP 16–36; TEMP 36.7; O2SAT 92–98; BMI 29.7
--- NOTE | 2024-10-21 11:54 | DI.RAD.S_ITS ---
PROCEDURE: XR CHEST 1V INDICATIONS: Shortness of breath TECHNIQUE: One view of the chest was acquired. COMPARISON: [facility], CR, XR CHEST 1V, 10/14/2024, 12:51. [facility], CR, XR CHEST 1V, 05/13/2024, 16:18. FINDINGS: Surgical changes and devices: None. Lungs and pleura: Lungs are unchanged considering chronic elevation of the left hemidiaphragm with adjacent left lower lobe atelectasis. No pleural effusions or pneumothorax. Mediastinum: Mediastinal contours appear normal. Heart size is normal. Bones and chest wall: No suspicious bony lesions. Overlying soft tissues appear unremarkable. IMPRESSION: Again noted is relatively prominent chronic elevation of the left hemidiaphragm with overlying left lower lobe secondary atelectasis. No definite source of new shortness of breath is found. Dictated by: Chinmay Sims M.D. on 10/21/2024 at 12:15 Approved by: Chinmay Sims M.D. on 10/21/2024 at 12:15
--- NOTE | 2024-10-21 12:05 | EKG_ITS ---
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
[2024-10-21 12:50] LABS: Add Manual Diff / Slide Review NO; Basophils Absolute Auto 100 /uL (0-100); Basophils Percent Auto 0.9 % (0-2); Eosinophils Absolute Auto 300 /uL (0-450); Hematocrit 36.1 % (41-53); Lymphocytes Absolute Auto 1300 /uL (1100-4500); Lymphocytes Percent Auto 14.9 % (25-40); Mean Corpuscular HGB Conc 33.2 % (30-36); Mean Corpuscular Hemoglobin 30.1 PG (26-34); Mean Corpuscular Volume 90.6 fL (80-100); Monocytes Absolute Auto 600 /uL (0-900); Monocytes Percent Auto 6.7 % (3-14); Neutrophils Absolute Auto 6300 /uL (1500-7000); Neutrophils Percent Auto 74.5 % (50-75); Platelet Count 259 X10^3/uL (150-400); Red Blood Cell Count 3.99 X10^6/uL (4.5-5.9); Red Cell Distribution Width 15.4 % (11.6-14.8); White Blood Cell Count 8.4 X10^3/uL (4.5-11.0)
[2024-10-21] MEDS: ALBUTEROL/IPRATROPIUM 3 ML AMPUL 9 ML INH (13:02)
[2024-10-21 13:03] LABS: INR 0.9 (0.9-1.3); Prothrombin Time 10.4 SECONDS (9.4-12.5)
--- NOTE | 2024-10-21 13:06 | PC.NURSE ---
Respiratory Therapy Luis Manuel at bedside administering nebulizer and assessing patient.
[2024-10-21 13:12] LABS: Alanine Aminotransferase 31 IU/L (<50); Albumin 4.4 g/dL (3.5-5.0); Albumin Globulin Ratio 1.6 (1.0-2.8); Alkaline Phosphatase 46 U/L (38-126); Aspartate Aminotransferase 30 IU/L (17-59); BUN Creatinine Ratio 29.6 (6-22); Bilirubin Total 0.3 mg/dL (0.2-1.3); Blood Urea Nitrogen 21 mg/dL (9-20); Calcium 9.2 mg/dL (8.4-10.2); Carbon Dioxide 32 mmol/L (22-32); Chloride 94 mmol/L (98-107); Estimated Glomerular Filt Rate > 60 mL/min (>60); Globulin 2.8 g/dL (1.7-4.1); Glucose 99 mg/dL (80-110); HEMOLYSIS 33 (0-50); Lactate (Lactic Acid) 1.1 mmol/L (0.7-2.1); Potassium 4.1 mmol/L (3.4-5.1); Sodium 134 mmol/L (137-145); Total Protein 7.2 g/dL (6.3-8.2)
[2024-10-21 13:24] LABS: NT-proBNP (BNP-Adult 18+) 144 pg/mL (<125); Troponin I < 0.012 ng/mL (0.01-0.034)
[2024-10-21] MEDS: predniSONE 20 MG TABLET 60 MG PO (14:19)
--- NOTE | 2024-10-21 18:22 | ED_ITS ---
HPI - SOB/Dyspnea General Chief Complaint: Shortness of Breath/Dyspnea Stated Complaint: SOB sent by PCP Time Seen by Provider: 10/21/24 13:52 History of Present Illness HPI Narrative: Patient is a 69-year-old male history of COPD on home oxygen intermittently presenting today with shortness of breath. He was admitted to the hospital October 14 through the with hyponatremia sodium 123 due to poor p.o. intake along with lisinopril and hydrochlorothiazide. He presented to his PCP office for follow-up he reports that he walked from the parking lot to the waiting room where he had increased shortness of breath. He did not bring an oxygen tank with him. He reports he has not on oxygen all the time but mostly at home she was. Staff saw him in the waiting room and quickly brought him to the emergency department for evaluation. He got p.o. prednisone 60 mg and albuterol treatment which he reports is better. He was still requiring about 1-2 L of oxygen. Denies any sort of chest pain no lower extremity edema. Related Data Home Medications Medication Instructions Recorded Confirmed omeprazole 20 mg capsule,delayed 20 mg PO DAILY 04/01/24 10/18/24 release ipratropium 0.5 mg-albuterol 3 mg 3 ml inhalation 4XD 05/13/24 10/18/24 (2.5 mg base)/3 mL nebulization soln Previous Rx's Medication Instructions Recorded acetaminophen 325 mg tablet 650 mg (2 x 325 mg) PO Q6H PRN 05/16/24 Fever/Mild Pain (1-3) #1 tab gabapentin 300 mg capsule 300 mg PO BID #60 caps 05/16/24 albuterol sulfate 90 mcg/actuation 2 puff inhalation Q6H PRN 05/17/24 aerosol inhaler Shortness Of Breath #8.5 grams atorvastatin 40 mg tablet 40 mg PO DAILY #90 tabs 05/17/24 nitroglycerin 0.4 mg sublingual 0.4 mg sublingual Q5M PRN chest 05/17/24 tablet pain #10 tabs prednisone 5 mg tablet 5 mg PO DAILY #30 tabs 05/24/24 Portable oxygen concentrator with #1 ea 06/03/24 pulse approval budesonide 160 mcg-glycopyr 9 2 inh inhalation BID #5.9 grams 06/10/24 mcg-formot 4.8 mcg/actuation HFA inhaler (Breztri Aerosphere) Disabled Parking Permint #1 ea 08/09/24 bupropion HCl 150 mg 24 hr tablet, 150 mg PO QAM #90 tabs 08/09/24 extended release metoprolol succinate 25 mg 25 mg PO DAILY #90 tabs 09/02/24 tablet,extended release 24 hr prednisone 20 mg tablet 40 mg (2 x 20 mg) PO DAILY #10 tabs 09/28/24 tamsulosin 0.4 mg capsule 0.4 mg PO BID #180 caps 10/01/24 prednisone 5 mg tablet 5 mg PO DAILY 10 days #10 tabs 10/15/24 quetiapine 25 mg tablet 12.5 mg (1/2 x 25 mg) PO BID 30 10/15/24 days #60 tabs Allergies Allergy/AdvReac Type Severity Reaction Status Date / Time No Known Drug Allergies Allergy Verified 09/06/24 13:35 Patient History Medical History (Updated 10/21/24 @ 20:58 by Fallon Chacko DO) Advanced chronic obstructive pulmonary disease Colon cancer screening Diverticulosis Hypothyroidism Insomnia Depression BPH (benign prostatic hyperplasia) Chronic neck pain GERD (gastroesophageal reflux disease) Essential tremor High cholesterol High blood pressure Closed fracture of left distal fibula Social History household members: significant other Smoking Status: Former smoker alcohol intake: former Smoking Status: Former smoker tobacco type: cigarettes alcohol intake frequency: a few times a week Exam Initial Vital Signs Initial Vital Signs: Vital Signs Temperature 98.1 F 10/21/24 11:51 Pulse Rate 99 H 10/21/24 11:51 Respiratory Rate 18 10/21/24 11:51 Blood Pressure 157/85 H 10/21/24 11:51 Pulse Oximetry 95 10/21/24 11:51 Oxygen Delivery Method Room Air 10/21/24 11:51 GENERAL: Alert 69-year-old male and in no acute distress. HEENT: Head atraumatic,EOMI, pupils reactive, face symmetric, moist mucous membranes CARDIOVASCULAR: Regular rate and rhythm without murmurs, rubs or gallops. RESPIRATORY: Decreased breath sounds bilaterally minimal wheezing mild conversational dyspnea ABDOMEN: Soft, nontender. Reducible umbilical hernia, Normoactive bowel sounds all 4 quadrants. No guarding or rebound. EXTREMITIES: Normal range of motion, no clubbing or edema. Neurovascularly intact NEUROLOGICAL: Alert and oriented x4.Normal gait and speech. Cranial nerves II through XII grossly intact. SKIN: Warm, dry, no laceration, no petechiae, no rashes or lesions. Course Orders Ordered: Discontinued Medications Albuterol (Albuterol 2.5 Mg/3 Ml Neb (Adult)) 5 mg INH NOW ONE Stop: 10/21/24 18:31 Last Admin: 10/21/24 18:56 Dose: 5 mg Documented By: RAFIQ Albuterol (Albuterol 2.5 Mg/3 Ml Neb (Adult)) 2.5 mg INH [id number] PRN PRN Reason: Shortness Of Breath Albuterol/Ipratropium (Albuterol/Ipratropium 3 Ml Ampul) 9 ml INH NOW ONE Stop: 10/21/24 12:52 Last Admin: 10/21/24 13:02 Dose: 9 ml Documented By: RAFIQ Prednisone (Prednisone 20 Mg Tablet) 60 mg PO NOW ONE Stop: 10/21/24 13:58 Last Admin: 10/21/24 14:19 Dose: 60 mg Documented By: CLARA Vital Signs Vital signs: Vital Signs - 8 hr 10/21/24 20:30 10/21/24 20:30 10/21/24 21:00 Pulse Rate 87 Respiratory Rate 26 H Blood Pressure 158/77 H 175/79 H Pulse Oximetry 96 Oxygen Delivery Method Nasal Cannula Oxygen Flow Rate 2 10/21/24 21:00 Pulse Rate 89 Respiratory Rate 21 Blood Pressure Pulse Oximetry 96 Oxygen Delivery Method Nasal Cannula Oxygen Flow Rate 2 MDM - SOB/Dyspnea Lab Data 10/21/24 12:38 10/21/24 12:38 Labs: Lab Results 10/21/24 Range/Units 12:38 WBC 8.4 (4.5-11.0) X10^3/uL RBC 3.99 L (4.5-5.9) X10^6/uL Hgb 12.0 L (13.5-17.5) g/dL Hct 36.1 L (41-53) % MCV 90.6 (80-100) fL MCH 30.1 (26-34) PG MCHC 33.2 (30-36) % RDW 15.4 H (11.6-14.8) % Plt Count 259 (150-400) X10^3/uL Neut % (Auto) 74.5 (50-75) % Lymph % (Auto) 14.9 L (25-40) % Randolph % (Auto) 6.7 (3-14) % Eos % (Auto) 3.0 (2-4) % Baso % (Auto) 0.9 (0-2) % Neut # (Auto) 6300 (4668-5253) /uL Lymph # (Auto) 1300 (3842-2411) /uL Randolph # (Auto) 600 (0-900) /uL Eos # (Auto) 300 (0-450) /uL Baso # (Auto) 100 (0-100) /uL PT 10.4 (9.4-12.5) SECONDS INR 0.9 (0.9-1.3) Sodium 134 L (137-145) mmol/L Potassium 4.1 (3.4-5.1) mmol/L Chloride 94 L (98-107) mmol/L Carbon Dioxide 32 (22-32) mmol/L BUN 21 H (9-20) mg/dL Creatinine 0.71 (0.66-1.25) mg/dL Estimated GFR > 60 (>60) mL/min BUN/Creatinine Ratio 29.6 H (6-22) Glucose 99 (80-110) mg/dL Lactate 1.1 (0.7-2.1) mmol/L Calcium 9.2 (8.4-10.2) mg/dL Total Bilirubin 0.3 (0.2-1.3) mg/dL AST 30 (17-59) IU/L ALT 31 (<50) IU/L Alkaline Phosphatase 46 (38-126) U/L Troponin I < 0.012 (0.01-0.034) ng/mL NT-Pro-B Natriuret Pep 144 H (<125) pg/mL Total Protein 7.2 (6.3-8.2) g/dL Albumin 4.4 (3.5-5.0) g/dL Globulin 2.8 (1.7-4.1) g/dL Albumin/Globulin Ratio 1.6 (1.0-2.8) Imaging Data Chest x-ray: Radiologist's Impression: PROCEDURE: XR CHEST 1V INDICATIONS: Shortness of breath TECHNIQUE: One view of the chest was acquired. COMPARISON: [facility], CR, XR CHEST 1V, 10/14/2024, 12:51. [facility], CR, XR CHEST 1V, 05/13/2024, 16:18. FINDINGS: Surgical changes and devices: None. Lungs and pleura: Lungs are unchanged considering chronic elevation of the left hemidiaphragm with adjacent left lower lobe atelectasis. No pleural effusions or pneumothorax. Mediastinum: Mediastinal contours appear normal. Heart size is normal. Bones and chest wall: No suspicious bony lesions. Overlying soft tissues appear unremarkable. IMPRESSION: Again noted is relatively prominent chronic elevation of the left hemidiaphragm with overlying left lower lobe secondary atelectasis. No definite source of new shortness of breath is found. Dictated by: Chinmay Sims M.D. on 10/21/2024 at 12:15 CT scan - chest: Radiologist's Impression: PROCEDURE: CT ANGIO CHEST PE PROTOCOL INDICATIONS: hypoxia recent admission TECHNIQUE: After the administration of intravenous contrast, 2 mm thick sections acquired from the pulmonary apices to the posterior costophrenic angles. 3-dimensional maximum intensity projection (MIP) coronal and sagittal reformats were then acquired through the thorax. For radiation dose reduction, the following was used: automated exposure control, adjustment of mA and/or kV according to patient size. COMPARISON: [facility], CT, CT ANGIO CHEST PE PROTOCOL, 05/13/2024, 18:25. FINDINGS: Image quality: Diagnostic. Pulmonary arteries: Pulmonary arteries are normal in size, and demonstrate no intraluminal filling defects to suggest central pulmonary embolism. Lower Neck: No enlarged lymph nodes. Thyroid: No thyroid nodules which require sonographic follow up, per consensus guidelines. Axillae: No enlarged lymph nodes. Chest Wall: Unremarkable. Bones: Visualized osseous structures appear intact without acute fracture or focal destructive lesion. No acute compression fractures of the imaged spine. Lungs and Pleura: Bibasilar atelectasis. Mild perihilar airway thickening of the bilateral hemithoraces. No suspicious pulmonary nodules or mass lesions. No pneumothorax or pleural effusion. Eventration of the left hemidiaphragm, stable. Heart: Heart size is normal. No pericardial effusion. Multivessel atherosclerotic calcifications of the coronary arteries. Thoracic Vessels: No aortic aneurysm. Mediastinum and Laurie: No enlarged lymph nodes. Esophagus: No significant wall thickening. Small hiatal hernia. Upper Abdomen: Visualized upper abdomen solid organs and bowel loops appear unremarkable. IMPRESSION: No acute pulmonary emboli or evidence for acute right-sided heart strain. Mild bilateral perihilar airway thickening which may represent bronchitis either infectious or inflammatory in etiology. No focal consolidations. Multivessel coronary artery atherosclerotic calcifications. Small hiatal hernia. Dictated by: Jeremi Johnson M.D. on 10/21/2024 at 20:34 Approved by: Jeremi Johnson M.D. on 10/21/2024 at 20:39 ECG Data Attestation: I personally reviewed and interpreted this ECG as follows: Prior ECG tracings: available for review Interpretation: Normal sinus rhythm rate 92 OH 60 QRS [address] changes very similar to previous EKGs last week MDM Narrative Medical decision making narrative: Patient is 69-year-old male history of COPD intermittently on home oxygen presenting today with increasing shortness of breath. He recently had a hospital admission for some abdominal pain was following up with his primary care and in the waiting room was severely short of breath. Blood work today is overall reassuring no leukocytosis no anemia electrolytes are stable no KATYA I troponin negative BNP 144 Chest x-ray persistent elevation of left hemidiaphragm CT angio does not show any pulmonary embolism but possible bronchitis Patient was given p.o. prednisone and breathing treatments. He was feeling better but still requiring 1-2 L of oxygen. He does not think that he normally wears oxygen all of the time but he was now requiring it. Likely progression of disease. Has ruled out for pulmonary embolism and pneumonia. He overall feels okay and at his baseline. After breathing treatments patient was 94 to 90s per 6% on room air at rest. He was exertional hypoxia has oxygen at home. Arrangements were made for him to take home in oxygen tank and he was assisted by wheelchair to his vehicle. 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 *Continue to take medications as directed Finish prednisone as previously prescribed *Follow up with your primary care provider in 2-3 days or call [phone] *Return to ER if you should have increasing shortness of breath chest pain or any new, worsening or concerning symptoms Prescriptions: No Action nitroglycerin 0.4 mg tablet, sublingual 0.4 mg sublingual Q5M PRN (Reason: chest pain) Qty: 10 0RF Patient Comments: has not needed to take it yet Rx Instructions: do not exceed 3 doses per episode albuterol sulfate 90 mcg/actuation HFA aerosol inhaler 2 puff inhalation Q6H PRN (Reason: Shortness Of Breath) Qty: 8.5 11RF atorvastatin 40 mg tablet 40 mg PO DAILY Qty: 90 3RF (DME) Portable oxygen concentrator with pulse approval See Rx Instructions .Route .MEDSUPPLY Qty: 1 0RF Rx Instructions: Portable oxygen concentrator with pulse approval. O2 2L NC. metoprolol succinate 25 mg tablet extended release 24 hr 25 mg PO DAILY Qty: 90 3RF prednisone 20 mg tablet 40 mg PO DAILY Qty: 10 0RF tamsulosin 0.4 mg capsule 0.4 mg PO BID Qty: 180 3RF omeprazole 20 mg capsule,delayed release(DR/EC) 20 mg PO DAILY (DME) Disabled Parking Permint See Rx Instructions .ROUTE .MEDSUPPLY Qty: 1 0RF Rx Instructions: I find this patient to be medically disabled and qualified for Disabled Parking as indicated and signed on the Accompanying Disabled Parking Application for individuals. bupropion HCl 150 mg tablet extended release 24 hr 150 mg PO QAM Qty: 90 1RF Rx Instructions: start after 75 mg of bupropion prednisone 5 mg tablet 5 mg PO DAILY Qty: 30 1RF Patient Comments: tapered off Rx Instructions: take 5 mg daily ipratropium-albuterol 0.5 mg-3 mg(2.5 mg base)/3 mL solution for nebulization 3 ml inhalation 4XD acetaminophen 325 mg Tablet 650 mg PO Q6H PRN (Reason: Fever/Mild Pain (1-3)) Qty: 1 0RF gabapentin 300 mg Capsule 300 mg PO BID Qty: 60 0RF quetiapine 25 mg Tablet 12.5 mg PO BID 30 Days Qty: 60 1RF prednisone 5 mg Tablet 5 mg PO DAILY 10 Days Qty: 10 0RF Breztri Aerosphere 160-9-4.8 mcg/actuation HFA aerosol inhaler 2 inh inhalation BID Qty: 5.9 11RF Referrals: Ari Barfield, [Primary Care Provider] - Stand Alone Forms: Patient Portal/API/Survey
--- NOTE | 2024-10-21 18:25 | EKG_ITS ---
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
--- NOTE | 2024-10-21 18:35 | DI.CT.S_ITS ---
PROCEDURE: CT ANGIO CHEST PE PROTOCOL INDICATIONS: hypoxia recent admission TECHNIQUE: After the administration of intravenous contrast, 2 mm thick sections acquired from the pulmonary apices to the posterior costophrenic angles. 3-dimensional maximum intensity projection (MIP) coronal and sagittal reformats were then acquired through the thorax. For radiation dose reduction, the following was used: automated exposure control, adjustment of mA and/or kV according to patient size. COMPARISON: [facility], CT, CT ANGIO CHEST PE PROTOCOL, 05/13/2024, 18:25. FINDINGS: Image quality: Diagnostic. Pulmonary arteries: Pulmonary arteries are normal in size, and demonstrate no intraluminal filling defects to suggest central pulmonary embolism. Lower Neck: No enlarged lymph nodes. Thyroid: No thyroid nodules which require sonographic follow up, per consensus guidelines. Axillae: No enlarged lymph nodes. Chest Wall: Unremarkable. Bones: Visualized osseous structures appear intact without acute fracture or focal destructive lesion. No acute compression fractures of the imaged spine. Lungs and Pleura: Bibasilar atelectasis. Mild perihilar airway thickening of the bilateral hemithoraces. No suspicious pulmonary nodules or mass lesions. No pneumothorax or pleural effusion. Eventration of the left hemidiaphragm, stable. Heart: Heart size is normal. No pericardial effusion. Multivessel atherosclerotic calcifications of the coronary arteries. Thoracic Vessels: No aortic aneurysm. Mediastinum and Laurie: No enlarged lymph nodes. Esophagus: No significant wall thickening. Small hiatal hernia. Upper Abdomen: Visualized upper abdomen solid organs and bowel loops appear unremarkable. IMPRESSION: No acute pulmonary emboli or evidence for acute right-sided heart strain. Mild bilateral perihilar airway thickening which may represent bronchitis either infectious or inflammatory in etiology. No focal consolidations. Multivessel coronary artery atherosclerotic calcifications. Small hiatal hernia. Dictated by: Jeremi Johnson M.D. on 10/21/2024 at 20:34 Approved by: Jeremi Johnson M.D. on 10/21/2024 at 20:39
[2024-10-21] MEDS: ALBUTEROL 2.5 MG/3 ML NEB (ADULT) 5 MG INH (18:56)
--- NOTE | 2024-10-21 19:08 | PC.NURSE ---
Persistent wheezing; reported improvement in breathing and discomfort. MD Braga stated unsure about disposition. Pt able to stand at bedside w/o assistance. Pt remains on 2L
--- NOTE | 2024-10-21 19:39 | PC.NURSE ---
Pt to imaging via ED stretcher with rn imaging
== END 2024-10-21 21:28 | disposition home or self-care (01) ==
PROVIDERS: Emergency Medicine; Emergency Provider Emergency Medicine; PCP Family Medicine
DX: J44.9 Chronic obstructive pulmonary disease, unspecified (principal)
CPT/HCPCS: 36415; 71045; 71275; 80053; 83605; 83880; 84484; 85025; 85610; 93005; 93010; 94640; 99284; J7613; Q9967

== ENCOUNTER → 2024-11-22 16:28 | Outpatient (CLI) | payer MEDICARE, SELFPAY ==
[2024-10-14 17:15] VITALS: BMI 30.6
== END ==
PROVIDERS: PCP Family Medicine; Referring Provider Internal Medicine Critical Care Medicine; Visit Provider Internal Medicine Critical Care Medicine
DX: R06.09 Other forms of dyspnea (principal); Z87.891 Personal history of nicotine dependence; J98.8 Other specified respiratory disorders; R94.2 Abnormal results of pulmonary function studies
CPT/HCPCS: 94010; 94726; 94729

== ENCOUNTER → 2024-12-28 11:59 | Outpatient (CLI) | payer MEDICARE, SELFPAY ==
[2024-10-14 17:15] VITALS: BMI 30.6
[2024-12-28 12:45] LABS: Add Manual Diff / Slide Review NO; Basophils Absolute Auto 100 /uL (0-100); Basophils Percent Auto 0.6 % (0-2); Eosinophils Absolute Auto 100 /uL (0-450); Eosinophils Percent Auto 1.5 % (2-4); Hematocrit 38.9 % (41-53); Hemoglobin 13.2 g/dL (13.5-17.5); Lymphocytes Absolute Auto 1600 /uL (1100-4500); Lymphocytes Percent Auto 16.8 % (25-40); Mean Corpuscular HGB Conc 33.8 % (30-36); Mean Corpuscular Hemoglobin 30.3 PG (26-34); Mean Corpuscular Volume 89.4 fL (80-100); Monocytes Absolute Auto 700 /uL (0-900); Neutrophils Absolute Auto 7000 /uL (1500-7000); Neutrophils Percent Auto 74.1 % (50-75); Platelet Count 270 X10^3/uL (150-400); Red Blood Cell Count 4.35 X10^6/uL (4.5-5.9); Red Cell Distribution Width 14.7 % (11.6-14.8); White Blood Cell Count 9.5 X10^3/uL (4.5-11.0)
[2024-12-28 12:51] LABS: Hemoglobin A1C% w Est Avg Glu 5.8 % (4.0-6.0)
[2024-12-28 13:00] LABS: Alanine Aminotransferase 24 IU/L (<50); Albumin 4.8 g/dL (3.5-5.0); Alkaline Phosphatase 76 U/L (38-126); Aspartate Aminotransferase 27 IU/L (17-59); BUN Creatinine Ratio 26.3 (6-22); Bilirubin Total 0.9 mg/dL (0.2-1.3); Blood Urea Nitrogen 21 mg/dL (9-20); Calcium 9.5 mg/dL (8.4-10.2); Carbon Dioxide 32 mmol/L (22-32); Chloride 90 mmol/L (98-107); Estimated Glomerular Filt Rate > 60 mL/min (>60); Globulin 2.4 g/dL (1.7-4.1); Glucose 88 mg/dL (70-99); HEMOLYSIS < 15 (0-50); Potassium 4.1 mmol/L (3.4-5.1); Sodium 132 mmol/L (137-145); Total Protein 7.2 g/dL (6.3-8.2); Uric Acid 6.5 mg/dL (3.5-8.5)
[2024-12-28 13:19] LABS: Free T4, Direct Thyroxine 1.21 ng/dL (0.78-2.19)
== END ==
PROVIDERS: PCP Family Medicine; Referring Provider Family Medicine; Visit Provider Family Medicine
DX: E87.1 Hypo-osmolality and hyponatremia (principal); J43.2 Centrilobular emphysema; E03.9 Hypothyroidism, unspecified
CPT/HCPCS: 36415; 80053; 83036; 84439; 84443; 84550; 85025

== ENCOUNTER 2025-02-07 22:09 | Emergency (ER) | payer MEDICARE, SELFPAY ==
[2024-10-14 17:15] VITALS: BMI 30.6
[2025-02-07 22:17] VITALS: BP 133/75; PULSE 94; RESP 19; TEMP 36.2; O2SAT 94; BMI 31.4
--- NOTE | 2025-02-07 22:21 | EKG_ITS ---
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
--- NOTE | 2025-02-07 22:35 | DI.CT.S_ITS ---
PROCEDURE: CT ABDOMEN PELVIS W CON INDICATIONS: pain and nausea with known umbical hernia TECHNIQUE: After the administration of intravenous contrast, axial sections acquired from the lung bases to the pubic symphysis. Coronal and sagittal reformats were performed. For radiation dose reduction, the following was used: automated exposure control, adjustment of mA and/or kV according to patient size. COMPARISON: [facility], CT, CT ABDOMEN PELVIS W CON, 10/14/2024, 13:04. FINDINGS: Image quality: Diagnostic. Lower Chest: No significant findings. ABDOMEN: Liver: No solid mass. Steatosis Gallbladder: Contracted, grossly unremarkable. Biliary ducts: No biliary dilation. Pancreas: No ductal dilation. Spleen: Size is within normal limits. Adrenal Glands: No adrenal nodules. Kidneys and Ureters: No hydronephrosis. No solid mass. No complex renal cystic lesion which requires follow up. Stomach and Bowel: Normal colonic caliber, without significant wall thickening. Colonic diverticula are present without inflammatory change. Moderate stool without obstruction. Peritoneum: No abnormal intraperitoneal fluid. No free air. Ventral Wall: Fat containing ventral hernia. Abdominal Nodes: No retroperitoneal or mesenteric adenopathy by size criteria. Vessels: Aorta and inferior vena cava are normal in size. PELVIS: Pelvic Organs: Prostate gland is. Bladder: No bladder wall thickening, accounting for underdistention. Pelvic Nodes: No enlarged lymph nodes. Miscellaneous: No inguinal hernias are seen. Bones: No aggressive osseous abnormality. IMPRESSION: Diverticulosis. Moderate colonic stool without obstruction. Dictated by: Felisa Arce M.D. on 02/07/2025 at 22:58 Approved by: Felisa Arce M.D. on 02/07/2025 at 23:00
[2025-02-07 22:46] LABS: Add Manual Diff / Slide Review NO; Hematocrit 33.8 % (41-53); Hemoglobin 11.7 g/dL (13.5-17.5); Lymphocytes Absolute Auto 2200 /uL (1100-4500); Mean Corpuscular HGB Conc 34.8 % (30-36); Mean Corpuscular Hemoglobin 31.1 PG (26-34); Mean Corpuscular Volume 89.3 fL (80-100); Platelet Count 281 X10^3/uL (150-400)
[2025-02-07 23:12] LABS: Alanine Aminotransferase 25 IU/L (<50); Albumin 4.7 g/dL (3.5-5.0); Albumin Globulin Ratio 1.5 (1.0-2.8); Alkaline Phosphatase 71 U/L (38-126); Blood Urea Nitrogen 26 mg/dL (9-20); Calcium 9.2 mg/dL (8.4-10.2); Carbon Dioxide 30 mmol/L (22-32); Chloride 96 mmol/L (98-107); Estimated Glomerular Filt Rate > 60 mL/min (>60); Globulin 3.2 g/dL (1.7-4.1); Glucose 117 mg/dL (70-99); HEMOLYSIS < 15 (0-50); Lipase 51 U/L (23-300); Potassium 4.4 mmol/L (3.4-5.1); Sodium 136 mmol/L (137-145); Total Protein 7.9 g/dL (6.3-8.2)
--- NOTE | 2025-02-08 00:27 | ED.ABDPAIN ---
HPI - Abdominal Pain General Chief Complaint: Abdominal Pain Stated Complaint: Hernia, nauseated Time Seen by Provider: 02/07/25 22:15 Source: patient Mode of arrival: Ambulatory History of Present Illness HPI narrative: 69-year-old gentleman history of COPD on 2 L, hypertension, reflux, BPH, CAD, umbilical hernia presents with abdominal pain, bloating, and umbilical hernia feels like hard of to pop in and out and reduced started today. Patient denies fever,, chills, nausea, vomiting, back pain, diarrhea, constipation, chest pain or shortness breath. Other than what is stated 14 point review of system is negative. Related Data Home Medications ?Medication ?Instructions ?Recorded ?Confirmed omeprazole 20 mg capsule,delayed 20 mg PO DAILY 04/01/24 01/25/25 release Previous Rx's ?Medication ?Instructions ?Recorded acetaminophen 325 mg tablet 650 mg (2 x 325 mg) PO Q6H PRN 05/16/24 Fever/Mild Pain (1-3) #1 tab albuterol sulfate 90 mcg/actuation 2 puff inhalation Q6H PRN 05/17/24 aerosol inhaler Shortness Of Breath #8.5 grams atorvastatin 40 mg tablet 40 mg PO DAILY #90 tabs 05/17/24 nitroglycerin 0.4 mg sublingual 0.4 mg sublingual Q5M PRN chest 05/17/24 tablet pain #10 tabs Portable oxygen concentrator with #1 ea 06/03/24 pulse approval budesonide 160 mcg-glycopyr 9 2 inh inhalation BID #5.9 grams 06/10/24 mcg-formot 4.8 mcg/actuation HFA inhaler (Breztri Aerosphere) Disabled Parking Permint #1 ea 08/09/24 metoprolol succinate 25 mg 25 mg PO DAILY #90 tabs 09/02/24 tablet,extended release 24 hr tamsulosin 0.4 mg capsule 0.4 mg PO BID #180 caps 10/01/24 quetiapine 25 mg tablet 12.5 mg (1/2 x 25 mg) PO BID 30 10/15/24 days #60 tabs prednisone 10 mg tablet 10 mg PO DAILY #60 tabs 10/28/24 levothyroxine 100 mcg tablet 100 mcg PO DAILY #90 tabs 12/08/24 triamterene 37.5 1 cap PO DAILY #30 caps 12/28/24 mg-hydrochlorothiazide 25 mg capsule Supplemental Oxygen 4 l/min continuous inhalation 01/06/25 DAILY #1 ea bupropion HCl 150 mg 24 hr tablet, 150 mg PO QAM #90 tabs 01/21/25 extended release ipratropium 0.5 mg-albuterol 3 mg 3 ml inhalation 4XD #90 mL 02/07/25 (2.5 mg base)/3 mL nebulization soln lactulose 10 gram/15 mL oral 15 ml PO BEDTIME PRN constipation 02/08/25 solution #473 mL Allergies Allergy/AdvReac Type Severity Reaction Status Date / Time No Known Drug Allergies Allergy Verified 02/07/25 22:17 Review of Systems Review of Systems ROS Unobtainable: All systems reviewed & are unremarkable except as noted in HPI and below Patient History Medical History Advanced chronic obstructive pulmonary disease Colon cancer screening Diverticulosis Hypothyroidism Insomnia Depression BPH (benign prostatic hyperplasia) Chronic neck pain GERD (gastroesophageal reflux disease) Essential tremor High cholesterol High blood pressure Closed fracture of left distal fibula Social History household members: significant other alcohol intake: former Smoking Status: Former smoker tobacco type: cigarettes alcohol intake frequency: a few times a week Exam Narrative Exam Narrative: GENERAL: [69] year old patient appears stated age. Well-developed patient, in mild distress. HEAD: Atraumatic. Normocephalic. EYES: Pupils equal round and reactive. Extraocular motions intact. No scleral icterus. No injection or drainage. ENT: Nose without bleeding, purulent drainage. Throat without erythema, tonsillar hypertrophy or exudate. Airway patent. NECK: Trachea midline. Non tender CARDIOVASCULAR: Regular rate and rhythm without murmurs, gallops, or rubs. RESPIRATORY: Clear to auscultation. Breath sounds equal bilaterally. No wheezes, rales, or rhonchi. GASTROINTESTINAL: Abdomen soft, non-tender, nondistended. Umbilical hernia soft and reducible EXTREMITIES: No edema or joint tenderness. BACK: Nontender without deformity or crepitance. No flank tenderness. NEURO: AOx3. SKIN: No rash or erythema of visible areas Initial Vital Signs Initial Vital Signs: Vital Signs Temperature 97.1 F L 02/07/25 22:17 Pulse Rate 94 H 02/07/25 22:17 Respiratory Rate 19 02/07/25 22:17 Blood Pressure 133/75 02/07/25 22:17 Pulse Oximetry 94 02/07/25 22:17 Oxygen Delivery Method Nasal Cannula 02/07/25 22:17 Oxygen Flow Rate 2 02/07/25 22:17 Course Orders Ordered: ED Orders 02/07/25 22:21 EKG-12 Lead Stat 02/07/25 22:30 Complete Blood Count AUTO DIFF Stat Comprehensive Metabolic Panel Stat Lipase Stat 02/07/25 22:35 CT abdomen pelvis w con Stat Ondansetron HCl (Ondansetron 4 Mg/2 Ml Inj) 4 mg IV NOW PRN PRN Reason: Nausea And Vomiting Ondansetron HCl (Ondansetron 4 Mg Odt) 4 mg PO NOW PRN PRN Reason: Nausea And Vomiting Vital Signs Vital signs: Vital Signs - 8 hr 02/07/25 22:17 Temperature 97.1 F L Pulse Rate 94 H Respiratory Rate 19 Blood Pressure 133/75 Pulse Oximetry 94 Oxygen Delivery Method Nasal Cannula Oxygen Flow Rate 2 MDM - Abdominal Pain Lab Data 02/07/25 22:30 02/07/25 22:30 Labs: Lab Results 02/07/25 Range/Units 22:30 WBC 8.8 (4.5-11.0) X10^3/uL RBC 3.78 L (4.5-5.9) X10^6/uL Hgb 11.7 L (13.5-17.5) g/dL Hct 33.8 L (41-53) % MCV 89.3 (80-100) fL MCH 31.1 (26-34) PG MCHC 34.8 (30-36) % RDW 14.8 (11.6-14.8) % Plt Count 281 (150-400) X10^3/uL Neut % (Auto) 62.6 (50-75) % Lymph % (Auto) 24.7 L (25-40) % [place] % (Auto) 9.8 (3-14) % Eos % (Auto) 2.3 (2-4) % Baso % (Auto) 0.6 (0-2) % Neut # (Auto) 5500 (3373-8909) /uL Lymph # (Auto) 2200 (9879-3197) /uL [place] # (Auto) 900 (0-900) /uL Eos # (Auto) 200 (0-450) /uL Baso # (Auto) 0 (0-100) /uL Sodium 136 L (137-145) mmol/L Potassium 4.4 (3.4-5.1) mmol/L Chloride 96 L (98-107) mmol/L Carbon Dioxide 30 (22-32) mmol/L BUN 26 H (9-20) mg/dL Creatinine 1.18 (0.66-1.25) mg/dL Estimated GFR > 60 (>60) mL/min BUN/Creatinine Ratio 22.0 (6-22) Glucose 117 H (70-99) mg/dL Calcium 9.2 (8.4-10.2) mg/dL Total Bilirubin 0.4 (0.2-1.3) mg/dL AST 30 (17-59) IU/L ALT 25 (<50) IU/L Alkaline Phosphatase 71 (38-126) U/L Total Protein 7.9 (6.3-8.2) g/dL Albumin 4.7 (3.5-5.0) g/dL Globulin 3.2 (1.7-4.1) g/dL Albumin/Globulin Ratio 1.5 (1.0-2.8) Lipase 51 (23-300) U/L Imaging Data CT scan - abdomen/pelvis: Radiologist's Impression: [address] [address] [address] Scan Report Signed Patient: Nader Livingston MR#: [id number] : 1955 Acct:[id number] Age/Sex: 69 / M Date of Service: 02/07/25 Loc: ED Accession Number: [id number] Procedure: CT abdomen pelvis w con Ordering Provider: Maik Hyde D.O. PROCEDURE: CT ABDOMEN PELVIS W CON INDICATIONS: pain and nausea with known umbical hernia TECHNIQUE: After the administration of intravenous contrast, axial sections acquired from the lung bases to the pubic symphysis. Coronal and sagittal reformats were performed. For radiation dose reduction, the following was used: automated exposure control, adjustment of mA and/or kV according to patient size. COMPARISON: Merged With [facility], CT, CT ABDOMEN PELVIS W CON, 10/14/2024, 13:04. FINDINGS: Image quality: Diagnostic. Lower Chest: No significant findings. ABDOMEN: Liver: No solid mass. Steatosis Gallbladder: Contracted, grossly unremarkable. Biliary ducts: No biliary dilation. Pancreas: No ductal dilation. Spleen: Size is within normal limits. Adrenal Glands: No adrenal nodules. Kidneys and Ureters: No hydronephrosis. No solid mass. No complex renal cystic lesion which requires follow up. Stomach and Bowel: Normal colonic caliber, without significant wall thickening. Colonic diverticula are present without inflammatory change. Moderate stool without obstruction. Peritoneum: No abnormal intraperitoneal fluid. No free air. Ventral Wall: Fat containing ventral hernia. Abdominal Nodes: No retroperitoneal or mesenteric adenopathy by size criteria. Vessels: Aorta and inferior vena cava are normal in size. PELVIS: Pelvic Organs: Prostate gland is. Bladder: No bladder wall thickening, accounting for underdistention. Pelvic Nodes: No enlarged lymph nodes. Miscellaneous: No inguinal hernias are seen. Bones: No aggressive osseous abnormality. IMPRESSION: Diverticulosis. Moderate colonic stool without obstruction. Dictated by: Felisa Arce M.D. on 02/07/2025 at 22:58 Approved by: Felisa Arce M.D. on 02/07/2025 at 23:00 ECG Data Interpretation: NSR HR 88 LA 202 QRS [address]-t wave change No previous EKG to compare MDM Narrative Medical decision making narrative: Vital signs nurse triage note medication list previous ER visits in all imaging studies reviewed. EKG showed normal sinus rhythm no STT wave changes. CT abdomen pelvis showed diverticulosis and moderate colonic stool burden without obstruction. Patient given lactulose here and on discharge home. Differential diagnosis includes small-bowel obstruction, constipation, pancreatitis, diverticulitis, incarcerated, strangulated, hernia. WBC normal hemoglobin 11.7 sodium 136 glucose 117 lipase 51. Discharge Plan Departure Patient Disposition: Home Clinical Impression: Constipation Qualifiers: Constipation type: slow transit constipation Qualified Code(s): K59.01 - Slow transit constipation Instructions: DI for Constipation Activity Restrictions/Additional Instructions: Return with new or worsening symptoms. Take your medicines as directed. Follow up PCP in 1-2 weeks if no improvement in symptoms. Prescriptions: New lactulose 10 gram/15 mL solution 15 ml PO BEDTIME PRN (Reason: constipation) Qty: 473 0RF No Action nitroglycerin 0.4 mg tablet, sublingual 0.4 mg sublingual Q5M PRN (Reason: chest pain) Qty: 10 0RF Patient Comments: has not needed to take it yet Rx Instructions: do not exceed 3 doses per episode albuterol sulfate 90 mcg/actuation HFA aerosol inhaler 2 puff inhalation Q6H PRN (Reason: Shortness Of Breath) Qty: 8.5 11RF atorvastatin 40 mg tablet 40 mg PO DAILY Qty: 90 3RF (DME) Portable oxygen concentrator with pulse approval See Rx Instructions .Route .MEDSUPPLY Qty: 1 0RF Rx Instructions: Portable oxygen concentrator with pulse approval. O2 2L NC. metoprolol succinate 25 mg tablet extended release 24 hr 25 mg PO DAILY Qty: 90 3RF tamsulosin 0.4 mg capsule 0.4 mg PO BID Qty: 180 3RF levothyroxine 100 mcg tablet 100 mcg PO DAILY Qty: 90 1RF bupropion HCl 150 mg tablet extended release 24 hr 150 mg PO QAM Qty: 90 1RF Rx Instructions: start after 75 mg of bupropion ipratropium-albuterol 0.5 mg-3 mg(2.5 mg base)/3 mL solution for nebulization 3 ml inhalation 4XD Qty: 90 0RF omeprazole 20 mg capsule,delayed release(DR/EC) 20 mg PO DAILY (DME) Disabled Parking Permint See Rx Instructions .ROUTE .MEDSUPPLY Qty: 1 0RF Rx Instructions: I find this patient to be medically disabled and qualified for Disabled Parking as indicated and signed on the Accompanying Disabled Parking Application for individuals. prednisone 10 mg tablet 10 mg PO DAILY Qty: 60 1RF triamterene-hydrochlorothiazid 37.5-25 mg capsule 1 cap PO DAILY Qty: 30 2RF acetaminophen 325 mg Tablet 650 mg PO Q6H PRN (Reason: Fever/Mild Pain (1-3)) Qty: 1 0RF quetiapine 25 mg Tablet 12.5 mg PO BID 30 Days Qty: 60 1RF Breztri Aerosphere 160-9-4.8 mcg/actuation HFA aerosol inhaler 2 inh inhalation BID Qty: 5.9 11RF Supplemental Oxygen 4 l/min continuous inhalation DAILY Qty: 1 0RF Referrals: Ari Barfield DO [Primary Care Provider, Family Practice] Stand Alone Forms: Patient Portal/API
[2025-02-08] MEDS: LACTULOSE 20 GM/30 ML SOLUTION PO (01:08)
== END 2025-02-08 01:10 | disposition home or self-care (01) ==
PROVIDERS: Emergency Provider Family Medicine; PCP Family Medicine
DX: K59.01 Slow transit constipation (principal); R10.9 Unspecified abdominal pain
CPT/HCPCS: 36415; 74177; 80053; 83690; 85025; 93005; 99284; Q9967

== ENCOUNTER 2025-03-02 14:50 | Emergency (ER) | payer MEDICARE, SELFPAY ==
[2024-10-14 17:15] VITALS: BMI 30.6
[2025-03-02 15:22] VITALS: BP 121/59; PULSE 93; RESP 18; TEMP 36.6; O2SAT 96; BMI 30.2
--- NOTE | 2025-03-02 16:10 | ED.SKABFB ---
HPI - Skin/Abscess/Foreign Bdy <Yudelka Quinonez PA-C - Last Filed: 03/02/25 18:08> General Chief complaint: Skin/Abscess/Foreign Body Stated complaint: cyst on back, opened and painful Time Seen by Provider: 03/02/25 15:55 Source: patient Mode of arrival: Wheelchair Limitations: no limitations History of Present Illness HPI narrative: Mr. Livingston is a very pleasant 69-year-old male with a past medical history of COPD on 2-3L NC who presents to the emergency department for a painful cyst on his left upper back that is draining x2 days. Patient states he has had this cyst for many years, about 2 days ago it started to bother him so he attempted to squeeze it was able to squeeze out some pus however it continues to drain and be painful. He feels well otherwise, no fevers, chills, nausea, vomiting, no redness spreading or streaking on the back. No medication allergies. Related Data Home Medications ?Medication ?Instructions ?Recorded ?Confirmed omeprazole 20 mg capsule,delayed 20 mg PO DAILY 04/01/24 01/25/25 release Previous Rx's ?Medication ?Instructions ?Recorded acetaminophen 325 mg tablet 650 mg (2 x 325 mg) PO Q6H PRN 05/16/24 Fever/Mild Pain (1-3) #1 tab albuterol sulfate 90 mcg/actuation 2 puff inhalation Q6H PRN 05/17/24 aerosol inhaler Shortness Of Breath #8.5 grams atorvastatin 40 mg tablet 40 mg PO DAILY #90 tabs 05/17/24 nitroglycerin 0.4 mg sublingual 0.4 mg sublingual Q5M PRN chest 05/17/24 tablet pain #10 tabs Portable oxygen concentrator with #1 ea 06/03/24 pulse approval budesonide 160 mcg-glycopyr 9 2 inh inhalation BID #5.9 grams 06/10/24 mcg-formot 4.8 mcg/actuation HFA inhaler (Breztri Predictifyphere) Disabled Parking Permint #1 ea 08/09/24 metoprolol succinate 25 mg 25 mg PO DAILY #90 tabs 09/02/24 tablet,extended release 24 hr tamsulosin 0.4 mg capsule 0.4 mg PO BID #180 caps 10/01/24 quetiapine 25 mg tablet 12.5 mg (1/2 x 25 mg) PO BID 30 10/15/24 days #60 tabs prednisone 10 mg tablet 10 mg PO DAILY #60 tabs 10/28/24 triamterene 37.5 1 cap PO DAILY #30 caps 12/28/24 mg-hydrochlorothiazide 25 mg capsule Supplemental Oxygen 4 l/min continuous inhalation 01/06/25 DAILY #1 ea bupropion HCl 150 mg 24 hr tablet, 150 mg PO QAM #90 tabs 01/21/25 extended release lactulose 10 gram/15 mL oral 15 ml PO BEDTIME PRN constipation 02/08/25 solution #473 mL levothyroxine 112 mcg tablet 112 mcg PO DAILY #90 tabs 02/08/25 ipratropium 0.5 mg-albuterol 3 mg 3 ml inhalation 4XD #90 mL 02/15/25 (2.5 mg base)/3 mL nebulization soln doxycycline hyclate 100 mg capsule 100 mg PO BID 7 days #14 caps 03/02/25 Allergies Allergy/AdvReac Type Severity Reaction Status Date / Time No Known Drug Allergies Allergy Verified 02/07/25 22:17 Review of Systems <Yudelka Quinonez PA-C - Last Filed: 03/02/25 18:08> Review of Systems ROS Unobtainable: All systems reviewed & are unremarkable except as noted in HPI and below Patient History <Yudelka Quinonez PA-C - Last Filed: 03/02/25 18:08> Medical History Advanced chronic obstructive pulmonary disease Colon cancer screening Diverticulosis Hypothyroidism Insomnia Depression BPH (benign prostatic hyperplasia) Chronic neck pain GERD (gastroesophageal reflux disease) Essential tremor High cholesterol High blood pressure Closed fracture of left distal fibula Social History household members: significant other alcohol intake: former Smoking Status: Former smoker tobacco type: cigarettes alcohol intake frequency: a few times a week Exam <Yudelka Quinonez PA-C - Last Filed: 03/02/25 18:08> Narrative Exam Narrative: GENERAL: 69 year old patient appears stated age. Well-developed patient, in no acute distress. HEAD: Atraumatic. Normocephalic. EYES: No scleral icterus. No injection or drainage. NECK: Trachea midline. Cervical ROM intact. CARDIOVASCULAR: Regular rate RESPIRATORY: ?Nonlabored respirations. ?Speaking in clear, full sentences. ?On 2L NC. BACK: On the left upper back there is an approximately 3 cm round, erythematous, indurated fluid-filled cyst, purulence is able to be expressed from a small opening with pressure. No streaking erythema. NEURO: AOx3. ?Clear speech. ?Moves all 4 extremities appropriately. Initial Vital Signs Initial Vital Signs: Vital Signs Temperature 97.9 F 03/02/25 15:22 Pulse Rate 93 H 03/02/25 15:22 Respiratory Rate 18 03/02/25 15:22 Blood Pressure 121/59 L 03/02/25 15:22 Pulse Oximetry 96 03/02/25 15:22 Oxygen Delivery Method Nasal Cannula 03/02/25 15:22 Oxygen Flow Rate 2 03/02/25 15:22 <Margarette Fuller MD - Last Filed: 03/05/25 08:07> Initial Vital Signs Initial Vital Signs: Vital Signs Temperature 97.9 F 03/02/25 15:22 Pulse Rate 93 H 03/02/25 15:22 Respiratory Rate 18 03/02/25 15:22 Blood Pressure 121/59 L 03/02/25 15:22 Pulse Oximetry 96 03/02/25 15:22 Oxygen Delivery Method Nasal Cannula 03/02/25 15:22 Oxygen Flow Rate 2 03/02/25 15:22 Procedures <Yudelka Quinonez PA-C - Last Filed: 03/02/25 18:08> Abscess I/D I&D #1: Time of procedure: 16:45 Site: back Side (if applicable): left Local Anesthetic: lidocaine 1% and with epi Amount of anesthesia used (mL): 3 Technique: incised with #11 blade Amount of fluid expressed (mL): 15 Irrigation: Yes Packing used?: none Course <Yudelka Quinonez PA-C - Last Filed: 03/02/25 18:08> Orders Ordered: Discontinued Medications Doxycycline Hyclate (Doxycycline Hyclate 100 Mg Tablet) 100 mg PO NOW ONE Stop: 03/02/25 16:26 Last Admin: 03/02/25 17:02 Dose: 100 mg Documented By: LAZARO Vital Signs Vital signs: Vital Signs - 8 hr 03/02/25 15:22 03/02/25 17:25 Temperature 97.9 F 98.4 F Pulse Rate 93 H 90 Respiratory Rate 18 20 Blood Pressure 121/59 L 126/61 Pulse Oximetry 96 94 Oxygen Delivery Method Nasal Cannula Nasal Cannula Oxygen Flow Rate 2 2 <Margarette Fuller MD - Last Filed: 03/05/25 08:07> Orders Ordered: Discontinued Medications Doxycycline Hyclate (Doxycycline Hyclate 100 Mg Tablet) 100 mg PO NOW ONE Stop: 03/02/25 16:26 Last Admin: 03/02/25 17:02 Dose: 100 mg Documented By: LAZARO Vital Signs Vital signs: Vital Signs - 8 hr 03/02/25 15:22 03/02/25 17:25 Temperature 97.9 F 98.4 F Pulse Rate 93 H 90 Respiratory Rate 18 20 Blood Pressure 121/59 L 126/61 Pulse Oximetry 96 94 Oxygen Delivery Method Nasal Cannula Nasal Cannula Oxygen Flow Rate 2 2 MDM - Skin/Abscess/Foreign Bdy <Yudelka Quinonez PA-C - Last Filed: 03/02/25 18:08> Medical Records Attestation: I reviewed the patient's medical records. MDM Narrative Medical decision making narrative: 69-year-old male with a past medical history of COPD on 2-3L NC who presents to the emergency department for a painful cyst on his left upper back that is draining x2 days. Differential diagnosis includes but is not limited to cyst, abscess, infected cyst, etc. On exam patient is in no acute distress, nontoxic appearing, vital signs appropriate. He has an infected cyst on his left upper back. After shared decision-making with the patient, we will proceed with incision and drainage and start him on doxycycline. He understands that he will need to follow up with a ceo and co founder for total removal of the cyst to prevent recurrence. Infected cyst was cleansed, anesthetized, incised and copious amount of purulent and cyst-like material was drained. It was irrigated and then a sterile gauze dressing was applied. Patient tolerated the procedure well. Wound culture obtained and sent to the lab. Discussed proper wound care, follow up with PCP and Dermatology, ED return precautions. First dose of antibiotic given in the ED. He verbalized understanding of all information agreeable with the plan. He is stable for discharge home. Discharge Plan Departure Patient Disposition: Home Clinical Impression: Infected cyst of left shoulder Instructions: DI for Skin Abscess Activity Restrictions/Additional Instructions: Dear Mr. Livingston, Thank you for coming to the emergency department. Today you were evaluated for an infected/inflamed cyst on your left upper back. This area was drained. The contents were swabbed and sent to the lab for wound culture. I would like you to complete the full week of antibiotics. It is important to follow up with a ceo and co founder for complete removal of the cyst sac as they often come back. Please keep the dressing that we applied today clean and dry for the next 24 hours. If drainage seeps through this before 24 hours, you can apply a new clean dressing. After 24 hours you should remove the dressing, clean the area with warm soapy water, pat dry, and then apply new gauze and tape. You should do this 1 to 2 times a day until the wound is completely healed. Please follow up with your primary care doctor, but return to the emergency department if you develop any new or worsening symptoms, fevers, spreading redness on the back or any other concerns. Please follow up with your primary care doctor within the next 2-3 days for ER follow-up. (If you do not have a PCP you can call [phone]. ?to schedule an appointment with an [facility] Primary Care Provider) IF YOU DEVELOP ANY NEW OR WORSENING SYMPTOMS, RETURN TO THE ER! Please read the attached instructions, they highlight more specific treatments and interventions for you at home. Thank you for letting me participate in your care, Yudelka Quinonez PA-C Prescriptions: New doxycycline hyclate 100 mg capsule 100 mg PO BID 7 Days Qty: 14 0RF No Action nitroglycerin 0.4 mg tablet, sublingual 0.4 mg sublingual Q5M PRN (Reason: chest pain) Qty: 10 0RF Patient Comments: has not needed to take it yet Rx Instructions: do not exceed 3 doses per episode albuterol sulfate 90 mcg/actuation HFA aerosol inhaler 2 puff inhalation Q6H PRN (Reason: Shortness Of Breath) Qty: 8.5 11RF atorvastatin 40 mg tablet 40 mg PO DAILY Qty: 90 3RF (DME) Portable oxygen concentrator with pulse approval See Rx Instructions .Route .MEDSUPPLY Qty: 1 0RF Rx Instructions: Portable oxygen concentrator with pulse approval. O2 2L NC. metoprolol succinate 25 mg tablet extended release 24 hr 25 mg PO DAILY Qty: 90 3RF tamsulosin 0.4 mg capsule 0.4 mg PO BID Qty: 180 3RF bupropion HCl 150 mg tablet extended release 24 hr 150 mg PO QAM Qty: 90 1RF Rx Instructions: start after 75 mg of bupropion levothyroxine 112 mcg tablet 112 mcg PO DAILY Qty: 90 0RF ipratropium-albuterol 0.5 mg-3 mg(2.5 mg base)/3 mL solution for nebulization 3 ml inhalation 4XD Qty: 90 0RF omeprazole 20 mg capsule,delayed release(DR/EC) 20 mg PO DAILY (DME) Disabled Parking Permint See Rx Instructions .ROUTE .MEDSUPPLY Qty: 1 0RF Rx Instructions: I find this patient to be medically disabled and qualified for Disabled Parking as indicated and signed on the Accompanying Disabled Parking Application for individuals. prednisone 10 mg tablet 10 mg PO DAILY Qty: 60 1RF triamterene-hydrochlorothiazid 37.5-25 mg capsule 1 cap PO DAILY Qty: 30 2RF acetaminophen 325 mg Tablet 650 mg PO Q6H PRN (Reason: Fever/Mild Pain (1-3)) Qty: 1 0RF quetiapine 25 mg Tablet 12.5 mg PO BID 30 Days Qty: 60 1RF lactulose 10 gram/15 mL solution 15 ml PO BEDTIME PRN (Reason: constipation) Qty: 473 0RF Breztri Aerosphere 160-9-4.8 mcg/actuation HFA aerosol inhaler 2 inh inhalation BID Qty: 5.9 11RF Supplemental Oxygen 4 l/min continuous inhalation DAILY Qty: 1 0RF Referrals: Ari Barfield DO [Primary Care Provider, Family Practice] Stand Alone Forms: Patient Portal/API ED Sign-out <Margarette Fuller MD - Last Filed: 03/05/25 08:07> Cosign ED Attending Cosignature Attestation: I was immediately available in the department for consultation throughout this patient's visit. Margarette Fuller MD
[2025-03-02] MEDS: DOXYCYCLINE HYCLATE 100 MG TABLET PO (17:02)
[2025-03-02 17:25] VITALS: BP 126/61; PULSE 90; RESP 20; TEMP 36.9; O2SAT 94
== END 2025-03-02 17:27 | disposition home or self-care (01) ==
PROVIDERS: Emergency Provider Physician Assistant; PCP Family Medicine
DX: L02.212 Cutaneous abscess of back [any part, except buttock and flank] (principal)
CPT/HCPCS: 10060; 87070; 87075; 87205; 99283; 99284

== ENCOUNTER 2025-05-10 06:24 | Day surgery (SDC) | payer MEDICARE, SELFPAY ==
[2024-10-14 17:15] VITALS: BMI 30.6
[2025-04-21 13:48] VITALS: BMI 29.4
[2025-05-10] VITALS (7 sets, daily range): BP systolic 106–135; BP diastolic 55–78; PULSE 71–98; RESP 22–32; TEMP 36.2–36.6; O2SAT 93–97
--- NOTE | 2025-05-10 06:20 | PM.PREOP ---
Pre-operative Note Interval Note History & Physical reviewed/Exam performed by Physician: Yes Changes to H&P: No ASA Class (for procedural sedation): II
[2025-05-10] MEDS: ALBUTEROL/IPRATROPIUM 3 ML AMPUL INH (06:58)
[2025-05-10] MEDS: ACETAMINOPHEN 325 MG TABLET 975 MG PO (06:58)
[2025-05-10] MEDS: LACTATED RINGERS 1,000 ML 42 ML IV (06:59)
--- NOTE | 2025-05-10 08:05 | SUR.OPER ---
Supine on padded OR bed, head on pillow and wedge pillow, arms secured on padded arm boards at <90 degrees abduction, legs uncrossed, safety belt at thigh.
--- NOTE | 2025-05-10 08:41 | PM.OP.1 ---
Operative Date/Time/Diagnoses Date of procedure: 05/10/25 Time of procedure: 08:41 Pre-op diagnosis: Ventral hernia Post-op diagnosis: same Procedure & Clinicians Procedure: Ventral hernia repair with mesh Same procedure(s) as scheduled: Yes Indications: 69yo M with symptomatic ventral hernia Surgeon: Osmar Mathias Assisted?: Yes Tax Compliance Representative: Yonathan Kyle Anesthesia Type: MAC +/- Operative Notes Findings: Bowel containing hernia, midline, primary hernia Closure Type: primary Specimen(s): none sent Applied: none and implant(s) (mesh) Estimated Blood Loss (mL): 5 Blood products transfused: none Procedure in detail: After informed consent and satisfactory sedation the abdomen was shaved, prepped and draped in the usual sterile manner. The patient received appropriate preoperative antibiotics and DVT prophylaxis. Surgical time-out was performed with all team members in agreement. The planned surgical incision was injected with 0.5% Marcaine with epinephrine. A total of 30 cc was used throughout the procedure in addition to the field block. The skin incision was made with the 15 blade. The subcutaneous tissues were bluntly dissected around the hernia. The hernia sac was intact and noted to contain unobstructed small bowel. We were able to reduce the sac and used finger sweeps to create a plane beneath the fascia for a preperitoneal hernia repair. The fascial defect was measured to be 4 cm. We used a [place] strap mesh in the preperitoneal position with excellent coverage. The strap was incorporated in the 0 Vicryl interrupted fascial sutures. There were no palpable fascial defects. The subcutaneous tissues were closed using 3-0 Vicryl interrupted. The skin incision was closed using 4-0 Monocryl in a subcuticular manner. Dermabond glue was applied as a final dressing. The estimated blood loss was minimal. The instrument sponge and needle counts were all correct x2. The patient tolerated the procedure well and was transported to the recovery area in stable condition. Complications: none Post-operative Condition: stable Disposition: PACU Plan for aftercare: PACU then home
[2025-05-10] MEDS: ONDANSETRON 4 MG/2 ML INJ IV (08:55)
== END 2025-05-10 10:25 | disposition home or self-care (01) ==
PROVIDERS: PCP Family Medicine; Referring Provider Surgery; Visit Provider Surgery
PROC: (CPT 49593; principal; 2025-05-10 07:45)
DX: K43.9 Ventral hernia without obstruction or gangrene (principal)
CPT/HCPCS: 49593; C1781; J0689; J1171; J2405; J2704; J7120

== ENCOUNTER 2025-05-11 04:56 | Emergency (ER) | payer MEDICARE, SELFPAY ==
[2024-10-14 17:15] VITALS: BMI 30.6
[2025-05-11] VITALS (7 sets, daily range): BP systolic 126–157; BP diastolic 61–81; PULSE 80–97; RESP 18; TEMP 36.5; O2SAT 92–95; BMI 29.7
--- NOTE | 2025-05-11 05:17 | ED_ITS ---
HPI - General Adult <Jennifer Branch DO - Last Filed: 05/12/25 01:25> General Chief complaint: Abdominal Pain Stated complaint: Post op 05/10/25, Urinary Retention Time Seen by Provider: 05/11/25 05:09 Source: patient, RN notes reviewed and old records reviewed Mode of arrival: Ambulatory Limitations: no limitations History of Present Illness HPI narrative: 69-year-old male history of hypertension, GERD, COPD on home O2, BPH, dyslipidemia who presents with complaint of urinary retention status post ventral hernia repair yesterday morning. Patient notes he has had difficulty urinating and not been able to have any urine out overnight. He does note he has also been throwing up several times since his surgery. He denies fevers. Patient states he is quite a bit of discomfort in the suprapubic area. He states he has a very small amount of stool out after his surgery but has not really been passing a lot of flatus. Patient states he has not eaten very much vomited appeared brownish. Denies chest pain or shortness of breath. Denies any fevers. Patient did take antinausea medication earlier this morning. He did note he has taken hydrocodone twice since his surgery. She has had prior thyroidectomy and his most recent ventral hernia repair denies other surgeries. Denies any allergies to medications. Former smoker, no daily alcohol, uses edibles but no other recreational drugs. Dr. Barfield is his primary care physician. Dr. Mathias performed his surgery here at [place] on 05/10/25. Related Data Home Medications ?Medication ?Instructions ?Recorded ?Confirmed omeprazole 20 mg capsule,delayed 20 mg PO DAILY 05/10/25 release Previous Rx's ?Medication ?Instructions ?Recorded acetaminophen 325 mg tablet 650 mg (2 x 325 mg) PO Q6H PRN 05/16/24 Fever/Mild Pain (1-3) #1 tab albuterol sulfate 90 mcg/actuation 2 puff inhalation Q 6H PRN 05/17/24 aerosol inhaler Shortness Of Breath #8.5 gra ms nitroglycerin 0.4 mg sublingual 0.4 mg sublingual Q5M PRN chest 05/17/24 tablet pain #10 tabs Portable oxygen concentrator with #1 ea 06/03/24 pulse approval budesonide 160 mcg-glycopyr 9 2 inh inhalation BID #5. 9 grams 06/10/24 mcg-formot 4.8 mcg/actuation HFA inhaler (Breztri MedArkivephere) Disabled Parking Permint #1 ea 08/09/24 metoprolol succinate 25 mg 25 mg PO DAILY #90 tabs 01/19 tablet,extended release 24 hr tamsulosin 0.4 mg capsule 0.4 mg PO BID #180 caps 02/18 Supplemental Oxygen 4 l/min continuous inhalatio n 01/06/25 DAILY #1 ea Home Oxygen concentrator 1 unit continuous inhalation 03/11/25 .COMPLEX #1 kit levothyroxine 112 mcg tablet 112 mcg PO DAILY #90 tabs 03/11/25 triamterene 37.5 1 cap PO DAILY #90 caps 02/25 12/19 mg-hydrochlorothiazide 25 mg capsule duloxetine 30 mg capsule,delayed 30 mg PO DAILY #30 ca ps 04/07/25 release ipratropium 0.5 mg-albuterol 3 mg 3 ml inhalation 4XD #90 mL 05/03/25 (2.5 mg base)/3 mL nebulization soln hydrocodone 5 mg-acetaminophen 325 1 tab PO Q4H PRN pa in #20 tabs 05/10/25 mg tablet amoxicillin 875 mg-potassium 1 tab PO BID #20 tabs clavulanate 125 mg tablet Allergies Allergy/AdvReac Type Severity Reaction Status Date / Time No Known Drug Allergies Allergy Verified 05/11/25 05:37 Review of Systems <Jennifer Branch DO - Last Filed: 05/12/25 01:25> Review of Systems ROS Unobtainable: All systems reviewed & are unremarkable except as noted in HPI and below Patient History <Jennifer Branch DO - Last Filed: 05/12/25 01:25> Medical History Umbilical hernia Diverticulitis large intestine Advanced chronic obstructive pulmonary disease Colon cancer screening Diverticulosis Hypothyroidism Insomnia Depression BPH (benign prostatic hyperplasia) Chronic neck pain GERD (gastroesophageal reflux disease) Essential tremor High cholesterol High blood pressure Closed fracture of left distal fibula Social History household members: significant other alcohol intake: former tobacco type: cigarettes alcohol intake frequency: a few times a week Exam <Jennifer Branch DO - Last Filed: 05/12/25 01:25> Narrative Exam Narrative: GENERAL: Alert and oriented x three, male in moderate distress HEENT: Head normocephalic, atraumatic, EOMI, pupils reactive, face symmetric, moist mucous membranes NECK: Supple, full range of motion CARDIOVASCULAR: Regular rate and rhythm without murmurs, rubs or gallops. RESPIRATORY: Breath sounds equal bilaterally, no wheezes rales or rhonchi. ABDOMEN: Soft, tender suprapubic. Abdomen is distended. Hypoactive bowel sounds all 4 quadrants. No guarding or rebound, rigidity, no mass, patient surgical incisions appear clean, dry and intact, no surrounding erythema or drainage appreciated. : No CVA tenderness. Male: normal external examination, no penile discharge or lesions, testicles non-tender, cremasteric reflex intact, no inguinal hernias noted. EXTREMITIES: Normal range of motion, no clubbing or edema. Neurovascularly intact NEUROLOGICAL: Cranial nerves II through XII grossly intact. Moving all extremities SKIN: Warm, dry, no petechiae, no rashes or lesions. Initial Vital Signs Initial Vital Signs: Vital Signs Temperature 97.7 F 05/11/25 05:05 Pulse Rate 97 H 05/11/25 05:05 Respiratory Rate 18 05/11/25 05:05 Blood Pressure 157/81 H 05/11/25 05:05 Pulse Oximetry 94 05/11/25 05:05 Oxygen Delivery Method Nasal Cannula 05/11/25 05:05 Oxygen Flow Rate 2 05/11/25 05:05 <Fallon Chacko, DO - Last Filed: 05/11/25 12:41> Initial Vital Signs Initial Vital Signs: Vital Signs Temperature 97.7 F 05/11/25 05:05 Pulse Rate 97 H 05/11/25 05:05 Respiratory Rate 18 05/11/25 05:05 Blood Pressure 157/81 H 05/11/25 05:05 Pulse Oximetry 94 05/11/25 05:05 Oxygen Delivery Method Nasal Cannula 05/11/25 05:05 Oxygen Flow Rate 2 05/11/25 05:05 Course <DO Nash Chilel Last Filed: 05/12/25 01:25> Orders Ordered: Discontinued Medications Hydromorphone HCl (Hydromorphone Hcl 0.5 Mg/0.5 Ml Syringe) 0.5 mg IV NOW ONE Stop: 05/11/25 08:09 Last Admin: 05/11/25 09:12 Dose: 0.5 mg Documented By: ULISES Ceftriaxone Sodium 1,000 mg/ (Sodium Chloride) 100 mls @ 200 mls/hr IV NOW ONE Stop: 05/11/25 09:51 Last Infusion: 05/11/25 11:30 Dose: Infused Documented By: Admin: 05/11/25 10:50 Dose: 200 mls/hr Documented By: ULISES Ketorolac Tromethamine (Ketorolac 30 Mg/Ml Vial) 15 mg IV NOW ONE Stop: 05/11/25 07:08 Last Admin: 05/11/25 09:11 Dose: 15 mg Documented By: ULISES Lidocaine HCl (Lidocaine 2% (Glydo) 6 Ml Gel) 6 ml TOP NOW ONE Stop: 05/11/25 05:17 Last Admin: 05/11/25 05:19 Dose: 6 ml Documented By: STARR Metoclopramide HCl (Metoclopramide 10 Mg/2 Ml Inj) 10 mg IV NOW ONE Stop: 05/11/25 07:08 Last Admin: 05/11/25 09:12 Dose: 10 mg Documented By: ULISES Ondansetron HCl (Ondansetron 4 Mg/2 Ml Inj) 4 mg IV NOW ONE Stop: 05/11/25 05:17 Last Admin: 05/11/25 06:18 Dose: 4 mg Documented By: STARR Vital Signs Vital signs: Vital Signs - 8 hr 05/11/25 05:05 Temperature 97.7 F Pulse Rate 97 H Respiratory Rate 18 Blood Pressure 157/81 H Pulse Oximetry 94 Oxygen Delivery Method Nasal Cannula Oxygen Flow Rate 2 <Fallon Chacko DO - Last Filed: 05/11/25 12:41> Orders Ordered: Discontinued Medications Hydromorphone HCl (Hydromorphone Hcl 0.5 Mg/0.5 Ml Syringe) 0.5 mg IV NOW ONE Stop: 05/11/25 08:09 Last Admin: 05/11/25 09:12 Dose: 0.5 mg Documented By: ULISES Ceftriaxone Sodium 1,000 mg/ (Sodium Chloride) 100 mls @ 200 mls/hr IV NOW ONE Stop: 05/11/25 09:51 Last Infusion: 05/11/25 11:30 Dose: Infused Documented By: Admin: 05/11/25 10:50 Dose: 200 mls/hr Documented By: ULISES Ketorolac Tromethamine (Ketorolac 30 Mg/Ml Vial) 15 mg IV NOW ONE Stop: 05/11/25 07:08 Last Admin: 05/11/25 09:11 Dose: 15 mg Documented By: ULISES Lidocaine HCl (Lidocaine 2% (Glydo) 6 Ml Gel) 6 ml TOP NOW ONE Stop: 05/11/25 05:17 Last Admin: 05/11/25 05:19 Dose: 6 ml Documented By: STARR Metoclopramide HCl (Metoclopramide 10 Mg/2 Ml Inj) 10 mg IV NOW ONE Stop: 05/11/25 07:08 Last Admin: 05/11/25 09:12 Dose: 10 mg Documented By: ULISES Ondansetron HCl (Ondansetron 4 Mg/2 Ml Inj) 4 mg IV NOW ONE Stop: 05/11/25 05:17 Last Admin: 05/11/25 06:18 Dose: 4 mg Documented By: STARR Vital Signs Vital signs: Vital Signs - 8 hr 05/11/25 05:05 Temperature 97.7 F Pulse Rate 97 H Respiratory Rate 18 Blood Pressure 157/81 H Pulse Oximetry 94 Oxygen Delivery Method Nasal Cannula Oxygen Flow Rate 2 Medical Decision Making <Jennifer Branch DO - Last Filed: 05/12/25 01:25> Lab Data 05/11/25 05:00 05/11/25 05:00 Labs: Lab Results 05/11/25 Range/Units 05:00 WBC 7.5 (4.5-11.0) X10^3/uL RBC 3.71 L (4.5-5.9) X10^6/uL Hgb 10.6 L (13.5-17.5) g/dL Hct 31.8 L (41-53) % MCV 85.8 (80-100) fL MCH 28.6 (26-34) PG MCHC 33.4 (30-36) % RDW 14.0 (11.6-14.8) % Plt Count 307 (150-400) X10^3/uL Neut % (Auto) 79.3 H (50-75) % Lymph % (Auto) 12.7 L (25-40) % Becker % (Auto) 6.9 (3-14) % Eos % (Auto) 0.7 L (2-4) % Baso % (Auto) 0.4 (0-2) % Neut # (Auto) 6000 (2814-5582) /uL Lymph # (Auto) 1000 L (7553-7088) /uL Becker # (Auto) 500 (0-900) /uL Eos # (Auto) 100 (0-450) /uL Baso # (Auto) 0 (0-100) /uL Sodium 130 L (137-145) mmol/L Potassium 4.3 (3.4-5.1) mmol/L Chloride 93 L (98-107) mmol/L Carbon Dioxide 31 (22-32) mmol/L BUN 16 (9-20) mg/dL Creatinine 0.87 (0.66-1.25) mg/dL Estimated GFR > 60 (>60) mL/min BUN/Creatinine Ratio 18.4 (6-22) Glucose 125 H (70-99) mg/dL Calcium 9.4 (8.4-10.2) mg/dL Total Bilirubin 0.4 (0.2-1.3) mg/dL AST 21 (17-59) IU/L ALT 12 (<50) IU/L Alkaline Phosphatase 77 (38-126) U/L Total Protein 7.6 (6.3-8.2) g/dL Albumin 4.3 (3.5-5.0) g/dL Globulin 3.3 (1.7-4.1) g/dL Albumin/Globulin Ratio 1.3 (1.0-2.8) Lipase 23 (23-300) U/L Urine Dip Bedside Urine Glucose Negative Bedside Urine Bilirubin - Negative Bedside Urine Ketone - Negative Urine Specific Rodney 1.020 Bedside Urine Occult Blood - Negative Bedside Urine pH 6.0 Bedside Urine Protein - Negative Bedside Urine Urobilinogen - Negative Bedside Urine Nitrite - Negative Bedside Urine Leukocytes - Negative Esterase Point of care testing: Urine Dip Bedside Urine Glucose Negative Bedside Urine Bilirubin - Negative Bedside Urine Ketone - Negative Urine Specific Rodney 1.020 Bedside Urine Occult Blood - Negative Bedside Urine pH 6.0 Bedside Urine Protein - Negative Bedside Urine Urobilinogen - Negative Bedside Urine Nitrite - Negative Bedside Urine Leukocytes - Negative Esterase [facility] Medical decision making narrative: Bladder scan shows >800mL, [place] catheter was placed patient had >900mL immediately with significant improvement in his symptoms. Patient had surgery yesterday and has had issues in the past with urinary retention. He also notes some vomiting since his surgery as well and he does not appear somewhat distended so labs and imaging were obtained as well. Labs show white count 7.5 hemoglobin 10.6 was 11.7 on January of 2025, platelets are 307. Chemistries shows sodium of 130 was 136 in January of 2025 chloride 93, urine creatinine are appropriate potassium is 4.3 glucose is 125 bilirubin, AST ALT alk-phos and lipase are all normal. Urine is negative. CT abdomen pelvis circumferential wall thickening of the sigmoid colon no pericolonic focal drainable collection or pneumoperitoneum findings were suggestive of mild colitis, Patient had zofran. On rechecked after CT has resulted patient states pain has not increased again he is feeling much better initially after his bladder drained. He also notes some increase in nausea we will give a anal pain medication as he has not had any so far as well as additional antinausea medication. We will re-evaluate after oral challenge. <Fallon Chacko, DO - Last Filed: 05/11/25 12:41> Lab Data Labs: Lab Results 05/11/25 Range/Units 05:00 WBC 7.5 (4.5-11.0) X10^3/uL RBC 3.71 L (4.5-5.9) X10^6/uL Hgb 10.6 L (13.5-17.5) g/dL Hct 31.8 L (41-53) % MCV 85.8 (80-100) fL MCH 28.6 (26-34) PG MCHC 33.4 (30-36) % RDW 14.0 (11.6-14.8) % Plt Count 307 (150-400) X10^3/uL Neut % (Auto) 79.3 H (50-75) % Lymph % (Auto) 12.7 L (25-40) % Becker % (Auto) 6.9 (3-14) % Eos % (Auto) 0.7 L (2-4) % Baso % (Auto) 0.4 (0-2) % Neut # (Auto) 6000 (2603-3668) /uL Lymph # (Auto) 1000 L (7136-6421) /uL Becker # (Auto) 500 (0-900) /uL Eos # (Auto) 100 (0-450) /uL Baso # (Auto) 0 (0-100) /uL Sodium 130 L (137-145) mmol/L Potassium 4.3 (3.4-5.1) mmol/L Chloride 93 L (98-107) mmol/L Carbon Dioxide 31 (22-32) mmol/L BUN 16 (9-20) mg/dL Creatinine 0.87 (0.66-1.25) mg/dL Estimated GFR > 60 (>60) mL/min BUN/Creatinine Ratio 18.4 (6-22) Glucose 125 H (70-99) mg/dL Calcium 9.4 (8.4-10.2) mg/dL Total Bilirubin 0.4 (0.2-1.3) mg/dL AST 21 (17-59) IU/L ALT 12 (<50) IU/L Alkaline Phosphatase 77 (38-126) U/L Total Protein 7.6 (6.3-8.2) g/dL Albumin 4.3 (3.5-5.0) g/dL Globulin 3.3 (1.7-4.1) g/dL Albumin/Globulin Ratio 1.3 (1.0-2.8) Lipase 23 (23-300) U/L Urine Dip Bedside Urine Glucose Negative Bedside Urine Bilirubin - Negative Bedside Urine Ketone - Negative Urine Specific Rodney 1.020 Bedside Urine Occult Blood - Negative Bedside Urine pH 6.0 Bedside Urine Protein - Negative Bedside Urine Urobilinogen - Negative Bedside Urine Nitrite - Negative Bedside Urine Leukocytes - Negative Esterase Point of care testing: Urine Dip Bedside Urine Glucose Negative Bedside Urine Bilirubin - Negative Bedside Urine Ketone - Negative Urine Specific Rodney 1.020 Bedside Urine Occult Blood - Negative Bedside Urine pH 6.0 Bedside Urine Protein - Negative Bedside Urine Urobilinogen - Negative Bedside Urine Nitrite - Negative Bedside Urine Leukocytes - Negative Esterase Imaging Data CT scan - abdomen/pelvis: Radiologist's Impression: PROCEDURE: CT ABDOMEN PELVIS W CON INDICATIONS: urinary retention, s/p hernia repair, vomiting TECHNIQUE: After the administration of intravenous contrast, axial sections acquired from the lung bases to the pubic symphysis. Coronal and sagittal reformats were performed. For radiation dose reduction, the following was used: automated exposure control, adjustment of mA and/or kV according to patient size. COMPARISON: [facility], CT, CT ABDOMEN PELVIS W CON, 02/07/2025, 22:40. FINDINGS: Image quality: Diagnostic. Lower Chest: Dependent atelectasis. Elevated left diaphragm noted. Coronary artery calcifications are noted. ABDOMEN: Liver: Fatty infiltration of the liver. No mass, intrahepatic biliary dilation or cirrhosis. Portal vein is patent. Gallbladder: No radiopaque gallstones or wall thickening. Biliary ducts: No biliary dilation. Pancreas: No ductal dilation. Spleen: Size is within normal limits. Adrenal Glands: No adrenal nodules. Kidneys and Ureters: No hydronephrosis. No solid mass. No complex renal cystic lesion which requires follow up. Stomach and Bowel: Colonic diverticulosis is present. Long segment sigmoid wall thickening with mild adjacent fat stranding noted. No obstruction, perforation or abscess. Inflamed soft tissue density process abutting the mid transverse colon on image 2, 88 subjacent to the umbilicus is likely fat infarct/postsurgical changes. Otherwise, the remaining bowel is unremarkable. Peritoneum: Small volume pneumoperitoneum is likely postoperative. No significant ascites. Ventral Wall: Subcutaneous fat stranding noted at the umbilicus some recent ventral hernia repair. Small fluid and gas containing collection at the umbilicus measuring 3.0 x 1.8 x 1.7 cm could represent a postoperative seroma. Abdominal Nodes: No retroperitoneal or mesenteric adenopathy by size criteria. Vessels: Aorta and inferior vena cava are normal in size. Moderate to marked atheromatous plaques are noted in the nonaneurysmal abdominal aorta. PELVIS: Pelvic Organs: Enlarged prostate gland. Coarse and punctate calcifications are noted. Moderately enlarged seminal vesicles. Bladder: Contracted urinary bladder contains a [place] catheter. Pelvic Nodes: No enlarged lymph nodes. Miscellaneous: No inguinal hernias are seen. Bones: No aggressive osseous abnormality. Multilevel degenerative disc disease and facet arthopathy noted. IMPRESSION: CT findings concerning for uncomplicated acute sigmoid diverticulitis. Postoperative changes from an umbilical hernia repaired. No recurrent hernia is noted. Small fluid and gas containing collection noted at the operative site. This is most consistent with a seroma from recent surgery. Abscess is on the differential but felt to be less likely. Recommend repeat imaging as needed if inflammation should develop. Probable mesenteric infarct/fat infarct in the anterior abdomen subjacent to the umbilicus. This is likely postoperative in origin. Agree with preliminary interpretation by [facility]. Dictated by: Danay Marc M.D. on 05/11/2025 at 8:56 Approved by: Danay Marc M.D. on 05/11/2025 at 9:07 [facility] Narrative Medical decision making narrative: Bladder scan shows >800mL, [place] catheter was placed patient had >900mL immediately with significant improvement in his symptoms. Patient had surgery yesterday and has had issues in the past with urinary retention. He also notes some vomiting since his surgery as well and he does not appear somewhat distended so labs and imaging were obtained as well. Labs show white count 7.5 hemoglobin 10.6 was 11.7 on January of 2025, platelets are 307. Chemistries shows sodium of 130 was 136 in January of 2025 chloride 93, urine creatinine are appropriate potassium is 4.3 glucose is 125 bilirubin, AST ALT alk-phos and lipase are all normal. Urine is negative. CT abdomen pelvis circumferential wall thickening of the sigmoid colon no pericolonic focal drainable collection or pneumoperitoneum findings were suggestive of mild colitis, Patient had zofran. On rechecked after CT has resulted patient states pain has not increased again he is feeling much better initially after his bladder drained. He also notes some increase in nausea we will give a anal pain medication as he has not had any so far as well as additional antinausea medication. We will re-evaluate after oral challenge. Dr. Chacko patient signed out to me by Dr. Branch I have seen evaluated patient myself. Patient is still having quite a bit of pain after Toradol and Reglan. He feels like he is constipated and has to go on he feels like that is what is making him nauseous. Preliminary CT report shows circumferential wall thickening of the sigmoid colon. No pericolonic focal drainable collection or pneumoperitoneum findings suggestive of mild colitis. Awaiting for final CT report. Giving patient Dilaudid. Dr. Mathias updated patient's symptoms test results CT showing sigmoid diverticulitis without complication no leukocytosis. At this time recommend 1 dose of IV Rocephin discharged home on Augmentin. Patient is sleeping after Dilaudid pain is much better. He has pain medication already for being postop. Discharge Plan Departure Patient Disposition: Home Clinical Impression: Diverticulitis, Acute urinary retention, S/P hernia repair, Vomiting Instructions: How to Care for Your [place] Catheter -- Male, DI for Diverticulitis Activity Restrictions/Additional Instructions: *You have been diagnosed with diverticulitis *What to do: At this time recommend low fiber diet minimal fruits and vegetables or well cooked vegetables canned vegetables and fruit, staying hydrated with water and electrolytes *Continue to take medications as directed Augmentin 875 twice daily for 10 days Pain medication as previously prescribed *Follow up with your primary care provider in 2-3 days or call [phone] Dr. Mathias, as scheduled *Return to ER if you should have increasing pain persistent vomiting fever weakness or any new, worsening or concerning symptoms Prescriptions: New amoxicillin-pot clavulanate 875-125 mg tablet 1 tab PO BID Qty: 20 0RF No Action nitroglycerin 0.4 mg tablet, sublingual 0.4 mg sublingual Q5M PRN (Reason: chest pain) Qty: 10 0RF Patient Comments: has not needed to take it yet Rx Instructions: do not exceed 3 doses per episode albuterol sulfate 90 mcg/actuation HFA aerosol inhaler 2 puff inhalation Q6H PRN (Reason: Shortness Of Breath) Qty: 8.5 11RF (DME) Portable oxygen concentrator with pulse approval See Rx Instructions .Route .MEDSUPPLY Qty: 1 0RF Rx Instructions: Portable oxygen concentrator with pulse approval. O2 2L NC. metoprolol succinate 25 mg tablet extended release 24 hr 25 mg PO DAILY Qty: 90 3RF tamsulosin 0.4 mg capsule 0.4 mg PO BID Qty: 180 3RF ipratropium-albuterol 0.5 mg-3 mg(2.5 mg base)/3 mL solution for nebulization 3 ml inhalation 4XD Qty: 90 3RF omeprazole 20 mg capsule,delayed release(DR/EC) 20 mg PO DAILY (DME) Disabled Parking Permint See Rx Instructions .ROUTE .MEDSUPPLY Qty: 1 0RF Rx Instructions: I find this patient to be medically disabled and qualified for Disabled Parking as indicated and signed on the Accompanying Disabled Parking Application for individuals. duloxetine 30 mg capsule,delayed release(DR/EC) 30 mg PO DAILY Qty: 30 2RF Rx Instructions: start after completing Cipro dose levothyroxine 112 mcg tablet 112 mcg PO DAILY Qty: 90 3RF triamterene-hydrochlorothiazid 37.5-25 mg capsule 1 cap PO DAILY Qty: 90 3RF Home Oxygen concentrator 1 unit continuous inhalation .COMPLEX Qty: 1 0RF Rx Instructions: 1 unit via continuous inhalation 2L/min; acetaminophen 325 mg Tablet 650 mg PO Q6H PRN (Reason: Fever/Mild Pain (1-3)) Qty: 1 0RF hydrocodone-acetaminophen 5-325 mg tablet 1 tab PO Q4H PRN (Reason: pain) Qty: 20 0RF Breztri Aerosphere 160-9-4.8 mcg/actuation HFA aerosol inhaler 2 inh inhalation BID Qty: 5.9 11RF Supplemental Oxygen 4 l/min continuous inhalation DAILY Qty: 1 0RF Referrals: Ari Barfield, [Primary Care Provider, [facility]] Stand Alone Forms: Patient Portal/API
[2025-05-11] MEDS: LIDOCAINE 2% (GLYDO) 6 ML GEL TOP (05:19)
[2025-05-11 05:57] LABS: Add Manual Diff / Slide Review NO; Hematocrit 31.8 % (41-53); Hemoglobin 10.6 g/dL (13.5-17.5); Lymphocytes Absolute Auto 1000 /uL (1100-4500); Mean Corpuscular HGB Conc 33.4 % (30-36); Mean Corpuscular Hemoglobin 28.6 PG (26-34); Mean Corpuscular Volume 85.8 fL (80-100); Platelet Count 307 X10^3/uL (150-400)
[2025-05-11 06:08] LABS: Alanine Aminotransferase 12 IU/L (<50); Albumin 4.3 g/dL (3.5-5.0); Albumin Globulin Ratio 1.3 (1.0-2.8); Alkaline Phosphatase 77 U/L (38-126); Blood Urea Nitrogen 16 mg/dL (9-20); Calcium 9.4 mg/dL (8.4-10.2); Carbon Dioxide 31 mmol/L (22-32); Chloride 93 mmol/L (98-107); Estimated Glomerular Filt Rate > 60 mL/min (>60); Globulin 3.3 g/dL (1.7-4.1); Glucose 125 mg/dL (70-99); HEMOLYSIS < 15 (0-50); Lipase 23 U/L (23-300); Potassium 4.3 mmol/L (3.4-5.1); Sodium 130 mmol/L (137-145); Total Protein 7.6 g/dL (6.3-8.2)
[2025-05-11] MEDS: ONDANSETRON 4 MG/2 ML INJ IV (06:18)
[2025-05-11] MEDS: KETOROLAC 30 MG/ML VIAL 15 MG IV (09:11)
[2025-05-11] MEDS: METOCLOPRAMIDE 10 MG/2 ML INJ IV (09:12)
--- NOTE | 2025-05-11 12:15 | PC.NURSE ---
1215: pt educated on catheter care and leg bag use. Verbalized understanding.
== END 2025-05-11 12:15 | disposition home or self-care (01) ==
PROVIDERS: Emergency Medicine; Emergency Provider Emergency Medicine; PCP Family Medicine
DX: K57.92 Diverticulitis of intestine, part unspecified, without perforation or abscess without bleeding (principal); R33.8 Other retention of urine; R11.10 Vomiting, unspecified; Z98.890 Other specified postprocedural states
CPT/HCPCS: 36415; 74177; 80053; 81003; 83690; 85025; 96365; 96375; 99285; J0696; J1171; J1885; J2405; J2765; J7050; Q9967

== ENCOUNTER → 2025-07-07 10:22 | Outpatient (CLI) | payer MEDICARE, SELFPAY ==
[2024-10-14 17:15] VITALS: BMI 30.6
--- NOTE | 2025-07-07 10:25 | DI.RAD.S_ITS ---
PROCEDURE: XR HIP W PEL IF DONE RT 2V INDICATIONS: Right hip pain TECHNIQUE: AP pelvis with lateral view(s) of the right hip(s). COMPARISON: None. FINDINGS: Bones: No fractures or dislocations. Pelvic ring appears intact. Shape of the femoral head suggest CAM type impingement. Moderate bilateral degenerative arthritis. No suspicious bony lesions. Soft tissues: The visualized bowel gas pattern is normal. No suspicious soft tissue calcifications. 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 Moderate bilateral degenerative arthritis. Dictated by: Joni Morris M.D. on 07/07/2025 at 11:41 Approved by: Joni Morris M.D. on 07/07/2025 at 11:44
== END ==
PROVIDERS: PCP Family Medicine; Referring Provider Family Medicine; Visit Provider Family Medicine
DX: M16.0 Bilateral primary osteoarthritis of hip (principal); M25.551 Pain in right hip
CPT/HCPCS: 73502